=== PATIENT | female | born 1970 | race Caucasian/White ===

== ENCOUNTER 2022-02-07 08:13 | Outpatient (CLI) | payer OTHER, SELFPAY ==
--- NOTE | 2022-02-07 08:00 | CRLHL7_ITS ---
For Patients: As a result of the Century Cures Act, medical imaging exams and procedure reports are released immediately into your electronic medical record. You may view this report before your referring provider. If you have questions, please contact your health care provider. Indication: F/U RECTAL CANCER Technique: Postcontrast CT chest, abdomen and pelvis. 147 cc Isovue 370 intravenous contrast. Please note that all CT scans at this facility use dose modulation, iterative reconstruction, and/or weight-based dosing when appropriate to reduce radiation dose to as low as reasonably achievable. Comparison: 08/16/2021 Findings: In the chest, bilateral thyroid nodules/cysts are again noted and unchanged. No pulmonary embolism or aortic dissection. No mediastinal, hilar or axillary adenopathy. No pleural or pericardial effusion. 3.0 cm hiatal hernia. 4-5 millimeter nodule in the right middle lobe is unchanged, 43. Mild mosaic attenuation of the pulmonary parenchyma representing mild small airway disease. No pulmonary edema or pneumothorax. No acute infiltrate. Stable benign sclerotic focus within right 4th rib. In the abdomen, there is no suspicious intrahepatic mass. The gallbladder is normal. Normal spleen. Pancreas is unremarkable. Normal adrenal glands. No hydronephrosis or solid renal mass. The ureters are normal. Vascular calcifications. No aneurysm. No retroperitoneal or mesenteric adenopathy. Interval take down of the previously noted left upper quadrant diverting ostomy. Abdominal wall hernia containing fat is unchanged measuring 3.9 cm. In the pelvis, the bladder is normal. Postop changes of distal colectomy. The uterus is normal. No bowel obstruction or free air. No free fluid or abscess. Normal appendix. No fracture. Impression: Stable 4-5 millimeter right middle lobe pulmonary nodule. Interval takedown of the previously noted diverting ostomy. No inflammatory changes or bowel obstruction. Stable postop changes of distal colonic resection. No suspicious adenopathy or hepatic lesion. Please note that all CT scans at this facility use dose modulation, iterative reconstruction, and/or weight-based dosing when appropriate to reduce radiation dose to as low as reasonably achievable. Dictated by Del Ortiz MD @ 02/07/2022 12:27:54 PM (Electronically Signed)
== END 2022-02-07 08:14 | disposition home or self-care (01) ==
LOC: CT 08:13
PROVIDERS: PCP Physician Assistant Medical; Visit Provider Internal Medicine Medical Oncology
DX: C20 Malignant neoplasm of rectum (principal); R91.8 Other nonspecific abnormal finding of lung field
CPT/HCPCS: 71260; 74177; Q9967

== ENCOUNTER 2022-05-01 09:45 | Outpatient (RCR) | payer OTHER, SELFPAY | END 2022-07-04 13:47 | disposition home or self-care (01) | PROVIDERS: PCP Physician Assistant Medical; Visit Provider Physician Assistant Medical | DX: R15.9 Full incontinence of feces (principal); Z51.89 Encounter for other specified aftercare | CPT/HCPCS: 97140; 97535 ==

== ENCOUNTER 2022-05-03 14:46 | Outpatient (CLI) | payer OTHER, SELFPAY ==
[2022-05-03 21:38] LABS: Albumin* 4.1 g/dL (3.3-5.0); Chloride* 107 mmol/L (96-114); Sodium* 140 mmol/L (135-149)
[2022-05-03 21:39] LABS: Potassium* 4.1 mmol/L (3.6-5.1)
[2022-05-03 21:41] LABS: Alkaline Phosphatase* 88 U/L (40-150); Aspartate Amino Transferase* 20 U/L (12-35); Bilirubin Total* 0.7 mg/dL (0.1-1.5); Blood Urea Nitrogen* 9 mg/dL (7-30); Carbon Dioxide* 27 mmol/L (20-32); Creatinine* 0.9 mg/dL (0.5-1.5); Estimated Glomerular Filt Rate 76 ml/min; Lipase* 28 U/L (23-300); Total Protein* 7.1 g/dL (6.0-8.3)
[2022-05-03 21:42] LABS: Alanine Aminotransferase* 15 U/L (4-35); Glucose* 164 mg/dL (60-115)
[2022-05-03 21:44] LABS: C Reactive Protein* 0.8 mg/dL (0.5-1.0)
== END 2022-05-03 14:47 | disposition home or self-care (01) ==
PROVIDERS: PCP Physician Assistant Medical; Visit Provider Physician Assistant Medical
DX: R15.9 Full incontinence of feces (principal)
CPT/HCPCS: 80053; 83516; 83690; 86140

== ENCOUNTER 2022-07-11 09:02 | Outpatient (CLI) | payer OTHER, SELFPAY ==
--- NOTE | 2022-07-11 | CRLHL7_ITS ---
For Patients: As a result of the Century Cures Act, medical imaging exams and procedure reports are released immediately into your electronic medical record. You may view this report before your referring provider. If you have questions, please contact your health care provider. Indication: MALIGNANT NEOPLASM OF RECTUM Technique: Postcontrast CT chest, abdomen and pelvis. 149 cc Isovue 370 intravenous contrast. Please note that all CT scans at this facility use dose modulation, iterative reconstruction, and/or weight-based dosing when appropriate to reduce radiation dose to as low as reasonably achievable. Comparison: 02/07/2022 Findings: In the chest, stable 4.5 millimeter nodule within the right middle lobe, 3/49. No additional pulmonary nodule. No infiltrate or edema. No effusion or pneumothorax. Stable appearance of the visualized thyroid with small hypodense nodules. No enlarged mediastinal, hilar or axillary lymph nodes. No fracture is present. Atherosclerotic changes are present in the aorta. There is no fracture. In the abdomen, no intrahepatic lesion is present. No stigmata of cirrhosis. Fatty liver noted. Gallbladder unremarkable. No biliary obstruction or calcified stones. The pancreas is normal. Normal spleen. Normal adrenal glands and kidneys. No aortic aneurysm. Subcentimeter retroperitoneal lymph nodes are similar. Anterior abdominal wall hernia containing fat is unchanged. Postoperative changes to the left side of the abdomen. Small hiatal hernia. Normal duodenum and jejunum. In the pelvis, no postop fluid collection or abscess. No free air or free fluid. Normal ovaries and uterus. Bladder appears similar with developing diverticula. Postop changes of low anterior distal colonic resection with intact anastomosis. No bowel obstruction. The appendix is normal. No suspicious osseous lesion. Impression: Postoperative changes of distal colonic resection and take down of left lower quadrant ostomy. No bowel obstruction or inflammatory change. No postop fluid collection. Stable incidental anterior abdominal wall hernia containing fat. Bold stable 4.5 millimeter nodule within the right middle lobe. Stable subcentimeter retroperitoneal lymph nodes. Please note that all CT scans at this facility use dose modulation, iterative reconstruction, and/or weight-based dosing when appropriate to reduce radiation dose to as low as reasonably achievable. Dictated by Del Ortiz MD @ 07/11/2022 12:36:56 PM (Electronically Signed)
== END 2022-07-11 09:03 | disposition home or self-care (01) ==
LOC: CT 09:02
PROVIDERS: PCP Physician Assistant Medical; Visit Provider Clinical Nurse Specialist
DX: C20 Malignant neoplasm of rectum (principal); C77.9 Secondary and unspecified malignant neoplasm of lymph node, unspecified; R59.0 Localized enlarged lymph nodes; R91.1 Solitary pulmonary nodule
CPT/HCPCS: 71260; 74177; Q9967

== ENCOUNTER 2022-07-31 08:30 | Outpatient (RCR) | payer OTHER, SELFPAY ==
--- NOTE | 2022-07-04 12:03 | ONC.NURNOTE ---
02/09/22 provider visit faxed to [facility]. next providers visit 07/31/22. They are aware.
[2022-07-11 09:53] LABS: Basophils Absolute Auto 0.03 K/uL (0.00-0.30); Basophils Percent Auto 0.5 % (0.0-3.0); Eosinophils Absolute Auto 0.14 K/uL (0.00-0.50); Eosinophils Percent Auto 2.5 % (0.0-7.0); Hematocrit 40.6 % (33.0-51.0); Hemoglobin* 13.3 gm/dL (12.0-16.0); Immature Granulocytes Abs Auto 0.02 K/uL (0.00-0.30); Immature Granulocytes Pct Auto 0.4 %; Lymphocytes Percent Auto 17.8 % (20-44); Mean Corpuscular HGB Conc 33 gm/dL (32-36); Mean Corpuscular Hemoglobin 30 pg (26-34); Mean Corpuscular Volume 93 fL (80-100); Monocytes Percent Auto 6.7 % (0.0-11.0); Neutrophils Percent Auto 72.1 % (42.0-72.0); Platelet Count* 149 K/uL (140-440); RDW Coefficient of Variation % 13.6 % (11.5-15.5); Red Blood Count 4.39 m/uL (4.00-5.20); White Blood Count* 5.51 K/uL (4.50-11.00)
[2022-07-11 09:56] LABS: Slide Review Reflex No
[2022-07-11 10:06] LABS: Chloride* 109 mmol/L (96-114); Potassium* 4.2 mmol/L (3.6-5.1); Sodium* 140 mmol/L (135-149)
[2022-07-11 10:09] LABS: Alanine Aminotransferase* 16 U/L (4-35); Alkaline Phosphatase* 78 U/L (40-150); Aspartate Amino Transferase* 21 U/L (12-35); Bilirubin Total* 0.6 mg/dL (0.1-1.5); Blood Urea Nitrogen* 12 mg/dL (7-30); Carbon Dioxide* 25 mmol/L (20-32); Creatinine* 0.8 mg/dL (0.5-1.5); Estimated Glomerular Filt Rate 88 ml/min; Glucose* 106 mg/dL (60-115); Total Protein* 7.2 g/dL (6.0-8.3)
[2022-07-11 10:10] LABS: Calcium* 8.6 mg/dL (8.4-10.6)
== END 2022-08-08 23:59 | disposition home or self-care (01) ==
LOC: CCIC 08:30
PROVIDERS: Nurse Practitioner Family; PCP Physician Assistant Medical; Referring Provider Physician Assistant Medical; Visit Provider Physician Assistant
DX: C20 Malignant neoplasm of rectum (principal); R15.9 Full incontinence of feces
CPT/HCPCS: 36415; 36592; 80053; 82378; 84443; 85025; 99212; 99214; 99215

== ENCOUNTER 2022-08-09 16:21 | Outpatient (CLI) | payer OTHER, SELFPAY | END 2022-08-09 16:22 | disposition home or self-care (01) | LOC: NFLDREF 08-11 14:31 | PROVIDERS: PCP Physician Assistant Medical; Referring Provider Physician Assistant Medical; Visit Provider Physician Assistant Medical | DX: C20 Malignant neoplasm of rectum (principal); C77.9 Secondary and unspecified malignant neoplasm of lymph node, unspecified | CPT/HCPCS: 80053; 82378 ==

== ENCOUNTER 2022-08-21 12:11 | Outpatient (CLI) | payer OTHER, SELFPAY ==
--- NOTE | 2022-08-21 12:40 | W.ANESCHARGE ---
Anesthesia Charges Start Date/Time Anesthesia Start Date: 08/21/22 Anesthesia Start Time: 12:53 Stop Date/Time Anesthesia Stop Date: 08/21/22 Anesthesia Stop Time: 13:56
--- NOTE | 2022-08-21 14:01 | W.ANESCHARGE ---
Anesthesia Charges Start Date/Time Anesthesia Start Date: 08/21/22 Anesthesia Start Time: 12:53 Stop Date/Time Anesthesia Stop Date: 08/21/22 Anesthesia Stop Time: 13:56
== END 2022-08-21 12:12 | disposition home or self-care (01) ==
LOC: OP CLINIC 12:12
PROVIDERS: PCP Physician Assistant Medical; Visit Provider Surgery
DX: Z12.11 Encounter for screening for malignant neoplasm of colon (principal); K63.5 Polyp of colon; K62.89 Other specified diseases of anus and rectum; Z85.048 Personal history of other malignant neoplasm of rectum, rectosigmoid junction, and anus; Z98.0 Intestinal bypass and anastomosis status; Z13.810 Encounter for screening for upper gastrointestinal disorder
CPT/HCPCS: 43235; 45381; 45385; 813; 88305; J2704

== ENCOUNTER 2022-08-22 06:11 | Day surgery (SDC) | payer OTHER, SELFPAY ==
[2022-08-22] VITALS (20 sets, daily range): BP systolic 90–177; BP diastolic 41–91; PULSE 59–94; RESP 16–20; TEMP 35.6–37.2; O2SAT 86–96; BMI 54.5
[2022-08-22] MEDS: LACTATED RINGERS 1000 ML 1,000 ML 100 ML IV ×5 (06:25→18:51)
[2022-08-22] MEDS: SODIUM CHLORIDE 0.9 % (FLUSH) 10 ML SYRINGE IVF (07:18)
--- NOTE | 2022-08-22 07:19 | W.ANESCHARGE ---
Anesthesia Charges Start Date/Time Anesthesia Start Date: 08/22/22 Anesthesia Start Time: 07:32 Stop Date/Time Anesthesia Stop Date: 08/22/22 Anesthesia Stop Time: 11:30
[2022-08-22] MEDS: ERTAPENEM 1 GM inj IVPB (07:40)
--- NOTE | 2022-08-22 08:07 | W.PM.NB ---
Nerve Block Nerve Block Time Seen by Provider: 07:40 Date Seen: 08/22/22 Type of block requested by surgeon for post-operative analgesia: TAP Side: bilateral Time out performed: Yes Verification of patient name: Yes Verification of date of : Yes Site marking: site marked Name of person performing procedure: Babak Continuous monitoring Was continuous monitoring of O2 sat, B/P, quality assurance monitor, recorded every 15 minutes?: Yes Procedure Checklist: sterile prep, needles and gloves Ultrasound guided. Images saved: Yes Medications given in 5ml increments after negative aspiration: Marcaine %: 0.25 mL: 30 Needle gauge: 20 and Exparel mL: 10 Patient tolerated procedure well: Yes Additional comments: Needle noted adjacent to nerve Block Charges Block Charge (with Pro Fee): TAP Bilateral Use of Ultrasound Machine for Block: Yes- US Guidance/pain block
[2022-08-22] MEDS: BUPIVACAINE 0.25% 30 ML INJECTION (11:22)
--- NOTE | 2022-08-22 11:28 | PM.GSPRC ---
Operative Note Date of procedure: 08/22/22 Pre-op diagnosis: 1. History of rectal cancer s/p neoadjuvant chemotherapy and radiation and LAR. 2. Stool incontinence. 3. Severe obesity with BMI of 54. Post-op diagnosis: same Type of Procedure: 1. Laparoscopic creation of transverse colostomy and mucous fistula. Indications: This patient was seen in clinic by Dr. Padron. Please see her note for more details. Procedure Description: After discussing the risks and benefits of the procedure, the patient signed informed consent.? The operative site was marked and the patient was brought to the operating room and placed on the operating table in supine position.? Care was taken to pad the patient's pressure points.?? The patient was then intubated by anesthesia.? Gr[place]on catheter was placed under sterile conditions. The operative site was then prepped and draped in the usual sterile fashion.? A time-out was then performed. Dr. Padron entered the abdomen with Visiport in the left upper quadrant. We then placed additional 3 5 mm ports in the lower abdomen below the umbilicus. Omental adhesions were noted at the umbilicus and those were taken down with Harmonic scalpel. Omental adhesions were also noted in the left upper quadrant just inferior to the left upper quadrant port. Those were taken down with the Harmonic scalpel. During this part of the surgery I assisted Dr. Padron with visualization. The mid transverse colon was then identified and gastrocolic ligament was incised with Harmonic scalpel. This dissection was carried towards the splenic flexure and toward the hepatic flexure minimal dissection was done posterior to the stomach where the colonic mesentery was adherent to the stomach wall. This was done with Harmonic scalpel as well. The omentum was mobilized off the of transverse colon in the mid transverse colon with Harmonic scalpel. During this dissection I assisted Dr. Padron with retraction and visualization. The dissected segment of transverse colon was then retracted towards the abdominal wall and a small window was made in the colonic mesentery near the colonic wall. A Agus drain was placed into the abdomen and threaded through this window. The [place] drain was then grasped with a grasper. We then proceeded with creating a colostomy incision. Previously taking down omental adhesions were near the old colostomy site. We elected to create our colostomy opening through the same incision in the left upper quadrant. An elliptical skin incision was made in the left upper quadrant with cautery. The skin and subcutaneous fat were dissected in a cylinder like fashion down to the anterior fascia. Scar was noted overlying the anterior fascia. The fascia was then incised and abdomen was entered with cautery. The fascial opening was large enough to fit 2 fingers freely. The [place] drain positioned around the transverse colon was then pulled up and exteriorized. The distal and proximal colon was pulled up through the incision. Given the thickness of the abdominal wall, it was difficult to exteriorize the colon. During this part of the surgery I assisted Dr. Padron with visualization and retraction. The Agus drain was then removed because it was slightly more distal than our proposed colostomy incision. The colon serosa was anchored to the anterior fascia with Vicryl sutures. The colon lumen was then divided with cautery. The mucous fistula was laterally and the proximal end of the colon was medially. The mucous fistula opening was then closed with interrupted nylon sutures. The lateral wall of the Mucous fistula (distal end of the colon) was then sutured to the lateral skin edge of the colostomy incision. The proximal end of the colon had more redundancy medially. This medial edge was then brooked and sutured to the skin dermis. The lateral edge of the colostomy and the medial edge of the mucous fistula were sutured together with Vicryl sutures. Both openings were intubated with a finger and the fascial opening was not tight. The mucosal edges of the mucous fistula and colostomy were then additionally sutured to the skin dermis. During this part of creating a mucous fistula and colostomy I assisted with visualization and retraction. At this time all previously placed towels were removed and surgical gloves were changed to new gloves. The abdomen was insufflated with carbon dioxide again. The camera was advanced into the abdomen and newly created colostomy was visualized. The colonic segment was positioned appropriately without twisting of the mesentery. No bleeding was identified. All laparoscopic ports were then removed and abdomen was deflated. The skin incisions were closed with Monocryl stitch. ? Sterile dressings were then applied. ? The patient was then woken and transported to the recovery area in stable condition. ? The patient tolerated the procedure well. Anesthesia: GETA Surgeon: Melania Padron MD Co-Surgeon: Kaylene Oliva MD Estimated blood loss (mL): 20 Condition: stable Disposition: PACU
--- NOTE | 2022-08-22 11:39 | W.ANESCHARGE ---
Anesthesia Charges Start Date/Time Anesthesia Start Date: 08/22/22 Anesthesia Start Time: 07:32 Stop Date/Time Anesthesia Stop Date: 08/22/22 Anesthesia Stop Time: 11:30
--- NOTE | 2022-08-22 11:43 | PM.GSPRC ---
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 She has been followed in clinic by myself and colorectal surgery for rectal incontinence. Despite conservative measures, she has had no improvement in control of her fecal incontinence. Different treatment options were reviewed with the patient, including doing nothing versus surgical intervention. After a thorough discussion the patient has decided to proceed with a permanent ostomy. Risks and benefits of operative intervention were discussed at length with the patient. Risks included but was not limited to: Bleeding, infection, risk of damage to surrounding structures, possible need for additional procedures, possible need to convert to an open operation and postoperative complications such as pneumonia, pulmonary emboli or RI. All questions and concerns were addressed with the patient agreeing to proceed. Procedure Description: After discussing the risks and benefits of the procedure, the patient signed informed consent.? The operative site was marked and the patient was brought to the operating room and placed on the operating table in supine position.? Care was taken to pad the patient's pressure points.?? The patient was then intubated by anesthesia.?? A Grullon was placed in the operating room under sterile conditions. The operative site was then prepped and draped in the usual sterile fashion.? A time-out was then performed. A 5 mm Visiport was placed in left upper quadrant. The abdomen was entered under direct visualization and insufflated. After insufflation the abdomen was briefly surveyed, with no evidence of underlying injury. There were some adhesions present in the left upper quadrant. Three additional 5 mm ports were placed under direct visualization inferior to the umbilicus and within the right lower quadrant. An umbilical hernia was visualized with incarcerated omentum. This was partially reduced and ligated with the Harmonic. The adhesions in the left upper quadrant were taken down with the Harmonic device as well. During this portion of the procedure Dr. Oliva assisted with visualization and retraction. The underlying transverse colon was visualized. There was a significant amount of redundancy in colon at the hepatic flexure. The mesentery and overlying omentum was very fatty, making dissection during this portion of the exam difficult. Dr. Oliva assisted with retraction while I utilized the Harmonic device to transect the gastrocolic ligament and enter into the lesser sac. Dissection was carried towards the hepatic flexure and then the splenic flexure, to adequately mobilize the transverse colon. The overlying omentum was retracted back and transected off. Once the transverse colon was fully mobilized a window was made on the mesenteric border. A [place] drain was placed into the abdomen an looped through the mesenteric defect. The [place] drain was then grasped with a locking grasper and we removed all laparoscopic equipment to go to the ostomy creation portion of the procedure. There was a left upper quadrant incision on the anterior abdominal wall, where her previous ostomy had been. This location was directly under the mobilized transverse colon and the decision made to recreate the ostomy at this site. 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 Circumferentially the skin was cauterized and dissection carried down through the subcutaneous space. The overlying skin and subcutaneous fat was removed, and sent for disposal. The fascia was further cleared off. There was evidence of previous scar tissue where her ostomy had gone through previously. This was opened with cautery and the anterior fascia transected. The abdomen was entered and desufflated. The Agus drain with the locking grasper was seen, the grasper was removed and utilizing a [place] drain the transverse colon was slowly brought in to the operative field. There was no tension on the colon, however this portion of the procedure was difficult secondary to the heavy mesentery, surrounding fat of the colon and thick abdominal wall. The agus drain was then removed. Babcocks were used to pull up as much as we could of the transverse vcolon to pull up on our ostomy. Care was taken not to twist the mesentery or alter the orientation of the bowel. The bowel was then attached to the anterior fascia at 3 points on the proximal and distal limb. A point of transection was identified and the bowel was completely transected. The mucous fistula was oriented laterally. There was more redundancy on the medial, proximal limb which we used to create the end ostomy. The distal limb of the bowel was then partially closed with 3-0 silk pop-off sutures. The opening was then secured flush to the skin with interrupted 3 0 Vicryl stitches. The medial wall the mucous fistula was secured to the proximal limb of the bowel. The proximal limb was then brooked in place, to allow for eversion, at 3 points. The stoma was then secured to the dermal edge with interrupted 3 0 Vicryl stitches. After this stoma was created all dirty equipment was off of the operative field. The laparoscopic equipment was brought back into the operative field and the abdomen insufflated under reduced pressure of 10 mmHg. The transverse colon was visualized going up to the stoma. There was no twisting of the bowel or mesentery identified. Hemostasis was excellent at the end of the procedure. All ports were then removed under direct visualization. The port sites were closed with 4-0 Monocryl and Dermabond. A stoma appliance was applied to the ostomy in the left upper quadrant. ? The patient was then woken and transported to the recovery area in stable condition. ? The patient tolerated the procedure well. Findings: Normal transverse colon, mobilization with creation of end colostomy a mucous fistula Anesthesia: GETA Surgeon: Melania Padron MD Co-Surgeon: Jena Oliva MD Estimated blood loss (mL): 20 Condition: stable Disposition: floor
[2022-08-22] MEDS: NICOTINE 21 MG PATCH 1 PATCH TRANSDERMA (16:12)
--- NOTE | 2022-08-22 16:31 | PC.NURSE ---
PATIENT USING CPAP WHEN SLEEPING WITH 3L O2 BLED IN WHICH PATIENT REPORTS IS WHAT SHE USES AT HOME. PATIENT USING INCENTIVE SPIROMETER TO 1250. LAP SITES x4 GLUED AND ROSENDO. COLOSTOMY TO LEFT UPPER ABDOMEN INTACT AND DRAINING CLEAR BLOODY FLUID INTO POUCH. LS CLEAR. UP WITH SBA TO BATHROOM AND TOLERATING ACTIVITY WELL. NICOTINE PATCH ORDER OBTAINED.
[2022-08-22] MEDS: ACETAMINOPHEN 325 MG TABLET 650 MG PO (16:35)
--- NOTE | 2022-08-22 23:33 | PC.NURSE ---
Nursing Care Hours: [id number] Pt this shift calm and cooperative with cares. Independent in room. IV running, asymptomatic. Advanced diet to regular food, tolerating well. Passing gas. Ostomy output bright red, emptied x1. CPAP use at rest, 2-3L leaking in. Pain reported 4/10, treated per eMAR. Decreased to 2/10. Walked the ferrara x2.
[2022-08-23 03:00] VITALS: BP 128/46; PULSE 79; RESP 18; TEMP 36.1; O2SAT 93
[2022-08-23] MEDS: LACTATED RINGERS 1000 ML 1,000 ML 100 ML IV (04:48)
--- NOTE | 2022-08-23 07:29 | PC.NURSE ---
END OF SHIFT NOTE: PT PLEASANT AND COOPERATIVE. PT DENIES CP, SOB, N/V. AMBULATES INDEPENDENTLY WITHIN ROOM. VSS ON RA; AFEBRILE. PT WEARS CPAP DURING HS WITH 3L BLED INTO CPAP. PT STATES THIS IS WHAT SHE USES AT HOME WELL. PT SPO2 92-93%. 4 LAP SITES PRESENT AND CDI. OSTOMY WITH SEROSANGUINEOUS OUTPUT. LR RUNNING AT 100ML/HR TO PT RIGHT HAND. CALL LIGHT WITHIN PT?S REACH.?
[2022-08-23 08:00] VITALS: BP 160/78; PULSE 68; RESP 18; TEMP 36.4; O2SAT 96
[2022-08-23] MEDS: ACETAMINOPHEN 325 MG TABLET 650 MG PO (08:43)
--- NOTE | 2022-08-23 11:48 | NUTR.NU ---
RDN attempted to visit with patient regarding diet for new colostomy, however patient was not available on all 3 attempts. Patient to discharge today.
[2022-08-23 11:52] VITALS: BP 160/78; PULSE 68; RESP 18; TEMP 36.4
--- NOTE | 2022-08-23 12:02 | PC.NURSE ---
D/C: IND in room. Rated pain 3/10. PRN Tylenol was given with relief. Dr. Padron in for stoma assessment, care, and colostomy dressing change. This is the pt's second colostomy and feeling comfortable with it. Nicotine patch was removed by patient. IV removed with tip intact. D/c instructions were given verbally and on paper to patient and . All questions answered. Discharged home with at 1118. Follow-up apts are in wound healing center.
--- NOTE | 2022-08-23 12:35 | PM.DS1 ---
DS: Providers Provider Date Seen: 08/23/22 Primary care physician: Trudi Jimenez PA-C Attending Physician on discharge: Melania Padron MD DS: Summary Hospital Course Hospital Course: Patient was admitted to the hospital for observation after undergoing a laparoscopic end colostomy and mucous fistula creation. She did well overnight. Pain was controlled with no need for narcotic pain medicine. She tolerated food without difficulty. She has started to pass some gas through her ostomy. She brought with her supplies that she had at home and she is very comfortable with her ostomy cares. At the time of discharge patient was ambulating without difficulty and independently, voiding, passing gas her ostomy site, pain was well controlled and she was tolerating a regular diet. She is scheduled to follow-up at the ostomy clinic on Sunday08/25/2022. I will also see the patient in clinic next week Sunday. Time Spent with Patient Time attestation: Total time spent providing and/or coordinating discharge services: Exam Narrative: Exam Narrative: General: Alert and oriented, no acute distress Respiratory: Equal breath rise bilaterally, maintained on room air CV: Regular rhythm rate, well perfused Abdomen: Obese abdomen, laparoscopic incisions with Dermabond clean/dry/intact. Left upper quadrant stoma, edematous mucosa, which appears viable. The mucosa is very friable with a moderate amount of bleeding. Bleeding was controlled with pressure and Ryan. Both stoma and mucous fistula were patent and able to easily pass a finger. Const: Vital Signs, click to edit/add: Vital Signs - 24 hr 08/22/22 13:15 08/22/22 13:45 08/22/22 12:45 Temperature 97 F L 97 F L Pulse Rate Pulse Rate [Pulse Oximeter] 73 83 59 L Respiratory Rate 20 20 20 Blood Pressure Blood Pressure [Le ft Arm] 169/76 H 163/78 H 166/73 H Pulse Oximetry 95 93 94 Oxygen Delivery Me thod CPAP Nasal Cannula CPAP Oxygen Flow Rate 3 2 3 08/22/22 13:00 08/22/22 14:00 08/22/22 15:00 Temperature Pulse Rate Pulse Rate [Pulse Oximeter] 65 91 87 Respiratory Rate 20 20 20 Blood Pressure Blood Pressure [Le ft Arm] 172/79 H 160/80 H 167/79 H Pulse Oximetry 94 95 94 Oxygen Delivery Me thod CPAP Nasal Cannula Nasal Cannula Oxygen Flow Rate 3 2 2 08/22/22 15:00 08/22/22 16:00 08/22/22 19:00 Temperature Pulse Rate Pulse Rate [Pulse Oximeter] 85 63 94 Respiratory Rate 18 18 20 Blood Pressure Blood Pressure [Le ft Arm] 170/78 H 177/91 H Pulse Oximetry 94 94 Oxygen Delivery Me thod Nasal Cannula Room Air Oxygen Flow Rate 2 08/22/22 23:00 08/22/22 23:00 08/23/22 03:00 Temperature 97.2 F L 97.0 F L Pulse Rate Pulse Rate [Pulse Oximeter] 76 92 79 Respiratory Rate 20 20 18 Blood Pressure Blood Pressure [Le ft Arm] 140/65 H 128/46 L Pulse Oximetry 92 93 Oxygen Delivery Me thod Room Air CPAP Room Air CPAP Oxygen Flow Rate 2 2 08/23/22 08:00 08/23/22 11:52 Temperature 97.6 F 97.6 F Pulse Rate 68 Pulse Rate [Pulse Oximeter] 68 Respiratory Rate 18 18 Blood Pressure 160/78 H Blood Pressure [Le ft Arm] 160/78 H Pulse Oximetry 96 Oxygen Delivery Me thod Room Air Oxygen Flow Rate Discharge Plan Discharge Disposition: Home, Self-Care Discharging Surgeon: Melania Padron Follow-Up Appointment: Please schedule a follow up at [facility] on 08/30/22 Prescriptions: New senna 8.6 mg capsule 8.6 mg PO DAILY PRN (Reason: constipation) Qty: 90 0RF Continued ibuprofen 200 mg capsule 600 mg PO .Q6h Prn PRN albuterol sulfate 90 mcg/actuation aerosol powdr breath activated 2 inh inhalation Q6H PRN mupirocin 2 % ointment 1 applic topical TID Ibuprofen/Tylenol PO PRN olmesartan 20 mg tablet 20 mg PO QDAY Qty: 90 0RF Rx Instructions: once daily for blood pressure Discontinued loperamide 2 mg capsule 2 mg PO Q6H PRN diphenoxylate-atropine [Lomotil] 2.5-0.025 mg tablet 1 tab PO QID PRN (Reason: diarrhea) Qty: 90 3RF No Action (DME) [place] [employer] Comf Protect XL Misc See Rx Instructions .Route Qty: 10 12RF Rx Instructions: As directed Activity Level: Activity as Tolerated and No strenuous activity Activity Detail: No strenuous activity or heavy lifting for 4 weeks following surgery. Discharge Diet: Regular Diet Detail: Please take stool softeners after your hospital stay. Constipation is common following surgery and the use of pain medications. Stop if having >2 stools or loose stools. Patient Instructions: Senna (By mouth), Colostomy Care (DC), Surgical Site Infections (DC) Forms: Work/School Release Follow-up: Melania Padron MD [Staff Physician] - 08/30/22 2:45 pm ([facility]) Trudi Jimenez PA-C [Primary Care Provider] - Pao Jacobson CNP [Nurse Practitioner] - 08/25/22 1:45 pm (Appointment is at the [facility] ) Discharge Orders: Discharge Order (Routine); Ordered 08/23/22 Ordered By: Melania Padron
== END 2022-08-23 11:18 | disposition home or self-care (01) ==
LOC: SS 12:57 → MEDSURG 12:59
PROVIDERS: PCP Physician Assistant Medical; Visit Provider Surgery
PROC: 0DTE0ZZ Resection of Large Intestine, Open Approach (ICD-10-PCS; CPT 44188; principal; 2022-08-22 07:30)
DX: R15.9 Full incontinence of feces (principal); Z85.048 Personal history of other malignant neoplasm of rectum, rectosigmoid junction, and anus; E66.01 Morbid (severe) obesity due to excess calories; Z68.43 Body mass index [BMI] 50.0-59.9, adult
CPT/HCPCS: 44188; 00840; 76942; 94664; A9270; C9290; J1100; J1170; J1335; J2250; J2370; J2405; J2704; J2710; J3010; J3490; J7120; S4990

== ENCOUNTER 2022-08-25 14:07 | Outpatient (CLI) | payer OTHER, SELFPAY | END 2022-08-25 14:08 | disposition home or self-care (01) | LOC: WOUND 14:07 | PROVIDERS: PCP Physician Assistant Medical; Visit Provider Nurse Practitioner Family | DX: Z43.3 Encounter for attention to colostomy (principal); R73.03 Prediabetes; E66.01 Morbid (severe) obesity due to excess calories; Z68.43 Body mass index [BMI] 50.0-59.9, adult | CPT/HCPCS: 99213 ==

== ENCOUNTER 2022-08-31 11:37 | Outpatient (CLI) | payer OTHER, SELFPAY | END 2022-08-31 11:38 | disposition home or self-care (01) | LOC: WOUND 11:37 | PROVIDERS: PCP Physician Assistant Medical; Visit Provider Nurse Practitioner Family | DX: Z43.3 Encounter for attention to colostomy (principal); R73.03 Prediabetes | CPT/HCPCS: 99213 ==

== ENCOUNTER 2022-09-08 13:34 | Outpatient (CLI) | payer OTHER, SELFPAY | END 2022-09-08 13:35 | disposition home or self-care (01) | LOC: WOUND 13:34 | PROVIDERS: PCP Physician Assistant Medical; Visit Provider Nurse Practitioner Family | DX: Z43.3 Encounter for attention to colostomy (principal); R73.03 Prediabetes; E66.01 Morbid (severe) obesity due to excess calories; Z68.43 Body mass index [BMI] 50.0-59.9, adult | CPT/HCPCS: 99213 ==

== ENCOUNTER 2022-09-15 12:30 | Outpatient (CLI) | payer OTHER, SELFPAY | END 2022-09-15 12:31 | disposition home or self-care (01) | LOC: WOUND 12:30 | PROVIDERS: PCP Physician Assistant Medical; Visit Provider Nurse Practitioner Family | DX: Z43.3 Encounter for attention to colostomy (principal); R73.03 Prediabetes; E66.01 Morbid (severe) obesity due to excess calories; Z68.43 Body mass index [BMI] 50.0-59.9, adult | CPT/HCPCS: 99213 ==

== ENCOUNTER 2022-10-02 09:10 | Outpatient (CLI) | payer OTHER, SELFPAY | END 2022-10-02 09:11 | disposition home or self-care (01) | PROVIDERS: PCP Physician Assistant Medical; Visit Provider Nurse Practitioner Family | DX: Z43.3 Encounter for attention to colostomy (principal); R73.03 Prediabetes; E66.01 Morbid (severe) obesity due to excess calories; Z68.43 Body mass index [BMI] 50.0-59.9, adult | CPT/HCPCS: 99213 ==

== ENCOUNTER 2022-11-10 13:45 | Outpatient (CLI) | payer OTHER, SELFPAY | END 2022-11-10 13:46 | disposition home or self-care (01) | LOC: WOUND 13:45 | PROVIDERS: PCP Physician Assistant Medical; Visit Provider Nurse Practitioner Family | DX: Z43.3 Encounter for attention to colostomy (principal); R73.03 Prediabetes | CPT/HCPCS: 99213 ==

== ENCOUNTER 2022-12-01 12:58 | Outpatient (CLI) | payer OTHER, SELFPAY | END 2022-12-01 12:59 | disposition home or self-care (01) | LOC: WOUND 12:58 | PROVIDERS: PCP Physician Assistant Medical; Visit Provider Nurse Practitioner Family | DX: Z43.3 Encounter for attention to colostomy (principal); R73.03 Prediabetes | CPT/HCPCS: 99212; 99214 ==

== ENCOUNTER 2022-12-11 09:32 | Outpatient (CLI) | payer OTHER, SELFPAY ==
--- NOTE | 2022-12-11 10:00 | CRLHL7_ITS ---
For Patients: As a result of the Century Cures Act, medical imaging exams and procedure reports are released immediately into your electronic medical record. You may view this report before your referring provider. If you have questions, please contact your health care provider. INDICATION: Malignant neoplasm of rectum, follow-up. COMPARISON: 07/11/2022. TECHNIQUE: CT of the chest, abdomen, and pelvis with intravenous contrast. 150 cc of Isovue-370 administered intravenously. FINDINGS: Multiple thyroid nodules unchanged. Mild mosaic attenuation is seen diffusely, unchanged. A pulmonary nodule in the right middle lobe measures 5 mm on image 48 series 2, previously measured 4 mm. Potentially slightly larger, although this could also be due to differences in slice selection. No definite new pulmonary nodules. No central pulmonary artery embolism. No thoracic aortic aneurysm. Mild coronary artery calcifications. Diffuse hepatic steatosis. Small hiatal hernia. Portal and hepatic veins are patent. No abdominal aortic aneurysm. Parastomal hernia seen associated with a diverting colostomy. A fat containing right lower quadrant hernia is also seen. A large rim enhancing fatty structure in the omentum likely an omental infarct measures 6.4 x 3.1 cm, similar to previous. Post-resection changes seen within the rectum. Urinary bladder appears unremarkable. No obvious abnormality in the uterus or bilateral adnexa. The bones are stable. IMPRESSION: 1. A new large bowel diverting stoma is seen in the left upper quadrant with a diverting loop of colon. 2. Small fat herniation associated with this. 3. Fat containing right lower quadrant hernia is unchanged. 4. New rim enhancing fatty change in the anterior lower mid abdomen, likely an omental infarct. 5. No suspicious lymphadenopathy in the abdomen or pelvis. The resection from previous rectal surgery appears unchanged. 6. A right middle lobe pulmonary nodule measures 5 mm, compared to 4 mm. This potentially could be due to slice selection. Attention on follow-up imaging and correlate with CEA levels. 7. Multiple thyroid nodules are unchanged. 8. No suspicious adenopathy in the mediastinum, hilar regions, or axillary regions. Please note that all CT scans at this facility use dose modulation, iterative reconstruction, and/or weight-based dosing when appropriate to reduce radiation dose to as low as reasonably achievable. Dictated by Armando Malhotra MD @ 12/12/2022 8:57:18 PM (Electronically Signed)
== END 2022-12-11 09:33 | disposition home or self-care (01) ==
LOC: CT 09:32
PROVIDERS: PCP Physician Assistant Medical; Visit Provider Physician Assistant
DX: C20 Malignant neoplasm of rectum (principal); K46.9 Unspecified abdominal hernia without obstruction or gangrene; R91.1 Solitary pulmonary nodule; E04.1 Nontoxic single thyroid nodule
CPT/HCPCS: 71260; 74177; Q9967

== ENCOUNTER 2022-12-25 15:38 | Emergency (ER) | payer OTHER, SELFPAY ==
[2022-12-25 15:43] VITALS: BP 116/66; PULSE 72; RESP 18; TEMP 36.2; O2SAT 98; BMI 54.2
--- NOTE | 2022-12-25 15:44 | ED.GENADULT ---
HPI - General Adult General Time Seen by Provider: 15:44 Date Seen: 12/25/22 Chief complaint: Urogenital Problems, Female Stated complaint: Blood in urine, suspected kidney stone Time Seen by Provider: 12/25/22 15:42 Source: patient Mode of arrival: ambulatory Limitations: no limitations History of Present Illness HPI narrative: Page is a 52-year-old female past medical history includes rectal adenocarcinoma with initiation of ANDRES in October 2020 and had LAR completed 05/2021, status post radiation, s/p his ostomy, hypertension, obstructive sleep apnea obesity presents emergency department via private car with hematuria. Patient states she had an episode of blood in her urine yesterday with increased urinary frequency and ice area when she finishes urinating. Patient denies any back, flank or abdominal pain, she denies any nausea vomiting, fevers or chills. Patient used to have urinary tract infection when she was young, she never had any after her chemo or radiation. No history of any kidney stones. She had that 1 episode, today things are back to normal. No other concerns at this time. Related Data Home Medications Medication Instructions Recorded Confirmed ibuprofen 200 mg capsule 600 mg PO .Q6h Prn PRN 02/09/22 12/15/22 Ibuprofen/Tylenol PO PRN 05/03/22 12/15/22 mupirocin 2 % topical ointment 1 applic topical TID 05/03/22 12/15/22 Previous Rx's Medication Instructions Recorded diaper,brief,adult,disposable #10 ea 12/14/21 ([place] Choice Comfort Protect Adult Diaper X-Large) sennosides 8.6 mg capsule (senna) 8.6 mg PO DAILY PRN constipation 08/23/22 #90 caps olmesartan 20 1 tab PO QDAY #90 tabs 10/11/22 mg-hydrochlorothiazide 12.5 mg tablet metformin 500 mg tablet 500 mg PO BIDWMEAL #180 tabs 10/16/22 albuterol sulfate 90 mcg/actuation 2 puff inhalation Q4-6H PRN 12/21/22 aerosol inhaler shortness of breath or wheezing #8.5 grams cefdinir 300 mg capsule 300 mg PO BID 7 days #14 caps 12/25/22 phenazopyridine 100 mg tablet 100 mg PO TID #6 tabs 12/25/22 (Pyridium) Allergies Allergy/AdvReac Type Severity Reaction Status Date / Time amoxicillin Allergy Intermediate Abdominal Verified 12/25/22 15:47 pains sever and diarrhea azithromycin Allergy Mild Nausea Verified 12/25/22 15:47 Review of Systems Status of ROS: Reports: 10 or more systems reviewed and unremarkable except as noted in History and below [facility] Medical History Rectal sphincter incontinence ?R15.9 - Full incontinence of feces (ICD-10) Family history of celiac disease ?Z83.79 - Family history of other diseases of the digestive system (ICD-10) Obstructive sleep apnea on CPAP ?G47.33 - Obstructive sleep apnea (adult) (pediatric) (ICD-10) ?Z99.89 - Dependence on other enabling machines and devices (ICD-10) Pulmonary nodule ?R91.1 - Solitary pulmonary nodule (ICD-10) Premature of twins Prediabetes ?R73.03 - Prediabetes (ICD-10) Obstructive sleep apnea syndrome ?G47.33 - Obstructive sleep apnea (adult) (pediatric) (ICD-10) Hypertension ?I10 - Essential (primary) hypertension (ICD-10) Asthma ?J45.909 - Unspecified asthma, uncomplicated (ICD-10) Surgical History History of partial surgical removal of colon ?Z90.49 - Acquired absence of other specified parts of digestive tract (ICD-10) Status post colostomy ?Z93.3 - Colostomy status (ICD-10) History of section ?Z98.891 - History of uterine scar from previous surgery (ICD-10) Family History Mother Dementia Thyroid disease Maternal Grandmother Dementia Maternal Grandfather Heart disease Son Pituitary disease Father Stroke Social History Narrative: 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 Smoker- 1 pack a day Smoking Status: Current every day smoker How often do you have a drink containing alcohol: never AUDIT-C Alcohol total score: 0 Non-prescribed substance use: denies use Caffeine: Yes Exam Narrative: Exam Narrative: General: No obvious distress sitting comfortably, she is nontoxic in appearance HEENT: Pupils equal round reactive to light, extraocular muscles intact Oropharynx clear and moist Neck: Supple Lungs: Clear to auscultation bilaterally Heart: Normal sinus rhythm Abdomen: Obese, ostomy in place Nontender to palpation, soft, bowel sounds present Muscle skeletal: +5 strength upper lower extremity Neuro: Alert awake and oriented x3 Const: Vital Signs, click to edit/add: Vital Signs - 24 hr 12/25/22 15:43 12/25/22 17:32 Temperature 97.2 F L 97.2 F L Pulse Rate [Pulse Oximeter] 72 72 Respiratory Rate 18 18 Blood Pressure [Ri ght Upper Arm] 116/66 116/66 Pulse Oximetry 98 Oxygen Delivery Me thod Room Air Course Course Hospital Course: 3:45 PM: AIDET performed, workup will include urinalysis and urine culture, CBC, CMP, less likely urolithiasis based on physical exam and history, plan to rule UTI and treat if positive. Patient has no pain at this time. Differential diagnosis include but not limited to, bladder mass, urinary tract infection, pyelonephritis, urolithiasis, renal colic, as well as other etiologies. Reevaluation(s) Time of Reevaluation #1: 18:02 Reevaluation #1: CBC showed no leukocytosis, metabolic panel within normal limits, urinalysis was positive, 3+ blood, 1+ leukocyte esterase , 25-50 white blood cells, moderate bacteria, discuss treating at this time, will hold on further imaging, patient was in agreement she is doing so well, will treat with Omnicef 300 mg b.i.d. over the next 7 days, peridium 100 mg t.i.d. over the next 2 days for her symptomatic relief, urine culture was sent, will call with any changes will be needed for her antibiotics, she should follow up with primary care provider over the next 7-10 days. Return precautions given. Vital Signs Vital signs: Initial Vital Signs Temperature 97.2 F L 12/25/22 15:43 Temperature Source Temporal Artery Scan 12/25/22 15:43 Pulse Rate 72 12/25/22 15:43 Pulse Rhythm Regular 12/25/22 15:43 Respiratory Rate 18 12/25/22 15:43 Blood Pressure 116/66 12/25/22 15:43 Blood Pressure Mean 82 12/25/22 15:43 Blood Pressure Position Sitting 12/25/22 15:43 Pulse Oximetry 98 12/25/22 15:43 Oxygen Delivery Method Room Air 12/25/22 15:43 Vital Signs Temperature 97.2 F L 12/25/22 15:43 Pulse Rate 72 12/25/22 15:43 Respiratory Rate 18 12/25/22 15:43 Blood Pressure 116/66 12/25/22 15:43 Pulse Oximetry 98 12/25/22 15:43 Oxygen Delivery Method Room Air 12/25/22 15:43 Temperature 97.2 F L 12/25/22 17:32 Pulse Rate 72 12/25/22 17:32 Respiratory Rate 18 12/25/22 17:32 Blood Pressure 116/66 12/25/22 17:32 Pulse Oximetry 98 12/25/22 15:43 Oxygen Delivery Method Room Air 12/25/22 15:43 Medical Decision Making Lab Data Labs: Lab Results 12/25/22 12/25/22 Range/Units 15:55 16:06 WBC 5.58 (4.50-11.00) K/uL RBC 4.26 (4.00-5.20) m/uL Hgb 12.8 (12.0-16.0) gm/dL Hct 39.9 (33.0-51.0) % MCV 94 (80-100) fL MCH 30 (26-34) pg MCHC 32 (32-36) gm/dL RDW Coeff of Arjun 13.9 (11.5-15.5) % Plt Count 163 (140-440) K/uL Neut % (Auto) 73.4 H (42.0-72.0) % Lymph % (Auto) 16.5 L (20-44) % Hubbard % (Auto) 6.5 (0.0-11.0) % Eos % (Auto) 2.9 (0.0-7.0) % Baso % (Auto) 0.5 (0.0-3.0) % Neut # (Auto) 4.10 (1.7-7.0) K/uL Lymph # (Auto) 0.90 (0.90-2.90) K/uL Hubbard # (Auto) 0.40 (0.00-0.90) K/UL Eos # (Auto) 0.16 (0.00-0.50) K/uL Baso # (Auto) 0.03 (0.00-0.30) K/uL Abs Immat Gran (auto) 0.01 (0.00-0.30) K/uL Imm/Tot Granulo (auto) 0.2 % Sodium 138 (135-149) mmol/L Potassium 3.8 (3.6-5.1) mmol/L Chloride 101 (96-114) mmol/L Carbon Dioxide 29 (20-32) mmol/L BUN 17 (7-30) mg/dL Creatinine 1.0 (0.5-1.5) mg/dL Estimated Creat Clear 55.54 Estimated GFR 67 ml/min Glucose 112 (60-115) mg/dL Calcium 8.9 (8.4-10.6) mg/dL Total Bilirubin 0.6 (0.1-1.5) mg/dL AST 23 (12-35) U/L ALT 17 (4-35) U/L Alkaline Phosphatase 77 (40-150) U/L Total Protein 7.8 (6.0-8.3) g/dL Albumin 4.2 (3.3-5.0) g/dL Urine Color Yellow (Yellow) Urine Appearance Cloudy A (Clear) Urine pH 6.0 (5.0-8.5) Ur Specific [place] 1.025 (1.000-1.030) Urine Protein 2+ A (Negative) Urine Glucose (UA) Negative (Negative) Urine Ketones Negative (Negative) Urine Blood 3+ A (Negative) Urine Nitrite Negative (Negative) Urine Bilirubin Negative (Negative) Urine Urobilinogen 0.2 (0.2-1.0) Ur Leukocyte Esterase 1+ A (Negative) Urine RBC 50-100 A (0-2) Urine WBC 25-50 A (0-5) Ur Squamous Epith Cells Moderate A (None-Few) Urine Bacteria Moderate A (None) Discharge Plan Discharge Clinical Impression: Urinary tract infection, Hematuria Patient Disposition: Home, Self-Care Condition: Improved Instructions: Urinary Tract Infection in Women (ED), Hematuria (ED) Prescriptions: New cefdinir 300 mg capsule 300 mg PO BID 7 Days Qty: 14 0RF phenazopyridine [Pyridium] 100 mg tablet 100 mg PO TID Qty: 6 0RF No Action ibuprofen 200 mg capsule 600 mg PO .Q6h Prn PRN olmesartan-hydrochlorothiazide 20-12.5 mg tablet 1 tab PO QDAY Qty: 90 0RF Rx Instructions: New med once daily for blood pressure (DME) [place] Choice Comf Protect XL Misc See Rx Instructions .Route Qty: 10 12RF Rx Instructions: As directed mupirocin 2 % ointment 1 applic topical TID Ibuprofen/Tylenol PO PRN senna 8.6 mg capsule 8.6 mg PO DAILY PRN (Reason: constipation) Qty: 90 0RF metformin 500 mg tablet 500 mg PO BIDWMEAL Qty: 180 0RF Rx Instructions: Twice daily with meals for weight management and pre diabetes albuterol sulfate 90 mcg/actuation HFA aerosol inhaler 2 puff inhalation Q4-6H PRN (Reason: shortness of breath or wheezing) Qty: 8.5 3RF Follow Up/Referrals: Trudi Jimenez PA-C [Primary Care Provider] - Stand Alone Forms: [facility] Info Instructions
[2022-12-25 16:10] LABS: Appearance Urine Cloudy (Clear); Bilirubin Urine Negative (Negative); Blood Urine 3+ (Negative); Color Urine Yellow (Yellow); Glucose Urine Negative (Negative); Ketones Urine Negative (Negative); Leukocyte Esterase Urine 1+ (Negative); Nitrite Urine Negative (Negative); Protein Urine 2+ (Negative); Specific Gravity Urine 1.025 (1.000-1.030); Urobilinogen Urine 0.2 (0.2-1.0)
[2022-12-25 16:13] LABS: Basophils Absolute Auto 0.03 K/uL (0.00-0.30); Basophils Percent Auto 0.5 % (0.0-3.0); Eosinophils Absolute Auto 0.16 K/uL (0.00-0.50); Eosinophils Percent Auto 2.9 % (0.0-7.0); Hematocrit 39.9 % (33.0-51.0); Hemoglobin* 12.8 gm/dL (12.0-16.0); Immature Granulocytes Abs Auto 0.01 K/uL (0.00-0.30); Immature Granulocytes Pct Auto 0.2 %; Lymphocytes Percent Auto 16.5 % (20-44); Mean Corpuscular HGB Conc 32 gm/dL (32-36); Mean Corpuscular Hemoglobin 30 pg (26-34); Mean Corpuscular Volume 94 fL (80-100); Monocytes Percent Auto 6.5 % (0.0-11.0); Neutrophils Percent Auto 73.4 % (42.0-72.0); Platelet Count* 163 K/uL (140-440); RDW Coefficient of Variation % 13.9 % (11.5-15.5); Red Blood Count 4.26 m/uL (4.00-5.20); White Blood Count* 5.58 K/uL (4.50-11.00)
[2022-12-25 16:20] LABS: Slide Review Reflex No
[2022-12-25 16:31] LABS: Bacteria Urine Moderate; RBC Urine 50-100 (0-2); Squamous Epithelial Cell Urine Moderate (None-Few); WBC Urine 25-50 (0-5)
[2022-12-25 16:37] LABS: Albumin* 4.2 g/dL (3.3-5.0); Chloride* 101 mmol/L (96-114); Potassium* 3.8 mmol/L (3.6-5.1); Sodium* 138 mmol/L (135-149)
[2022-12-25 16:39] LABS: Bilirubin Total* 0.6 mg/dL (0.1-1.5); Est. Creatinine Clearance* 55.54; Estimated Glomerular Filt Rate 67 ml/min
[2022-12-25 16:40] LABS: Alanine Aminotransferase* 17 U/L (4-35); Alkaline Phosphatase* 77 U/L (40-150); Aspartate Amino Transferase* 23 U/L (12-35); Blood Urea Nitrogen* 17 mg/dL (7-30); Calcium* 8.9 mg/dL (8.4-10.6); Carbon Dioxide* 29 mmol/L (20-32); Glucose* 112 mg/dL (60-115); Total Protein* 7.8 g/dL (6.0-8.3)
[2022-12-25 17:32] VITALS: BP 116/66; PULSE 72; RESP 18; TEMP 36.2
== END 2022-12-25 17:33 | disposition home or self-care (01) ==
PROVIDERS: Emergency Provider Student in an Organized Health Care Education/Training Program; PCP Physician Assistant Medical
DX: N39.0 Urinary tract infection, site not specified (principal); R31.9 Hematuria, unspecified
CPT/HCPCS: 36415; 80053; 81003; 81015; 85025; 87086; 87186; 99283; 99284

== ENCOUNTER 2023-01-11 13:03 | Outpatient (CLI) | payer OTHER, SELFPAY | END 2023-01-11 13:04 | disposition home or self-care (01) | LOC: NFLDREF 01-12 08:12 | PROVIDERS: PCP Physician Assistant Medical; Referring Provider Physician Assistant Medical; Visit Provider Physician Assistant Medical | DX: R31.9 Hematuria, unspecified (principal); R73.03 Prediabetes; R53.83 Other fatigue | CPT/HCPCS: 80053; 82306; 87086; 87186 ==

== ENCOUNTER 2023-03-21 14:53 | Outpatient (CLI) | payer OTHER, SELFPAY ==
--- NOTE | 2023-03-21 15:00 | CRLHL7_ITS ---
For Patients: As a result of the Cures Act, medical imaging exams and procedure reports are released immediately into your electronic medical record. You may view this report before your referring provider. If you have questions, please contact your health care provider. BILATERAL SCREENING MAMMOGRAM WITH COMPUTER-AIDED DETECTION AND TOMOSYNTHESIS TECHNIQUE: CC and MLO views were obtained. These mammographic images have been obtained using full-field digital technique. These mammographic images were interpreted with the benefit of computer-aided detection. Breast tomosynthesis was used in this interpretation. COMPARISON FILM: None available; re-establish baseline. FINDINGS: The breasts are almost entirely fatty. IMPRESSION: There is no radiographic evidence for malignancy. ASSESSMENT: BI-RADS Category 1: Negative RECOMMENDATION: Routine screening mammogram in 1 year. A lay language report of this examination will be provided to the patient. JAY HORNE M.D. Diagnostic/Nuclear Medicine Radiologist [email or web address] Transcribed: 2:[address]/Dictated by: Jay Horne MD @ 03/23/2023 10:51:00 AM (Electronically Signed)
== END 2023-03-21 14:54 | disposition home or self-care (01) ==
LOC: MAMMO 14:55
PROVIDERS: PCP Physician Assistant Medical; Visit Provider Physician Assistant Medical
DX: Z12.31 Encounter for screening mammogram for malignant neoplasm of breast (principal)
CPT/HCPCS: 77063; 77067

== ENCOUNTER 2023-04-11 09:36 | Outpatient (CLI) | payer OTHER, SELFPAY ==
--- NOTE | 2023-04-11 10:00 | CRLHL7_ITS ---
For Patients: As a result of the Century Cures Act, medical imaging exams and procedure reports are released immediately into your electronic medical record. You may view this report before your referring provider. If you have questions, please contact your health care provider. INDICATION: Malignant neoplasm of rectum, follow-up evaluation. TECHNIQUE: Multiplanar CT images of the chest, abdomen and pelvis were acquired after the administration of 100 mL of Omnipaque 350 intravenous contrast. COMPARISON: CT chest abdomen pelvis 12/11/2022. FINDINGS: CHEST: Lower neck: Unchanged multinodular thyroid. Vascular: Thoracic aorta and main pulmonary artery are normal in caliber. No large central pulmonary embolus. Heart: Heart size is normal. Mediastinum: No mass or adenopathy. Lungs: 7 mm pulmonary nodule in the right middle lobe, previously 5 mm (2:47). New pulmonary nodule in the lateral right middle lobe measuring 4 mm (4:36). Mild mosaic attenuation pattern of opacification, nonspecific but can be seen with atypical infection, edema and/or air trapping. No focal consolidation. Linear bandlike opacifications of the lung bases likely due to subsegmental atelectasis and/or scarring. Pleura: No pleural effusions or pneumothorax. Chest wall and axilla: No mass or adenopathy. Bones: Thoracic degenerative changes. No acute osseous abnormalities. Mild osteopenia, limiting evaluation of fine nondisplaced fractures or lytic lesions. However, no definite suspicious lytic or blastic lesions.. ABDOMEN AND PELVIS: Liver: Diffuse hepatic steatosis. Gallbladder: Cholecystectomy. Biliary: No biliary ductal dilitation. Pancreas: Unremarkable. Spleen: Unremarkable. Adrenal glands: Unremarkable. Kidneys: Unremarkable. Ureters: Unremarkable. Bladder: Unremarkable. GI tract: Postsurgical changes from prior surgical resection of the rectum, the resection site appears grossly unchanged when compared to the prior. Redemonstrated parastomal hernia seen associated with a diverting colostomy. No bowel obstruction. Normal appendix. Vascular structures: Moderate atherosclerotic calcifications without focal aneurysm. Lymph nodes: No pathologic lymphadenopathy by size criteria. Prominent portacaval lymph nodes have decreased in conspicuity, measuring 9 mm on today`s examination (2:55), previously 12 mm. Peritoneum: There is increasing well-circumscribed centrally fatty density in the omentum measuring 6.8 by 2.5 cm (2:217), compatible with omental infarct. No free air or significant free fluid. Pelvic Organs: Unremarkable. Bones: Diffuse osteopenia limits evaluation. Degenerative changes of the lumbar spine. No acute osseous abnormalities. No suspicious lytic or blastic lesions identified.. Abdominal wall/soft tissues: Redemonstrated right lower quadrant fat containing hernia. Small fat containing hernia associated with the parastomal colostomy site. IMPRESSION: 1. Increased size of a right middle lobe nodule, now measuring 7 mm, previously 5 mm. Additionally, there is a new 4 mm right middle lobe. These findings raise concern for pulmonary metastatic disease. No intrathoracic lymphadenopathy. Attention on follow-up examination. PET-CT may be considered for further evaluation. 2. Postsurgical changes from a prior surgical resection of the rectum, grossly unchanged. No pathologic lymphadenopathy by size criteria in the abdomen or pelvis. 3. Otherwise, no acute intrathoracic or abdominopelvic pathology. Please note that all CT scans at this facility use dose modulation, iterative reconstruction, and/or weight-based dosing when appropriate to reduce radiation dose to as low as reasonably achievable. Dictated by Sudhir Sanchez MD @ 04/13/2023 12:20:46 PM (Electronically Signed)
== END 2023-04-11 09:37 | disposition home or self-care (01) ==
LOC: CT 09:37
PROVIDERS: PCP Physician Assistant Medical; Visit Provider Internal Medicine Hematology & Oncology
DX: C20 Malignant neoplasm of rectum (principal); R91.8 Other nonspecific abnormal finding of lung field
CPT/HCPCS: 71260; 74177; Q9967

== ENCOUNTER 2023-04-17 13:07 | Outpatient (RCR) | payer OTHER, SELFPAY ==
[2022-12-11 10:07] LABS: Basophils Percent Auto 0.2 % (0.0-3.0); Eosinophils Percent Auto 3.2 % (0.0-7.0); Hematocrit 38.1 % (33.0-51.0); Hemoglobin* 12.4 gm/dL (12.0-16.0); Immature Granulocytes Pct Auto 0.2 %; Lymphocytes Percent Auto 18.8 % (20-44); Mean Corpuscular HGB Conc 33 gm/dL (32-36); Mean Corpuscular Hemoglobin 30 pg (26-34); Mean Corpuscular Volume 93 fL (80-100); Monocytes Percent Auto 7.3 % (0.0-11.0); Neutrophils Percent Auto 70.3 % (42.0-72.0); Platelet Count* 158 K/uL (140-440); RDW Coefficient of Variation % 13.6 % (11.5-15.5); White Blood Count* 4.41 K/uL (4.50-11.00)
[2022-12-11 10:30] LABS: Chloride* 102 mmol/L (96-114)
[2022-12-11 10:31] LABS: Potassium* 3.9 mmol/L (3.6-5.1); Sodium* 136 mmol/L (135-149)
[2022-12-11 10:33] LABS: Alkaline Phosphatase* 71 U/L (40-150); Aspartate Amino Transferase* 22 U/L (12-35); Bilirubin Total* 0.8 mg/dL (0.1-1.5); Blood Urea Nitrogen* 19 mg/dL (7-30); Carbon Dioxide* 24 mmol/L (20-32); Estimated Glomerular Filt Rate 67 ml/min; Glucose* 106 mg/dL (60-115); Total Protein* 7.4 g/dL (6.0-8.3)
[2022-12-11 10:34] LABS: Alanine Aminotransferase* 18 U/L (4-35); Calcium* 9.1 mg/dL (8.4-10.6)
[2022-12-11 10:47] LABS: Slide Review Reflex No
[2022-12-16 01:05] LABS: Carcinoembryonic Antigen 6.9 ng/mL (<=3.8)
[2023-04-11 10:02] LABS: Basophils Absolute Auto 0.03 K/uL (0.00-0.30); Basophils Percent Auto 0.6 % (0.0-3.0); Eosinophils Absolute Auto 0.22 K/uL (0.00-0.50); Eosinophils Percent Auto 4.6 % (0.0-7.0); Hematocrit 37.1 % (33.0-51.0); Hemoglobin* 12.2 gm/dL (12.0-16.0); Immature Granulocytes Abs Auto 0.02 K/uL (0.00-0.30); Immature Granulocytes Pct Auto 0.4 %; Lymphocytes Percent Auto 19.3 % (20-44); Mean Corpuscular HGB Conc 33 gm/dL (32-36); Mean Corpuscular Hemoglobin 32 pg (26-34); Mean Corpuscular Volume 97 fL (80-100); Monocytes Percent Auto 6.2 % (0.0-11.0); Neutrophils Absolute Auto 3.32 K/uL (1.7-7.0); Neutrophils Percent Auto 68.9 % (42.0-72.0); Platelet Count* 164 K/uL (140-440); RDW Coefficient of Variation % 13.9 % (11.5-15.5); Red Blood Count 3.84 m/uL (4.00-5.20); White Blood Count* 4.82 K/uL (4.50-11.00)
[2023-04-11 10:12] LABS: Slide Review Reflex No
[2023-04-11 10:14] LABS: Chloride* 108 mmol/L (96-114)
[2023-04-11 10:15] LABS: Albumin* 4.1 g/dL (3.3-5.0); Potassium* 3.7 mmol/L (3.6-5.1); Sodium* 138 mmol/L (135-149)
[2023-04-11 10:17] LABS: Bilirubin Total* 0.4 mg/dL (0.1-1.5); Creatinine* 1.1 mg/dL (0.5-1.5); Estimated Glomerular Filt Rate 60 ml/min
[2023-04-11 10:18] LABS: Alanine Aminotransferase* 19 U/L (4-35); Alkaline Phosphatase* 62 U/L (40-150); Anion Gap 5 mEq/L (7-15); Aspartate Amino Transferase* 24 U/L (12-35); Blood Urea Nitrogen* 19 mg/dL (7-30); Carbon Dioxide* 25 mmol/L (20-32); Glucose* 139 mg/dL (60-115); Total Protein* 7.3 g/dL (6.0-8.3)
[2023-04-11 10:19] LABS: Calcium* 9.1 mg/dL (8.4-10.6)
[2023-04-13 03:35] LABS: Carcinoembryonic Antigen 6.6 ng/mL (<=3.8)
== END 2023-06-09 23:59 | disposition home or self-care (01) ==
LOC: CCIC 13:07
PROVIDERS: Physician Assistant; PCP Physician Assistant Medical; Referring Provider Physician Assistant Medical; Visit Provider Internal Medicine Hematology & Oncology
DX: C20 Malignant neoplasm of rectum (principal); R91.1 Solitary pulmonary nodule; Z72.0 Tobacco use; Z93.3 Colostomy status
CPT/HCPCS: 36415; 36592; 80053; 82378; 85025; 86301; 99212; 99213; 99214

== ENCOUNTER 2023-04-25 09:55 | Outpatient (CLI) | payer OTHER, SELFPAY | END 2023-04-25 09:56 | disposition home or self-care (01) | PROVIDERS: PCP Physician Assistant Medical; Visit Provider Physician Assistant Medical | DX: Z00.00 Encounter for general adult medical examination without abnormal findings (principal); R53.83 Other fatigue; R41.89 Other symptoms and signs involving cognitive functions and awareness; R73.03 Prediabetes; M79.604 Pain in right leg; M79.605 Pain in left leg; L84 Corns and callosities | CPT/HCPCS: 80061; 82306; 82607; 82746; 84425; 84443 ==

== ENCOUNTER 2023-06-18 13:27 | Outpatient (CLI) | payer OTHER, SELFPAY ==
--- OUTSIDE RECORDS SUMMARY | 2023-06-18 13:30 | XMS_ITS | Clinical Summary ---
Author Name Unknown Organization [email or web address] Address [place], [place] [address] Care Team Providers Care Assurance Services Manager Health Care Name Role Phone Lyndsay Huitron MD Primary Care Provider [phone] Medications Medication Sig Dispensed Refills Start Date End Date Status (u) ALBUTEROL AERS 90 MCG/ACT 1-2 puffs po q 4-6 hours prn 1 0 06/28/1999 Active (u) ALBUTEROL NEB SOLN 2.5MG PREMIXED USE Q4-6 HOURS PRN 1BOX 1 04/19/2000 Active Active Problems Problem Noted Date Diagnosed Date ASTHMA 04/19/2000 Family History Medical History Relation Name Comments Cancer-breast No Family History Social History Tobacco Use Types Packs/Day Years Used Date Smoking Tobacco: Never Assessed Cigarettes Sex and Gender Information Value Date Recorded Sex Assigned at Not on file Gender Identity Not on file Sexual Orientation Not on file Obstetrics History Last Filed Vital Signs Vital Sign Reading Time Taken Comments Blood Pressure 110/70 04/19/2000 12:00 AM PULLER MACHINE Pulse 118 04/19/2000 12:00 AM PULLER MACHINE Temperature 37.5 ??C (99.5 ??F) 04/19/2000 12:[address] Respiratory Rate 16 06/28/1999 12:00 AM PULLER MACHINE Oxygen Saturation - - Inhaled Oxygen Concentration - - Weight 129.7 kg (286 lb) 04/17/2000 12:00 AM PULLER MACHINE Height - - Body Mass Index - - Plan of Treatment Upcoming Encounters Date Type Department Care Team (Late st Contact Info) Description 06/18/2023 2:00 PM PULLER MACHINE Ancillary Procedure [facility] [address] [place] [address] Health Maintenance Due Date Last Done Comments COVID-19 vaccine series (#1) 01/07/1969 Tdap 1979 Depression screening for age 12+ 1980 HIV for age 15-65 1983 BMI (ht and wt on same day) for age 18+ 1986 Hepatitis C screening for ag e 18-79 1986 Tetanus booster 1988 Pap test for age 21-65 1989 Colonoscopy through age 75 2013 Lipids for age 45-75 2013 Mammogram for age 45-75 2013 05/16/2011 Zoster (shingles) series for age 50+ (1 of 2) 2018 Influenza for age 50-64 02/02/2023 Pneumococcal series for age 6-64 Aged Out No longer eligible based on patient's age to complete this topic Care Teams Assurance Services Manager Health Care Relationship Specialty Start [place] [id number] [place] [address] PCP - General Family Practice 05/09/11
== END 2023-06-18 13:28 | disposition home or self-care (01) ==
LOC: US 13:29
PROVIDERS: PCP Physician Assistant Medical; Visit Provider Physician Assistant Medical
DX: R20.0 Anesthesia of skin (principal); I77.1 Stricture of artery
CPT/HCPCS: 93922

== ENCOUNTER 2023-06-19 14:03 | Outpatient (CLI) | payer OTHER, SELFPAY | END 2023-06-19 14:04 | disposition home or self-care (01) | PROVIDERS: PCP Physician Assistant Medical; Visit Provider Nurse Practitioner Family | DX: G60.3 Idiopathic progressive neuropathy (principal); L97.422 Non-pressure chronic ulcer of left heel and midfoot with fat layer exposed | CPT/HCPCS: 11042; 73650; G0463 ==

== ENCOUNTER 2023-06-20 14:14 | Outpatient (CLI) | payer OTHER, SELFPAY ==
--- OUTSIDE RECORDS SUMMARY | 2023-06-20 14:18 | XMS_ITS | Clinical Summary ---
Author Name Unknown Organization [facility] Address [place], [place] [address] Care Team Providers Care Production Helper Name Role Phone Lyndsay Huitron MD Primary Care Provider [phone] Medications Medication Sig Dispensed Refills Start Date End Date Status (u) ALBUTEROL AERS 90 MCG/ACT 1-2 puffs po q 4-6 hours prn 1 0 06/28/1999 Active (u) ALBUTEROL NEB SOLN 2.5MG PREMIXED USE Q4-6 HOURS PRN 1BOX 1 04/19/2000 Active Active Problems Problem Noted Date Diagnosed Date ASTHMA 04/19/2000 Encounters Date Type Department Care Team Description 06/18/2023 2:00 PM CERTIFIED LEGAL INVESTIGATOR Ancillary Procedure [facility] [place] [facility] [address] [place] [address] Arrived 06/18/2023 Travel from Last 3 Months Family History Medical History Relation Name Comments [...] Comments Blood Pressure 110/70 04/19/2000 12:00 AM CERTIFIED LEGAL INVESTIGATOR Pulse 118 04/19/2000 12:00 AM CERTIFIED LEGAL INVESTIGATOR Temperature 37.5 ??C (99.5 ??F) 04/19/2000 12:[address] Respiratory Rate 16 06/28/1999 12:00 AM CERTIFIED LEGAL INVESTIGATOR Oxygen Saturation - - Inhaled Oxygen Concentration - - Weight 129.7 kg (286 lb) 04/17/2000 12:00 AM CERTIFIED LEGAL INVESTIGATOR Height - - Body Mass Index - - Plan of Treatment Health Maintenance Due Date Last Done Comments [...] on patient's age to complete this topic Procedures Procedure Name Priority Date/Time Associated Diagnosis Comments US ANKLE BRACHIAL INDEX BILATERAL Routine 06/18/2023 3:18 PM CERTIFIED LEGAL INVESTIGATOR Leg pain from Last 3 Months Results * US ANKLE BRACHIAL INDEX BILATERAL (06/18/2023 3:18 PM CERTIFIED LEGAL INVESTIGATOR) Anatomical Region Laterality Modality ANKLES, ANKLE L, ANKLE R Ultraso und 06/18/2023 1:42 PM CERTIFIED LEGAL INVESTIGATOR Narrative 06/18/2023 4:20 PM CERTIFIED LEGAL INVESTIGATOR VASCULAR ULTRASOUND REPORT PAGE FISHER Accession#: ?? [id number] : ?1970 ?? Study Date: ?? 06/18/2023 1:42:54 PM Age: ?52 years ?? Tech: ? BSG Gender: F ?Referring MD: TRUDI RICH Site: [facility] Study performed: ?Lower extremity resting BEATA, (bilateral). Indication for study: Decreased LE pulses, LE pain/numbness Study Quality: ?Good TECHNIQUE: Lower/upper extremity arteries were examined per exam protocol by duplex ultrasound, color-flow and spectral Doppler. Peak systolic velocities (PSV), Doppler waveform quality, velocity ratios and vessel size in cm, were documented at protocol specific sites. Physiologic data including segmental pressures, ankle/brachial index (BEATA), digit PPG recordings, laser Doppler flowmetry, transcutaneous oximetry, and digit temperatures were documented at sites per exam protocol and test requirements. IMPRESSION: 1. Resting ankle-brachial index is moderately reduced on the right at 0.63 and is moderately reduced on the left at 0.59. 2. In the right lower extremity there are monophasic waveforms at the posterior tibial and dorsalis pedis arteries. 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 3. In the left lower extremity there are monophasic waveforms at the posterior tibial and dorsalis pedis arteries. 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 COMPARISON: No prior study available for comparison. FINDINGS: +--------+ + + RIGHT ?? Velocity cm/s Phasicity +--------+ + + POLE INCISOR OPERATOR DST ? 36 ? monophasic +--------+ + + CASSI DST ?0 ? occluded ?? +--------+ + + DPA ? 68 ? monophasic +--------+ + + +--------+ + + LEFT ? Velocity cm/s Phasicity +--------+ + + POLE INCISOR OPERATOR DST ? 46 ? monophasic +--------+ + + CASSI DST ?0 ? occluded ?? +--------+ + + DPA ? 44 ? monophasic +--------+ + + Criteria: Stenosis ?V. Ratio Mild ?<50% ?<2.0 Moderate ?? 50-74% ?> or = 2.0 Severe ? 75-99% ?> or = 4.0 Occluded ?100% ?? no detectable flow Pressures +-----+ +--------+ +-----+ ? RIGHT (mmHg) ? LEFT (mmHg) ? +-----+ +--------+ +-----+ Index ? 92 ? Brachial ?90 ? Index +-----+ +--------+ +-----+ 0.54 ? 50 ?POLE INCISOR OPERATOR ?50 ? 0.54 +-----+ +--------+ +-----+ 0.63 ? 58 ?DPA ?54 ? 0.59 +-----+ +--------+ +-----+ Morgan Andrade MD. Electronically signed on 06/18/2023 4:20:21 PM This study was performed and interpreted by a service accredited by the Intersocietal Accreditation Commission (IAC/Vascular), [email or web address]/vascular Report generated by [employer]. ??Final ?? Procedure Note Morgan Andrade MD - 06/18/2023 VASCULAR ULTRASOUND REPORT PAGE FISHER : 1970 Study Date: 06/18/2023 1:42:54 PM Age: 52 years Tech: BSG Gender: F Referring MD: TRUDI RICH Site: [facility] Study performed: Lower extremity resting BEATA, (bilateral). Indication for study: Decreased LE pulses, LE pain/numbness Study Quality: Good TECHNIQUE: Lower/upper extremity arteries were examined per exam protocol by duplexultrasound, color-flow and spectral Doppler. Peak systolic velocities(PSV), Doppler waveform quality, velocity ratios and vessel size in cm,were documented at protocol specific sites. Physiologic data includingsegmental pressures, ankle/brachial index (BEATA), digit PPG recordings,laser Doppler flowmetry, transcutaneous oximetry, and digit temperatureswere documented at sites per exam protocol and test requirements. IMPRESSION: 1. Resting ankle-brachial index is moderately reduced on the right at0.63 and is moderately reduced on the left at 0.59. 2. In the right lower extremity there are monophasic waveforms at theposterior tibial and dorsalis pedis arteries. The peroneal artery isoccluded. 3. In the left lower extremity there are monophasic waveforms at theposterior tibial and dorsalis pedis arteries. The peroneal artery isoccluded. COMPARISON: No prior study available for comparison. FINDINGS: +--------+ + + RIGHT Velocity cm/s Phasicity +--------+ + + POLE INCISOR OPERATOR DST 36 monophasic +--------+ + + CASSI DST 0 occluded +--------+ + + DPA 68 monophasic +--------+ + + +--------+ + + LEFT Velocity cm/s Phasicity +--------+ + + POLE INCISOR OPERATOR DST 46 monophasic +--------+ + + CASSI DST 0 occluded +--------+ + + DPA 44 monophasic +--------+ + + Criteria: Stenosis V. Ratio Mild <50% <2.0 Moderate 50-74% > or = 2.0 Severe 75-99% > or = 4.0 Occluded 100% no detectable flow Pressures +-----+ +--------+ +-----+ RIGHT (mmHg) LEFT (mmHg) +-----+ +--------+ +-----+ Index 92 Brachial 90 Index +-----+ +--------+ +-----+ 0.54 50 POLE INCISOR OPERATOR 50 0.54 +-----+ +--------+ +-----+ 0.63 58 DPA 54 0.59 +-----+ +--------+ +-----+ Morgan Andrade MD. Electronically signed on 06/18/2023 4:20:21 PM This study was performed and interpreted by a service accredited by theIntersocietal Accreditation Commission (IAC/Vascular),[email or web address] Report generated by [employer]. Final Trudi MORGAN from Last 3 Months Care Teams Production Helper Relationship Specialty Start [place] [id number] [place], [place] [id number] PCP - General Family Practice 05/09/11
== END 2023-06-20 14:15 | disposition home or self-care (01) ==
PROVIDERS: PCP Physician Assistant Medical; Visit Provider Physician Assistant Medical
DX: E53.8 Deficiency of other specified B group vitamins (principal); E55.9 Vitamin D deficiency, unspecified
CPT/HCPCS: 82306; 82607

== ENCOUNTER 2023-06-26 14:32 | Outpatient (CLI) | payer OTHER, SELFPAY ==
--- OUTSIDE RECORDS SUMMARY | 2023-06-26 14:37 | XMS_ITS | Clinical Summary ---
Author Name Unknown Organization [facility] [facility] Address [place], [place] [address] Care Team Providers Care Lining Caser Name Role Phone Lyndsay Huitron MD Primary Care Provider [phone] Medications Medication Sig Dispensed Refills Start Date End Date Status (u) ALBUTEROL AERS 90 MCG/ACT 1-2 puffs po q 4-6 hours prn 1 0 06/28/1999 Active (u) ALBUTEROL NEB SOLN 2.5MG PREMIXED USE Q4-6 HOURS PRN 1BOX 1 04/19/2000 Active Active Problems Problem Noted Date Diagnosed Date ASTHMA 04/19/2000 Encounters Date Type Department Care Team Description 06/18/2023 2:00 PM RECLAMATION ENGINEER Ancillary Procedure [facility] [place] [facility] [address] [place] [address] 06/18/2023 Travel from Last 3 Months Family [...] Comments Blood Pressure 110/70 04/19/2000 12:00 AM RECLAMATION ENGINEER Pulse 118 04/19/2000 12:00 AM RECLAMATION ENGINEER Temperature 37.5 ??C (99.5 ??F) 04/19/2000 12:[address] Respiratory Rate 16 06/28/1999 12:00 AM RECLAMATION ENGINEER Oxygen Saturation - - Inhaled Oxygen Concentration - - Weight 129.7 kg (286 lb) 04/17/2000 12:00 AM RECLAMATION ENGINEER Height - - Body Mass Index - [...] BRACHIAL INDEX BILATERAL Routine 06/18/2023 3:18 PM RECLAMATION ENGINEER Leg pain from Last 3 Months Results * US ANKLE BRACHIAL INDEX BILATERAL (06/18/2023 3:18 PM RECLAMATION ENGINEER) Anatomical Region Laterality Modality ANKLES, ANKLE L, ANKLE R Ultraso und 06/18/2023 1:42 PM RECLAMATION ENGINEER Narrative 06/18/2023 4:20 PM RECLAMATION ENGINEER VASCULAR ULTRASOUND REPORT PAGE FISHER Accession#: ?? [id number] : ?1970 ?? Study Date: ?? 06/18/2023 1:42:54 PM Age: ?52 years ?? Tech: ? BSG Gender: F ?Referring MD: TRUDI RICH Site: [facility] Study performed: ?Lower extremity [...] ?? Velocity cm/s Phasicity +--------+ + + SOLID TIRE FINISHER DST ? 36 ? monophasic +--------+ + + CASSI DST ?0 ? occluded ?? +--------+ + + DPA ? 68 ? monophasic +--------+ + + +--------+ + + LEFT ? Velocity cm/s Phasicity +--------+ + + SOLID TIRE FINISHER DST ? 46 ? monophasic +--------+ + [...] Index +-----+ +--------+ +-----+ 0.54 ? 50 ?SOLID TIRE FINISHER ?50 ? 0.54 +-----+ +--------+ +-----+ 0.63 ? 58 ?DPA ?54 ? 0.59 +-----+ +--------+ +-----+ Morgan Andrade MD. Electronically signed on 06/18/2023 4:20:21 PM This study was performed and interpreted by a service accredited by the Intersocietal Accreditation Commission (IAC/Vascular), www.[email or web address]/vascular Report generated by [employer]. ??Final ?? Procedure Note Morgan Andrade MD - 06/18/2023 VASCULAR ULTRASOUND REPORT PAGE FISHER : 1970 Study Date: 06/18/2023 1:42:54 PM Age: 52 years Tech: BSG Gender: F Referring MD: TRUDI RICH Site: [facility] Study performed: Lower extremity resting BEATA, (bilateral). [...] RIGHT Velocity cm/s Phasicity +--------+ + + SOLID TIRE FINISHER DST 36 monophasic +--------+ + + CASSI DST 0 occluded +--------+ + + DPA 68 monophasic +--------+ + + +--------+ + + LEFT Velocity cm/s Phasicity +--------+ + + SOLID TIRE FINISHER DST 46 monophasic +--------+ + + CASSI [...] 90 Index +-----+ +--------+ +-----+ 0.54 50 SOLID TIRE FINISHER 50 0.54 +-----+ +--------+ +-----+ 0.63 58 DPA 54 0.59 +-----+ +--------+ +-----+ Morgan Andrade MD. Electronically signed on 06/18/2023 4:20:21 PM This study was performed and interpreted by a service accredited by theIntersocietal Accreditation Commission (IAC/Vascular),[email or web address]/vascular Report generated by [employer]. Final Trudi MORGAN from Last 3 Months Care Teams Lining Caser Relationship Specialty Start [place] [id number] [place] [address] PCP - General Family Practice 05/09/11
== END 2023-06-26 14:33 | disposition home or self-care (01) ==
LOC: WOUND 14:32
PROVIDERS: PCP Physician Assistant Medical; Visit Provider Nurse Practitioner Family
DX: G60.3 Idiopathic progressive neuropathy (principal); L97.422 Non-pressure chronic ulcer of left heel and midfoot with fat layer exposed
CPT/HCPCS: 11042

== ENCOUNTER 2023-07-03 14:26 | Outpatient (CLI) | payer OTHER, SELFPAY ==
--- OUTSIDE RECORDS SUMMARY | 2023-07-03 14:28 | XMS_ITS | Clinical Summary ---
Author Name Unknown Organization [facility] Address [address] [place] [address]. [place] [address] Care Team Providers Care Cutting Room Supervisor Name Role Phone No Ref-Primary, Physician Primary Care Provider Encounters Date Type Department Care Team Description 06/21/2023 Transcribe Orders GENERIC EXTERNAL DATA DEPARTMENT Provider, Generic External Data Peripheral vascular disease, unspecified (H24) (Primary Dx); Other general symptoms and signs 06/20/2023 Medical Correspondence [facility] [address] [place] [id number] Scan, Non-Provider from Last 3 Months Social History Tobacco Use Types Packs/Day Years Used Date Smoking Tobacco: Never Assessed Adolescent Education Answer Date Record ed Getting School Help Needed Not on file 03/02 Sex and Gender Information Value Date Recorded Sex Assigned at Not on file Gender Identity Not on file Sexual Orientation Not on file Plan of Treatment Health Maintenance Due Date Last Done Comments ADVANCE CARE PLANNING 1970 ANNUAL REVIEW OF HM ORDERS 1968 CT COLONOGRAPHY 1968 FIT 1968 FLEX SIG 1970 HEPATITIS B IMMUNIZATION (1 of 3 - 3-dose series) 1968 MAMMO SCREENING 1968 YEARLY PREVENTIVE VISIT 1968 sDNA (Cologuard) 1968 COVID-19 Vaccine (#1) 01/07/1969 COLONOSCOPY 1978 COLORECTAL CANCER SCREENING 1978 HIV SCREENING 1983 HEPATITIS C SCREENING 1986 PAP 1989 DTAP/TDAP/TD IMMUNIZATION (1 - Tdap) 1993 LIPID 2013 ZOSTER IMMUNIZATION (1 of 2) 2018 INFLUENZA VACCINE (#1) 2023 05/09/2011 PHQ-2 (once per calendar year) 2023 Pneumococcal Vaccine: Pediat rics (0 to 5 Years) and At-Risk Patients (6 to 64 Years) Aged Out 05/09/2011 No longer eligi ble based on patient's age to complete this topic HPV IMMUNIZATION Aged Out No longer e ligible based on patient's age to complete this topic IPV IMMUNIZATION Aged Out No longer e ligible based on patient's age to complete this topic MENINGITIS IMMUNIZATION Aged Out No l onger eligible based on patient's age to complete this topic RSV MONOCLONAL ANTIBODY Aged Out No l onger eligible based on patient's age to complete this topic Procedures Procedure Name Priority Date/Time Associated Diagnosis Comments XRAY IMAGING - HIM SCAN 06/19/2023 12:00 AM OIL PROCESS STILLMAN CT IMAGING - HIM SCAN 04/11/2023 12:00 AM OIL PROCESS STILLMAN from Last 3 Months Results * XRAY IMAGING - HIM SCAN (06/19/2023 12:00 AM OIL PROCESS STILLMAN) Anatomical Region Laterality Modality Other 06/19/2023 Provider Outside IM DIAGNOSTIC IMAGI NG ORDERABLES * CT IMAGING - HIM SCAN (04/11/2023 12:00 AM OIL PROCESS STILLMAN) Anatomical Region Laterality Modality Computed Tomogra phy 04/11/[address] ORDERABLES from Last 3 Months Care Teams Cutting Room Supervisor Relationship Specialty Start Date End Date No Ref-Primary, Physician PCP - General 01/07/21
--- OUTSIDE RECORDS SUMMARY | 2023-07-03 14:28 | XMS_ITS | Clinical Summary ---
Author Name Unknown Organization [email or web address] Address [place], [place] [address] Care Team Providers Care Apple Checker Name Role Phone Lyndsay Huitron MD Primary Care Provider Medications Medication Sig Dispensed Refills Start Date End Date Status (u) ALBUTEROL AERS 90 MCG/ACT 1-2 puffs po q 4-6 hours prn 1 0 06/28/1999 Active (u) ALBUTEROL NEB SOLN 2.5MG PREMIXED USE Q4-6 HOURS PRN 1BOX 1 04/19/2000 Active Active Problems Problem Noted Date Diagnosed Date ASTHMA 04/19/2000 Encounters Date Type Department Care Team Description 06/18/2023 2:00 PM WORKERS' COMPENSATION COMMISSIONER Ancillary Procedure [place] [facility] [place] [facility] [address] [place] [address] 06/18/2023 Travel from Last 3 Months Family [...] Comments Blood Pressure 110/70 04/19/2000 12:00 AM WORKERS' COMPENSATION COMMISSIONER Pulse 118 04/19/2000 12:00 AM WORKERS' COMPENSATION COMMISSIONER Temperature 37.5 ??C (99.5 ??F) 04/19/2000 12:[address] Respiratory Rate 16 06/28/1999 12:00 AM WORKERS' COMPENSATION COMMISSIONER Oxygen Saturation - - Inhaled Oxygen Concentration - - Weight 129.7 kg (286 lb) 04/17/2000 12:00 AM WORKERS' COMPENSATION COMMISSIONER Height - - Body Mass Index - [...] BRACHIAL INDEX BILATERAL Routine 06/18/2023 3:18 PM WORKERS' COMPENSATION COMMISSIONER Leg pain from Last 3 Months Results * US ANKLE BRACHIAL INDEX BILATERAL (06/18/2023 3:18 PM WORKERS' COMPENSATION COMMISSIONER) Anatomical Region Laterality Modality ANKLES, ANKLE L, ANKLE R Ultraso und 06/18/2023 1:42 PM WORKERS' COMPENSATION COMMISSIONER Narrative 06/18/2023 4:20 PM WORKERS' COMPENSATION COMMISSIONER VASCULAR ULTRASOUND REPORT PAGE FISHER Accession#: ?? [id number] : ?1970 ?? Study Date: ?? 06/18/2023 1:42:54 PM Age: ?52 years ?? Tech: ? BSG Gender: F ?Referring MD: TRUDI RICH Site: [facility] Study performed: ?Lower extremity resting [...] ?? Velocity cm/s Phasicity +--------+ + + RETAIL SALES ASSOCIATE SEASONAL DST ? 36 ? monophasic +--------+ + + CASSI DST ?0 ? occluded ?? +--------+ + + DPA ? 68 ? monophasic +--------+ + + +--------+ + + LEFT ? Velocity cm/s Phasicity +--------+ + + RETAIL SALES ASSOCIATE SEASONAL DST ? 46 ? monophasic +--------+ + [...] Index +-----+ +--------+ +-----+ 0.54 ? 50 ?RETAIL SALES ASSOCIATE SEASONAL ?50 ? 0.54 +-----+ +--------+ +-----+ 0.63 ? 58 ?DPA ?54 ? 0.59 +-----+ +--------+ +-----+ Morgan Andrade MD. Electronically signed on 06/18/2023 4:20:21 PM This study was performed and interpreted by a service accredited by the Intersocietal Accreditation Commission (IAC/Vascular), [email or web address]/vascular Report generated by [employer]. ??Final ?? Procedure Note Morgan Andrade MD - 06/18/2023 VASCULAR ULTRASOUND REPORT PAGE FISHER : 1970 Study Date: 06/18/2023 1:42:54 PM Age: 52 years Tech: BSG Gender: F Referring MD: TRUDI RICH Site: [facility] Study performed: Lower extremity resting [...] RIGHT Velocity cm/s Phasicity +--------+ + + RETAIL SALES ASSOCIATE SEASONAL DST 36 monophasic +--------+ + + CASSI DST 0 occluded +--------+ + + DPA 68 monophasic +--------+ + + +--------+ + + LEFT Velocity cm/s Phasicity +--------+ + + RETAIL SALES ASSOCIATE SEASONAL DST 46 monophasic +--------+ + + CASSI [...] 90 Index +-----+ +--------+ +-----+ 0.54 50 RETAIL SALES ASSOCIATE SEASONAL 50 0.54 +-----+ +--------+ +-----+ 0.63 58 DPA 54 0.59 +-----+ +--------+ +-----+ Morgan Andrade MD. Electronically signed on 06/18/2023 4:20:21 PM This study was performed and interpreted by a service accredited by theIntersocietal Accreditation Commission (IAC/Vascular),[email or web address] Report generated by [employer]. Final Trudi MORGAN from Last 3 Months Care Teams Apple Checker Relationship Specialty Start [place] [id number] [place] [address] PCP - General Family Practice 05/09/11
--- OUTSIDE RECORDS SUMMARY | 2023-07-03 14:29 | XMS_ITS | Encounter Summary ---
Author Name Unknown Organization [facility] Address [address] [place] [address]. [place] [address] Care Team Providers Care Cripple Cutter Name Role Phone No Ref-Primary, Physician Primary Care Provider Encounter Details Date Type Department Care Team (Late st Contact Info) Description 06/20/2023 Medical Correspondence [facility] [address] [place], [place] [address] [phone] Scan, Non-Provider Social History Tobacco Use Types Packs/Day Years Used Date Smoking Tobacco: Never Assessed Adolescent Education Answer Date Record ed Getting School Help Needed Not on file 03/02 Sex and Gender Information Value Date Recorded Sex Assigned at Not on file Gender Identity Not on file Sexual Orientation Not on file documented as of this encounter Plan of Treatment Not on file documented as of this encounter Visit Diagnoses Not on filedocumented in this encounter Care Teams Cripple Cutter Relationship Specialty Start Date End Date No Ref-Primary, Physician PCP - General 01/07/21 documented as of this encounter
--- OUTSIDE RECORDS SUMMARY | 2023-07-03 14:29 | XMS_ITS | Referral Summary ---
Author Name Unknown Organization [facility] Address [address] [place] [address]. [place] [address] Care Team Providers Care Stock Shipper Name Role Phone No Ref-Primary, Physician Primary Care Provider Encounters Date Type Department Care Team Description 06/21/2023 Transcribe Orders GENERIC EXTERNAL DATA DEPARTMENT Provider, Generic External Data Peripheral vascular disease, unspecified (H24) (Primary Dx); Other general symptoms and signs 06/20/2023 Medical Correspondence [facility] [address] [place] [phone] Scan, Non-Provider from Last 3 Months Social History Tobacco Use Types Packs/Day Years Used Date Smoking Tobacco: Never Assessed Adolescent Education Answer Date Record ed Getting School Help Needed Not on file 03/02 Sex and Gender Information Value Date Recorded Sex Assigned at Not on file Gender Identity Not on file Sexual Orientation Not on file Plan of Treatment Not on file Procedures Procedure Name Priority Date/Time Associated Diagnosis Comments XRAY IMAGING - HIM SCAN 06/19/2023 12:[address] IMAGING - HIM SCAN 04/11/2023 12:00 AM SPEED OPERATOR from Last 3 Months Results * XRAY IMAGING - HIM SCAN (06/19/2023 12:00 AM SPEED OPERATOR) Anatomical Region Laterality Modality Other 06/19/2023 Provider Outside G DIAGNOSTIC IMAGI NG ORDERABLES * CT IMAGING - HIM SCAN (04/11/2023 12:00 AM SPEED OPERATOR) Anatomical Region Laterality Modality Computed Tomogra phy 04/11/[address] ORDERABLES from Last 3 Months Care Teams Stock Shipper Relationship Specialty Start Date End Date No Ref-Primary, Physician PCP - General 01/07/21
--- OUTSIDE RECORDS SUMMARY | 2023-07-03 14:29 | XMS_ITS | Encounter Summary ---
Author Name Unknown Organization [place] Address [address] [place] [address] Care Team Providers Care Burr Grinder Name Role Phone No Ref-Primary, Physician Primary Care Provider Reason for Referral * Consultation (Routine) - Pending Review Specialty Diagnoses / Procedures Referred By Contac t Referred To Contact Cardiovascular Disease Diagnoses Peripheral vascular disease, unspecified (H24) Other general symptoms and signs Lisa Rich PA-C [facility] [address] [place] [address] [facility] [address] [place] [address] Referral ID Status Reason Start Date Expiration Date V isits Requested Visits Authorized [id number] Pending Review 06/21/2023 06/20/2024 1 1 Question Answer Preferred Location: [facility] [place] Scheduling Instructions: Please call to schedule your appointment Comments Referral Transcribed by external fax Provider: LISA RICH affiliated with [facility]. VA: No If yes was is the VA Authorization Number: Phone number: [phone] Please call to schedule your appointment KER Encounter Details Date Type Department Care Team (Late st Contact Info) Description 06/21/2023 Transcribe Orders GENERIC EXTERNAL DATA DEPARTMENT Provider, Generic External Data Peripheral vascular disease, unspecified (H24) (Primary Dx); Other general symptoms and signs Social History Tobacco Use Types Packs/Day Years Used Date Smoking Tobacco: Never Assessed Adolescent Education Answer Date Record ed Getting School Help Needed Not on file 03/02 Sex and Gender Information Value Date Recorded Sex Assigned at Not on file Gender Identity Not on file Sexual Orientation Not on file documented as of this encounter Plan of Treatment Scheduled Referrals Name Type Priority Associated Diagnoses Orde r Schedule Vascular Medicine Referral Referral Routine Peripheral vascular disease, unspecified (H24) Other general symptoms and signs Expected: 06/21/2023 (Approximate), Expires: 06/21/2024 documented as of this encounter Visit Diagnoses Diagnosis Peripheral vascular disease, unspecified (H24)- Primary Peripheral vascular disease, unspecified Other general symptoms and signs documented in this encounter Care Teams Burr Grinder Relationship Specialty Start Date End Date No Ref-Primary, Physician PCP - General 01/07/21 documented as of this encounter
== END 2023-07-03 14:27 | disposition home or self-care (01) ==
LOC: WOUND 14:26
PROVIDERS: PCP Physician Assistant Medical; Visit Provider Physician Assistant
DX: G60.3 Idiopathic progressive neuropathy (principal); L97.422 Non-pressure chronic ulcer of left heel and midfoot with fat layer exposed
CPT/HCPCS: 97597

== ENCOUNTER 2023-07-09 09:39 | Outpatient (CLI) | payer OTHER, SELFPAY ==
--- OUTSIDE RECORDS SUMMARY | 2023-07-09 09:44 | XMS_ITS | Clinical Summary ---
Author Name Unknown Organization [facility] Address [place], [place] [address] Care Team Providers Care Automatic Clipper And Stripper Name Role Phone Lyndsay Huitron MD Primary Care Provider [phone] Medications Medication Sig Dispensed Refills Start Date End Date Status (u) ALBUTEROL AERS 90 MCG/ACT 1-2 puffs po q 4-6 hours prn 1 0 06/28/1999 Active (u) ALBUTEROL NEB SOLN 2.5MG PREMIXED USE Q4-6 HOURS PRN 1BOX 1 04/19/2000 Active Active Problems Problem Noted Date Diagnosed Date ASTHMA 04/19/2000 Encounters Date Type Department Care Team Description 06/18/2023 2:00 PM STRAW HAT WASHER OPERATOR Ancillary Procedure [place] [facility] [place] [facility] [address] [place] [address] 06/18/2023 Travel from Last 3 Months Family [...] Comments Blood Pressure 110/70 04/19/2000 12:00 AM STRAW HAT WASHER OPERATOR Pulse 118 04/19/2000 12:00 AM STRAW HAT WASHER OPERATOR Temperature 37.5 ??C (99.5 ??F) 04/19/2000 12:[address] Respiratory Rate 16 06/28/1999 12:00 AM STRAW HAT WASHER OPERATOR Oxygen Saturation - - Inhaled Oxygen Concentration - - Weight 129.7 kg (286 lb) 04/17/2000 12:00 AM STRAW HAT WASHER OPERATOR Height - - Body Mass Index - [...] BRACHIAL INDEX BILATERAL Routine 06/18/2023 3:18 PM STRAW HAT WASHER OPERATOR Leg pain from Last 3 Months Results * US ANKLE BRACHIAL INDEX BILATERAL (06/18/2023 3:18 PM STRAW HAT WASHER OPERATOR) Anatomical Region Laterality Modality ANKLES, ANKLE L, ANKLE R Ultraso und 06/18/2023 1:42 PM STRAW HAT WASHER OPERATOR Narrative 06/18/2023 4:20 PM STRAW HAT WASHER OPERATOR VASCULAR ULTRASOUND REPORT PAGE FISHER Accession#: ?? [id number] : ?1970 ?? Study Date: ?? 06/18/2023 1:42:54 PM Age: ?52 years ?? Tech: ? BSG Gender: F ?Referring MD: TRUDI RICH Site: [facility] Study performed: ?Lower [...] ?? Velocity cm/s Phasicity +--------+ + + LEARNING CENTER COORDINATOR DST ? 36 ? monophasic +--------+ + + CASSI DST ?0 ? occluded ?? +--------+ + + DPA ? 68 ? monophasic +--------+ + + +--------+ + + LEFT ? Velocity cm/s Phasicity +--------+ + + LEARNING CENTER COORDINATOR DST ? 46 ? monophasic +--------+ + [...] Index +-----+ +--------+ +-----+ 0.54 ? 50 ?LEARNING CENTER COORDINATOR ?50 ? 0.54 +-----+ +--------+ +-----+ 0.63 ? 58 ?DPA ?54 ? 0.59 +-----+ +--------+ +-----+ Morgan Andrade MD. Electronically signed on 06/18/2023 4:20:21 PM This study was performed and interpreted by a service accredited by the Intersocietal Accreditation Commission (IAC/Vascular), www.[email or web address]/vascular Report generated by [employer]. ??Final ?? Procedure Note Morgan Andrade MD - 06/18/2023 VASCULAR ULTRASOUND REPORT PAGE FISHER : 1970 Study Date: 06/18/2023 1:42:54 PM Age: 52 years Tech: BSG Gender: F Referring MD: TRUDI RICH Site: [facility] Study performed: Lower extremity resting BEATA, [...] RIGHT Velocity cm/s Phasicity +--------+ + + LEARNING CENTER COORDINATOR DST 36 monophasic +--------+ + + CASSI DST 0 occluded +--------+ + + DPA 68 monophasic +--------+ + + +--------+ + + LEFT Velocity cm/s Phasicity +--------+ + + LEARNING CENTER COORDINATOR DST 46 monophasic +--------+ + + CASSI [...] 90 Index +-----+ +--------+ +-----+ 0.54 50 LEARNING CENTER COORDINATOR 50 0.54 +-----+ +--------+ +-----+ 0.63 58 DPA 54 0.59 +-----+ +--------+ +-----+ Morgan Andrade MD. Electronically signed on 06/18/2023 4:20:21 PM This study was performed and interpreted by a service accredited by theIntersocietal Accreditation Commission (IAC/Vascular),[email or web address]/vascular Report generated by [employer]. Final Trudi MORGAN from Last 3 Months Care Teams Automatic Clipper And Stripper Relationship Specialty Start [place] [address] [place] [address] PCP - General Family Practice 05/09/11
--- OUTSIDE RECORDS SUMMARY | 2023-07-09 09:44 | XMS_ITS | Clinical Summary ---
Author Name Unknown Organization [place] Address [address] [place] [address]. [place] [address] Care Team Providers Care Mental Health Unit Lead Psychologist Name Role Phone No Ref-Primary, Physician Primary Care Provider Encounters Date Type Department Care Team Description 06/21/2023 Transcribe Orders GENERIC EXTERNAL DATA DEPARTMENT Provider, Generic External Data Peripheral vascular disease, unspecified (H24) (Primary Dx); Other general symptoms and signs 06/20/2023 Medical Correspondence [facility] [address] [place] [phone] Scan, Non-Provider from Last 3 Months [...] COLONOGRAPHY 1968 FIT 1968 FLEX SIG 1968 GLUCOSE 1968 HEPATITIS B IMMUNIZATION (1 of 3 - 3-dose series) 1968 MAMMO SCREENING 1968 YEARLY PREVENTIVE VISIT 1968 sDNA (Cologuard) 1968 COVID-19 Vaccine (#1) 01/07/1969 COLONOSCOPY 1978 COLORECTAL CANCER SCREENING 1978 HIV SCREENING 1983 HEPATITIS C SCREENING 1986 PAP 1989 DTAP/TDAP/TD IMMUNIZATION (1 - Tdap) 1993 LIPID 2008 ZOSTER IMMUNIZATION (1 of 2) 2018 INFLUENZA [...] IMAGING - HIM SCAN 06/19/2023 12:00 AM SUPERVISOR CHASSIS ASSEMBLY CT IMAGING - HIM SCAN 04/11/2023 12:00 AM SUPERVISOR CHASSIS ASSEMBLY from Last 3 Months Results * XRAY IMAGING - HIM SCAN (06/19/2023 12:00 AM SUPERVISOR CHASSIS ASSEMBLY) Anatomical Region Laterality Modality Other 06/19/2023 Provider Outside IMG DIAGNOSTIC IMAGI NG ORDERABLES * CT IMAGING - HIM SCAN (04/11/2023 12:00 AM SUPERVISOR CHASSIS ASSEMBLY) Anatomical Region Laterality Modality Computed Tomogra phy 04/11/[address] ORDERABLES from Last 3 Months Care Teams Mental Health Unit Lead Psychologist Relationship Specialty Start Date End Date No Ref-Primary, Physician PCP - General 01/07/21
--- OUTSIDE RECORDS SUMMARY | 2023-07-09 09:44 | XMS_ITS | Encounter Summary ---
Author Name Unknown Organization [place] Address [address] [place] [address]. [place] [address] Care Team Providers Care Router Operator Radial Name Role Phone No Ref-Primary, Physician Primary Care Provider Encounter Details Date Type Department Care Team (Late st Contact Info) Description 06/20/[address] [facility] [address] [place], [place] [address] [phone] Scan, Non-Provider Social History Tobacco Use [...] on filedocumented in this encounter Care Teams Router Operator Radial Relationship Specialty Start Date End Date No Ref-Primary, Physician PCP - General 01/07/21 documented as of this encounter
--- OUTSIDE RECORDS SUMMARY | 2023-07-09 09:44 | XMS_ITS | Referral Summary ---
Author Name Unknown Organization [place] Address [address] [place] [address]. [place] [address] Care Team Providers Care Comb Tender Name Role Phone No Ref-Primary, Physician Primary Care Provider Encounters Date Type Department Care Team Description 06/21/2023 Transcribe Orders GENERIC EXTERNAL DATA DEPARTMENT Provider, Generic External Data Peripheral vascular disease, unspecified (H24) (Primary Dx); Other general symptoms and signs 06/20/2023 Medical Correspondence [facility] [address] [place] [phone] Scan, Non-Provider from Last 3 Months [...] IMAGING - HIM SCAN 06/19/2023 12:[address] IMAGING - HIM SCAN 04/11/2023 12:00 AM BOTTLE WASHER from Last 3 Months Results * XRAY IMAGING - HIM SCAN (06/19/2023 12:00 AM BOTTLE WASHER) Anatomical Region Laterality Modality Other 06/19/2023 Provider Outside G DIAGNOSTIC IMAGI NG ORDERABLES * CT IMAGING - HIM SCAN (04/11/2023 12:00 AM BOTTLE WASHER) Anatomical Region Laterality Modality Computed Tomogra phy 04/11/[address] ORDERABLES from Last 3 Months Care Teams Comb Tender Relationship Specialty Start Date End Date No Ref-Primary, Physician PCP - General 01/07/21
--- OUTSIDE RECORDS SUMMARY | 2023-07-09 09:44 | XMS_ITS | Encounter Summary ---
Author Name Unknown Organization [place] Address [address] [place] [address] Care Team Providers Care Actimize Architect Name Role Phone No Ref-Primary, Physician Primary Care Provider Reason for Referral * Consultation (Routine) - Pending Review Specialty Diagnoses / Procedures Referred By Contac t Referred To Contact Cardiovascular Disease Diagnoses Peripheral vascular disease, unspecified (H24) Other general symptoms and signs Lisa Rich PA-C [facility] [address] [place] [address] [facility] [address] [place] [address] Referral ID Status Reason Start Date Expiration Date V isits Requested Visits Authorized [id number] Pending Review 06/21/2023 06/20/2024 1 1 Question Answer Preferred Location: [facility] [place] Scheduling Instructions: Please call to schedule your appointment Comments Referral Transcribed by external fax Provider: LISA RICH affiliated with [facility]. VA: No If yes was is the VA Authorization Number: Phone number: [phone] Please call to schedule your appointment WORKER GENERAL Encounter Details Date Type Department Care Team [...] signs documented in this encounter Care Teams Actimize Architect Relationship Specialty Start Date End Date No Ref-Primary, Physician PCP - General 01/07/21 documented as of this encounter
--- NOTE | 2023-07-09 10:00 | CRLHL7_ITS ---
For Patients: As a result of the Century Cures Act, medical imaging exams and procedure reports are released immediately into your electronic medical record. You may view this report before your referring provider. If you have questions, please contact your health care provider. INDICATION: Solitary pulmonary nodule. History of colon resection and colostomy. TECHNIQUE: CT chest, abdomen and pelvis acquired with 150 mL Isovue 370 IV contrast. COMPARISON: 04/11/2023, 12/11/2022, 07/11/2022, 02/07/2022 CTs FINDINGS: CHEST: Cardiovascular structures: Heart size is normal. Thoracic aorta and main pulmonary artery are normal in caliber. Mediastinum and viry: No mass or adenopathy. Lungs and pleura: 7.5 mm spiculated nodule in the anterior right lung image 43 series 3 stable from the most recent prior exam but larger from 2021 were measured 4 mm. Stable 4 mm nodule lateral right lung image 33. No new nodules. Mosaic attenuation. Chest wall and axilla: No mass or adenopathy. Bones: No suspicious bone lesions. Unremarkable for age. ABDOMEN AND PELVIS: Liver: Unremarkable. Gallbladder and bile ducts: Unremarkable. Pancreas: Unremarkable. Spleen: Unremarkable. Adrenal glands: Unremarkable. Kidneys: Unremarkable. Excreted contrast in a couple of caliceal tips in the left kidney. No stones GI tract: Left lower quadrant diverting colostomy. Vascular structures: Unremarkable. Lymph nodes: Unremarkable. Miscellaneous: Small fat containing umbilical hernia. No free air or significant free fluid. Pelvic Organs: Unremarkable. Bones: No suspicious bone lesions. Unremarkable for age. IMPRESSION: 1. 7.5 mm spiculated right lung nodule stable from most recent exam but has demonstrated interval growth since 2021. 2. Stable 4 mm right lung nodule. 3. Left lower quadrant diverting colostomy. Please note that all CT scans at this facility use dose modulation, iterative reconstruction, and/or weight-based dosing when appropriate to reduce radiation dose to as low as reasonably achievable. Dictated by Gino Faria MD @ 07/10/2023 8:41:51 AM (Electronically Signed)
== END 2023-07-09 09:40 | disposition home or self-care (01) ==
LOC: CT 09:40
PROVIDERS: PCP Physician Assistant Medical; Visit Provider Internal Medicine Hematology & Oncology
DX: R91.1 Solitary pulmonary nodule (principal); C20 Malignant neoplasm of rectum
CPT/HCPCS: 71260; 74177; 80053; 85025; Q9967

== ENCOUNTER 2023-07-10 14:06 | Outpatient (CLI) | payer OTHER, SELFPAY ==
--- OUTSIDE RECORDS SUMMARY | 2023-07-10 14:11 | XMS_ITS | Clinical Summary ---
Author Name Unknown Organization [place] Address [address] [place] [address]. [place] [address] Care Team Providers Care Warehouse Logistics Manager Name Role Phone No Ref-Primary, Physician Primary Care Provider Encounters Date Type Department Care Team Description 06/21/2023 Transcribe Orders GENERIC EXTERNAL DATA DEPARTMENT Provider, Generic External Data Peripheral vascular disease, unspecified (H24) (Primary Dx); Other general symptoms and signs 06/20/[address] [facility] [address] [place] [phone] Scan, Non-Provider from Last 3 Months [...] IMAGING - HIM SCAN 06/19/2023 12:[address] IMAGING - HIM SCAN 04/11/2023 12:00 AM TIN ASSORTER from Last 3 Months Results * XRAY IMAGING - HIM SCAN (06/19/2023 12:00 AM TIN ASSORTER) Anatomical Region Laterality Modality Other 06/19/2023 Provider Outside IMG DIAGNOSTIC IMAGI NG ORDERABLES * CT IMAGING - HIM SCAN (04/11/2023 12:00 AM TIN ASSORTER) Anatomical Region Laterality Modality Computed Tomogra phy 04/11/[address] ORDERABLES from Last 3 Months Care Teams Warehouse Logistics Manager Relationship Specialty Start Date End Date No Ref-Primary, Physician PCP - General 01/07/21
--- OUTSIDE RECORDS SUMMARY | 2023-07-10 14:11 | XMS_ITS | Referral Summary ---
Author Name Unknown Organization [place] Address [address] [place] [address]. [place] [address] Care Team Providers Care Dairy Farm Supervisor Name Role Phone No Ref-Primary, Physician Primary Care Provider Encounters Date Type Department Care Team Description 06/21/2023 Transcribe Orders GENERIC EXTERNAL DATA DEPARTMENT Provider, Generic External Data Peripheral vascular disease, unspecified (H24) (Primary Dx); Other general symptoms and signs 06/20/2023 Medical Correspondence [facility] [address] [place] [phone] Scan, Non-Provider from Last 3 Months [...] IMAGING - HIM SCAN 06/19/2023 12:[address] IMAGING - HIM SCAN 04/11/2023 12:00 AM ADVERTISER from Last 3 Months Results * XRAY IMAGING - HIM SCAN (06/19/2023 12:00 AM ADVERTISER) Anatomical Region Laterality Modality Other 06/19/2023 Provider Outside G DIAGNOSTIC IMAGI NG ORDERABLES * CT IMAGING - HIM SCAN (04/11/2023 12:00 AM ADVERTISER) Anatomical Region Laterality Modality Computed Tomogra phy 04/11/[address] ORDERABLES from Last 3 Months Care Teams Dairy Farm Supervisor Relationship Specialty Start Date End Date No Ref-Primary, Physician PCP - General 01/07/21
--- OUTSIDE RECORDS SUMMARY | 2023-07-10 14:11 | XMS_ITS | Encounter Summary ---
Author Name Unknown Organization [facility] Address [address] [place] [address] Care Team Providers Care Tunnel Man Name Role Phone No Ref-Primary, Physician Primary Care Provider Reason for Referral * Consultation (Routine) - Pending Review Specialty Diagnoses / Procedures Referred By Contac t Referred To Contact Cardiovascular Disease Diagnoses Peripheral vascular disease, unspecified (H24) Other general symptoms and signs Lisa Rich PA-C [facility] [address] [place] [address] [facility] [address] [place] [address] Referral ID Status Reason Start Date Expiration Date V isits Requested Visits Authorized [id number] Pending Review 06/21/2023 06/20/2024 1 1 Question Answer Preferred Location: [facility] [place] Scheduling Instructions: Please call to schedule your appointment Comments Referral Transcribed by external fax Provider: LISA RICH affiliated with [facility]. VA: No If yes was is the VA Authorization Number: Phone number: [phone] Please call to schedule your appointment TY CHIEF EXECUTIVE Encounter Details Date Type Department Care Team [...] signs documented in this encounter Care Teams Tunnel Man Relationship Specialty Start Date End Date No Ref-Primary, Physician PCP - General 01/07/21 documented as of this encounter
--- OUTSIDE RECORDS SUMMARY | 2023-07-10 14:11 | XMS_ITS | Encounter Summary ---
Author Name Unknown Organization [place] Address [address] [place] [address]. [place] [address] Care Team Providers Care Quill Layer Name Role Phone No Ref-Primary, Physician Primary Care Provider Encounter Details Date Type Department Care Team (Late st Contact Info) Description 06/20/[address] [facility] [address] [place], [place] [address] [phone] Scan, Non-Provider Social History Tobacco Use [...] on filedocumented in this encounter Care Teams Quill Layer Relationship Specialty Start Date End Date No Ref-Primary, Physician PCP - General 01/07/21 documented as of this encounter
--- OUTSIDE RECORDS SUMMARY | 2023-07-10 14:11 | XMS_ITS | Clinical Summary ---
Author Name Unknown Organization [facility] Address [place], [place] [address] Care Team Providers Care Field Superintendent Name Role Phone Lyndsay Huitron MD Primary Care Provider [phone] Medications Medication Sig Dispensed Refills Start Date End Date Status (u) ALBUTEROL AERS 90 MCG/ACT 1-2 puffs po q 4-6 hours prn 1 0 06/28/1999 Active (u) ALBUTEROL NEB SOLN 2.5MG PREMIXED USE Q4-6 HOURS PRN 1BOX 1 04/19/2000 Active Active Problems Problem Noted Date Diagnosed Date ASTHMA 04/19/2000 Encounters Date Type Department Care Team Description 06/18/2023 2:00 PM ORTHOPEDIC PHYSICAL THERAPIST Ancillary Procedure [place] [facility] [place] [facility] [address] [place] [address] 06/18/2023 Travel from Last 3 Months Family [...] Comments Blood Pressure 110/70 04/19/2000 12:00 AM ORTHOPEDIC PHYSICAL THERAPIST Pulse 118 04/19/2000 12:00 AM ORTHOPEDIC PHYSICAL THERAPIST Temperature 37.5 ??C (99.5 ??F) 04/19/2000 12:[address] Respiratory Rate 16 06/28/1999 12:00 AM ORTHOPEDIC PHYSICAL THERAPIST Oxygen Saturation - - Inhaled Oxygen Concentration - - Weight 129.7 kg (286 lb) 04/17/2000 12:00 AM ORTHOPEDIC PHYSICAL THERAPIST Height - - Body Mass Index - [...] BRACHIAL INDEX BILATERAL Routine 06/18/2023 3:18 PM ORTHOPEDIC PHYSICAL THERAPIST Leg pain from Last 3 Months Results * US ANKLE BRACHIAL INDEX BILATERAL (06/18/2023 3:18 PM ORTHOPEDIC PHYSICAL THERAPIST) Anatomical Region Laterality Modality ANKLES, ANKLE L, ANKLE R Ultraso und 06/18/2023 1:42 PM ORTHOPEDIC PHYSICAL THERAPIST Narrative 06/18/2023 4:20 PM ORTHOPEDIC PHYSICAL THERAPIST VASCULAR ULTRASOUND REPORT PAGE FISHER Accession#: ?? [id number] : ?1970 ?? Study Date: ?? 06/18/2023 1:42:54 PM Age: ?52 years ?? Tech: ? BSG Gender: F ?Referring MD: TRUDI RICH Site: [facility] Study performed: ?Lower [...] ?? Velocity cm/s Phasicity +--------+ + + SENIOR ARCHITECT DST ? 36 ? monophasic +--------+ + + CASSI DST ?0 ? occluded ?? +--------+ + + DPA ? 68 ? monophasic +--------+ + + +--------+ + + LEFT ? Velocity cm/s Phasicity +--------+ + + SENIOR ARCHITECT DST ? 46 ? monophasic +--------+ + [...] Index +-----+ +--------+ +-----+ 0.54 ? 50 ?SENIOR ARCHITECT ?50 ? 0.54 +-----+ +--------+ +-----+ 0.63 ? 58 ?DPA ?54 ? 0.59 +-----+ +--------+ +-----+ Morgan Andrade MD. Electronically signed on 06/18/2023 4:20:21 PM This study was performed and interpreted by a service accredited by the Intersocietal Accreditation Commission (IAC/Vascular), [email or web address]/vascular Report generated by [employer]. ??Final ?? Procedure Note Morgan Andrade MD - 06/18/2023 VASCULAR ULTRASOUND REPORT PAGE FISHER : 1970 Study Date: 06/18/2023 1:42:54 PM Age: 52 years Tech: BSG Gender: F Referring MD: TRUDI RICH Site: [facility] Study performed: Lower extremity resting BEATA, [...] RIGHT Velocity cm/s Phasicity +--------+ + + SENIOR ARCHITECT DST 36 monophasic +--------+ + + CASSI DST 0 occluded +--------+ + + DPA 68 monophasic +--------+ + + +--------+ + + LEFT Velocity cm/s Phasicity +--------+ + + SENIOR ARCHITECT DST 46 monophasic +--------+ + + CASSI [...] 90 Index +-----+ +--------+ +-----+ 0.54 50 SENIOR ARCHITECT 50 0.54 +-----+ +--------+ +-----+ 0.63 58 DPA 54 0.59 +-----+ +--------+ +-----+ Morgan Andrade MD. Electronically signed on 06/18/2023 4:20:21 PM This study was performed and interpreted by a service accredited by theIntersocietal Accreditation Commission (IAC/Vascular),[email or web address]/vascular Report generated by [employer]. Final Trudi MORGAN from Last 3 Months Care Teams Field Superintendent Relationship Specialty Start [place] [address] [place] [address] PCP - General Family Practice 05/09/11
== END 2023-07-10 14:07 | disposition home or self-care (01) ==
LOC: WOUND 14:06
PROVIDERS: PCP Physician Assistant Medical; Visit Provider Family Medicine
DX: G60.3 Idiopathic progressive neuropathy (principal); L97.422 Non-pressure chronic ulcer of left heel and midfoot with fat layer exposed; R73.03 Prediabetes
CPT/HCPCS: G0463

== ENCOUNTER 2023-07-16 11:10 | Outpatient (RCR) | payer OTHER, SELFPAY ==
[2023-07-09 10:13] LABS: Basophils Absolute Auto 0.02 K/uL (0.00-0.30); Basophils Percent Auto 0.4 % (0.0-3.0); Eosinophils Absolute Auto 0.16 K/uL (0.00-0.50); Eosinophils Percent Auto 3.3 % (0.0-7.0); Hematocrit 35.5 % (33.0-51.0); Hemoglobin* 11.5 gm/dL (12.0-16.0); Immature Granulocytes Abs Auto 0.01 K/uL (0.00-0.30); Immature Granulocytes Pct Auto 0.2 %; Lymphocytes Percent Auto 17.8 % (20-44); Mean Corpuscular HGB Conc 32 gm/dL (32-36); Mean Corpuscular Hemoglobin 32 pg (26-34); Mean Corpuscular Volume 97 fL (80-100); Monocytes Percent Auto 6.3 % (0.0-11.0); Neutrophils Absolute Auto 3.53 K/uL (1.7-7.0); Platelet Count* 144 K/uL (140-440); RDW Coefficient of Variation % 13.2 % (11.5-15.5); Red Blood Count 3.65 m/uL (4.00-5.20)
[2023-07-09 10:16] LABS: Slide Review Reflex No
[2023-07-09 10:26] LABS: Albumin* 4.1 g/dL (3.3-5.0); Chloride* 106 mmol/L (96-114)
[2023-07-09 10:27] LABS: Sodium* 141 mmol/L (135-149)
[2023-07-09 10:29] LABS: Alkaline Phosphatase* 62 U/L (40-150); Anion Gap 11 mEq/L (7-15); Aspartate Amino Transferase* 20 U/L (12-35); Blood Urea Nitrogen* 10 mg/dL (7-30); Carbon Dioxide* 24 mmol/L (20-32); Creatinine* 1.1 mg/dL (0.5-1.5); Estimated Glomerular Filt Rate 60 ml/min; Total Protein* 7.3 g/dL (6.0-8.3)
[2023-07-09 10:30] LABS: Alanine Aminotransferase* 14 U/L (4-35); Calcium* 8.9 mg/dL (8.4-10.6); Glucose* 106 mg/dL (60-115)
[2023-07-10 16:40] LABS: Carcinoembryonic Antigen 6.2 ng/mL (<=3.8)
== END 2024-01-05 23:59 | disposition home or self-care (01) ==
LOC: CCIC 11:10
PROVIDERS: Internal Medicine Hematology & Oncology; PCP Physician Assistant Medical; Referring Provider Physician Assistant Medical; Visit Provider Physician Assistant
DX: C20 Malignant neoplasm of rectum (principal); Z72.0 Tobacco use; R91.1 Solitary pulmonary nodule; R15.9 Full incontinence of feces; Z90.49 Acquired absence of other specified parts of digestive tract
CPT/HCPCS: 36415; 80053; 82378; 85025; 99215; G0463

== ENCOUNTER 2023-07-24 14:32 | Outpatient (CLI) | payer OTHER, SELFPAY ==
--- OUTSIDE RECORDS SUMMARY | 2023-07-24 14:48 | XMS_ITS | Clinical Summary ---
Author Name Unknown Organization [facility] Address [place], [place] [address] Care Team Providers Care Interior Design Assistant Name Role Phone Lyndsay Huitron MD Primary Care Provider [phone] Medications Medication Sig Dispensed Refills Start Date End Date Status (u) ALBUTEROL AERS 90 MCG/ACT 1-2 puffs po q 4-6 hours prn 1 0 06/28/1999 Active (u) ALBUTEROL NEB SOLN 2.5MG PREMIXED USE Q4-6 HOURS PRN 1BOX 1 04/19/2000 Active Active Problems Problem Noted Date Diagnosed Date ASTHMA 04/19/2000 Encounters Date Type Department Care Team Description 06/18/2023 2:00 PM NEEDLE MAKER Ancillary Procedure [facility] [address] [place] [address] 06/18/2023 Travel from Last 3 Months Family [...] Comments Blood Pressure 110/70 04/19/2000 12:00 AM NEEDLE MAKER Pulse 118 04/19/2000 12:00 AM NEEDLE MAKER Temperature 37.5 ??C (99.5 ??F) 04/19/2000 12:[address] Respiratory Rate 16 06/28/1999 12:00 AM NEEDLE MAKER Oxygen Saturation - - Inhaled Oxygen Concentration - - Weight 129.7 kg (286 lb) 04/17/2000 12:00 AM NEEDLE MAKER Height - - Body Mass Index - [...] BRACHIAL INDEX BILATERAL Routine 06/18/2023 3:18 PM NEEDLE MAKER Leg pain from Last 3 Months Results * US ANKLE BRACHIAL INDEX BILATERAL (06/18/2023 3:18 PM NEEDLE MAKER) Anatomical Region Laterality Modality ANKLES, ANKLE L, ANKLE R Ultraso und 06/18/2023 1:42 PM NEEDLE MAKER Narrative 06/18/2023 4:20 PM NEEDLE MAKER VASCULAR ULTRASOUND REPORT PAGE FISHER Accession#: ?? [id number] : ?1970 ?? Study Date: ?? 06/18/2023 1:42:54 PM Age: ?52 years ?? Tech: ? BSG Gender: F ?Referring MD: TRUDI RICH Site: [facility] Study performed: ?Lower extremity resting [...] ?? Velocity cm/s Phasicity +--------+ + + AIR PURIFIER SERVICER DST ? 36 ? monophasic +--------+ + + CASSI DST ?0 ? occluded ?? +--------+ + + DPA ? 68 ? monophasic +--------+ + + +--------+ + + LEFT ? Velocity cm/s Phasicity +--------+ + + AIR PURIFIER SERVICER DST ? 46 ? monophasic +--------+ + [...] Index +-----+ +--------+ +-----+ 0.54 ? 50 ?AIR PURIFIER SERVICER ?50 ? 0.54 +-----+ +--------+ +-----+ 0.63 ? 58 ?DPA ?54 ? 0.59 +-----+ +--------+ +-----+ Morgan Andrade MD. Electronically signed on 06/18/2023 4:20:21 PM This study was performed and interpreted by a service accredited by the Intersocietal Accreditation Commission (IAC/Vascular), [email or web address] Report generated by Compute. ??Final ?? Procedure Note Morgan Andrade MD - 06/18/2023 VASCULAR ULTRASOUND REPORT PAGE FISHER : 1970 Study Date: 06/18/2023 1:42:54 PM Age: 52 years Tech: BSG Gender: F Referring MD: TRUDI RICH Site: [facility] Study performed: Lower extremity resting [...] RIGHT Velocity cm/s Phasicity +--------+ + + AIR PURIFIER SERVICER DST 36 monophasic +--------+ + + CASSI DST 0 occluded +--------+ + + DPA 68 monophasic +--------+ + + +--------+ + + LEFT Velocity cm/s Phasicity +--------+ + + AIR PURIFIER SERVICER DST 46 monophasic +--------+ + + CASSI [...] 90 Index +-----+ +--------+ +-----+ 0.54 50 AIR PURIFIER SERVICER 50 0.54 +-----+ +--------+ +-----+ 0.63 58 DPA 54 0.59 +-----+ +--------+ +-----+ Morgan Andrade MD. Electronically signed on 06/18/2023 4:20:21 PM This study was performed and interpreted by a service accredited by theIntersocietal Accreditation Commission (IAC/Vascular),[email or web address] Report generated by Compute. Final Trudi MORGAN from Last 3 Months Care Teams Interior Design Assistant Relationship Specialty Start [place] [id number] [place] [address] PCP - General Family Practice 05/09/11
--- OUTSIDE RECORDS SUMMARY | 2023-07-24 14:48 | XMS_ITS | Clinical Summary ---
Author Name Unknown Organization [facility] Address [address] [place] [address] Care Team Providers Care Shoe Cutter Name Role Phone No Ref-Primary, Physician Primary Care Provider Encounters Date Type Department Care Team Description 06/21/2023 Transcribe Orders GENERIC EXTERNAL DATA DEPARTMENT Provider, Generic External Data Peripheral vascular disease, unspecified (H24) (Primary Dx); Other general symptoms and signs 06/20/[address] [facility] [address] [place] [phone] Scan, Non-Provider from Last 3 Months Social History Tobacco Use Types Packs/Day Years Used Date Smoking Tobacco: Never Assessed Adolescent Education Answer Date Record ed Getting School Help Needed Not on file 03/02 Sex and Gender Information Value Date Recorded Sex Assigned at Not on file Gender Identity Not on file Sexual Orientation Not on file Plan of Treatment Upcoming Encounters Date Type Department Care Team (Late st Contact Info) Description 07/31/2023 11:20 AM CLINICAL PHARMACIST Office Visit [facility] [address] [place] [address] Trudi Jimenez PA-C [facility] [address] [place] [address] Son Huang MD [facility] [address] [place] [address] Health Maintenance Due Date Last Done Comments ADVANCE CARE PLANNING 1970 ANNUAL REVIEW OF HM ORDERS 1968 CT COLONOGRAPHY 1968 FIT 1968 FLEX SIG 1968 GLUCOSE 1968 HEPATITIS B IMMUNIZATION (1 of 3 - 3-dose series) 1968 MAMMO SCREENING 1968 YEARLY PREVENTIVE VISIT 1968 sDNA (Cologuard) 1968 COLONOSCOPY 1978 COLORECTAL CANCER SCREENING 1978 HIV SCREENING 1983 HEPATITIS C SCREENING 1986 PAP 1989 LIPID 2008 ZOSTER IMMUNIZATION (1 of 2) 2018 DTAP/TDAP/TD IMMUNIZATION (2 - Td or Tdap) 05/09/2021 05/09/2011 COVID-19 Vaccine (2 - 2022-2 4 season) 2023 06/13/2021 INFLUENZA VACCINE (#1) 2023 05/09/2011 PHQ-2 (once [...] IMAGING - HIM SCAN 06/19/2023 12:00 AM CLINICAL PHARMACIST from Last 3 Months Results * XRAY IMAGING - HIM SCAN (06/19/2023 12:00 AM CLINICAL PHARMACIST) Anatomical Region Laterality Modality Other 06/19/2023 Provider Outside IMG DIAGNOSTIC IMAGI NG ORDERABLES from Last 3 Months Care Teams Shoe Cutter Relationship Specialty Start Date End Date No Ref-Primary, Physician PCP - General 01/07/21
--- OUTSIDE RECORDS SUMMARY | 2023-07-24 14:48 | XMS_ITS | Referral Summary ---
Author Name Unknown Organization [facility] Address [address] [place] [address] Care Team Providers Care Licensed Psychologist Name Role Phone No Ref-Primary, Physician Primary Care Provider Encounters Date Type Department Care Team Description 06/21/2023 Transcribe Orders GENERIC EXTERNAL DATA DEPARTMENT Provider, Generic External Data Peripheral vascular disease, unspecified (H24) (Primary Dx); Other general symptoms and signs 06/20/2023 Medical Correspondence [facility] [address] [place] [phone] Scan, Non-Provider from Last 3 Months [...] st Contact Info) Description 07/31/2023 11:20 AM CNC SERVICE TECHNICIAN Office Visit [facility] [address] [place] [address] Trudi Jimenez PA-C [facility] [address] [place] [address] Son Huang MD [facility] [address] [place] [address] Procedures Procedure Name Priority Date/Time Associated Diagnosis Comments XRAY IMAGING - HIM SCAN 06/19/2023 12:00 AM CNC SERVICE TECHNICIAN from Last 3 Months Results * XRAY IMAGING - HIM SCAN (06/19/2023 12:00 AM CNC SERVICE TECHNICIAN) Anatomical Region Laterality Modality Other 06/19/2023 Provider Outside IM DIAGNOSTIC IMAGI NG ORDERABLES from Last 3 Months Care Teams Licensed Psychologist Relationship Specialty Start Date End Date No Ref-Primary, Physician PCP - General 01/07/21
--- OUTSIDE RECORDS SUMMARY | 2023-07-24 14:48 | XMS_ITS | Encounter Summary ---
Author Name Unknown Organization [facility] Address [address] [place] [address]. [place] [address] Care Team Providers Care Fountain Pen Turner Name Role Phone No Ref-Primary, Physician Primary Care Provider Encounter Details Date Type Department Care Team (Late st Contact Info) Description 06/20/2023 Medical Correspondence [facility] [address] [place] [phone] Scan, Non-Provider Social History Tobacco Use Types Packs/Day Years Used Date Smoking Tobacco: Never Assessed Adolescent Education Answer Date Record ed Getting School Help Needed Not on file 03/02 Sex and Gender Information Value Date Recorded Sex Assigned at Not on file Gender Identity Not on file Sexual Orientation Not on file documented as of this encounter Plan of Treatment Upcoming Encounters Date Type Department Care Team (Late st Contact Info) Description 07/31/2023 11:20 AM SECURITY SERVICES SPECIALIST Office Visit [facility] [place] [id number] [facility] [address] [place] [phone] Trudi Jimenez PA-C [facility] [address] [place] [address] Son Huang MD [facility] [address] [place] [address] documented as of this encounter Visit Diagnoses Not on filedocumented in this encounter Care Teams Fountain Pen Turner Relationship Specialty Start Date End Date No Ref-Primary, Physician PCP - General 01/07/21 documented as of this encounter
--- OUTSIDE RECORDS SUMMARY | 2023-07-24 14:48 | XMS_ITS | Encounter Summary ---
Author Name Unknown Organization [facility] Address [address] [place] [address] Care Team Providers Care Geomagnetist Name Role Phone No Ref-Primary, Physician Primary Care Provider Reason for Referral * Consultation (Routine) - Pending Review Specialty Diagnoses / Procedures Referred By Contmagalis t Referred To Contact Cardiovascular Disease Diagnoses Peripheral vascular disease, unspecified (H24) Other general symptoms and signs Trudi Jimenez PA-C [facility] [address] [place] [address] [facility] [address] [place] [address] Referral ID Status Reason Start Date Expiration Date V isits Requested Visits Authorized [id number] Pending Review 06/21/2023 06/20/2024 1 1 Question Answer Preferred Location: [facility] [place] Scheduling Instructions: Please call to schedule your appointment Comments Referral Transcribed by external fax Provider: TRUDI JIMENEZ affiliated with [facility]. VA: No If yes was is the [facility] Authorization Number: Phone number: [phone] Please call to schedule your appointment ILE MILL OPERATOR TAPE CONTROL Encounter Details Date Type Department Care Team [...] st Contact Info) Description 07/31/2023 11:20 AM PROFILE MILL OPERATOR TAPE CONTROL Office Visit [facility] [place] [address] [facility] [address] [place] [phone] Trudi Jimenez PA-C [facility] [address] [place] [address] Son Huang MD [facility] [address] [place] [address] Scheduled Referrals Name Type Priority Associated Diagnoses Orde r Schedule Vascular Medicine Referral Referral Routine Peripheral vascular disease, unspecified (H24) Other general symptoms and signs Expected: 06/21/2023 (Approximate), Expires: 06/21/2024 documented as of this encounter Visit Diagnoses Diagnosis Peripheral vascular disease, unspecified (H24)- Primary Peripheral vascular disease, unspecified Other general symptoms and signs documented in this encounter Care Teams Geomagnetist Relationship Specialty Start Date End Date No Ref-Primary, Physician PCP - General 01/07/21 documented as of this encounter
== END 2023-07-24 14:33 | disposition home or self-care (01) ==
LOC: WOUND 14:32
PROVIDERS: PCP Physician Assistant Medical; Visit Provider Nurse Practitioner Family
DX: G60.3 Idiopathic progressive neuropathy (principal); L97.428 Non-pressure chronic ulcer of left heel and midfoot with other specified severity; R73.03 Prediabetes
CPT/HCPCS: G0463

== ENCOUNTER 2023-08-13 10:06 | Outpatient (CLI) | payer OTHER, SELFPAY ==
--- NOTE | 2023-08-13 11:06 | W.ANESCHARGE ---
Anesthesia Charges Start Date/Time Anesthesia Start Date: 08/13/23 Anesthesia Start Time: 10:45 Stop Date/Time Anesthesia Stop Date: 08/13/23 Anesthesia Stop Time: 11:42
--- NOTE | 2023-08-13 11:44 | W.ANESCHARGE ---
Anesthesia Charges Start Date/Time Anesthesia Start Date: 08/13/23 Anesthesia Start Time: 10:45 Stop Date/Time Anesthesia Stop Date: 08/13/23 Anesthesia Stop Time: 11:42
== END 2023-08-13 10:07 | disposition home or self-care (01) ==
LOC: OP CLINIC 10:07
PROVIDERS: PCP Physician Assistant Medical; Visit Provider Surgery
DX: K63.5 Polyp of colon (principal); Z85.038 Personal history of other malignant neoplasm of large intestine; Z93.3 Colostomy status; Z98.0 Intestinal bypass and anastomosis status
CPT/HCPCS: 00811; 45380; 45385; 88305; J2704

== ENCOUNTER 2023-12-31 14:44 | Outpatient (CLI) | payer OTHER, SELFPAY ==
--- OUTSIDE RECORDS SUMMARY | 2023-12-31 14:50 | XMS_ITS | Clinical Summary ---
Author Organization [employer] Address [place], [place] [address] Care Team Providers Care Customer Consultant Name Role Phone Lyndsay Huitron MD Primary Care Provider [phone] Medications Medication Sig Dispensed Refills Start Date End Date Status (u) ALBUTEROL AERS 90 MCG/ACT 1-2 puffs po q 4-6 hours prn 1 x2 06/28/1999 Active (u) ALBUTEROL NEB SOLN 2.5MG [...] Comments Blood Pressure 110/70 04/19/2000 12:00 AM LINUX SYSTEMS ENGINEER Pulse 118 04/19/2000 12:00 AM LINUX SYSTEMS ENGINEER Temperature 37.5 ??C (99.5 ??F) 04/19/2000 12:[address] Respiratory Rate 16 06/28/1999 12:00 AM LINUX SYSTEMS ENGINEER Oxygen Saturation - - Inhaled Oxygen Concentration - - Weight 129.7 kg (286 lb) 04/17/2000 12:00 AM LINUX SYSTEMS ENGINEER Height - - Body Mass Index - - Plan of Treatment Health Maintenance Due Date Last Done Comments Tdap 1979 Depression screening for age 12+ [...] for age 50+ (1 of 2) 2018 COVID-19 vaccine series ( - 2022-24 season) 2023 Influenza for age 50-64 02/03/2024 Pneumococcal series for age 6-64 Aged Out No longer eligible based on patient's age to complete this topic Procedures Procedure Name Priority Date/Time Associated Diagnosis Comments XR MAMMO BILAT SCREEN FFDM (IA) Routine 05/16/2011 6:28 PM LINUX SYSTEMS ENGINEER Other screening mammogram from Last 3 Months or Most Recently Relevant to Health Maintenance Results * XR MAMMO BILAT SCREEN FFDM (05/16/2011 6:28 PM LINUX SYSTEMS ENGINEER) Anatomical Region Laterality Modality BREASTS, Breast Left, Breast Right Bilateral Mammography Impressions 05/17/2011 8:01 AM LINUX SYSTEMS ENGINEER ??There is no radiographic evidence for malignancy. ??Recommend annual mammograms. A lay language report of this examination will be provided to the patient. MAMMOGRAM ASSESSMENT: ??ACR 1 Negative Narrative 05/17/2011 8:01 AM LINUX SYSTEMS ENGINEER XR MAMMO BILAT SCREEN FFDM [G0202.0] CLINICAL HISTORY: ??This is an asymptomatic 40 y.o. patient. INDICATION FOR EXAM: Mammogram Screening. TECHNIQUE: CC & MLO views were obtained. ??This digital study was evaluated with the assistance of Computer-Aided Detection. ?? COMPARISON FILM: This is a baseline study. FINDINGS: ??Mammographically, the breast tissue is almost entirely fat (<25% glandular). ??There are no dominant masses, suspicious micro calcifications or areas of architectural distortion. Procedure Note Russ Jaramillo MD - 05/17/2011 XR MAMMO BILAT SCREEN FFDM [G0202.0] CLINICAL HISTORY: This is an asymptomatic 40 y.o. patient. INDICATION FOR EXAM: Mammogram Screening. TECHNIQUE: CC & MLO views were obtained. This digital study was evaluatedwith the assistance of Computer-Aided Detection. COMPARISON FILM: This is a baseline study. FINDINGS: Mammographically, the breast tissue is almost entirely fat(<25% glandular). There are no dominant masses, suspicious microcalcifications or areas of architectural distortion. IMPRESSION: There is no radiographic evidence for malignancy. Recommendannual mammograms. A lay language report of this examination will be provided to the patient. MAMMOGRAM ASSESSMENT: ACR 1 Negative Lyndsay Huitron MD MAMMO from Last 3 Months or Most Recently Relevant to Health Maintenance Care Teams Customer Consultant Relationship Specialty Start [place] [address] [place] [address] PCP - General Family Practice 05/09/11
--- OUTSIDE RECORDS SUMMARY | 2023-12-31 14:50 | XMS_ITS | Clinical Summary ---
Author Organization [facility] Address [address] [place] [id number] Care Team Providers Care Access Liaison Name Role Phone No Ref-Primary, Physician Primary Care Provider Allergies Active Allergy Reactions Criticality Noted Date Comments Amoxicillin 07/31/2023 Azithromycin 07/31/2023 Medications Medication Sig Dispensed Refills Start Date End Date Status metFORMIN (GLUCOPHAGE) 500 MG tablet Take 1,000 mg by mouth 2 times daily (with meals) 06/20/2023 Active naltrexone (DEPADE/REVIA) 50 MG tablet TAKE 1 TABLET BY MOUTH DAILY FOR WEIGHT MANAGEMENT 06/20/2023 Active olmesartan-hydroch lorothiazide (BENICAR HCT) 20-12.5 MG tablet Take 1 tablet by mouth daily for blood pressure 05/08/2023 Active phenazopyridine (PYRIDIUM) 100 MG tablet Take 1 tablet by mouth 3 times daily 12/25/2022 Active rosuvastatin (CRESTOR) 20 MG tablet Take 20 mg by mouth daily 06/20/2023 Active sennosides (SENOKOT) 8.6 MG tablet Take 1 tablet by mouth daily as needed for constipation 12/28/2022 Active albuterol (PROAIR HFA/PROVENTIL HFA/VENTOLIN HFA) 108 (90 Base) MCG/ACT inhaler INHALE 2 PUFFS BY MOUTH EVERY 4 TO 6 HOURS NEEDED FOR SHORTNESS OF BREATH OR WHEEZING 12/21/2022 Active aspirin (ASA) 81 MG chewable tablet Take 81 mg by mouth daily Active cilostazol (PLETAL) 50 MG tabletIndications: Peripheral vascular disease, unspecified (H24),Other general symptoms and signs Take 1 tablet (50 mg) by mouth daily for 14 days, THEN 1 tablet (50 mg) 2 times daily for 14 days. 42 tablet 07/31/2023 Active cilostazol (PLETAL) 100 MG tabletIndications: Peripheral vascular disease, unspecified (H24),Other general symptoms and signs Take 1 tablet (100 mg) by mouth 2 times daily 60 tablet 07/31/2023 Active varenicline (CHANTIX SADE) 0.5 MG X 11 & 1 MG X 42 tabletIndications: Peripheral vascular disease, unspecified (H24),Other general symptoms and signs,Encounter for smoking cessation counseling Take 0.5 mg tab daily for 3 days, THEN 0.5 mg tab twice daily for 4 days, THEN 1 mg twice daily. 53 tablet 07/31/2023 Active Additional Information Patient not taking.Reported on 11/13/2023 varenicline (CHANTIX SADE) 0.5 MG X 11 & 1 MG X 42 tabletIndications: Encounter for smoking cessation counseling Take 0.5 mg tab daily for 3 days, THEN 0.5 mg tab twice daily for 4 days, THEN 1 mg twice daily. 53 tablet 11/13/2023 Active cilostazol (PLETAL) 100 MG tabletIndications: Peripheral vascular disease, unspecified (H24) Take 1 tablet (100 mg) by mouth 2 times daily 180 tablet 3 11/13/2023 Active buPROPion (WELLBUTRIN SR) 150 MG 12 hr tabletIndications: Encounter for smoking cessation counseling Take 1 tablet (150 mg) by mouth 2 times daily 90 tablet 11/29/2023 Active Active Problems Problem Noted Date Diagnosed Date Asthma 04/19/2000 Encounters Date Type Department Care Team Description 11/20/[address] [place] [phone] Son Huang MD Prior Auth - Medication (varenicline (CHANTIX SADE) 0.5 MG X 11 & 1 MG X 42 tablet - DENIED) 11/13/2023 11:40 AM CDT Office Visit [address] [place] [phone] Son Huang MD Encounter for smoking cessation counseling (Primary Dx); Peripheral vascular disease, unspecified (H24) 11/13/2023 10:30 AM CDT Ancillary Procedure [facility] [place] [address] [facility] [address] [place] [phone] Son Huang MD Peripheral vascular disease, unspecified (H24) 11/13/2023 Travel 11/07/2023 1:42 PM CDT - 11/07/2023 11:59 PM CDT Hospital Encounter [facility] [address] [place] [phone] Son Huang MD Peripheral vascular disease, unspecified (H24); Other general symptoms and signs Discharge Disposition: Home or Self Care 11/07/2023 Travel from Last 3 Months Social History Tobacco Use Types Packs/Day Years Used Date Smoking Tobacco: Every Day Cigarettes Smokeless Tobacco: Never Alcohol Use Standard Drinks/Week Comments Not Currently 0 (1 standard drink = 0.6 oz pur e alcohol) Adolescent Education Answer Date Record ed Getting School Help Needed Not on file 03/02 Sex and Gender Information Value Date Recorded Sex Assigned at Not on file Gender Identity Not on file Sexual Orientation Not on file Last Filed Vital Signs Vital Sign Reading Time Taken Comments Blood Pressure 108/73 11/13/2023 11:44 AM CDT Pulse 71 11/13/2023 11:44 AM CDT Temperature - - Respiratory Rate 16 07/31/2023 11:49 AM VOCAL PERFORMER Oxygen Saturation 97% 11/13/2023 11:44 AM CDT Inhaled Oxygen Concentration - - Weight - - Height - - Body Mass Index - - Plan of Treatment Upcoming Encounters Date Type Department Care Team (Late st Contact Info) Description 05/13/2024 10:20 AM VOCAL PERFORMER Virtual Visit [facility] [place] [address] [facility] [address] [place] [phone] Son Huang MD [facility] [address] [place] [address] Health Maintenance Due Date Last Done Comments ADVANCE CARE PLANNING 1968 ANNUAL REVIEW OF HM ORDERS 1968 ASTHMA ACTION PLAN 1968 ASTHMA CONTROL TEST 1968 CT COLONOGRAPHY 1968 FIT 1968 FLEX SIG 1968 GLUCOSE 1968 LIPID 1968 MAMMO SCREENING 1968 NICOTINE/TOBACCO CESSATION COUNSELING Q 1 YR 1968 YEARLY PREVENTIVE VISIT 1968 sDNA (Cologuard) 1968 COLONOSCOPY 1978 COLORECTAL CANCER SCREENING 1978 HIV SCREENING 1983 HEPATITIS C SCREENING 1986 HEPATITIS B IMMUNIZATION (1 of 3 - 19+ 3-dose series) 1987 PAP 1989 Pneumococcal Vaccine: Pediat rics (0 to 5 Years) and At-Risk Patients (6 to 64 Years) (2 of 2 - PCV) 05/09/2012 05/09/2011 LUNG CANCER SCREENING 2018 ZOSTER IMMUNIZATION (1 of 2) 2018 DTAP/TDAP/TD IMMUNIZATION (2 - Td or Tdap) 05/09/2021 05/09/2011 COVID-19 Vaccine (2 - 2022-2 4 season) 2023 06/13/2021 PHQ-2 (once per calendar year) 2023 INFLUENZA VACCINE (#1) 2024 05/09/2011 HPV IMMUNIZATION Aged Out No longer e [...] Name Priority Date/Time Associated Diagnosis Comments US LOW EXT ARTERIAL DOP SEG PRES W/O EXERCISE Routine 11/13/2023 12:21 PM CDT Peripheral vascular disease, unspecified (H24) CTA ABDOMEN PELVIS RUNOFF W CONTRAST Routine 11/07/2023 2:24 PM CDT Peripheral vascular disease, unspecified (H24) Other general symptoms and signs from Last 3 Months Results * US Low Ext Arterial Dop Seg Pres w/o Exercise (11/13/2023 12:21 PM CDT) Anatomical Region Laterality Modality Lower Extremity Ultrasound Narrative 11/13/2023 4:51 PM CDT Table formatting from the original result was not included. BILATERAL RESTING ANKLE-BRACHIAL INDICES (BEATA'S) (Date: 11/13/23) Indication: Surveillance of bilateral PAD. Bilateral leg heaviness. Decreased pedal pulses/lower extremity pain Previous: 06/18/2023 History: Current Smoker, Hypertension, Diabetic, Hyperlipidemia, and PAD Resting BEATA's ? Right: mmHg Index ?Brachial: 110 ?? Ankle-(PT): 79 0.66 Ankle-(DP): 72 0.60 ? Digit: 70 0.58 ? Left: mmHg Index ?Brachial: 120 ?? Ankle-(PT): 67 0.56 Ankle-(DP): 64 0.53 ? Digit: 59 0.49 Resting ankle-brachial index of 0.66 on the right. Toe Pressures of 70 mmHg and TBI of 0.58 Resting ankle-brachial index of 0.56 on the left. Toe Pressures of 59 mmHg and TBI of 0.49 VPR WAVEFORMS: The right volume plethysmography waveforms are mildly abnormal at the lower thigh level, mildly abnormal at the upper calf level and mildly abnormal at the ankle. The left volume plethysmography waveforms are mildly abnormal at the lower thigh level, mildly abnormal at the upper calf level and mildly abnormal at the ankle. Impression: ?? 1. RIGHT LOWER EXTREMITY: BEATA is Abnormal with an BEATA of 0.66 indicating single level disease. Toe Pressures are Mildly abnormal but adequate for wound healing with toe pressures of 70 mmHg. 2. LEFT LOWER EXTREMITY: BEATA is Abnormal with an BEATA of 0.56 indicating single level disease. Toe Pressures are Mildly abnormal but adequate for wound healing with toe pressures of 59 mmHg. Reference: Wound classification Grade BEATA Ankle Systolic Pressure Toe Pressures 0 > 0.80 > 100 mmHg > 60 mmHg 1 0.6 - 0.79 70 - 100 mmHg 40 - 59 mmHg 2 0.4 - 0.59 50-70 mmHg 30 - 39 mmHg 3 < 0.39 < 50 mmHg < 30 mmHg Digit Pressures DBI Disease Category > 0.70 Normal < 0.70 Abnormal > 30 mmHg Potential wound healing < 30 mmHg Impaired wound healing Ankle Brachial Pressures BEATA Disease Category > 1.3 ??Likely vessel calcification with monophasic waveforms, non-diagnostic 0.95-1.30 Normal with multiphasic waveforms 0.50-0.95 Single level disease 0.30-0.50 Multilevel disease < 0.30 Critical limb ischema Volume Plethysmography Recording (VPR) at all levels Normal Sharp systolic peak, fast upstroke, prominent dicrotic notch in wave Mild Sharp systolic peak, fast upstroke, absent dicrotic notch in wave Moderate Flattened systolic peak, slowed upstroke, absent dicrotic notch inwave Severe amplitude wave with = upslope and down slope Occluded Flat Line Son Huang MD IMG US ORDERABLES * CTA Abdomen Pelvis Runoff w Contrast (11/07/2023 2:24 PM CDT) Anatomical Region Laterality Modality Lower Extremity, SUBRAD IR P ROCEDURE, UMP CT CTA, RAD CT Computed Tomography Impressions 11/07/2023 3:00 PM CDT IMPRESSION: Small caliber distal abdominal aorta. Soft plaque in the distal abdominal aorta with associated moderate stenosis. Mild to moderate stenosis in the mid left superficial femoral artery. MOODY MORALES MD Narrative 11/07/2023 3:00 PM CDT CTA ABDOMEN/PELVIS RUNOFF WITH CONTRAST November 07, 2023 2:24 PM HISTORY: Peripheral arterial disease. COMPARISON: None. TECHNIQUE: CT angiogram of the abdomen/pelvis with bilateral lower extremity runoff was performed following the administration of 90 cc intravenous contrast. Images are viewed in multiple planes and 3-D reconstructions were also performed. Radiation dose for this scan was reduced using automated exposure control, adjustment of the mA and/or kV according to patient size, or iterative reconstruction technique. FINDINGS: Vascular exam: Abdominal aorta: There is no evidence for an abdominal aortic aneurysm. There is mild scattered calcified plaque in the abdominal aorta. The distal abdominal aorta is of small caliber. There is irregular soft plaque in the distal abdominal aorta. This contributes to a moderate stenosis where the luminal diameter measures approximately 8-10 mm. The celiac trunk, superior mesenteric artery, and renal arteries are patent without significant stenoses. The proximal inferior mesenteric artery is occluded. Iliac arteries: The iliac arteries are patent without significant stenoses. Right lower extremity angiogram: Common femoral artery: No significant stenosis. Profunda femoris artery: No significant stenosis. Superficial femoral artery: No significant stenosis. Popliteal artery: No significant stenosis. Tibial arteries: Three-vessel runoff. Left lower extremity angiogram: Common femoral artery: No significant stenosis. Profunda femoris artery: No significant stenosis. Superficial femoral artery: Mild to moderate stenosis mid thigh. Popliteal artery: No significant stenosis. Tibial arteries: Three-vessel runoff. Soft tissue exam: The lung bases are clear. The solid organs in the abdomen are unremarkable. There is a surgical anastomosis in the rectum. There is a left abdominal colostomy. The bowel otherwise appears grossly unremarkable. There is a small right anterior abdominal wall hernia containing mesenteric fat. Procedure Note Moody Morales MD - 11/07/2023 CTA ABDOMEN/PELVIS RUNOFF WITH CONTRAST November 07, 2023 2:24 PM HISTORY: Peripheral arterial disease. COMPARISON: None. TECHNIQUE: CT angiogram of the abdomen/pelvis with bilateral lower extremity runoff was performed following the administration of 90 cc intravenous contrast. Images are viewed in multiple planes and 3-D reconstructions were also performed. Radiation dose for this scan was reduced using automated exposure control, adjustment of the mA and/or kV according to patient size, or iterative reconstruction technique. FINDINGS: Vascular exam: Abdominal aorta: There is no evidence for an abdominal aortic aneurysm. There is mild scattered calcified plaque in the abdominal aorta. The distal abdominal aorta is of small caliber. There is irregular soft plaque in the distal abdominal aorta. This contributes to a moderate stenosis where the luminal diameter measures approximately 8-10 mm. The celiac trunk, superior mesenteric artery, and renal arteries are patent without significant stenoses. The proximal inferior mesenteric artery is occluded. Iliac arteries: The iliac arteries are patent without significant stenoses. Right lower extremity angiogram: Common femoral artery: No significant stenosis. Profunda femoris artery: No significant stenosis. Superficial femoral artery: No significant stenosis. Popliteal artery: No significant stenosis. Tibial arteries: Three-vessel runoff. Left lower extremity angiogram: Common femoral artery: No significant stenosis. Profunda femoris artery: No significant stenosis. Superficial femoral artery: Mild to moderate stenosis mid thigh. Popliteal artery: No significant stenosis. Tibial arteries: Three-vessel runoff. Soft tissue exam: The lung bases are clear. The solid organs in the abdomen are unremarkable. There is a surgical anastomosis in the rectum. There is a left abdominal colostomy. The bowel otherwise appears grossly unremarkable. There is a small right anterior abdominal wall hernia containing mesenteric fat. IMPRESSION: Small caliber distal abdominal aorta. Soft plaque in the distal abdominal aorta with associated moderate stenosis. Mild to moderate stenosis in the mid left superficial femoral artery. MOODY MORALES MD Son Huang MD IMG CT ORDERABLES from Last 3 Months Care Teams Access Liaison Relationship Specialty Start Date End Date No Ref-Primary, Physician PCP - General 01/07/21
--- OUTSIDE RECORDS SUMMARY | 2023-12-31 14:51 | XMS_ITS | Encounter Summary ---
Author Organization [facility] Address [address] [place] [address] Care Team Providers Care Rehabilitation Therapy Aide Name Role Phone No Ref-Primary, Physician Primary Care Provider Reason for Visit * Diagnostic Imaging Ultrasound (Routine) - Pending Review Specialty Diagnoses / Procedures Referred By Contac t Referred To Contact Radiology. Diagnoses Peripheral vascular disease, unspecified (H24) Procedures US Low Ext Arterial Dop Seg Pres w/o Exercise Son Huang MD [facility] [address] [place] [address] Referral ID Status Reason Start Date Expiration Date V isits Requested Visits Authorized [id number] Pending Review 07/31/2023 07/30/2024 1 1 Encounter Details Date Type Department Care Team (Latest Contact Info) Description 11/13/2023 10:30 AM CDT Ancillary Procedure [facility] [address] [place] [phone] Son Huang MD [facility] [address] [place] [address] Peripheral vascular disease, unspecified (H24) Social History Tobacco Use Types Packs/Day Years [...] st Contact Info) Description 05/13/2024 10:20 AM DIVING SUPERVISOR Virtual Visit [facility] [address] [facility] [address] [place] [phone] Son Huang MD [facility] [address] [place] [address] documented as of this encounter Procedures Procedure Name Priority Date/Time Associated Diagnosis Comments US LOW EXT ARTERIAL DOP SEG PRES W/O EXERCISE Routine 11/13/2023 12:21 PM CDT Peripheral vascular disease, unspecified (H24) documented in this encounter Results * US Low Ext Arterial Dop [...] slope Occluded Flat Line Son Huang MD [facility] ORDERABLES documented in this encounter Visit Diagnoses Diagnosis Peripheral vascular disease, unspecified (H24) Peripheral vascular disease, unspecified documented in this encounter Care Teams Rehabilitation Therapy Aide Relationship Specialty Start Date End Date No Ref-Primary, Physician PCP - General 01/07/21 documented as of this encounter
--- OUTSIDE RECORDS SUMMARY | 2023-12-31 14:51 | XMS_ITS | Encounter Summary ---
Author Organization [facility] Address [address] [place] [address] Care Team Providers Care Accounting Teacher Name Role Phone No Ref-Primary, Physician Primary Care Provider Reason for Visit * Reason Onset Date Comments Prior Auth - Medication 11/13/2023 varenicl ine (CHANTIX SADE) 0.5 MG X 11 & 1 MG X 42 tablet - DENIED Encounter Details Date Type Department Care Team (Late st Contact Info) Description 11/20/2023 Telephone [facility] [address] [place] [phone] Son Huang MD [facility] [address] [place] [address] Prior Auth - Medication (varenicline (CHANTIX SADE) 0.5 MG X 11 & 1 MG X 42 tablet - DENIED) Social History Tobacco Use Types Packs/Day Years [...] on file documented as of this encounter Miscellaneous Notes * Telephone Encounter - Renata Walton RN - 11/29/2023 2:38 PM CDT Left message for patient to call back. Order for Wellbutrin sent to help with smoking cessation since Chantix was denied. Wellbutrin- 150 mg orally once a day for 3 days, increased to 150 mg orally twice a day * Telephone Encounter - Gema Pradhan - 11/29/2023 12:16 PM CDT Images from the original note were not included. PRIOR AUTHORIZATION DENIED Medication: VARENICLINE TARTRATE (STARTER) 0.5 MG X 11 & 1 MG X 42 PO TBPK [facility] - Denial Date: 11/27/2023 Denial Reason(s): PATIENT HAS TO TRY/FAIL ALTERNATIVES FIRST. SEE DENIAL LETTER BELOW Appeal Information: Patient Notified: NO * Telephone Encounter - Gema Pradhan - 11/26/2023 5:12 PM CDT Images from the original note were not included. PA Initiation Medication: VARENICLINE TARTRATE (STARTER) 0.5 MG X 11 & 1 MG X 42 PO TBPK Insurance Company: [facility] [place] - Pharmacy Filling the Rx: [id number] - [place], [place] - [address] [place] [address] AT [facility] [address] Filling Pharmacy Filling Pharmacy Fax: Start Date: 11/26/2023 * Telephone Encounter - Sha Soni - 11/20/2023 11:44 AM CDT Images from the original note were not included. Note: Due to record-high volumes, our turn-around time is taking longer than usual . We are currently 8 days behind in the pools. We are working diligently to submit all requests in a timely manner and in the order they are received. Please only flag TRUE URGENT requests as high priority to the pool at this time. If you have questions on status of PA's, please send a note/message in the active PA encounter and send back to the [facility] PA pool [[id number]]. If you have questions about the turn-around time or about our process, please reach out to our supervisor pipeline Nat Jules. Thank you! RPPA (Retail Pharmacy Prior Authorization) team When sending URGENT requests, make sure they qualify for urgent status Urgent requests would be defined as one or more of the following situations: - The patient is at risk for severe side effects if they do not get the medication YAMILE - The patient is at risk for admission to the hospital if they do not get the medication YAMILE - The patient poses a danger to himself/herself without this medication * Addendum Note - Renata Walton RN - 11/20/2023 11:44 AM CDTAddended by: COSMO WALTON on: 11/29/2023 02:38 PM Modules accepted: Orders documented in this encounter Plan of Treatment Upcoming Encounters Date Type Department Care Team (Late st Contact Info) Description 05/13/2024 10:20 AM NATURAL HISTORY COLLECTIONS CURATOR Virtual Visit [address] [place] [phone] Son Huang MD [facility] [address] [place] [address] documented as of this encounter Visit Diagnoses Diagnosis Encounter for smoking cessation counseling- Primary Counseling on substance use and abuse documented in this encounter Care Teams Accounting Teacher Relationship Specialty Start Date End Date No Ref-Primary, Physician PCP - General 01/07/21 documented as of this encounter
--- OUTSIDE RECORDS SUMMARY | 2023-12-31 14:51 | XMS_ITS | Referral Summary ---
Author Organization [facility] Address [address] [place] [address] Care Team Providers Care Freelance Graphic Designer Name Role Phone No Ref-Primary, Physician Primary Care Provider Encounters Date Type Department Care Team Description 11/20/[address] [phone] Son Huang MD Prior Auth - Medication (varenicline (CHANTIX SADE) 0.5 MG X 11 & 1 MG X 42 tablet - DENIED) 11/13/2023 Travel 11/13/2023 11:40 AM CDT Office Visit [address] [phone] Son Huang MD Encounter for smoking cessation counseling (Primary Dx); Peripheral vascular disease, unspecified (H24) 11/13/2023 10:30 AM CDT Ancillary Procedure [facility] Imaging [address] [place] [phone] Son Huang MD Peripheral vascular disease, unspecified (H24) 11/07/2023 Travel 11/07/2023 1:42 PM CDT - 11/07/2023 11:59 PM CDT Hospital Encounter [facility] [address] [place] [phone] Son Huang MD Peripheral vascular disease, unspecified (H24); Other general symptoms and signs Discharge Disposition: Home or Self Care from Last 3 Months Allergies Active Allergy Reactions Criticality Noted Date [...] Problem Noted Date Diagnosed Date Asthma 04/19/2000 Social History Tobacco Use Types Packs/Day Years [...] - Respiratory Rate 16 07/31/2023 11:49 AM TAXICAB COORDINATOR Oxygen Saturation 97% 11/13/2023 11:44 AM CDT Inhaled Oxygen Concentration - - Weight - - Height - - Body Mass Index - - Plan of Treatment Upcoming Encounters Date Type Department Care Team (Late st Contact Info) Description 05/13/2024 10:20 AM TAXICAB COORDINATOR Virtual Visit [facility] [place] [address] [facility] [address] [place] [phone] Son Huang MD [facility] [address] [place] [address] Procedures Procedure Name Priority Date/Time Associated Diagnosis [...] ORDERABLES from Last 3 Months Care Teams Freelance Graphic Designer Relationship Specialty Start Date End Date No Ref-Primary, Physician PCP - General 01/07/21
--- OUTSIDE RECORDS SUMMARY | 2023-12-31 14:51 | XMS_ITS | Encounter Summary ---
Author Organization [place] Address [address] [place] [address] Care Team Providers Care Rating Examiner Name Role Phone No Ref-Primary, Physician Primary Care Provider Reason for Visit * Reason Onset Date Comments Orders 09/13/2023 Encounter Details Date Type Department Care Team (Late st Contact Info) Description 09/13/[address] [place] [address] Son Huang MD [facility] [address] [place] [address] Orders (/) Social History Tobacco Use Types Packs/Day Years [...] encounter Miscellaneous Notes * Telephone Encounter - Kendy Kumar - 11/08/2023 10:39 AM CDT [facility] has reached out to patient several times to schedule CTA and patient has not responded to schedule. After further review, it looks like patient did complete CTA yesterday at [facility]. * Telephone Encounter - Kendy Kumar - 09/13/2023 10:52 AM CDT Faxed orders for CTA abd/pelvis w runoff and US carotid to [facility] per pt request ([phone]). Aircraft Instrument Tester recieved a call from [facility] today who states they are unable to perform CTA w runoff. LM with patient to schedule at [facility]/other location. Radiology: [phone] Vascular if questions: [phone] documented in this encounter Plan of Treatment Upcoming Encounters Date Type Department Care Team (Late st Contact Info) Description 05/13/2024 10:20 AM MINIATURE SET BUILDER Virtual Visit [facility] [place] [id number] [facility] [address] [place] [phone] Son Huang MD [facility] [address] [place] [address] documented as of this encounter Visit Diagnoses Not on filedocumented in this encounter Care Teams Rating Examiner Relationship Specialty Start Date End Date No Ref-Primary, Physician PCP - General 01/07/21 documented as of this encounter
--- OUTSIDE RECORDS SUMMARY | 2023-12-31 14:51 | XMS_ITS | Encounter Summary ---
Author Organization [place] Address [address] [place] [address] Care Team Providers Care Environmental Health And Safety Leader Name Role Phone No Ref-Primary, Physician Primary Care Provider Reason for Referral * Diagnostic Imaging CT Scan (Routine) - Closed Specialty Diagnoses / Procedures Referred By Contac t Referred To Contact Radiology. Diagnoses Peripheral vascular disease, unspecified (H24) Other general symptoms and signs Procedures CTA Abdomen Pelvis Runoff w Contrast Son Huang MD [facility] [address] [place], [place] [id number] [address] Scan [address] [place] [address] Referral ID Status Reason Start Date Expiration Date Visits Re quested Visits Authorized [id number] Closed 07/31/2023 07/30/2024 1 1 Reason for Visit * Diagnostic Imaging CT Scan (Routine) - Closed Specialty Diagnoses / Procedures Referred By Contac t Referred To Contact Radiology. Diagnoses Peripheral vascular disease, unspecified (H24) Other general symptoms and signs Procedures CTA Abdomen Pelvis Runoff w Contrast Son Huang MD [facility] [address] [place] [address] Scan [address] [place] [address] Referral ID Status Reason Start Date Expiration Date Visits Re quested Visits Authorized [id number] Closed 07/31/2023 07/30/2024 1 1 Encounter Details Date Type Department Care Team (Latest Contact Info) Description 11/07/2023 1:42 PM CDT - 11/07/2023 11:59 PM CDT Hospital Encounter [facility] [address] [place] [address] Son Huang MD [facility] [address] [place] [address] Peripheral vascular disease, unspecified (H24); Other general symptoms and signs Discharge Disposition: Home or Self Care Social History Tobacco Use Types Packs/Day Years [...] on file documented as of this encounter Medications at Time of Discharge Medication Sig Dispensed Refills Start Date End Date albuterol (PROAIR HFA/PROVENTIL HFA/VENTOLIN HFA) 108 (90 Base) MCG/ACT inhaler INHALE 2 PUFFS BY MOUTH EVERY 4 TO 6 HOURS NEEDED FOR SHORTNESS OF BREATH OR WHEEZING 12/21/2022 aspirin (ASA) 81 MG chewable tablet Take 81 mg by mouth daily cilostazol (PLETAL) 100 MG tabletIndications:Gracie pheral vascular disease, unspecified (H24),Other general symptoms and signs Take 1 tablet (100 mg) by mouth 2 times daily 60 tablet 07/31/2023 metFORMIN (GLUCOPHAGE) 500 MG tablet Take 1,000 mg by mouth 2 times daily (with meals) 06/20/2023 naltrexone (DEPADE/REVIA) 50 MG tablet TAKE 1 TABLET BY MOUTH DAILY FOR WEIGHT MANAGEMENT 06/20/2023 olmesartan-hydrochloro thiazide (BENICAR HCT) 20-12.5 MG tablet Take 1 tablet by mouth daily for blood pressure 05/08/2023 phenazopyridine (PYRIDIUM) 100 MG tablet Take 1 tablet by mouth 3 times daily 12/25/2022 rosuvastatin (CRESTOR) 20 MG tablet Take 20 mg by mouth daily 06/20/2023 sennosides (SENOKOT) 8.6 MG tablet Take 1 tablet by mouth daily as needed for constipation 12/28/2022 varenicline (CHANTIX SADE) 0.5 MG X 11 & 1 MG X 42 tabletIndications:Gracie pheral vascular disease, unspecified (H24),Other general symptoms and signs,Encounter for smoking cessation counseling Take 0.5 mg tab daily for 3 days, THEN 0.5 mg tab twice daily for 4 days, THEN 1 mg twice daily. 53 tablet 07/31/2023 documented as of this encounter Plan of Treatment Upcoming Encounters Date Type Department Care Team (Late st Contact Info) Description 05/13/2024 10:20 AM FLANGER Virtual Visit [place] [id number] [facility] [address] [place] [phone] Son Huang MD [facility] [address] [place] [address] documented as of this encounter Procedures Procedure Name Priority Date/Time Associated Diagnosis Comments CTA ABDOMEN PELVIS RUNOFF W CONTRAST Routine 11/07/2023 2:24 PM CDT Peripheral vascular disease, unspecified (H24) Other general symptoms and signs documented in this encounter Results * CTA Abdomen Pelvis Runoff w Contrast [...] MD Son Huang MD IMG CT ORDERABLES documented in this encounter Visit Diagnoses Diagnosis Peripheral vascular disease, unspecified (H24) Peripheral vascular disease, unspecified Other general symptoms and signs documented in this encounter Administered Medications Inactive Administered Medications - up to 3 most recent administrations Medication Order MAR Action Action Date Dose Rate Site iopamidol (ISOVUE-370) solution 500 mL 500 mL, Intravenous, ONCE, On Sun11/07/23 at 1430, For 1 dose $Given 11/07/2023 2:02 PM CDT 90 mLs sodium chloride 0.9 % bag [address] scan flush use As instructed, 100 mL, EVERY 1 HOUR PRN, line flush, Starting on Sun11/07/23 at 1402, For 12 hours, This entry is for use by Radiology to intermittently used as a flush in patients receiving a CT scan. $Given 11/07/2023 2:03 PM CDT 100 mLs documented in this encounter Care Teams Environmental Health And Safety Leader Relationship Specialty Start Date End Date No Ref-Primary, Physician PCP - General 01/07/21 documented as of this encounter
--- OUTSIDE RECORDS SUMMARY | 2023-12-31 14:51 | XMS_ITS | Encounter Summary ---
Author Organization [place] Address [address] [place] [address] Care Team Providers Care Human Resources Benefits Assistant Name Role Phone No Ref-Primary, Physician Primary Care Provider Encounter Details Date Type Department Care Team (Latest Contact Info) Description 11/07/2023 Travel Social History Tobacco Use Types Packs/Day Years [...] st Contact Info) Description 05/13/2024 10:20 AM MANAGEMENT TRAINEE MARKETING Virtual Visit [address] [place] [phone] Son Huang MD [facility] [address] [place] [address] documented as of this encounter Visit Diagnoses Not on filedocumented in this encounter Care Teams Human Resources Benefits Assistant Relationship Specialty Start Date End Date No Ref-Primary, Physician PCP - General 01/07/21 documented as of this encounter
--- OUTSIDE RECORDS SUMMARY | 2023-12-31 14:51 | XMS_ITS | Encounter Summary ---
Author Organization [place] Address [address] [place] [address] Care Team Providers Care Access Control Officer Name Role Phone No Ref-Primary, Physician Primary Care Provider Reason for Visit * Reason Comments PERIPHERAL ARTERIAL DISEASE Encounter Details Date Type Department Care Team (Late st Contact Info) Description 11/13/2023 11:40 AM CDT Office Visit [address] [place] [address] Son Huang MD [facility] [address] [place] [address] Encounter for smoking cessation counseling (Primary Dx); Peripheral vascular disease, unspecified (H24) Social History [...] on file documented as of this encounter Last Filed Vital Signs Vital Sign Reading Time Taken Comments Blood Pressure 108/73 11/13/2023 11:44 AM CDT Pulse 71 11/13/2023 11:44 AM CDT Temperature - - Respiratory Rate - - Oxygen Saturation 97% 11/13/2023 11:44 AM CDT Inhaled Oxygen Concentration - - Weight - - Height - - Body Mass Index - - documented in this encounter Patient Instructions * Patient Instructions* Renata Cotto RN - 11/13/2023 11:40 AM CDT Naila Abel, Thank you for entrusting your care with us today. After your visit today with MD Son Huang thisis the plan that was discussed at your appointment. Begin taking Chantix Continue taking Pletal I am including additional information on these things and our contact information if you have any questions or concerns. Please do not hesitate to reach out to us if you felt we did not answer your questions or you are unsure of the treatment plan after your visit today. Our number is [phone].Thank you for trusting us with your care. Again thank you for your time. documented in this encounter Progress Notes * Renata Cotto RN - 11/13/2023 11:[address] [facility] Patient is here for a 3 month follow up to discuss Peripheral artery disease (PAD). Symptoms include claudicaton: right buttocks, left buttocks, right thigh, left thigh, right calf, and left calf at distance of 1000 feet in both lower extremities. She states that he is trying to be more active. Sheis down to half pack a day, she states that [facility] didn't have Chantix. She would be open to trying Wellbutrin. Pt is currently taking Aspirin and Statin. Pletal The provider has been notified that the patient has no concerns. Questions patient would like addressed today are: N/A. Refills are needed: No Has homecare services and agency name: No * Son Huang MD - 11/13/2023 11:40 AM CDT VASCULAR AND INTERVENTIONAL OUTPATIENT CONSULT OR VISIT PHYSICIAN: Son Huang MD ESTABLISHED PATIENT LOCATION: [facility] Page Fisher Date of : 1970 Age: [age] year old Date of Service: 11/13/2023 PRIMARY CARE PROVIDER: No Ref-Primary, Physician Reason for visit: Peripheral vascular disease/lower extremity pain and claudication IMPRESSION: 53-year-old female with history of bilateral lower extremity pain/claudication x 1 year. Noninvasive imaging demonstrates a resting ankle- brachial index of 0.66 on the right and 0.56 on the left reflecting moderate peripheral arterial disease bilaterally. RECOMMENDATION: Guideline recommended medical therapy for peripheral disease -Continue aspirin 81 mg once daily -Continue high intensity statin therapy with rosuvastatin 20 mg once daily -Encourage smoking cessation. The durability of any surgical or endovascular intervention is severely limited with continued smoking. The patient did not fill her prescription after the prior visit. This was discussed in great detail with the patient. She was given a prescription of Chantix to aid in smoking cessation. -PAD rehab. This was reviewed with the patient, for, there is no PAD rehabilitation program near the patient's residence. Home exercise therapy was encouraged with sessions lasting 30 to 60 minutes daily at least 3 times a week. -Start cilostazol with dose escalation. The patient denies a history of heart failure. -Obtain screening carotid ultrasound, this was previously ordered, however, the patient did not schedule an exam -CT angiogram with lower extremity runoff demonstrates moderate stenosis in the abdominal aorta as well as the mid left superficial femoral artery. Plan for trial of conservative therapy for claudication as highlighted above. Will plan for a 6-month clinic follow-up to evaluate response. HPI: Page Fisher is a 53 year old female who was evaluated today for lower extremity claudicationx 1 year. Patient reports a history of bilateral buttock as well as lower leg claudication after walking distances greater than 500 feet. She is a current and longtime smoker. She denies any rest pain or history of extremity wounds/ulcerations. Her past medical history significant for history of colorectal cancer requiring surgery/radiation. The patient was started on conservative medical management during her prior visit, however, she was unable to obtain her Chantix prescription from her pharmacy. PHH: Past Medical History: Diagnosis Date Rectal cancer (H) No past surgical history on file. ALLERGIES: Amoxicillin and Azithromycin MEDS: Current Outpatient Medications: albuterol (PROAIR HFA/PROVENTIL HFA/VENTOLIN HFA) 108 (90 Base) MCG/ACT inhaler, INHALE 2 PUFFS BY MOUTH EVERY 4 TO 6 HOURS NEEDED FOR SHORTNESS OF BREATH OR WHEEZING, Disp: , Rfl: aspirin (ASA) 81 MG chewable tablet, Take 81 mg by mouth daily, Disp: , Rfl: cilostazol (PLETAL) 100 MG tablet, Take 1 tablet (100 mg) by mouth 2 times daily, Disp: 180 tablet,Rfl: 3 cilostazol (PLETAL) 100 MG tablet, Take 1 tablet (100 mg) by mouth 2 times daily, Disp: 60 tablet, Rfl: 0 metFORMIN (GLUCOPHAGE) 500 MG tablet, Take 1,000 mg by mouth 2 times daily (with meals), Disp: , Rfl: naltrexone (DEPADE/REVIA) 50 MG tablet, TAKE 1 TABLET BY MOUTH DAILY FOR WEIGHT MANAGEMENT, Disp: ,Rfl: olmesartan-hydrochlorothiazide (BENICAR HCT) 20-12.5 MG tablet, Take 1 tablet by mouth daily for blood pressure, Disp: , Rfl: phenazopyridine (PYRIDIUM) 100 MG tablet, Take 1 tablet by mouth 3 times daily, Disp: , Rfl: rosuvastatin (CRESTOR) 20 MG tablet, Take 20 mg by mouth daily, Disp: , Rfl: sennosides (SENOKOT) 8.6 MG tablet, Take 1 tablet by mouth daily as needed for constipation, Disp: , Rfl: varenicline (CHANTIX SADE) 0.5 MG X 11 & 1 MG X 42 tablet, Take 0.5 mg tab daily for 3 days, THEN 0.5 mg tab twice daily for 4 days, THEN 1 mg twice daily., Disp: 53 tablet, Rfl: 0 cilostazol (PLETAL) 50 MG tablet, Take 1 tablet (50 mg) by mouth daily for 14 days, THEN 1 tablet (50 mg) 2 times daily for 14 days., Disp: 42 tablet, Rfl: 0 varenicline (CHANTIX SADE) 0.5 MG X 11 & 1 MG X 42 tablet, Take 0.5 mg tab daily for 3 days, THEN 0.5 mg tab twice daily for 4 days, THEN 1 mg twice daily. (Patient not taking: Reported on 11/13/2023), Disp: 53 tablet, Rfl: 0 SOCIAL HABITS: History Smoking Status Every Day Types: Cigarettes Smokeless Tobacco Never Social History Substance and Sexual Activity Alcohol use: Not Currently History Drug Use Unknown FAMILY HISTORY: No family history on file. ADVANCE CARE DIRECTIVES: Advance care directives reviewed in the chart and no changes made. PE: BP 108/73 Pulse 71 SpO2 97% Wt Readings from Last 1 Encounters: No data found for Wt There is no height or weight on file to calculate BMI. EXAM: GENERAL: This is a well-developed 53 year old female who appears her stated age EYES: Grossly normal. MOUTH: Buccal mucosa normal MUSCULOSKELETAL: Grossly normal and both lower extremities are intact. HEME/LYMPH: No lymphedema NEUROLOGIC: Focally intact, Alert and oriented x 3. PSYCH: appropriate affect INTEGUMENT: No open lesions or ulcers DIAGNOSTIC STUDIES: Images: US Low Ext Arterial Dop Seg Pres w/o Exercise Result Date: 11/13/2023 Table formatting from the original result was not included. BILATERAL RESTING ANKLE-BRACHIAL INDICES (BEATA'S) (Date: 11/13/23) Indication: Surveillance of bilateral PAD. Bilateral leg heaviness. Decreased pedal pulses/lower extremity pain Previous: 06/18/2023 History: Current Smoker, Hypertension, Diabetic, Hyperlipidemia, and PAD Resting BEATA's Right: mmHg Index Brachial: 110 Ankle- (PT): 79 0.66 Ankle-(DP): 72 0.60 Digit: 70 0.58 Left: mmHg Index Brachial: 120 Ankle-(PT): 67 0.56 Ankle-(DP): 64 0.53 Digit: 59 0.49 Resting ankle-brachial index of [...] and mildly abnormal at the ankle. Impression: 1. RIGHT LOWER EXTREMITY: BEATA is Abnormal with an BEATA of 0.66 indicating single level disease. Toe Pressures are Mildly abnormal but adequate forwound healing with toe pressures of 70 mmHg. [...] 100 mmHg 40 - 59 mmHg 2 0.4- 0.59 50-70 mmHg 30 - 39 mmHg 3 < 0.39 < 50 mmHg < 30 mmHg Digit Pressures DBI Disease Category > 0.70 Normal < 0.70 Abnormal > 30 mmHg Potential wound healing < 30 mmHg Impaired wound healing Ankle Brachial Pressures BEATA Disease Category > 1.3 Likely vessel calcification with monophasic waveforms, non-diagnostic 0.95-1.30 Normal with multiphasic waveforms 0.50-0.95 Single level disease 0.30-0.50 Multilevel disease < 0.30 Critical limb ischema Volume Plethysmography Recording (VPR) at all levels Normal Sharp systolic peak, fast upstroke, prominent dicrotic notch inwave Mild Sharp systolic peak, fast upstroke, absent dicrotic notch in wave Moderate Flattened systolic peak, slowed upstroke, absent dicrotic notch inwave Severe amplitude wave with = upslope and down slope Occluded Flat Line CTA Abdomen Pelvis Runoff w Contrast Result Date: 11/07/2023 CTA ABDOMEN/PELVIS RUNOFF WITH CONTRAST November [...] where the luminal diameter measures approximately 8-10 mm.The celiac trunk, superior mesenteric artery, and renal arteries are patent without significant stenoses. The proximal inferior mesenteric artery is occluded. Iliac arteries: The iliac arteries are patent without significant stenoses. Right lower extremity angiogram: Common femoral artery: No significant stenosis. Profunda femoris artery: No significant stenosis. Superficial femoral artery: No significant stenosis. Popliteal artery: No significant stenosis. Tibial arteries: Three- vessel runoff.Left lower extremity angiogram: Common femoral artery: No [...] in the mid left superficial femoral artery. LORA MAE MD LABS: This was a in person visit in which 30 minutes of total time was spent (either in hsqy-ec-aehi or ylu-ebds-vp-face time). A total of 5 minutes of smoking cessation counseling was provided to the patient including pharmacological therapy. Son Huang MD, [facility] VASCULAR AND INTERVENTIONAL PHYSICIAN VASCULAR MEDICINE INTERNAL MEDICINE PAGER: [phone] CALL SERVICE: [phone] documented in this encounter Plan of Treatment Upcoming Encounters Date Type Department Care Team (Late st Contact Info) Description 05/13/2024 10:20 AM PRINCIPAL JAVA SOFTWARE ENGINEER Virtual Visit [address] [place] [address] Son Huang MD [facility] [address] [place] [address] documented as of this encounter Visit Diagnoses Diagnosis Encounter for smoking cessation counseling- Primary Counseling on substance use and abuse Peripheral vascular disease, unspecified (H24) Peripheral vascular disease, unspecified documented in this encounter Care Teams Access Control Officer Relationship Specialty Start Date End Date No Ref-Primary, Physician PCP - General 01/07/21 documented as of this encounter
--- OUTSIDE RECORDS SUMMARY | 2023-12-31 14:51 | XMS_ITS | Encounter Summary ---
Author Organization [place] Address [address] [place] [address] Care Team Providers Care Manager Harbor Name Role Phone No Ref-Primary, Physician Primary Care Provider Encounter Details Date Type Department Care Team (Latest Contact Info) Description 11/13/2023 Travel Social History Tobacco Use Types Packs/Day [...] st Contact Info) Description 05/13/2024 10:20 AM THERAPIST PHYSICAL Virtual Visit [address] [place] [phone] Son Huang MD [facility] [address] [place] [address] documented as of this encounter Visit Diagnoses Not on filedocumented in this encounter Care Teams Manager Harbor Relationship Specialty Start Date End Date No Ref-Primary, Physician PCP - General 01/07/21 documented as of this encounter
== END 2023-12-31 14:45 | disposition home or self-care (01) ==
PROVIDERS: PCP Physician Assistant Medical; Visit Provider Physician Assistant Medical
DX: E78.5 Hyperlipidemia, unspecified (principal); E55.9 Vitamin D deficiency, unspecified; E53.8 Deficiency of other specified B group vitamins; I10 Essential (primary) hypertension; E66.01 Morbid (severe) obesity due to excess calories; R06.00 Dyspnea, unspecified
CPT/HCPCS: 82550; 83880; 84443

== ENCOUNTER 2024-01-17 21:59 | Emergency (ER) | payer OTHER, SELFPAY ==
[2024-01-17 22:44] VITALS: BP 161/88; PULSE 84; RESP 18; TEMP 36.7; O2SAT 97; BMI 55.8
--- NOTE | 2024-01-17 23:08 | ED.FEMALEGU ---
HPI - Female Genitourinary General Chief complaint: Urogenital Problems, Female Stated complaint: Bladder infection Time Seen by Provider: 01/17/24 22:09 Source: patient Mode of arrival: ambulatory Limitations: no limitations History of Present Illness HPI Narrative: Patient is a 53-year-old female presenting to the emergency department for concerns of a UTI. She states she has had quite a few UTIs in the past few years since her rectal cancer surgery. She states when they did the surgery there move part of her colon and nauseous a colostomy. This had to be done because he was having lots of issues with incontinence both fecal and urinary. She states that urinary continence has improved but today she noticed some dysuria. She states this feels just like her previous UTIs. She did notice some blood in the urine was unsure if it was coming from her urine or if there was blood from her perineal region at as she has minimal sensation here and does not notice if it develops issues. Denies fevers, chills, chest pain, shortness of breath, abdominal pain, diarrhea, constipation, weakness, numbness. No other concerns noted at this time Related Data Home Medications ?Medication ?Instructions ?Recorded ?Confirmed ibuprofen 200 mg capsule 600 mg PO .Q6h Prn PRN 02/09/22 01/10/24 Ibuprofen/Tylenol PO PRN 05/03/22 01/10/24 mupirocin 2 % topical ointment 1 applic topical TID 05/03/22 01/10/24 cilostazol 100 mg tablet 100 mg PO QDAY 01/10/24 01/10/24 Previous Rx's ?Medication ?Instructions ?Recorded albuterol sulfate 90 mcg/actuation 2 puff inhalation Q4-6H PRN 12/21/22 aerosol inhaler shortness of breath or wheezing #8.5 grams sennosides 8.6 mg capsule (senna) 8.6 mg PO DAILY PRN constipation 12/28/22 #90 caps cholecalciferol (vitamin D3) 250 250 mcg PO QDAY #90 caps 04/25/23 mcg (10,000 unit) capsule amlodipine 5 mg tablet 5 mg PO QDAY #90 tabs 12/31/23 bupropion HCl 150 mg 24 hr tablet, 150 mg PO QAM #90 tabs 12/31/23 extended release hydrochlorothiazide 12.5 mg tablet 12.5 mg PO QAM #90 tabs 12/31/23 mecobalamin (vitamin B12) 2,500 2,500 mcg PO DAILY #90 tabs 12/31/23 mcg chewable tablet metformin 500 mg tablet 1,000 mg (2 x 500 mg) PO BIDWMEAL 12/31/23 #360 tabs naltrexone 50 mg tablet 50 mg PO QDAY #90 tabs 12/31/23 rosuvastatin 20 mg tablet 20 mg PO QDAY #90 tabs 12/31/23 terbinafine HCl 250 mg tablet 250 mg PO QDAY #90 tabs 12/31/23 aspirin 81 mg chewable tablet 81 mg PO QDAY #90 tabs 01/09/24 (Aspirin Childrens) potassium chloride 20 mEq 20 meq PO QDAY #7 tabs 01/10/24 tablet,extended release Allergies Allergy/AdvReac Type Severity Reaction Status Date / Time amoxicillin Allergy Intermediate Abdominal Verified 01/10/24 11:09 pains sever and diarrhea azithromycin Allergy Mild Nausea Verified 01/10/24 11:09 Review of Systems Status of ROS: Reports: 10 or more systems reviewed and unremarkable except as noted in History and below [facility] Medical History Abnormal ankle brachial index (BEATA) ?R68.89 - Other general symptoms and signs (ICD-10) Bursitis ?M71.9 - Bursopathy, unspecified (ICD-10) Family hx of colorectal cancer (~2020) ?Z80.0 - Family history of malignant neoplasm of digestive organs (ICD-10) Rectal sphincter incontinence ?R15.9 - Full incontinence of feces (ICD-10) Family history of celiac disease ?Z83.79 - Family history of other diseases of the digestive system (ICD-10) Obstructive sleep apnea on CPAP ?G47.33 - Obstructive sleep apnea (adult) (pediatric) (ICD-10) ?Z99.89 - Dependence on other enabling machines and devices (ICD-10) Pulmonary nodule ?R91.1 - Solitary pulmonary nodule (ICD-10) Premature of twins Prediabetes ?R73.03 - Prediabetes (ICD-10) Obstructive sleep apnea syndrome ?G47.33 - Obstructive sleep apnea (adult) (pediatric) (ICD-10) Hypertension ?I10 - Essential (primary) hypertension (ICD-10) Asthma ?J45.909 - Unspecified asthma, uncomplicated (ICD-10) Surgical History History of partial surgical removal of colon ?Z90.49 - Acquired absence of other specified parts of digestive tract (ICD-10) History of section ?Z98.891 - History of uterine scar from previous surgery (ICD-10) Family History Mother Dementia Thyroid disease Maternal Grandmother Dementia Maternal Grandfather Heart disease Son Pituitary disease Father Stroke Social History Narrative: 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 Moist mucous membranes. Remove GI: Nontender/Nondistended, No rebound or guarding. : External genitalia exam shows no signs of bleeding MSK:Extremities w/o deformity, Normal Active ROM Skin: Warm, Dry. No rashes or lesions. Neuro: Normal Muscle tone, No focal neurological deficits. Psych: Awake, Alert, & Oriented x3. Appropriate mood and affect. Const: Vital Signs, click to edit/add: Vital Signs - 24 hr 01/17/24 22:44 Temperature 98.1 F Pulse Rate [Pulse Oximeter] 84 Respiratory Rate 18 Blood Pressure [Le ft Upper Arm] 161/88 H Pulse Oximetry 97 Oxygen Delivery Me thod Room Air Course Vital Signs Vital signs: Initial Vital Signs Temperature 98.1 F 01/17/24 22:44 Temperature Source Temporal Artery Scan 01/17/24 22:44 Pulse Rate 84 01/17/24 22:44 Respiratory Rate 18 01/17/24 22:44 Blood Pressure 161/88 H 01/17/24 22:44 Blood Pressure Mean 112 H 01/17/24 22:44 Blood Pressure Position Sitting 01/17/24 22:44 Pulse Oximetry 97 01/17/24 22:44 Oxygen Delivery Method Room Air 01/17/24 22:44 Vital Signs Temperature 98.1 F 01/17/24 22:44 Pulse Rate 84 01/17/24 22:44 Respiratory Rate 18 01/17/24 22:44 Blood Pressure 161/88 H 01/17/24 22:44 Pulse Oximetry 97 01/17/24 22:44 Oxygen Delivery Method Room Air 01/17/24 22:44 Temperature 98.1 F 01/17/24 22:44 Pulse Rate 84 01/17/24 22:44 Respiratory Rate 18 01/17/24 22:44 Blood Pressure 161/88 H 01/17/24 22:44 Pulse Oximetry 97 01/17/24 22:44 Oxygen Delivery Method Room Air 01/17/24 22:44 MDM - Female Genitourinary MDM Narrative Medical decision making narrative: Patient is a 53-year-old female presenting to the emergency department for concerns of a UTI. Urinalysis was ordered. She is otherwise doing well I do not believe further lab workup is necessary. Physical exam shows no concerning abnormalities. Urinalysis is does show signs of UTI. Based on her previous urinalyses Keflex should 4. Keflex will be sent via [facility]. She does have allergy to amoxicillin but she says just makes her stomach a little bit upset. I do not believe this would be an issue with Keflex. The blood in the urine is most likely from the urinary tract infection. Do not believe imaging is necessary. She is agreeable to this plan. Lab Data Labs: Lab Results 01/17/24 Range/Units 22:09 Urine Color Elda A (Yellow) Urine Appearance Cloudy A (Clear) Urine pH 5.5 (5.0-8.5) Ur Specific Sacul >= 1.030 (1.000-1.030) Urine Protein 2+ A (Negative) Urine Glucose (UA) Negative (Negative) Urine Ketones Negative (Negative) Urine Blood 3+ A (Negative) Urine Nitrite Negative (Negative) Urine Bilirubin Negative (Negative) Urine Urobilinogen 0.2 (0.2-1.0) Ur Leukocyte Esterase 2+ A (Negative) Urine RBC 50-100 A (0-2) Urine WBC 50-100 A (0-5) Ur Squamous Epith Cells Moderate A (None-Few) Urine Bacteria Many A (None) Discharge Plan Discharge Clinical Impression: Urinary tract infection Qualifiers: Urinary tract infection type: site unspecified Hematuria presence: with hematuria Qualified Code(s): N39.0 - Urinary tract infection, site not specified Patient Disposition: Home, Self-Care Condition: Stable Instructions: Urinary Tract Infection in Women (DC) Additional Instructions: Keflex was sent to [facility]. Take as prescribed. Return to emergency department for new or worsening symptoms. Prescriptions: No Action ibuprofen 200 mg capsule 600 mg PO .Q6h Prn PRN amlodipine 5 mg tablet 5 mg PO QDAY Qty: 90 0RF Rx Instructions: once daily for blood pressure and blood flow ( Hold olmesartan) hydrochlorothiazide 12.5 mg tablet 12.5 mg PO QAM Qty: 90 0RF Rx Instructions: once daily for blood pressure and leg swelling mecobalamin (vitamin B12) 2,500 mcg tablet,chewable 2,500 mcg PO DAILY Qty: 90 3RF Rx Instructions: once daily for B12 deficiency metformin 500 mg tablet 1,000 mg PO BIDWMEAL Qty: 360 0RF Rx Instructions: two tablets Twice daily with meals for weight management and pre diabetes naltrexone 50 mg tablet 50 mg PO QDAY Qty: 90 3RF Rx Instructions: 1 tablet daily for weight management rosuvastatin 20 mg tablet 20 mg PO QDAY Qty: 90 3RF Rx Instructions: once daily for cholesterol bupropion HCl 150 mg tablet extended release 24 hr 150 mg PO QAM Qty: 90 0RF Rx Instructions: once daily with naltrexone terbinafine HCl 250 mg tablet 250 mg PO QDAY Qty: 90 0RF Rx Instructions: once daily for toenail fungus mupirocin 2 % ointment 1 applic topical TID Ibuprofen/Tylenol PO PRN senna 8.6 mg capsule 8.6 mg PO DAILY PRN (Reason: constipation) Qty: 90 3RF cilostazol 100 mg tablet 100 mg PO QDAY potassium chloride 20 mEq tablet extended release 20 meq PO QDAY Qty: 7 0RF Rx Instructions: Take once daily with whole glass of water. albuterol sulfate 90 mcg/actuation HFA aerosol inhaler 2 puff inhalation Q4-6H PRN (Reason: shortness of breath or wheezing) Qty: 8.5 3RF cholecalciferol (vitamin D3) 250 mcg (10,000 unit) capsule 250 mcg PO QDAY Qty: 90 0RF Rx Instructions: 1 capsule daily for Vit D deficiency aspirin [Aspirin Childrens] 81 mg tablet,chewable 81 mg PO QDAY Qty: 90 3RF Rx Instructions: once daily Follow Up/Referrals: Trudi Jimenez PA-C [Primary Care Provider] - Stand Alone Forms: [employer] Info Instructions
--- OUTSIDE RECORDS SUMMARY | 2024-01-17 23:11 | XMS_ITS | Encounter Summary ---
Author Organization [facility] Address [address] [place] [address] Care Team Providers Care Arc Air Operator Name Role Phone No Ref-Primary, Physician Primary Care Provider Reason for Visit * Diagnostic Imaging Ultrasound (Routine) - Pending Review Specialty Diagnoses / Procedures Referred By Contac t Referred To Contact Radiology. Diagnoses Peripheral vascular disease, unspecified (H24) Procedures US Low Ext Arterial Dop Seg Pres w/o Exercise Son Huang MD [facility] [address] [place] [address] Referral ID Status Reason Start Date Expiration Date V isits Requested Visits Authorized [id number] Pending Review 07/31/2023 07/30/2024 1 1 Encounter Details Date Type Department Care Team (Latest Contact Info) Description 11/13/2023 10:30 AM CDT Ancillary Procedure [facility] Imaging [address] [place] [phone] Son Huang MD [facility] [address] [place] [address] Peripheral vascular disease, unspecified (H24) Social History [...] st Contact Info) Description 05/13/2024 10:20 AM SUPERVISOR SIGN SHOP Virtual Visit [facility] [address] [facility] [address] [place] [phone] Son Huang MD [facility] [address] [place] [address] documented as of this encounter Procedures Procedure [...] slope Occluded Flat Line Son Huang MD [facility] ORDERABLES documented in this encounter Visit Diagnoses Diagnosis Peripheral vascular disease, unspecified (H24) Peripheral vascular disease, unspecified documented in this encounter Care Teams Arc Air Operator Relationship Specialty Start Date End Date No Ref-Primary, Physician PCP - General 01/07/21 documented as of this encounter
--- OUTSIDE RECORDS SUMMARY | 2024-01-17 23:11 | XMS_ITS | Referral Summary ---
Author Organization [facility] Address [address] [place] [address] Care Team Providers Care Medical Case Manager Name Role Phone No Ref-Primary, Physician Primary Care Provider Encounters Date Type Department Care Team Description 11/20/[address] [phone] Son Huang MD Prior Auth - Medication (varenicline (CHANTIX SADE) 0.5 MG X 11 & 1 MG X 42 tablet - DENIED) 11/13/2023 Travel 11/13/2023 11:40 AM CDT Office Visit [address] [phone] Son Huang MD Encounter for smoking cessation counseling (Primary Dx); Peripheral vascular disease, unspecified (H24) 11/13/2023 10:30 AM CDT Ancillary Procedure [facility] Imaging [address] [place] [phone] oSn Huang MD Peripheral vascular disease, unspecified (H24) 11/07/2023 Travel 11/07/2023 1:42 PM CDT - 11/07/2023 11:59 PM CDT Hospital Encounter [facility] [address] [place] [phone] Son Huang MD Peripheral vascular disease, unspecified [...] - Respiratory Rate 16 07/31/2023 11:49 AM AUTOMOBILE SPRING REPAIRER Oxygen Saturation 97% 11/13/2023 11:44 AM CDT Inhaled Oxygen Concentration - - Weight - - Height - - Body Mass Index - - Plan of Treatment Upcoming Encounters Date Type Department Care Team (Late st Contact Info) Description 05/13/2024 10:20 AM AUTOMOBILE SPRING REPAIRER Virtual Visit [facility] V[facility] [place] [address] [facility] [address] [place] [address] Son Huang MD [facility] [address] [place] [address] Procedures Procedure Name Priority Date/Time Associated Diagnosis [...] ORDERABLES from Last 3 Months Care Teams Medical Case Manager Relationship Specialty Start Date End Date No Ref-Primary, Physician PCP - General 01/07/21
--- OUTSIDE RECORDS SUMMARY | 2024-01-17 23:11 | XMS_ITS | Encounter Summary ---
Author Organization [place] Address [address] [place] [address] Care Team Providers Care Lead Sales Consultant Name Role Phone No Ref-Primary, Physician Primary Care Provider Reason for Visit * Reason Onset Date Comments Orders 09/13/2023 Encounter Details Date Type Department Care Team (Late st Contact Info) Description 09/13/[address] [place] [phone] Son Huang MD [facility] [address] [place] [address] Orders (/) Social History Tobacco Use Types [...] Kendy Kumar - 11/08/2023 10:39 AM CDT [facility] has reached out to patient several times to schedule CTA and patient has not responded to schedule. After further review, it looks like patient did complete CTA yesterday at [facility]. * Telephone Encounter - Kendy Kumar - 09/13/2023 10:52 AM CDT Faxed orders for CTA abd/pelvis w runoff and US carotid to [facility] per pt request ([phone]). Superintendent Pressure recieved a call from [facility] today who states they are unable to perform CTA w runoff. LM with patient to schedule at [facility]/other location. Radiology: [phone] Vascular if questions: [phone] documented in this encounter Plan of Treatment Upcoming Encounters Date Type Department Care Team (Late st Contact Info) Description 05/13/2024 10:20 AM CORPORATE LEGAL ASSISTANT Virtual Visit [facility] Vascular [place] [id number] [facility] [address] [place] [phone] Son Huang MD [facility] [address] [place] [address] documented as of this encounter Visit Diagnoses Not on filedocumented in this encounter Care Teams Lead Sales Consultant Relationship Specialty Start Date End Date No Ref-Primary, Physician PCP - General 01/07/21 documented as of this encounter
--- OUTSIDE RECORDS SUMMARY | 2024-01-17 23:11 | XMS_ITS | Encounter Summary ---
Author Organization [facility] Address [address] [place] [address] Care Team Providers Care Spring Coiling Machine Setter Name Role Phone No Ref-Primary, Physician Primary Care Provider Reason for Visit * Reason Comments PERIPHERAL ARTERIAL DISEASE Encounter Details Date Type Department Care Team (Late st Contact Info) Description 11/13/2023 11:40 AM CDT Office Visit [address] [place] [phone] Son Huang MD [facility] [address] [place] [address] Encounter for smoking cessation counseling (Primary Dx); [...] after your visit today. Our number is [phone].Thank you for trusting us with your care. Again thank you for your time. documented in this encounter Progress Notes * Renata Cotto RN - 11/13/2023 11:40 AM CDT [facility] Patient is here for [...] PHYSICIAN: Son Huang MD ESTABLISHED PATIENT LOCATION: [facility] Date of : 1970 Age: [...] of total time was spent (either in miee-sd-zyoz or ihz-ugbp-vh-face time). A total of 5 minutes of smoking cessation counseling was provided to the patient including pharmacological therapy. Son Huang MD, [facility] VASCULAR AND INTERVENTIONAL PHYSICIAN VASCULAR MEDICINE INTERNAL MEDICINE PAGER: [phone] CALL SERVICE: [phone] documented in this encounter Plan of Treatment Upcoming Encounters Date Type Department Care Team (Late st Contact Info) Description 05/13/2024 10:20 AM CUPOLA MECHANIC Virtual Visit [address] [place] [phone] Son Huang MD [facility] [address] [place] [address] documented as of this encounter Visit Diagnoses Diagnosis Encounter for smoking cessation counseling- Primary Counseling on substance use and abuse Peripheral vascular disease, unspecified (H24) Peripheral vascular disease, unspecified documented in this encounter Care Teams Spring Coiling Machine Setter Relationship Specialty Start Date End Date No Ref-Primary, Physician PCP - General 01/07/21 documented as of this encounter
--- OUTSIDE RECORDS SUMMARY | 2024-01-17 23:11 | XMS_ITS | Clinical Summary ---
Author Organization [facility] Address [place], [place] [address] Care Team Providers Care Inspector Optical Instrument Name Role Phone Lyndsay Huitron MD Primary Care Provider [phone] Medications Medication Sig Dispensed Refills Start Date [...] Comments Blood Pressure 110/70 04/19/2000 12:00 AM ITEM PROCESSOR Pulse 118 04/19/2000 12:00 AM ITEM PROCESSOR Temperature 37.5 ??C (99.5 ??F) 04/19/2000 12:[address] Respiratory Rate 16 06/28/1999 12:00 AM ITEM PROCESSOR Oxygen Saturation - - Inhaled Oxygen Concentration - - Weight 129.7 kg (286 lb) 04/17/2000 12:00 AM ITEM PROCESSOR Height - - Body Mass Index - [...] SCREEN FFDM (IA) Routine 05/16/2011 6:28 PM ITEM PROCESSOR Other screening mammogram from Last 3 Months or Most Recently Relevant to Health Maintenance Results * XR MAMMO BILAT SCREEN FFDM (05/16/2011 6:28 PM ITEM PROCESSOR) Anatomical Region Laterality Modality BREASTS, Breast Left, Breast Right Bilateral Mammography Impressions 05/17/2011 8:01 AM ITEM PROCESSOR ??There is no radiographic evidence for malignancy. ??Recommend annual mammograms. A lay language report of this examination will be provided to the patient. MAMMOGRAM ASSESSMENT: ??ACR 1 Negative Narrative 05/17/2011 8:01 AM ITEM PROCESSOR XR MAMMO BILAT SCREEN FFDM [G0202.0] CLINICAL [...] Recently Relevant to Health Maintenance Care Teams Inspector Optical Instrument Relationship Specialty Start [place] [address] [place] [address] PCP - General Family Practice 05/09/11
--- OUTSIDE RECORDS SUMMARY | 2024-01-17 23:11 | XMS_ITS | Clinical Summary ---
Author Organization [facility] Address [address] [place] [address] Care Team Providers Care Freight Coordinator Name Role Phone No Ref-Primary, Physician Primary [...] Type Department Care Team Description 11/20/[address] [place] [phone] Son Huang MD Prior Auth - Medication (varenicline (CHANTIX SADE) 0.5 MG X 11 & 1 MG X 42 tablet - DENIED) 11/13/2023 11:40 AM CDT Office Visit [address] [place] [phone] Son Huang MD Encounter for smoking cessation counseling (Primary Dx); Peripheral vascular disease, unspecified (H24) 11/13/2023 10:30 AM CDT Ancillary Procedure [facility] Imaging [place] [address] [facility] [address] [place] [address] Son Huang MD Peripheral vascular disease, unspecified (H24) 11/13/2023 Travel 11/07/2023 1:42 PM CDT - 11/07/2023 11:59 PM CDT Hospital Encounter [facility] [address] [place] [address] Son Huang MD Peripheral vascular disease, unspecified [...] - Respiratory Rate 16 07/31/2023 11:49 AM SUPERVISOR CEREAL Oxygen Saturation 97% 11/13/2023 11:44 AM CDT Inhaled Oxygen Concentration - - Weight - - Height - - Body Mass Index - - Plan of Treatment Upcoming Encounters Date Type Department Care Team (Late st Contact Info) Description 05/13/2024 10:20 AM SUPERVISOR CEREAL Virtual Visit [facility] Vascular Center [place] [id number] [facility] [address] [place] [address] Son Huang MD [facility] [address] [place] [address] Health Maintenance Due Date Last Done Comments [...] ORDERABLES from Last 3 Months Care Teams Freight Coordinator Relationship Specialty Start Date End Date No Ref-Primary, Physician PCP - General 01/07/21
--- OUTSIDE RECORDS SUMMARY | 2024-01-17 23:11 | XMS_ITS | Encounter Summary ---
Author Organization [facility] Address [address] [place] [address] Care Team Providers Care Transistor Tester Name Role Phone No Ref-Primary, Physician Primary [...] st Contact Info) Description 05/13/2024 10:20 AM CASH REGISTER BALANCER Virtual Visit [address] [place] [phone] Son Huang MD [facility] [address] [place] [address] documented as of this encounter Visit Diagnoses Not on filedocumented in this encounter Care Teams Transistor Tester Relationship Specialty Start Date End Date No Ref-Primary, Physician PCP - General 01/07/21 documented as of this encounter
--- OUTSIDE RECORDS SUMMARY | 2024-01-17 23:11 | XMS_ITS | Encounter Summary ---
Author Organization [facility] Address [address] [place] [address] Care Team Providers Care Internal Investigator Name Role Phone No Ref-Primary, Physician Primary [...] st Contact Info) Description 05/13/2024 10:20 AM BASEBALL PITCHER Virtual Visit [address] [place] [phone] Son Huang MD [facility] [address] [place] [address] documented as of this encounter Visit Diagnoses Not on filedocumented in this encounter Care Teams Internal Investigator Relationship Specialty Start Date End Date No Ref-Primary, Physician PCP - General 01/07/21 documented as of this encounter
--- OUTSIDE RECORDS SUMMARY | 2024-01-17 23:11 | XMS_ITS | Encounter Summary ---
Author Organization [facility] Address [address] [place] [address] Care Team Providers Care [employer] Scout Name Role Phone No Ref-Primary, Physician Primary Care Provider Reason for Referral * Diagnostic Imaging CT Scan (Routine) - Closed Specialty Diagnoses / Procedures Referred By Contac t Referred To Contact Radiology. Diagnoses Peripheral vascular disease, unspecified (H24) Other general symptoms and signs Procedures CTA Abdomen Pelvis Runoff w Contrast Son Huang MD [facility] [address] [place], [place] [id number] [address] Scan [address] [place] [address] Referral ID Status Reason Start Date Expiration Date Visits Re quested Visits Authorized [id number] Closed 07/31/2023 07/30/2024 1 1 Reason for Visit * Diagnostic Imaging CT Scan (Routine) - Closed Specialty Diagnoses / Procedures Referred By Contac t Referred To Contact Radiology. Diagnoses Peripheral vascular disease, unspecified (H24) Other general symptoms and signs Procedures CTA Abdomen Pelvis Runoff w Contrast Son Huang MD [facility] [address] [place] [address] [place] [address] Referral ID Status Reason Start Date Expiration Date Visits Re quested Visits Authorized [id number] Closed 07/31/2023 07/30/2024 1 1 Encounter Details Date Type Department Care Team (Latest Contact Info) Description 11/07/2023 1:42 PM CDT - 11/07/2023 11:59 PM CDT Hospital Encounter [facility] [address] [place] [address] Son Huang MD [facility] [address] [place] [address] Peripheral vascular disease, unspecified (H24); Other general [...] st Contact Info) Description 05/13/2024 10:20 AM AV SPECIALIST Virtual Visit [place] [id number] [facility] [address] [place] [phone] Son Huang MD [facility] [address] [place] [phone] documented as of this encounter Procedures Procedure [...] mLs documented in this encounter Care Teams [employer] Scout Relationship Specialty Start Date End Date No Ref-Primary, Physician PCP - General 01/07/21 documented as of this encounter
--- OUTSIDE RECORDS SUMMARY | 2024-01-17 23:11 | XMS_ITS | Encounter Summary ---
Author Organization [facility] Address [address] [place] [address] Care Team Providers Care Home Care Coordinator Name Role Phone No Ref-Primary, Physician Primary Care Provider Reason for Visit * Reason Onset Date Comments Prior Auth - Medication 11/13/2023 varenicl ine (CHANTIX SADE) 0.5 MG X 11 & 1 MG X 42 tablet - DENIED Encounter Details Date Type Department Care Team (Late st Contact Info) Description 11/20/[address] [facility] [address] [place] [phone] Son Huang MD [facility] [address] [place] [id number] Prior Auth - Medication (varenicline (CHANTIX SADE) [...] MG X 42 PO TBPK [facility] - Denial Date: 11/27/2023 Denial Reason(s): PATIENT HAS TO TRY/FAIL ALTERNATIVES FIRST. SEE DENIAL LETTER BELOW Appeal Information: Patient Notified: NO * Telephone Encounter - Gema Pradhan - 11/26/2023 5:12 PM CDT Images from the original note were not included. PA Initiation Medication: VARENICLINE TARTRATE (STARTER) 0.5 MG X 11 & 1 MG X 42 PO TBPK Insurance Company: [employer] [facility] - Pharmacy Filling the Rx: [id number] - [place], [place] - [address] [place] [address] AT [facility] [address] [address] Filling [address]acy [...] PA encounter and send back to the [facility] PA pool [[id number]]. If you have questions about the turn-around time or about our process, please reach out to our belt and link shop supervisor Nat Jules. Thank you! [facility]PP[facility] (Retail Pharmacy [...] st Contact Info) Description 05/13/2024 10:20 AM INSTRUMENT SHOP SUPERVISOR Virtual Visit [address] [place] [phone] Son Huang MD [facility] [address] [place] [address] documented as of this encounter Visit Diagnoses Diagnosis Encounter for smoking cessation counseling- Primary Counseling on substance use and abuse documented in this encounter Care Teams Home Care Coordinator Relationship Specialty Start Date End Date No Ref-Primary, Physician PCP - General 01/07/21 documented as of this encounter
[2024-01-17 23:15] LABS: Appearance Urine Cloudy (Clear); Bilirubin Urine Negative (Negative); Blood Urine 3+ (Negative); Color Urine Amber (Yellow); Glucose Urine Negative (Negative); Ketones Urine Negative (Negative); Leukocyte Esterase Urine 2+ (Negative); Nitrite Urine Negative (Negative); Protein Urine 2+ (Negative); Specific Gravity Urine >= 1.030 (1.000-1.030); Urobilinogen Urine 0.2 (0.2-1.0); pH Urine 5.5 (5.0-8.5)
[2024-01-17 23:42] LABS: Bacteria Urine Many; RBC Urine 50-100 (0-2); Squamous Epithelial Cell Urine Moderate (None-Few); WBC Urine 50-100 (0-5)
[2024-01-18 00:02] VITALS: BP 155/74; PULSE 89; RESP 18; TEMP 36.7; O2SAT 97
== END 2024-01-18 00:04 | disposition home or self-care (01) ==
PROVIDERS: Emergency Provider Student in an Organized Health Care Education/Training Program; PCP Physician Assistant Medical
DX: N39.0 Urinary tract infection, site not specified (principal)
CPT/HCPCS: 78815; 81001; 87086; 99282; 99283; A9552

== ENCOUNTER 2024-02-13 12:58 | Outpatient (CLI) | payer OTHER, SELFPAY ==
--- OUTSIDE RECORDS SUMMARY | 2024-02-18 07:06 | XMS_ITS ---
Author Organization [facility] Address [address] [place] [address] Care Team Providers Care Facialist Name Role Phone Elsewhere, Pcp Primary Care Provider Unavailabl e Active Problems Problem Noted Date Diagnosed Date Takedown Colostomy Closure Status Post (Reversal ) 08/26/2021 Chronic Respiratory Failure With Hypoxia 021 Morbid Obesity Body Mass Index 45.0-49.9 Adult 1 07/26/2020 Abuse Tobacco Smoking 05/25/2021 Colostomy Status 05/25/2021 Malignant Neoplasm Of Rectum 05/24/2021 Sleep Apnea 05/24/2021 Chronic Obstructive Pulmonary Disease Without Ex acerbation 05/24/2021 Education Need Ostomy 05/23/2021 Malignant Neoplasm Of Rectum Adenocarcinoma 09/02 Cancer Staging:Clinical stage from 10/11/2020:Stage IIIB(cT3, cN2a, cM0) - Unsigned Current Oncology Plans No current plan information found. Past Plans Flushes/Hydration Plan Name Start Date Discontinue Date Treatment Medications Discontinue Reason Plan Provider VASCULAR ACCESS PATENCY - IMPLANTED VASCULAR ACCESS DEVICE (IVAD) VENOUS NON-VALVED 04/15/2021 04/12/2022 No medications scheduled. Therapy Complete - Radiation Treatments * Plan Last Treated On Elapsed Days Fractions Treated Prescribed Fraction Dose Prescribed Total Dose F1 rectum 04/01/2021 32 25 of 25 200 cGy 5,000 cGy Reference Point Last Treated On Elapsed Days Session Dose Total Dose [id number] 04/01/2021 32 200 cGy 5,000 cGy Lifetime Dose Tracking * Chemical Lifetime Dose Automatic Entry Manual Entr y Radiation 304.2 mGy 304.2 mGy 0 mGy Fluoro Time 2.45 minutes 2.45 minutes 0 minutes
--- OUTSIDE RECORDS SUMMARY | 2024-02-18 07:06 | XMS_ITS | Encounter Summary ---
Author Organization [facility] Address [address] [place] [address] Care Team Providers Care Opal Polisher Name Role Phone Elsewhere, Pcp Primary Care Provider Unavailabl e Reason for Referral * Outpatient (Routine) - Authorized Specialty Diagnoses / Procedures Referred By Contac t Referred To Contact Diagnoses Atherosclerosis Of [place] Arteries Of Extremities With Intermittent Claudication Bilateral Legs (HCC) Procedures ECG 12 Lead Tomas Barragan M.D. [address] [place] [phone] [facility] Referral ID Status Reason Start Date Expiration Date V isits Requested Visits Authorized [id number] Authorized 01/17/2024 01/16/2025 1 1 * Outpatient (Routine) - Authorized Specialty Diagnoses / Procedures Referred By Peyton lockhart Referred To Contact Diagnoses Atherosclerosis Of [place] Arteries Of Extremities With Intermittent Claudication Bilateral Legs (HCC) Procedures Lower Extremity Arterial (BEATA) - Exercise (Claudication) Tomsa Barragan M.D. [address] [place] [address] [facility] Referral ID Status Reason Start Date Expiration Date V isits Requested Visits Authorized [id number] Authorized 01/17/2024 01/16/2025 1 1 Encounter Details Date Type Department Care Team (Late st Contact Info) Description 01/17/2024 Orders Only Department of Vascular Medicine in [place], [place] [address] [place] [address] Tomas Barragan M.D. [address] [place] [address] Abuse Tobacco Smoking (Primary Dx); Atherosclerosis Of [place] Arteries Of Extremities With Intermittent Claudication Bilateral Legs (HCC) Social History Tobacco Use Types Packs/Day Years Used Date Smoking Tobacco: Every Day Cigarettes 1 48.7 Started: 1977 Smokeless Tobacco: Never Alcohol Use Standard Drinks/Week Comments Not Currently 0 (1 standard drink = 0.6 oz pur e alcohol) Humiliation, Afraid, Rape, and Kick questionnair e Answer Date Recorded Within the last year, have y ou been afraid of your partner or ex-partner? No 08/21/2021 Within the last year, have y ou been humiliated or emotionally abused in other ways by your partner or ex-partner? No Within the last year, have y ou been kicked, hit, slapped, or otherwise physically hurt by your partner or ex-partner? No 08/21/2021 Within the last year, have y ou been raped or forced to have any kind of sexual activity by your partner or ex-partner? No 08/21/2021 Social Connection and Isolat ion Panel [NHANES] Answer Date Recorded In a typical week, how many times do you talk on the phone with family, friends, or neighbors? More than three times a week 08/21/2021 How often do you get togethe r with friends or relatives? Once a week 08/21/2021 How often do you attend chur ch or quaker services? Never 08/21/2021 Do you belong to any clubs o r organizations such as nondenominational groups, unions, fraternal or athletic groups, or school groups? Yes 08/21/2021 How often do you attend meet ings of the clubs or organizations you belong to? More than 4 times per year 08/21/2021 Are you , , di vorced, , never , or living with a partner? 08/21/2021 AUDIT-C Answer Date Recorded Q1: How often do you have a drink containing alc ohol? Never 08/21/2021 Average Number of Drinks Not on file 022 Frequency of Binge Drinking Not on file 08/03 Overall Financial Resource Strain (CARDIA) Answe r Date Recorded How hard is it for you to pa y for the very basics like food, housing, medical care, and heating? Somewhat hard 08/21/2021 [facility] - Occupational Stress Questionnaire Answer Date Recorded Do you feel stress - tense, restless, nervous, or anxious, or unable to sleep at night because your mind is troubled all the time - these days? Only a little 08/21/2021 Exercise Vital Sign Answer Date Recorde d On average, how many days pe r week do you engage in moderate to strenuous exercise (like a brisk walk)? 2 days 08/21/2021 On average, how many minutes do you engage in exercise at this level? 30 min 08/21/2021 Hunger Vital Sign Answer Date Recorded Within the past 12 months, y ou worried that your food would run out before you got the money to buy more. Never true 08/22/19 22 Within the past 12 months, t he food you bought just didn't last and you didn't have money to get more. Never true 08/21/2021 PRAPARE - Transportation Answer Date Re corded In the past 12 months, has l ack of transportation kept you from medical appointments or from getting medications? No 08/03 In the past 12 months, has l ack of transportation kept you from meetings, work, or from getting things needed for daily living? No 08/21/2021 Housing Stability Vital Sign Answer Jimmy e Recorded In the last 12 months, was t here a time when you were not able to pay the mortgage or rent on time? No 08/21/2021 In the last 12 months, how many places have you lived? 1 08/21/2021 In the last 12 months, was t here a time when you did not have a steady place to sleep or slept in a custodial (including now)? No 08/21/2021 Nutrition Answer Date Recorded Nutrition: EVOO Fat Source No 08/21 On average, how many serving s of fruits and vegetables do you eat per day (serving size is equal to 1 cup or approximately the size of a tennis ball)? 0-1 08/21/2021 Dental Answer Date Recorded Dental: Regular Dentist No 03/13/20 Employment Answer Date Recorded Employment status Employed and actively working without restrictions 08/21/2021 Education Answer Date Recorded What is the highest level of school you have completed or the highest degree you have received? Some college, no degree 03/13/2021 Sex and Gender Information Value Date Recorded Sex Assigned at Female 03/04/2021 2:29 PM CDT Gender Identity Not on file Sexual Orientation Not on file documented as of this encounter Plan of Treatment Upcoming Encounters Date Type Department Care Team (Latest Contact Info) Description 02/25/2024 10:50 AM CDT Appointment Department of Laboratory Medicine and Pathology, [facility], in [place], [place] [address] [place] [phone] Tomas Barragan M.D. [address] [place] [phone] 02/25/2024 1:00 PM CDT Comprehensive Visit Department of Vascular Medicine in [place], [place] [address] [place] [phone] Renu Dixon M.D., M.S. [address] [place] [phone] 04/16/2024 8:30 AM SHORT PIECE HANDLER Clinical Communication Virtual Review in [place], [place] [address] [place] [address] 04/16/2024 3:10 PM SHORT PIECE HANDLER Comprehensive Visit Division of Gastroenterology in [place], [place] [address] [place] [phone] Melania Padron M.D. [address] [place] [phone] Scheduled Orders Name Type Priority Associated Diagnoses Orde r Schedule Lower Extremity Arterial (BEATA) - Exercise (Claudication) Vascular Ultrasound Routine Atherosclerosis Of [place] Arteries Of Extremities With Intermittent Claudication Bilateral Legs (HCC) Expected: 01/17/2024, Expires: 04/18/2025 ECG 12 Lead ECG Routine Atherosclerosis Of [place] Arteries Of Extremities With Intermittent Claudication Bilateral Legs (HCC) Expected: 01/17/2024, Expires: 04/18/2025 CBC with Differential, Blood Lab Routine Atherosclerosis Of [place] Arteries Of Extremities With Intermittent Claudication Bilateral Legs (HCC) Expected: 01/17/2024, Expires: 04/18/2025 Comprehensive Metabolic Panel Lab Routine Atherosclerosis Of [place] Arteries Of Extremities With Intermittent Claudication Bilateral Legs (HCC) Expected: 01/17/2024, Expires: 04/18/2025 Lipid Panel Lab Routine Atherosclerosis Of [place] Arteries Of Extremities With Intermittent Claudication Bilateral Legs (HCC) Expected: 01/17/2024, Expires: 04/18/2025 Lipoprotein (a) Lab Routine Atherosclerosis Of [place] Arteries Of Extremities With Intermittent Claudication Bilateral Legs (HCC) Expected: 01/17/2024, Expires: 04/18/2025 documented as of this encounter Visit Diagnoses Diagnosis Abuse Tobacco Smoking- Primary Atherosclerosis Of [place] Arteries Of Extremities With Intermittent Claudication Bilateral Legs (HCC) documented in this encounter Care Teams Opal Polisher Relationship Specialty Start Date End Date Elsewhere, Pcp PCP - General Internal Medicine 05/24/21 documented as of this encounter
--- OUTSIDE RECORDS SUMMARY | 2024-02-18 07:06 | XMS_ITS | Encounter Summary ---
Author Organization [facility] Address [address] [place] [address] Care Team Providers Care Mule Driver Name Role Phone Elsewhere, Pcp Primary Care Provider Unavailabl e Reason for Referral * MRI/CAT/PET Scan (Routine) - Closed Specialty Diagnoses / Procedures Referred By Peyton t Referred To Contact Radiology Diagnoses Pulmonary Nodule Computed Tomography Indeterminate Malignant Neoplasm Of Rectum (HCC) Abuse Tobacco Smoking Procedures CT Lung Biopsy Sona Cedillo MPAS, P.A.-C., P.A. [address] [place] [phone] [facility] Referral ID Status Reason Start Date Expiration Date Visits Re quested Visits Authorized [id number] Closed 01/11/2024 01/10/2025 1 1 Reason for Visit * MRI/CAT/PET Scan (Routine) - Closed Specialty Diagnoses / Procedures Referred By Contac t Referred To Contact Radiology Diagnoses Pulmonary Nodule Computed Tomography Indeterminate Malignant Neoplasm Of Rectum (HCC) Abuse Tobacco Smoking Procedures CT Lung Biopsy Sona Cedillo MPAS, P.A.-C., P.A. [address] [place] [address] [facility] Referral ID Status Reason Start Date Expiration Date Visits Re quested Visits Authorized [id number] Closed 01/11/2024 01/10/2025 1 1 Encounter Details Date Type Department Care Team (Latest Contact Info) Description 01/29/2024 8:58 AM CDT - 01/29/2024 1:47 PM CDT Hospital Encounter Department of Radiology, [facility], in [place], [place] [address] [place] [address] Sona Cedillo, ANITHA PSean., P.A. [address] [place] [phone] Postprocedural Pneumothorax (Primary Dx); Pulmonary Nodule Computed Tomography Indeterminate; Malignant Neoplasm Of Rectum (HCC); Abuse Tobacco Smoking Discharge Disposition: Home or Self Care Social [...] often do you attend chur ch or hindu services? Never 08/21/2021 Do you belong to any clubs o r organizations such as restorationism groups, unions, fraternal or athletic groups, or [...] medical care, and heating? Somewhat hard 08/21/2021 [facility] - Occupational Stress Questionnaire Answer Date Recorded [...] place to sleep or slept in a halfway (including now)? No 08/21/2021 Nutrition Answer Date [...] Sign Reading Time Taken Comments Blood Pressure 144/66 01/29/2024 11:57 AM CDT Pulse 79 01/29/2024 1:27 PM CDT Temperature - - Respiratory Rate 18 01/29/2024 11:42 AM CDT Oxygen Saturation 91% 01/29/2024 1:27 PM CDT Inhaled Oxygen Concentration - - Weight - - Height - - Body Mass Index - - documented in this encounter Discharge Instructions * Attachments The following attachments cannot be sent through Care Everywhere. * Your Lung or Chest Wall Biopsy (Iranian) documented in this encounter Medications at Time of Discharge Medication Sig Dispensed Refills Start Date End Date acetaminophen (TYLENOL) 500 mg tablet Take 2 tablets (1,000 mg total) by mouth every 6 (six) hours as needed for pain. 08/28/2021 albuterol 90 mcg/actuation inhaler Inhale every 6 (six) hours as needed for wheezing. aspirin (Aspirin Childrens) 81 mg chewable tablet Chew 81 mg. 01/09/2024 ibuprofen (ADVIL,MOTRIN) 200 mg tablet Take 4 tablets (800 mg total) by mouth every 6 (six) hours as needed for pain. 08/28/2021 documented as of this encounter Plan of Treatment Upcoming Encounters Date Type Department Care Team (Latest Contact Info) Description 02/25/2024 10:50 AM CDT Appointment Department of Laboratory Medicine and Pathology, [facility] in [place], [place] [address] [place] [address] Tomas Barragan M.D. [address] [place] [phone] 02/25/2024 1:00 PM CDT Comprehensive Visit Department of Vascular Medicine in [place], [place] [address] [place] [phone] Renu Dixon M.D., M.S. [address] [place] [phone] 04/16/2024 8:30 AM CEMENT DESPATCH OPERATOR Clinical Communication Virtual Review in [place], [place] [address] [place] [phone] 04/16/2024 3:10 PM CEMENT DESPATCH OPERATOR Comprehensive Visit Division of Gastroenterology in [place], [place] [address] [place] [phone] Melania Padron M.D. [address] [place] [phone] documented as of this encounter Procedures Procedure Name Priority Date/Time Associated Diagnosis Comments DX CHEST 1 VIEW RAD - Semiurgent (Fast; most ED patients; some inpatients) 01/29/2024 12:24 PM CDT Postprocedural Pneumothorax CT LUNG BIOPSY RAD - Routine (most inpatients and all outpatients) 01/29/2024 11:29 AM CDT Pulmonary Nodule Computed Tomography Indeterminate Malignant Neoplasm Of Rectum (HCC) Abuse Tobacco Smoking CYTOLOGY FINE NEEDLE ASPIRATION (INCLUDES CORE BIOPSIES Routine 01/29/2024 10:31 AM CDT Pulmonary Nodule Computed Tomography Indeterminate Malignant Neoplasm Of Rectum (HCC) Abuse Tobacco Smoking documented in this encounter Results * DX Chest 1 View (01/29/2024 12:24 PM CDT) Anatomical Region Laterality Modality Chest, Thoracic RST LOS, Tho racic ARZ LOS, Thoracic FLA LOS N/A Digital Radiography Impressions 01/29/2024 12:31 PM CDT Correlation was made with limited chest included in the 01/29/[address] No new postprocedural pneumothorax. Probably minimal hemorrhage adjacent to the right middle lobe nodule. Borderline enlarged cardiac silhouette. The chest is otherwise unremarkable. Narrative 01/29/2024 12:31 PM CDT EXAM: ??DX CHEST 1 VIEW Procedure Note Vince Fragoso M.D. - 01/29/2024 EXAM: DX CHEST 1 VIEW IMPRESSION: Correlation was made with limited chest included in the 01/29/2024 biopsyCT. No new postprocedural pneumothorax. Probably minimal hemorrhageadjacent to the right middle lobe nodule. Borderline enlarged cardiacsilhouette. The chest is otherwise unremarkable. Sanjeev MAGALLANES DIAGNOSTIC IMAGING PROCEDURES * CT Lung Biopsy (01/29/2024 11:29 AM CDT) Anatomical Region Laterality Modality Chest, Abdominal RST LOS, Va scular Interventional ARZ LOS, Procedure FLA LOS, Abdominal FLA LOS, Procedural, Procedural NWWI LOS Computed Tomography, Compute d Tomography Impressions 01/29/2024 12:[address]-guided right middle lobe pulmonary nodule biopsy. EP Narrative 01/29/2024 12:18 PM CDT EXAM: ??CT LUNG BIOPSY PRE-PROCEDURE: ??Patient seen, evaluated, history reviewed, and approved for sedation. Airway, heart, and lung exam satisfactory for sedation. Discussed risks, benefits, alternatives for procedure, and/or sedation. The roles and responsibilities of care team members, residents, and fellows were discussed. Patient understands information and questions answered. Informed consent obtained from the patient. Immediately prior to starting the procedure, in the presence of the assisting personnel, a procedural pause was conducted to verify correct patient identity and verification of procedure to be performed, and as applicable, correct side and site, correct patient position, availability of implants, special equipment, or special requirements, and all image and specimen identification data. INTRAPROCEDURE: Moderate sedation was administered by sedation nurse under my supervision. The patient was continuously monitored with real time oxygen saturation, heart rate, ECG rhythm strip and blood pressure throughout administration of the sedation and performance of the procedure. The total intra-procedural sedation time was: 13 minutes. TECHNIQUE: ??Sterile;1% lidocaine for local anesthesia and CT Guidance. The patient was positioned supine on the fluoroscopy table. The right anterior chest was prepped and draped sterilely. 1% lidocaine was administered as local anesthetic. Under CT guidance, a 19-gauge introducer needle was advanced to the right middle lobe pulmonary nodule as seen on outside CT of the chest from 01/08/2024 (series 3, image 45). Three 20-gauge core needle biopsies were then obtained. All devices were removed. Immediate postprocedural CT fluoroscopic image demonstrated expected perilesional hemorrhage. No pneumothorax. Sterile dressing applied. No immediate complication. AUTOLOGOUS BLOOD PATCH ADMINISTERED: ??No ?? TARGET LOCATION: ??Right middle lobe. TARGET LESION SIZE: 8 mm BIOPSY INSTRUMENT: ??19/20 gauge CorVocet introducer/biopsy device. NUMBER OF SAMPLES OBTAINED: ??3 COMPLICATION: ??None. ? BLOOD LOSS: ??1 to 75 mL. PATIENT INSTRUCTIONS: ??Patient may be dismissed from the radiology department when dismissal criteria met. POST-PROCEDURE DIAGNOSIS: ??Indeterminate right middle lobe pulmonary nodule. Procedure Note Sanjeev Cruz M.D. - 01/29/2024 EXAM: CT LUNG BIOPSY PRE-PROCEDURE: Patient seen, evaluated, history reviewed, and approvedfor sedation. Airway, heart, and lung exam satisfactory for sedation.Discussed risks, benefits, alternatives for procedure, and/or sedation.The roles and responsibilities of care team members, residents, and fellows were discussed. Patient understandsinformation and questions answered. Informed consent obtained from thepatient. Immediately prior to starting the procedure, in the presence ofthe assisting personnel, a procedural pause was conducted to verify correct patient identity and verificationof procedure to be performed, and as applicable, correct side and site,correct patient position, availability of implants, special equipment, orspecial requirements, and all image and specimen identification data. INTRAPROCEDURE: Moderate sedation was administered by sedation nurse undermy supervision. The patient was continuously monitored with real timeoxygen saturation, heart rate, ECG rhythm strip and blood pressurethroughout administration of the sedation and performance of the procedure. The total intra-procedural sedation timewas: 13 minutes. TECHNIQUE: Sterile;1% lidocaine for local anesthesia and CT Guidance. Thepatient was positioned supine on the fluoroscopy table. The right anteriorchest was prepped and draped sterilely. 1% lidocaine was administered aslocal anesthetic. Under CT guidance, a 19-gauge introducer needle was advanced to the right middlelobe pulmonary nodule as seen on outside CT of the chest from 01/08/2024(series 3, image 45). Three 20-gauge core needle biopsies were thenobtained. All devices were removed. Immediate postprocedural CT fluoroscopic image demonstrated expectedperilesional hemorrhage. No pneumothorax. Sterile dressing applied. Noimmediate complication. AUTOLOGOUS BLOOD PATCH ADMINISTERED: No TARGET LOCATION: Right middle lobe. TARGET LESION SIZE: 8 mm BIOPSY INSTRUMENT: 19/20 gauge CorVocet introducer/biopsy device. NUMBER OF SAMPLES OBTAINED: 3 COMPLICATION: None. BLOOD LOSS: 1 to 75 mL. PATIENT INSTRUCTIONS: Patient may be dismissed from the radiologydepartment when dismissal criteria met. POST-PROCEDURE DIAGNOSIS: Indeterminate right middle lobe pulmonarynodule. IMPRESSION: CT-guided right middle lobe pulmonary nodule biopsy. EP Sona WELSH PUmaA.Isidro., P.A. IMG CT PROCEDURES * (ABNORMAL) Cytology Fine Needle Aspiration (including core biopsies) (01/29/2024 10:31 AM CDT) (A) 12:38 PM CDT DTL Report electronically signed by Katherine San M.D. I verify that I have examined all relevant slides/materials for the specimen(s) and rendered or confirmed the diagnosis. (A) 01/30/2024 12:38 PM CDT DTL Gross Description Received 3 alcohol-fixed smears and tissue. Additionally, received in formalin labeled with the patient's name, medical record number and lung, right middle lobe nodule are four paletan-pink soft tissue cores and fragments, measuring 0.1 cm in average diameter and ranging from 0.2-0.7 cm in length. Specimens aresubmitted en toto in cassette A1. ??Grossed by NKK (A) 01/30/2024 12:38 PM CDT DTL Source A. Lung, Right middle lobe nodule, fine needle aspiration(A) 01/30/2024 12:38 PM CDT DTL Addendum Aura Tempus xT, Solid Tumor has been requested by Dr. Sona Cedillo and will be performed on block A1 at [facility], [place], [place]. Signed by Areli Sandra M.D., Ph.D. 02/07/2024 5:20 PM MMR Protein, IHC Only, Tumor (IHC) ??will be performed and resulted in the patient's medical record. Signed by Erich Kincaid M.D., Ph.D. 02/07/2024 9:06 AM Immunohistochemica l stain HER2-DfDx was performed at [facility] (block A1): Negative (Score 0) Digital imaging was used in the diagnostic assessment of this case. Signed by Chelsy Flood M.D., Ph.D. 02/01/2024 2:48 PM This test has been modified from the architectural job captain's instructions. Its performance characteristics were determined by [facility] in a manner consistent with CLIA requirements. This test has not been cleared or approved by the U.S. Food and Drug Administration. (A) 02/07/2024 5:20 PM CDT DTL Comment:REVISED RESULTS Interpretation A. Lung, Right middle lobe nodule, fine needle aspiration (smears/core biopsy): Positive for malignancy. 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 Immunostains performed on block A1 show the neoplastic cells are positive for KRT20 and CDX2, while negative for KT7 and TTF1. Digital imaging was used in the diagnostic assessment of this case. (A) 02/07/2024 5:20 PM CDT DTL Tissue (Lung) 01/29/2024 10: 31 AM CDT Sona WELSH, P.A.NhungC., P.A. LAB SURG PATH ORDERABLES [facility] [place], [facility] [address] [place] [address], [facility] DTL [address] [place] [address] documented in this encounter Visit Diagnoses Diagnosis Postprocedural Pneumothorax- Primary Pulmonary Nodule Computed Tomography Indeterminate Malignant Neoplasm Of Rectum (HCC) Abuse Tobacco Smoking documented in this encounter Administered Medications Inactive Administered Medications - up to 3 most recent administrations Medication Order MAR Action Action Date Dose Rate Site fentaNYL injection 25 mcg (Sublimaze) 25 mcg, intravenous, Every 2 min PRN, sedation, Administer over 1 minute immediately prior to the procedure. May repeat every 2 minutes to a maximum of 200 mcg, until pain score of 3 or less, or until the patient meets the pain comfort goal, or RASS 0 to -2. Do not give if respiratory rate is less than 8 breaths/minute., Starting on Sun01/29/24 at 1059, For 3 hours, Intraprocedure (RAD), Subsequent doses Given 01/29/2024 11:11 AM CDT 25 mcg Given 01/29/2024 11:08 AM CDT 25 mcg fentaNYL injection 25 mcg (Sublimaze) 25 mcg, intravenous, Once as needed, sedation, Starting on Sun01/29/24 at 1059, For 1 dose, Intraprocedure (RAD), IV Push, Initial dose flumazeniL injection 0.2 mg (Romazicon) 0.2 mg, intravenous, Once as needed, reversal, Starting on Sun01/29/24 at 1059, For 1 dose, Intraprocedure (RAD), Administer once if patient has a RASS score of -4, -5 and has a respiratory rate less than 8 breaths/minute. Lactated Ringer's 20 mL/hr, intravenous, Once as needed, to keep vein open, Starting on Sun01/29/24 at 1059, For 1 dose, Intraprocedure (RAD) New Bag 01/29/2024 11:07 AM CDT 20 mL/hr 20 mL/hr lidocaine 10 mg/mL (1 %) injection (Xylocaine) As needed, Starting on Sun01/29/24 at 1112, Intra-Op Given 01/29/2024 11:12 AM CDT 5 mL Chest midazolam (PF) injection 0.25 mg (Versed) 0.25 mg, intravenous, Every 2 min PRN, sedation, RASS -2, Starting on Sun01/29/24 at 1059, For 3 hours, Intraprocedure (RAD), May repeat every 2 minutes to a maximum of 5 mg. Do not give if respiratory rate is less than 8 breaths/minute. midazolam (PF) injection 0.5 mg (Versed) 0.5 mg, intravenous, Once as needed, sedation, Starting on Sun01/29/24 at 1059, For 1 dose, Intraprocedure (RAD) midazolam (PF) injection 0.5 mg (Versed) 0.5 mg, intravenous, Every 2 min PRN, sedation, RASS -1, Starting on Sun01/29/24 at 1059, For 3 hours, Intraprocedure (RAD), May repeat every 2 minutes for a maximum of 5 mg. Do not give if respiratory rate is less than 8 breaths/minute. Given 01/29/2024 11:18 AM CDT 0.5 mg midazolam (PF) injection 1 mg (Versed) 1 mg, intravenous, Every 2 min PRN, sedation, RASS 0, Starting on Sun01/29/24 at 1059, For 3 hours, Intraprocedure (RAD), May repeat every 2 minutes for a maximum of 5 mg. Do not give if respiratory rate is less than 8 breaths/minute. Given 01/29/2024 11:08 AM CDT 1 mg naloxone injection 0.2 mg (Narcan) 0.2 mg, intravenous, Once as needed, respiratory depression, Starting on Sun01/29/24 at 1059, For 1 dose, Intraprocedure (RAD), Administer once if patient has a RASS score of -4, -5 and has a respiratory rate less than 8 breaths/minute. ondansetron (PF) injection 4 mg (Zofran) 4 mg, intravenous, Once as needed, nausea, vomiting, Starting on Sun01/29/24 at 1059, For 1 dose, Intraprocedure (RAD) sodium chloride 0.9 % injection 10 mL 10 mL, intravenous, As needed, line care, Starting on Sun01/29/24 at 1059, Intraprocedure (RAD), Peripheral Intravenous Catheter and Rapid Infusion Catheter, prior to blood sampling, post blood transfusion or post blood sampling sodium chloride 0.9 % injection 3 mL 3 mL, intravenous, As needed, line care, Starting on Sun01/29/24 at 1059, Intraprocedure (RAD), Prior to and following infusion and between multiple consecutive infusions: sodium chloride 0.9 % injection sodium chloride 0.9 % injection 3 mL 3 mL, intravenous, Every 12 hours scheduled, First dose on Sun01/29/24 at 2100, Intraprocedure (RAD), Peripheral Intravenous Catheter and Rapid Infusion Catheter, when no infusion to maintain patency documented in this encounter Active and Recently Administered Medications Times are shown in CDT. Scheduled Medication Order 01/27/2024 01/28/2024 01/29/2024 sodium chloride 0.9 % injection 3 mL 3 mL, intravenous, Every 12 hours scheduled, First dose on Sun01/29/24 at 2100, Intraprocedure (RAD), Peripheral Intravenous Catheter and Rapid Infusion Catheter, when no infusion to maintain patency PRN Medication Order 01/27/2024 01/28/2024 01/29/2024 fentaNYL injection 25 mcg (Sublimaze) 25 mcg, intravenous, Every 2 min PRN, sedation, Administer over 1 minute immediately prior to the procedure. May repeat every 2 minutes to a maximum of 200 mcg, until pain score of 3 or less, or until the patient meets the pain comfort goal, or RASS 0 to -2. Do not give if respiratory rate is less than 8 breaths/minute., Starting on Sun01/29/24 at 1059, For 3 hours, Intraprocedure (RAD), Subsequent doses 1108 (Given - Provid er: Yue Conklin R.N.)1111 (Given - Provider: Yue Conklin R.N.) fentaNYL injection 25 mcg (Sublimaze) 25 mcg, intravenous, Once as needed, sedation, Starting on Sun01/29/24 at 1059, For 1 dose, Intraprocedure (RAD), IV Push, Initial dose flumazeniL injection 0.2 mg (Romazicon) 0.2 mg, intravenous, Once as needed, reversal, Starting on Sun01/29/24 at 1059, For 1 dose, Intraprocedure (RAD), Administer once if patient has a RASS score of -4, -5 and has a respiratory rate less than 8 breaths/minute. Lactated Ringer's (COMPLETED) 20 mL/hr, intravenous, Once as needed, to keep vein open, Starting on Sun01/29/24 at 1059, For 1 dose, Intraprocedure (RAD) 1107 (New Bag - Prov ider: Hernando JacobNUma)1124 (Stopped - Provider: Yue Conklin R.N.) lidocaine 10 mg/mL (1 %) injection (Xylocaine) (COMPLETED) As needed, Starting on Sun01/29/24 at 1112, Intra-Op 1112 (Given - Provid er: Sanjeev Cruz M.D.) midazolam (PF) injection 0.25 mg (Versed) 0.25 mg, intravenous, Every 2 min PRN, sedation, RASS -2, Starting on Sun01/29/24 at 1059, For 3 hours, Intraprocedure (RAD), May repeat every 2 minutes to a maximum of 5 mg. Do not give if respiratory rate is less than 8 breaths/minute. midazolam (PF) injection 0.5 mg (Versed) 0.5 mg, intravenous, Once as needed, sedation, Starting on Sun01/29/24 at 1059, For 1 dose, Intraprocedure (RAD) midazolam (PF) injection 0.5 mg (Versed) 0.5 mg, intravenous, Every 2 min PRN, sedation, RASS -1, Starting on Sun01/29/24 at 1059, For 3 hours, Intraprocedure (RAD), May repeat every 2 minutes for a maximum of 5 mg. Do not give if respiratory rate is less than 8 breaths/minute. 1118 (Given - Provid er: Yue Conklin R.N.) midazolam (PF) injection 1 mg (Versed) 1 mg, intravenous, Every 2 min PRN, sedation, RASS 0, Starting on Sun01/29/24 at 1059, For 3 hours, Intraprocedure (RAD), May repeat every 2 minutes for a maximum of 5 mg. Do not give if respiratory rate is less than 8 breaths/minute. 1108 (Given - Provid er: Yue Conklin R.N.) naloxone injection 0.2 mg (Narcan) 0.2 mg, intravenous, Once as needed, respiratory depression, Starting on Sun01/29/24 at 1059, For 1 dose, Intraprocedure (RAD), Administer once if patient has a RASS score of -4, -5 and has a respiratory rate less than 8 breaths/minute. ondansetron (PF) injection 4 mg (Zofran) 4 mg, intravenous, Once as needed, nausea, vomiting, Starting on Sun01/29/24 at 1059, For 1 dose, Intraprocedure (RAD) sodium chloride 0.9 % injection 10 mL 10 mL, intravenous, As needed, line care, Starting on Sun01/29/24 at 1059, Intraprocedure (RAD), Peripheral Intravenous Catheter and Rapid Infusion Catheter, prior to blood sampling, post blood transfusion or post blood sampling sodium chloride 0.9 % injection 3 mL 3 mL, intravenous, As needed, line care, Starting on Sun01/29/24 at 1059, Intraprocedure (RAD), Prior to and following infusion and between multiple consecutive infusions: sodium chloride 0.9 % injection documented in this encounter Care Teams Mule Driver Relationship Specialty Start Date End Date Elsewhere, Pcp PCP - General Internal Medicine 05/24/21 documented as of this encounter
--- OUTSIDE RECORDS SUMMARY | 2024-02-18 07:06 | XMS_ITS | Encounter Summary ---
Author Organization [facility] Address [address] [place] [address] Care Team Providers Care Hot Mill Operator Name Role Phone Elsewhere, Pcp Primary Care Provider Unavailabl e Reason for Visit * Reason Onset Date Comments OSM - Outside Materials 01/11/2024 Encounter Details Date Type Department Care Team (Latest Contact Info) Description 01/11/2024 Clinical Communication Department of Vascular Medicine in [place], [place] [address] [place] [phone] Prescheduling, Provider OSM - Outside Materials Social History Tobacco Use Types Packs/Day Years [...] often do you attend chur ch or sabianist services? Never 08/21/2021 Do you belong to any clubs o r organizations such as orthodox groups, unions, fraternal or athletic groups, or [...] medical care, and heating? Somewhat hard 08/21/2021 [facility] - Occupational Stress [...] place to sleep or slept in a detention (including now)? No 08/21/2021 Nutrition Answer Date [...] Appointment Department of Laboratory Medicine and Pathology, [facility], in [place], [place] [address] [place] [phone] Tomas Barragan M.D. [address] [place] [phone] 02/25/2024 1:00 PM CDT Comprehensive Visit Department of Vascular Medicine in [place], [place] [address] [place] [phone] Renu Dixon M.D., M.S. [address] [place] [phone] 04/16/2024 8:30 AM [facility] Clinical Communication Virtual Review in [place], [place] [address] [place] [phone] 04/16/2024 3:10 PM RETAIL SPECIAL EVENT ASSOCIATE Comprehensive Visit Division of Gastroenterology in [place], [place] [address] [place] [phone] Melania Padron M.D. [address] [place] [phone] documented as of this encounter Visit Diagnoses Not on filedocumented in this encounter Care Teams Hot Mill Operator Relationship Specialty Start Date End Date Elsewhere, Pcp PCP - General Internal Medicine 05/24/21 documented as of this encounter
--- OUTSIDE RECORDS SUMMARY | 2024-02-18 07:06 | XMS_ITS | Encounter Summary ---
Author Organization [facility] Address [address] [place] [address] Care Team Providers Care Estimator Binding Name Role Phone Elsewhere, Pcp Primary Care Provider Unavailabl e Encounter Details Date Type Department Care Team (Late st Contact Info) Description 01/30/2024 Orders Only Department of Oncology in [place], [place] [address] [place] [address] Sona Cedillo, ANITHA, P.A.-C., P.A. [address] [place] [address] Malignant Neoplasm Of Rectum (HCC) (Primary Dx); Secondary Malignant Neoplasm Lung Left (HCC); Secondary Malignant Neoplasm Lung Right (HCC) Social History Tobacco Use Types Packs/Day [...] often do you attend chur ch or spiritism services? Never 08/21/2021 Do you belong to any clubs o r organizations such as jew groups, unions, fraternal or athletic groups, or [...] medical care, and heating? Somewhat hard 08/21/2021 [facility] of Occupat ional Health - Occupational [...] place to sleep or slept in a longterm (including now)? No 08/21/2021 Nutrition Answer Date [...] Appointment Department of Laboratory Medicine and Pathology, [facility], in [place], [place] [address] [place] [phone] Tomas Barragan M.D. [address] [place] [phone] 02/25/2024 1:00 PM CDT Comprehensive Visit Department of Vascular Medicine in [place], [place] [address] [place] [phone] Renu Dixon M.D., M.S. [address] [place] [phone] 04/16/2024 8:30 AM YOUTH PROGRAM DIRECTOR Clinical Communication Virtual Review in [place], [place] [address] [place] [address] 04/16/2024 3:10 PM YOUTH PROGRAM DIRECTOR Comprehensive Visit Division of Gastroenterology in [place], [place] [address] [place] [phone] Melania Padron M.D. [address] [place] [phone] Pending Results Name Type Priority Associated Diagnoses Date /Time EXT Tempus xT Lab Routine Malignant Neoplasm Of Rectum (HCC) Secondary Malignant Neoplasm Lung Right (HCC) 02/17/2024 1:36 PM CDT documented as of this encounter Procedures Procedure Name Priority Date/Time Associated Diagnosis Comments EXT TEMPUS XT Routine 02/17/2024 1:36 PM CDT Malignant Neoplasm Of Rectum (HCC) Secondary Malignant Neoplasm Lung Right (HCC) documented in this encounter Results * Mismatch Repair (MMR) Protein Immunohistochemistry Only, Tumor (01/29/2024 3:59 PM CDT) MLH1 IHC Performed 02/07/2024 6:09 PM CDT DTL MSH2 IHC Performed 02/07/2024 6:09 PM CDT DTL MSH6 IHC Performed 02/07/2024 6:09 PM CDT DTL PMS2 IHC Performed 02/07/2024 6:09 PM CDT DTL Result Provided diagnosis: colorectal adenocarcinoma involving lung IHC: Normal expression of MLH1, MSH2, MSH6, and PMS2 02/07/2024 6:09 PM CDT DTL Specimen Tissue, Tumor 02/07/2024 6:09 PM CDT DTL Tissue ID [id number] 02/07/2024 6:09 PM CDT DTL Released By Tamar Finney M.D. 02/07/2024 6:09 PM CDT DTL Result Summary INTACT PROTEIN EXPRESSION 02/07/2024 6:09 PM CDT DTL Interpretation The results of the IHC analysis suggest the presence of normal DNA mismatch repair function within the tumor. However, these results do not completely rule out the possibility of defective DNA mismatch repair within the tumor because approximately 5% of cases with defective mismatch repair do not show absence of protein expression by IHC (Mod Pathol. 2019;33(5):871-879 (PMID: [id number])). THERAPEUTIC IMPLICATIONS Current data suggest that in advanced stage solid tumors, targeted immunotherapies such as anti-PD-1 therapies are more likely to be effective in mismatch repair-deficient tumors than in mismatch repair-proficient tumors (Science. 2017 Dec 29;357(0347):409- 413 (PMID 42966355); J Clin Oncol. 2018 Jun 23:[id number] (PMID 25750950)). ??For interpretation of therapeutic implications of these results, MSI analysis should be considered to confirm ZUHAIR/MSI-L status in this tumor due to the possibility of discordance between IHC and MSI results. HEREDITARY IMPLICATIONS These results decrease the likelihood but do not eliminate the possibility that this individual has Lamb syndrome (LS). These results also do not exclude the possibility that this individual's tumor is due to an inherited defect in another gene not involved in DNA mismatch repair. A significant fraction of clinically defined LS cases (30% or more) do not have defective DNA mismatch repair as the underlying genetic basis of their disease. Additionally, we cannot rule out the possibility that this individual or family has LS because this tumor could represent a sporadic occurrence. If there is a strong personal or family history of LS related cancers for this individual or if this individual has multiple tumors, consider microsatellite instability (MSI) testing (MSI / Microsatellite Instability, Tumor) on this tumor or a different tumor to further evaluate the possible role of defective DNA mismatch repair for this individual or family. A genetic consultation may be of benefit. PROGNOSTIC IMPLICATIONS For interpretation of prognostic implications of these results, MSI analysis should be considered to confirm ZUHAIR/MSI-L status in this tumor due to the possibility of discordance between IHC and MSI results. The presence of intact mismatch repair (ZUHAIR/MSI-L) is considered to be an unfavorable prognostic factor for patients with colorectal cancer (J Clin Oncol. 2004Jun 23;23(3):609-18 (PMID [id number])). ADDITIONAL INFORMATION Consideration of these results, in light of other clinical information, may aid in clinical management decisions for this patient. These data should be interpreted in the context of the histopathologic findings. A surgical pathology consult may be ordered separately. 02/07/2024 6:09 PM CDT DTL Comment: ----ADDITIONAL INFORMATION---- Immunohistochemical staining (IHC) is used to determine the presence or absence of protein expression for one or more of the following: MLH1, MSH2, MSH6, and PMS2. Lymphocytes and normal epithelium exhibit strong nuclear staining to serve as positive internal controls for staining of these proteins. Test results should be interpreted in the context of clinical findings, family history, and other laboratory data. If results obtained do not match other clinical or laboratory findings, please contact the laboratory for possible interpretation. Misinterpretation of results may occur if the information provided is inaccurate or incomplete. This test was developed and its performance characteristics determined by [facility] in a manner consistent with CLIA requirements. This test has not been cleared or approved by the U.S. Food and Drug Administration. Tissue (Lung) 01/29/2024 3:5 9 PM CDT 02/07/2024 11:57 AM CDT Narrative Resulting Agency Comment [id number] Sona WELSH P.A.-C., P.A. LAB GENETIC TESTING [facility] [address] [place] [address], [facility] DT [address] [place] [address] * Aura Tempus xT, Tissue - Sent Out Lab (01/29/2024 3:24 PM CDT) Aura Tempus xT, Tis Collected, Sent to Reference Lab DEFAULT 02/08/2024 11:13 AM CDT [facility] Tissue (Other, Specify in Comments) 01/29/2024 3:24 PM CDT 02/08/2024 11:13 AM CDT Sona WELSH P.A.-C., P.A. LAB GENETIC TESTING [facility] [address] [place] [address], 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
--- OUTSIDE RECORDS SUMMARY | 2024-02-18 07:06 | XMS_ITS | Encounter Summary ---
Author Organization [facility] Address [address] [place] [address] Care Team Providers Care Organizational Development Manager Name Role Phone Elsewhere, Pcp Primary Care Provider Unavailabl e Encounter Details Date Type Department Care Team (Late st Contact Info) Description 01/11/2024 Clinical Communication Department of Oncology in [place], [place] [address] [place] [phone] Sona Cedillo, ANITHA, P.A.-C., P.A. [address] [place] [phone] Social History Tobacco Use Types Packs/Day Years [...] often do you attend chur ch or faith services? Never 08/21/2021 Do you belong to [...] medical care, and heating? Somewhat hard 08/21/2021 [facility] of Occupat ional Health - Occupational Stress [...] place to sleep or slept in a alf (including now)? No 08/21/2021 Nutrition Answer Date [...] Appointment Department of Laboratory Medicine and Pathology, [facility] in [place], [place] 200 [place] [phone] Tomas Barragan M.D. [address] [place] [phone] 02/25/2024 1:00 PM CDT Comprehensive Visit Department of Vascular Medicine in [place], [place] 200 [place] [phone] Renu Dixon M.D., M.S. 200 [place] [phone] 04/16/2024 8:30 AM BRAIDER SETTER Clinical Communication Virtual Review in [place], [place] [address] [place] [phone] 04/16/2024 3:10 PM BRAIDER SETTER Comprehensive Visit Division of Gastroenterology in [place], [place] [address] [place] [phone] Melania Padron M.D. [address] [place] [phone] documented as of this encounter Visit Diagnoses Not on filedocumented in this encounter Care Teams Organizational Development Manager Relationship Specialty Start Date End Date Elsewhere, Pcp PCP - General Internal Medicine 05/24/21 documented as of this encounter
--- OUTSIDE RECORDS SUMMARY | 2024-02-18 07:06 | XMS_ITS | Encounter Summary ---
Author Organization [facility] Address [address] [place] [address] Care Team Providers Care Fiberglass Machine Operator Name Role Phone Elsewhere, Pcp Primary Care Provider Unavailabl e Encounter Details Date Type Department Care Team (Late st Contact Info) Description 01/28/2024 Orders Only Department of Radiology, [facility], in [place], [place] [address] [place] [phone] Arlene Ji, TRACIE, C.N.P. [address] [place] [phone] Malignant Neoplasm Of Rectum (HCC) (Primary Dx) Social History Tobacco Use Types Packs/Day Years [...] often do you attend chur ch or church services? Never 08/21/2021 Do you belong to any clubs o r organizations such as sikh groups, unions, fraternal or athletic groups, or [...] medical care, and heating? Somewhat hard 08/21/2021 [facility] of Occupat ional Health - Occupational Stress [...] place to sleep or slept in a nursing home (including now)? No 08/21/2021 Nutrition Answer Date [...] Appointment Department of Laboratory Medicine and Pathology, [facility] in [place], [place] 200 [place] [phone] Tomas Barragan M.D. [address] [place] [phone] 02/25/2024 1:00 PM CDT Comprehensive Visit Department of Vascular Medicine in [place], [place] 200 [place] [phone] Renu Dixon M.D., M.S. [address] [place] [phone] 04/16/2024 8:30 AM MANAGER OPERATING Clinical Communication Virtual Review in [place], [place] 200 [place] [phone] 04/16/2024 3:10 PM MANAGER OPERATING Comprehensive Visit Division of Gastroenterology in [place], [place] [address] [place] [address] Melania Padron M.D. [address] [place] [phone] documented as of this encounter Results * Platelet Count (01/29/2024 8:54 AM CDT) Platelet Count 190 157 - 371 x10(9)/L 01/29/2024 9:56 AM CDT DTL Blood (Blood, Venous) 01/29/2024 8:54 AM CDT 01/29/2024 9:15 AM CDT Arlene Ji APRN C.N.PUma LAB BLOOD AD D-ON [facility] 200 [place] [address], [facility] 200 [place] [address] * Prothrombin Time (PT) (01/29/2024 8:53 AM CDT) Prothrombin Time, P 10.1 9.4 - 12.5 sec 01/29/2024 9:48 AM CDT DTL INR 0.9 0.9 - 1.1 01/29/2024 9:48 AM CDT DTL Comment: ----ADDITIONAL INFORMATION---- Standard intensity warfarin therapeutic range: 2.0 to 3.0 ?? High intensity warfarin therapeutic range: 2.5 to 3.5 Blood (Blood, Venous) 01/29/2024 8:53 AM CDT 01/29/2024 9:17 AM CDT Arlene Ji APRN C.N.PUma LAB BLOOD AD D-ON [facility] [address] [place] [address], [facility] [address] [place] [address] documented in this encounter Visit Diagnoses Diagnosis Malignant Neoplasm Of Rectum (HCC)- Primary documented in this encounter Care Teams Fiberglass Machine Operator Relationship Specialty Start Date End Date Elsewhere, Pcp PCP - General Internal Medicine 05/24/21 documented as of this encounter
--- OUTSIDE RECORDS SUMMARY | 2024-02-18 07:06 | XMS_ITS | Encounter Summary ---
Author Organization [facility] Address [address] [place] [address] Care Team Providers Care Volcanology Teacher Name Role Phone Elsewhere, Pcp Primary Care Provider Unavailabl e Encounter Details Date Type Department Care Team (Late st Contact Info) Description 01/29/2024 8:40 AM CDT Lab Department of Laboratory Medicine and Pathology, [facility], in [place], [place] [address] [place] [phone] Arlene Ji, TRACIE, C.N.P. [address] [place] [phone] Malignant Neoplasm Of Rectum (HCC); Secondary Malignant Neoplasm Lung Right (HCC) [...] often do you attend chur ch or hinduism services? Never 08/21/2021 Do you belong to any clubs o r organizations such as adventist groups, unions, fraternal or athletic groups, or [...] medical care, and heating? Somewhat hard 08/21/2021 [facility] of Occupat ional Health - Occupational Stress [...] place to sleep or slept in a long term (including now)? No 08/21/2021 Nutrition Answer Date [...] Appointment Department of Laboratory Medicine [facility], [facility], in [place], [place] [address] [place] [phone] Tomas Barragan M.D. [address] [place] [phone] 02/25/2024 1:00 PM CDT Comprehensive Visit Department of Vascular Medicine in [place], [place] 200 [place] [phone] Renu Dixon M.D., M.S. [address] [place] [phone] 04/16/2024 8:30 AM FINISH PRODUCTION MANAGER Clinical Communication Virtual Review in [place], [place] [address] [place] [address] 04/16/2024 3:10 PM FINISH PRODUCTION MANAGER Comprehensive Visit Division of Gastroenterology in [place], [place] [address] [place] [phone] Melania Padron M.D. [address] [place] [phone] documented as of this encounter Procedures Procedure Name Priority Date/Time Associated Diagnosis Comments MMR PROTEIN, IHC ONLY, TUMOR Routine 01/29/2024 3:59 PM CDT Malignant Neoplasm Of Rectum (HCC) Secondary Malignant Neoplasm Lung Right (HCC) [facility] TEMPUS XT, TIS Routine 01/29/2024 3 :24 PM CDT Malignant Neoplasm Of Rectum (HCC) Secondary Malignant Neoplasm Lung Right (HCC) PLATELETS, B Routine 01/29/2024 8:54 AM CDT Malignant Neoplasm Of Rectum (HCC) PROTHROMBIN TIME (PT), P Routine 01/29/2024 8:53 AM CDT Malignant Neoplasm Of Rectum (HCC) documented in this encounter Results * [...] 02/07/2024 6:09 PM CDT DTL Tissue ID [id number] 02/07/2024 6:09 PM CDT DTL Released By [...] of protein expression by IHC (Mod Pathol. 2019;335):871-879 (PMID: [id number])). THERAPEUTIC IMPLICATIONS Current data suggest that in advanced stage solid tumors, targeted immunotherapies such as anti-PD-1 therapies are more likely to be effective in mismatch repair-deficient tumors than in mismatch repair-proficient tumors (Science. 2017 Dec 29;357(1510):409- 413 (PMID [id number]); J Clin Oncol. 2018 Jun 20:[id number] (PMID [id number])). ??For interpretation of therapeutic implications of these [...] cancer (J Clin Oncol. 2004Jun 23;23(3):609-18 (PMID [id number])). ADDITIONAL INFORMATION Consideration of these results, in [...] developed and its performance characteristics determined by [facility] in a manner consistent with CLIA requirements. This test has not been cleared or approved by the U.S. Food and Drug Administration. Tissue (Lung) 01/29/2024 3:5 9 PM CDT 02/07/2024 11:57 AM CDT Narrative Resulting Agency Comment [id number] Sona WELSH PCaleb.NhungC., P.A. LAB GENETIC TESTING [facility] [address] [place] [address], [facility] DT [address] [place] [address] * Aura Tempus xT, Tissue - Sent Out Lab (01/29/2024 3:24 PM CDT) Aura Tempus xT, Tis Collected, Sent to Reference Lab DEFAULT 02/08/2024 11:13 AM CDT [facility] Tissue (Other, Specify in Comments) 01/29/2024 3:24 PM CDT 02/08/2024 11:13 AM CDT Sona WELSH P.A.-C. P.A. LAB GENETIC TESTING Performing Organization Address [facility] Co de Phone Number [facility] REFERRALS [address] [place] [address], [facility] [address] [place] [address] * Platelet Count (01/29/2024 8:54 AM CDT) Platelet Count 190 157 - 371 x10(9)/L 01/29/2024 9:56 AM CDT DTL Blood (Blood, Venous) 01/29/2024 8:54 AM CDT 01/29/2024 9:15 AM CDT Jael Unger APRN.N.P. LAB BLOOD AD D-ON Performing Organization Address [facility] de Phone Number [facility] 200 [place] [address], [facility] 200 [place] [address] * Prothrombin Time (PT) (01/29/2024 8:53 AM CDT) Prothrombin Time, P 10.1 9.4 - 12.5 sec 01/29/2024 9:48 AM CDT DTL INR 0.9 0.9 - 1.1 01/29/2024 9:48 AM CDT DTL Comment: ----ADDITIONAL INFORMATION---- Standard intensity warfarin therapeutic range: 2.0 to 3.0 ?? High intensity warfarin therapeutic range: 2.5 to 3.5 Blood (Blood, Venous) 01/29/2024 8:53 AM CDT 01/29/2024 9:17 AM CDT Jael Unger APRN.N.P. LAB BLOOD AD D-ON Performing Organization Address [facility] Co de Phone Number [facility] [address] [place] [address], [place] DTL [facility] [address] [place] [address] documented in this encounter Visit Diagnoses Diagnosis Malignant Neoplasm Of Rectum (HCC) Secondary Malignant Neoplasm Lung Right (HCC) documented in this encounter Care Teams Volcanology Teacher Relationship Specialty Start Date End Date Elsewhere, Pcp PCP - General Internal Medicine 05/24/21 documented as of this encounter
--- OUTSIDE RECORDS SUMMARY | 2024-02-18 07:06 | XMS_ITS | Encounter Summary ---
Author Organization [facility] Address [address] [place] [address] Care Team Providers Care Dynamite Shooter Name Role Phone Elsewhere, Pcp Primary Care Provider Unavailabl e Reason for Visit * Reason Onset Date Comments Triage 01/29/2024 Encounter Details Date Type Department Care Team (Late st Contact Info) Description 01/29/2024 Clinical Communication Department of Vascular Medicine in [place], [place] [address] [place] [address] Prescheduling, Provider Triage Social History Tobacco Use Types Packs/Day Years [...] often do you attend chur ch or worship services? Never 08/21/2021 Do you belong to any clubs o r organizations such as holiness groups, unions, fraternal or athletic groups, or [...] medical care, and heating? Somewhat hard 08/21/2021 [facility] of Occupat ional Health - [...] place to sleep or slept in a retirement (including now)? No 08/21/2021 Nutrition Answer Date [...] Appointment Department of Laboratory Medicine and Pathology, [facility] in [place], [place] [address] [place] [phone] Tomas Barragan M.D. [address] [place] [phone] 02/25/2024 1:00 PM CDT Comprehensive Visit Department of Vascular Medicine in [place], [place] [address] [place] [phone] Renu Dixon M.D., M.S. [address] [place] [phone] 04/16/2024 8:30 AM STRING STUDIES DIRECTOR Clinical Communication Virtual Review in [place], [place] 200 [place] [phone] 04/16/2024 3:10 PM STRING STUDIES DIRECTOR Comprehensive Visit Division of Gastroenterology in [place], [place] [address] [place] [address] Melania Padron M.D. [address] [place] [phone] documented as of this encounter Visit Diagnoses Not on filedocumented in this encounter Care Teams Dynamite Shooter Relationship Specialty Start Date End Date Elsewhere, Pcp PCP - General Internal Medicine 05/24/21 documented as of this encounter
--- OUTSIDE RECORDS SUMMARY | 2024-02-18 07:06 | XMS_ITS | Referral Summary ---
Author Organization [facility] Address [address] [place] [address] Care Team Providers Care Dovetail Machine Operator Name Role Phone Elsewhere, Pcp Primary Care Provider Unavailabl e Source Comments Patient records contain information from all sites at [facility]. For routine questions regarding patient records, call [phone] during business hours, M-F 8:00 AM - 5:00 PM Central Time. Record requests for emergency care only can be directed to [phone] at any time.[facility] Encounters Date Type Department Care Team Description 01/30/2024 Orders Only Department of Oncology in [address] [phone] Sona Cedillo, ANITHA, P.A.-C., P.A. Malignant Neoplasm Of Rectum (HCC) (Primary Dx); Secondary Malignant Neoplasm Lung Left (HCC); Secondary Malignant Neoplasm Lung Right (HCC) 01/29/2024 Clinical Communication Department of Vascular Medicine in [place], [place] [address] [place] [phone] Prescheduling, Provider Triage 01/29/2024 8:40 AM CDT Lab Department of Laboratory Medicine and Pathology, [place], [place] [address] [place] [phone] Arlene Ji, TRACIE, C.N.P. Malignant Neoplasm Of Rectum (HCC); Secondary Malignant Neoplasm Lung Right (HCC) 01/29/2024 8:58 AM CDT - 01/29/2024 1:47 PM CDT Hospital Encounter Department of Radiology, [facility], in [place], [place] [address] [place] [phone] Sona Cedillo MPAS P.A.-C., P.A. Postprocedural Pneumothorax (Primary Dx); Pulmonary Nodule Computed Tomography Indeterminate; Malignant Neoplasm Of Rectum (HCC); Abuse Tobacco Smoking Discharge Disposition: Home or Self Care 01/28/2024 Orders Only Department of Radiology, [facility], in [place], [place] [address] [place] [address] Arlene Ji APRN CUmaNUmaP. Malignant Neoplasm Of Rectum (HCC) (Primary Dx) 01/17/2024 Orders Only Department of Vascular Medicine in [place], [place] [address] [place] [address] Tomas Barragan M.D. 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 01/10/2024 [facility] [address] [place] [address] Trudi Jimenez, P.A. 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 Pulmonary Nodule Computed Tomography Indeterminate (Primary Dx); Malignant Neoplasm Of Rectum (HCC); Abuse Tobacco Smoking from Last 3 Months Allergies Active Allergy Reactions Criticality Noted Date Comments Azithromycin GI intolerance 10/11/2020 Medications Medication Sig Dispensed Refills Start Date End Date Status albuterol 90 mcg/actuation inhaler Inhale every 6 (six) hours as needed for wheezing. Active ibuprofen (ADVIL,MOTRIN) 200 mg tablet Take 4 tablets (800 mg total) by mouth every 6 (six) hours as needed for pain. 08/28/2021 Active acetaminophen (TYLENOL) 500 mg tablet Take 2 tablets (1,000 mg total) by mouth every 6 (six) hours as needed for pain. 08/28/2021 Active aspirin (Aspirin Childrens) 81 mg chewable tablet Chew 81 mg. 01/09/2024 Active Active Problems Problem Noted Date Diagnosed [...] from 10/11/2020:Stage IIIB(cT3, cN2a, cM0) - Unsigned Social History Tobacco Use Types Packs/Day Years [...] often do you attend chur ch or buddhism services? Never 08/21/2021 Do you belong to any clubs o r organizations such as yazidism groups, unions, fraternal or athletic groups, or [...] medical care, and heating? Somewhat hard 08/21/2021 [facility] - [...] place to sleep or slept in a mcc (including now)? No 08/21/2021 Nutrition Answer Date [...] Pulse 79 01/29/2024 1:27 PM CDT Temperature 36.6 ??C (97.9 ??F) 08/28/2021 11:23 AM C DT Respiratory Rate 18 01/29/2024 11:42 AM CDT Oxygen Saturation 91% 01/29/2024 1:27 PM CDT Inhaled Oxygen Concentration - - Weight 134 kg (295 lb 6.7 oz) 08/28/2021 9:52 AM CDT Height 163 cm (5' 4.17) 08/26/2021 6:17 AM CDT Body Mass Index 50.44 08/26/2021 6:17 AM CDT Plan of Treatment Upcoming Encounters Date Type Department Care Team (Latest Contact Info) Description 02/25/2024 10:50 AM CDT Appointment Department of Laboratory Medicine and Pathology, [facility], in [place], [place] [address] [place] [phone] Tomas Barragan M.D. [address] [place] [phone] 02/25/2024 1:00 PM CDT Comprehensive Visit Department of Vascular Medicine in [place], [place] [address] [place] [phone] Renu Dixon M.D., M.S. [address] [place] [phone] 04/16/2024 8:30 AM SALESFORCE ADMINISTRATOR Clinical Communication Virtual Review in [place], [place] 200 [place] [phone] 04/16/2024 3:10 PM SALESFORCE ADMINISTRATOR Comprehensive Visit Division of Gastroenterology in [address] [phone] Melania Padron M.D. [address] [place] [phone] Medical Devices Implanted Type Area Template Maker Device Identifier Shelf Expiration Date Model / Serial / Lot Clp Hmol Plmr Lg - [id number] Implanted:Qty: 1 on 05/24/2021 by Clovis Alejandro M.D., M.S. at [facility] Hardware e.g. pins/screws/ro ds [employer] [id number] 01/31/2026 [id number] / / [id number] Implantable Port Implantable Port Right: Chest Procedures Procedure Name Priority Date/Time Associated Diagnosis Comments EXT TEMPUS XT Routine 02/17/2024 1:36 PM CDT Malignant Neoplasm Of Rectum (HCC) Secondary Malignant Neoplasm Lung Right (HCC) MMR PROTEIN, IHC ONLY, TUMOR Routine 01/29/2024 3:59 PM CDT Malignant Neoplasm Of Rectum (HCC) Secondary Malignant Neoplasm Lung Right (HCC) AURA TEMPUS XT, TIS Routine 01/29/2024 3:24 PM CDT Malignant Neoplasm Of Rectum (HCC) Secondary Malignant Neoplasm Lung Right (HCC) DX CHEST 1 VIEW RAD - Semiurgent [...] Neoplasm Of Rectum (HCC) Abuse Tobacco Smoking PLATELETS, B Routine 01/29/2024 8:54 AM CDT Malignant Neoplasm Of Rectum (HCC) PROTHROMBIN TIME (PT), P Routine 01/29/2024 8:53 AM CDT Malignant Neoplasm Of Rectum (HCC) OUTSIDE NM PET Routine 01/17/2024 5:[address] BODY Routine 01/08/2024 11:15 AM CDT BASIC METABOLIC PANEL, S/P Routine 08/25/2021 1:20 PM CDT Malignant Neoplasm Of Rectum Adenocarcinoma (HCC) COLONOSCOPY Routine 05/23/2021 1:45 PM SALESFORCE ADMINISTRATOR Malignant Neoplasm Of Rectum Adenocarcinoma (HCC) from Last 3 Months or Most Recently Relevant to Health Maintenance Results * Mismatch Repair (MMR) Protein Immunohistochemistry [...] 02/07/2024 6:09 PM CDT DTL Tissue ID [id number] 02/07/2024 6:09 PM CDT DTL Released By [...] expression by IHC (Mod Pathol. 2019;33(5):871-879 (PMID: [id number])). THERAPEUTIC IMPLICATIONS Current data suggest that in advanced stage solid tumors, targeted immunotherapies such as anti-PD-1 therapies are more likely to be effective in mismatch repair-deficient tumors than in mismatch repair-proficient tumors (Science. 2017 Dec 29;357(3084):409- 413 (PMID 93592042); J Clin Oncol. 2018 Jun 20:[id number] (PMID 63448602)). ??For interpretation of therapeutic implications of these [...] cancer (J Clin Oncol. 2004Jun 23;23(3):609-18 (PMID [id number])). ADDITIONAL INFORMATION Consideration of these results, in [...] developed and its performance characteristics determined by [facility] in a manner consistent with CLIA requirements. This test has not been cleared or approved by the U.S. Food and Drug Administration. Tissue (Lung) 01/29/2024 3:5 9 PM CDT 02/07/2024 11:57 AM CDT Narrative Resulting Agency Comment [id number] Dale Horner.Isidro., P.A. LAB GENETIC TESTING [facility] [address] [place] [address], [facility] DTL [address] [place] [address] * Shania Lazo xT, Tissue - Sent Out Lab (01/29/2024 3:24 PM CDT) Paytona Meeraus xT, Tis Collected, Sent to Reference Lab DEFAULT 02/08/2024 11:13 AM CDT [facility] Tissue (Other, Specify in Comments) 01/29/2024 3:24 PM CDT 02/08/2024 11:13 AM CDT Sona WELSH P.A.-C., P.A. LAB GENETIC TESTING [facility] REFERRALS [address] [place] [address], [facility] [address] [place] [address] * DX Chest 1 View (01/29/2024 12:24 [...] cardiacsilhouette. The chest is otherwise unremarkable. Sanjeev Cruz M.D. IMG DIAGNOSTIC IMAGING PROCEDURES * CT Lung Biopsy [...] lobe pulmonary nodule biopsy. EP Sona WELSH P.A.-C., Alycia IMG CT PROCEDURES * (ABNORMAL) Cytology Fine [...] en toto in cassette A1. ??Grossed by NKAashish (A) 01/30/2024 12:38 PM CDT DTL Source A. Lung, Right middle lobe nodule, fine needle aspiration(A) 01/30/2024 12:38 PM CDT DTL Addendum Aura Tempus xT, Solid Tumor has been requested by Dr. Sona Cedillo and will be performed on block A1 at [facility], [place], [place]. Signed by Areli Sandra M.D., Ph.D. 02/07/2024 5:20 PM MMR Protein, IHC Only, Tumor (IHC) ??will be performed and resulted in the patient's medical record. Signed by Erich Kincaid M.D., Ph.D. 02/07/2024 9:06 AM Immunohistochemica l stain HER2-DfDx was performed at [facility] (block A1): Negative (Score 0) Digital imaging was used in the diagnostic assessment of this case. Signed by Chelsy Flood M.D., Ph.D. 02/01/2024 2:48 PM This test has been modified from the opinion polls survey worker's instructions. Its performance characteristics were determined by [facility] in a manner consistent with CLIA requirements. [...] (Lung) 01/29/2024 10: 31 AM CDT Sona WELSH P.A.-C., P.A. LAB SURG PATH ORDERABLES Performing Organization Address [facility]/ZIP Co de Phone Number [facility] [address] [place] [address] * Platelet Count (01/29/2024 8:54 AM CDT) Platelet Count 190 157 - 371 x10(9)/L 01/29/2024 9:56 AM CDT DTL Blood (Blood, Venous) 01/29/2024 8:54 AM CDT 01/29/2024 9:15 AM CDT Arlene Ji APRN, C.N.P. LAB BLOOD AD D-ON Performing Organization Address [facility]/ZIP Co de Phone Number [facility] [address] DTFormerly named [facility] [address] [place] [address] * Prothrombin Time (PT) (01/29/2024 8:53 AM [...] CDT 01/29/2024 9:17 AM CDT Arlene Ji APRN, C.N.P. LAB BLOOD AD D-ON Performing Organization Address [facility] Co de Phone Number [facility] [address] [place] [address], [facility] DTFormerly named [facility] [address] [place] [address] * PET skull to mid thigh-Outside NM Pet (01/17/2024 5:10 PM CDT) 01/17/2024 5:10 PM CDT Narrative IISD - 01/17/2024 6:46 PM CDT This order has been created and auto-finalized to support the import of outside images. If available, original interpretation can be found on the Media Tab in Chart Review, in Document Viewer, as an image in QREADS or as an Addendum. If a re-interpretation or overread is required please follow defined workflow.?? Provider Not In System IMG NM PROCEDURES Performing Organization Address [facility] Co de Phone Number IIMS NA * CT chest abdomen pelv w con-Outside CT Body (01/08/2024 11:15 AM CDT) Narrative IISD - 01/10/2024 11:17 AM CDT This order has been created and auto-finalized to support the import of outside images. If available, original interpretation can be found on the Media Tab in Chart Review, in Document Viewer, as an image in QREADS or as an Addendum. If a re-interpretation or overread is required please follow defined workflow.?? Provider Not In System IMG CT PROCEDURES [facility] NA * Basic Metabolic Panel (08/25/2021 1:20 PM CDT) Potassium, S 4.1 3.6 - 5.2 mmol/L 08/25/2021 2:13 PM CDT DTL Sodium, S 143 135 - 145 mmol/L 08/25/2021 2:13 PM CDT DTL Chloride, S 105 98 - 107 mmol/L 08/25/2021 2:13 PM CDT DTL Bicarbonate, S 27 22 - 29 mmol/L 08/25/2021 2:13 PM CDT DTL Anion Gap 11 7 - 15 08/25/2021 2:13 PM CDT DTL BUN (Blood Urea Nitrogen), S 12 6 - 21 mg/dL 08/25/2021 2:13 PM CDT DTL Creatinine 0.91 0.59 - 1.04 mg/dL 08/25/2021 2:13 PM CDT DTL eGFR-Non Black/ 72 >=60 mL/min/BSA 08/25/2021 2:13 PM CDT DTL Comment: ----ADDITIONAL INFORMATION---- Estimated GFR calculated using the 2009 CKD_EPI creatinine equation. eGFR-Black/Afric an Kenyan 83 >=60 mL/min/BSA 08/25/2021 2:13 PM CDT DTL Comment: ----ADDITIONAL INFORMATION---- Estimated GFR calculated using the 2009 CKD_EPI creatinine equation. Calcium, Total, S 8.8 8.6 - 10.0 mg/dL 08/25/2021 2:13 PM CDT DTL Glucose, S 89 70 - 140 mg/dL 08/25/2021 2:13 PM CDT DTL Blood (Blood, Venous) 08/25/2021 1:20 PM CDT 08/25/2021 1:47 PM CDT Clovis Alejandro M.D., M.S. LAB BLOO D ADD-ON [facility] [address] [place] [address], [facility] DTL [facility] [address] [place] [address] from Last 3 Months or Most Recently Relevant to Health Maintenance Advance Directives For more information, please contact: [phone] * Full Code (Latest Code Status on File) Date Activated Date Inactivated Comments 08/26/2021 12:49 PM 08/28/2021 2:18 PM Question Answer Comments Full Code: Not Discussed Due to: Not medically appropriate * Full Code Date Activated Date Inactivated Comments 08/26/2021 6:29 AM 08/26/2021 12:49 PM Question Answer Comments Full Code: Discussed * Full Code Date Activated Date Inactivated Comments 05/24/2021 6:25 AM 05/27/2021 7:22 PM Question Answer Comments Full Code: Discussed Care Teams Dovetail Machine Operator Relationship Specialty Start Date End Date Elsewhere, Pcp PCP - General Internal Medicine 05/24/21
--- OUTSIDE RECORDS SUMMARY | 2024-02-18 07:06 | XMS_ITS ---
Author Organization [facility] Address [address] [place] [address] Care Team Providers Care Smash Piecer Name Role Phone Unavailable Unavailable Unavailable Surgery Details Not on file Complications Check Surgery Details section. Procedure Estimated Blood Loss Check Surgery Details section. Procedure Findings Check Surgery Details section. Procedure Specimens Taken Check Surgery Details section.
--- OUTSIDE RECORDS SUMMARY | 2024-02-18 07:06 | XMS_ITS | Clinical Summary ---
Author Organization [facility] Address [address] [place] [address] Care Team Providers Care Umbrella Finisher Name Role Phone Elsewhere, Pcp Primary Care Provider Unavailabl e Source Comments Patient records contain information from all sites at [facility]. For routine questions regarding patient records, call [phone] during business hours, M-F 8:00 AM - 5:00 PM Central Time. Record requests for emergency care only can be directed to [phone] at any time.[facility] Allergies Active Allergy Reactions Criticality Noted Date [...] from 10/11/2020:Stage IIIB(cT3, cN2a, cM0) - Unsigned Encounters Date Type Department Care Team Description 01/30/2024 Orders Only Department of Oncology in [place], [place] [address] [place] [phone] Sona Cedillo, ANITHA, P.A.-C., P.A. Malignant Neoplasm Of Rectum (HCC) (Primary Dx); Secondary Malignant Neoplasm Lung Left (HCC); Secondary Malignant Neoplasm Lung Right (HCC) 01/29/2024 8:58 AM CDT - 01/29/2024 1:47 PM CDT Hospital Encounter Department of Radiology, [place], [place] [address] [place] [phone] Sona Cedillo MPAS, P.A.-C., P.A. Postprocedural Pneumothorax (Primary Dx); Pulmonary Nodule Computed Tomography Indeterminate; Malignant Neoplasm Of Rectum (HCC); Abuse Tobacco Smoking Discharge Disposition: Home or Self Care 01/29/2024 8:40 AM CDT Lab Department of Laboratory Medicine and Pathology, [facility] in [place], [place] [address] [place] [address] Arlene Ji APRN, C.N.P. Malignant Neoplasm Of Rectum (HCC); Secondary Malignant Neoplasm Lung Right (HCC) 01/29/2024 Clinical Communication Department of Vascular Medicine in [place], [place] [address] [place] [phone] Prescheduling, Provider Triage 01/28/2024 Orders Only Department of Radiology, [facility] in [place], [place] [address] [place] [address] Arlene Ji APRN, C.N.P. Malignant Neoplasm Of Rectum (HCC) (Primary Dx) 01/17/2024 Orders Only Department of Vascular Medicine in [place], [place] [address] [place] [address] Tomas Barragan M.D. 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 01/10/2024 [facility] AND [facility] [address] [place] [address] Trudi Jimenez PYamel Occlusion And Stenosis Right Carotid Artery (Primary Dx); Occlusion And Stenosis Bilateral Carotid Arteries; Peripheral Vascular Disease (HCC) 01/10/2024 Orders Only Department of Oncology in [place], [place] [address] [place] [phone] Sona Cedillo, ANITHA, P.A.-C., P.A. Pulmonary Nodule Computed Tomography Indeterminate (Primary Dx); Malignant Neoplasm Of Rectum (HCC); Abuse Tobacco Smoking from Last 3 Months Family History Medical History Relation Name Comments Stroke Father Trav Dementia Mother Kaia Thyroid disease Mother Kaia Skin cancer Mother's Sister Ramonita Dementia Paternal Grandmother Rebekah No Known Problems Sister Relation Name Status Comments Father Trav Mother Kaia Mother's Sister Ramonita Paternal Grandmother Rebekah Sister Alive Social History Tobacco Use Types Packs/Day Years [...] any clubs o r organizations such as jainism groups, unions, fraternal or athletic groups, or [...] medical care, and heating? Somewhat hard 08/21/2021 [facility] - Occupational Stress Questionnaire Answer Date [...] place to sleep or slept in a long-term (including now)? No 08/21/2021 Nutrition Answer Date [...] Appointment Department of Laboratory Medicine and Pathology, [facility], in [place], [place] [address] [place] [phone] Tomas Barragan M.D. [address] [place] [phone] 02/25/2024 1:00 PM CDT Comprehensive Visit Department of Vascular Medicine in [place], [place] [address] [place] [phone] Renu Dixon M.D., M.S. [address] [place] [phone] 04/16/2024 8:30 AM COMPUTER SCIENCE INSTRUCTOR Clinical Communication Virtual Review in [place], [place] 200 [place] [address] 04/16/2024 3:10 PM COMPUTER SCIENCE INSTRUCTOR Comprehensive Visit Division of Gastroenterology in [place], [place] [address] [place] [phone] Melania Padron M.D. [address] [place] [address] Health Maintenance Due Date Last Done Comments CT Colonography 1968 Cervical Cancer Screening 1970 Cologuard 1968 Hepatitis C Screening 1968 Lipid (Cholesterol) Screening 1968 Mammogram 1968 Hepatitis B Vaccines (1 of 3 - 19+ 3-dose series) 1987 Zoster Vaccines (1 of 2) 1987 Pneumococcal vaccine (0-64 years) (2 of 2 - PCV) 05/09/2012 05/09/2011 DTaP,Tdap,and Td Vaccines (2 - Td or Tdap) 05/09/2021 05/09/2011 COVID-19 Vaccine (2 - Toby risk series) 07/11/2021 06/13/2021 Creatinine Level (Kidney Function Test) 08/25/2022 08/25/2021, 05/23/2021, 04/15/2021, Additional history exists Potassium Level 08/25/2022 08/25/2021, 05/05, 04/15/2021 Sodium Level 08/25/2022 08/25/2021, 05/05, 05/23/2021, Additional history exists Depression Screening (Annual PHQ-2) 06/04/2023 Influenza Vaccine (#1) 2024 05/09/2011, 2010 Fasting Glucose for Diabetes Screening 08/25/2024 08/25/2021, 05/24/2021, 05/23/2021, Additional history exists Colonoscopy 05/23/2026 05/23/2021 Colorectal Cancer Surveillance 05/23/2026 HPV Vaccines Aged Out No longer eligi ble based on patient's age to complete this topic Medical Devices Implanted Type Area Fisheries Management Biologist Device Identifier Shelf Expiration Date Model / Serial / Lot Clp Hmol Plmr Lg - [id number] Implanted:Qty: 1 on 05/24/2021 by Clovis Alejandro M.D., M.S. at [facility] Hardware e.g. pins/screws/ro ds [employer] [id number] 01/31/2026 [id number] / / [id number] Implantable Port Implantable Port Right: Chest [...] Adenocarcinoma (HCC) COLONOSCOPY Routine 05/23/2021 1:45 PM COMPUTER SCIENCE INSTRUCTOR Malignant Neoplasm Of Rectum Adenocarcinoma (HCC) from [...] 02/07/2024 6:09 PM CDT DTL Tissue ID [id number] 02/07/2024 6:09 PM CDT DTL Released By [...] expression by IHC (Mod Pathol. 2019;33(5):871-879 (PMID: [id number])). THERAPEUTIC IMPLICATIONS Current data suggest that in advanced stage solid tumors, targeted immunotherapies such as anti-PD-1 therapies are more likely to be effective in mismatch repair-deficient tumors than in mismatch repair-proficient tumors (Science. 2017 Dec 29;357(3570):409- 413 (PMID 73874961); J Clin Oncol. 2018 Jun 20:[id number] (PMID 88688175)). ??For interpretation of therapeutic implications of these [...] patients with colorectal cancer (J Clin Oncol. 2005 Jun 23;23(3):609-18 (PMID [id number])). ADDITIONAL INFORMATION Consideration of these results, in [...] developed and its performance characteristics determined by [facility] in a manner consistent with CLIA requirements. This test has not been cleared or approved by the U.S. Food and Drug Administration. Tissue (Lung) 01/29/2024 3:5 9 PM CDT 02/07/2024 11:57 AM CDT Narrative Resulting Agency Comment [id number] Sona WELSH PCaleb.Isidro., P.A. LAB GENETIC TESTING [facility] [address] [place] [address], [facility] DT [address] [place] [address] * Aura Tempus xT, Tissue - Sent Out Lab (01/29/2024 3:24 PM CDT) Aura Tempus xT, Tis Collected, Sent to Reference Lab DEFAULT 02/08/2024 11:13 AM CDT [facility] Tissue (Other, Specify in Comments) 01/29/2024 3:24 PM CDT 02/08/2024 11:13 AM CDT Sona WELSH P.A.-C., P.A. LAB GENETIC TESTING [facility] REFERRALS [address] [place] [address], [facility] AURA [address] [place] [address] * DX Chest 1 View (01/29/2024 12:24 [...] lobe pulmonary nodule biopsy. EP Sona WELSH PUmaA.Tiffany, P.A. IMG CT PROCEDURES * (ABNORMAL) Cytology [...] en toto in cassette A1. ??Grossed by HÉCTOR (A) 01/30/2024 12:38 PM CDT DTL Source A. Lung, Right middle lobe nodule, fine needle aspiration(A) 01/30/2024 12:38 PM CDT DTL Addendum Aura Tempus xT, Solid Tumor has been requested by Dr. Sona Cedillo and will be performed on block A1 at [facility], [place], [place]. Signed by Aerli Sandra M.D., Ph.D. 02/07/2024 5:20 PM MMR Protein, IHC Only, Tumor (IHC) ??will be performed and resulted in the patient's medical record. Signed by Erich Kincaid M.D., Ph.D. 02/07/2024 9:06 AM Immunohistochemica l stain HER2-DfDx was performed at [facility] (block A1): Negative (Score 0) Digital imaging was used in the diagnostic assessment of this case. Signed by Chelsy Flood M.D., Ph.D. 02/01/2024 2:48 PM This test has been modified from the disability counselor's instructions. Its performance characteristics were determined by [facility] in a manner consistent with CLIA requirements. [...] LAB SURG PATH ORDERABLES Performing Organization Address [facility] [place] [place] [address] * Platelet Count (01/29/2024 8:54 AM CDT) Platelet Count 190 157 - 371 x10(9)/L 01/29/2024 9:56 AM CDT DTL Blood (Blood, Venous) 01/29/2024 8:54 AM CDT 01/29/2024 9:15 AM CDT Arlene Ji APRN, C.N.P. LAB BLOOD AD D-ON Performing Organization Address [facility] de Phone Number [address] [place] [address] * Prothrombin Time (PT) (01/29/2024 8:53 AM [...] LAB BLOOD AD D-ON Performing Organization Address [facility] de Phone Number [facility] [address] [place] [address], [place] DTL [facility] [address] [place] [address] * PET skull to mid thigh-Outside NM Pet (01/17/2024 5:10 PM CDT) 01/17/2024 5:10 PM CDT Narrative [facility] - 01/17/2024 6:46 PM CDT This order [...] System IMG NM PROCEDURES Performing Organization Address [facility] de Phone Number [facility] NA * CT chest abdomen pelv w con-Outside CT Body (01/08/2024 11:15 AM CDT) Narrative [facility] - 01/10/2024 11:17 AM CDT This order has been created and auto-finalized to support the import of outside images. If available, original interpretation can be found on the Media Tab in Chart Review, in Document Viewer, as an image in QREADS or as an Addendum. If a re-interpretation or overread is required please follow defined workflow.?? Provider Not In System IMG CT PROCEDURES Performing Organization Address [facility] Co de Phone Number [facility] NA * Basic Metabolic Panel (08/25/2021 [...] the 2009 CKD_EPI creatinine equation. eGFR-Black/Afric an Czech 83 >=60 mL/min/BSA 08/25/2021 2:13 PM CDT [...] Alejandro M.D., M.S. LAB BLOO D ADD-ON [facility] [address] [place] [address], [facility] [place] [address] [place] [address] from Last 3 Months or Most Recently Relevant to Health Maintenance Advance Directives For more information, please contact: [phone] * Full Code (Latest Code Status on [...] Answer Comments Full Code: Discussed Care Teams Umbrella Finisher Relationship Specialty Start Date End Date Elsewhere, Pcp PCP - General Internal Medicine 05/24/21
--- OUTSIDE RECORDS SUMMARY | 2024-02-18 07:07 | XMS_ITS | Encounter Summary ---
Author Organization [facility] Address [address] [place] [address] Care Team Providers Care Paper Making Machine Operator Name Role Phone No Ref-Primary, Physician Primary Care Provider Reason for Visit * Reason Comments PERIPHERAL ARTERIAL DISEASE Encounter Details Date Type Department Care Team (Late st Contact Info) Description 11/13/2023 11:40 AM CDT Office Visit [address] [place] [address] Son Huang MD [facility] [address] [place] [address] Encounter for smoking cessation counseling (Primary Dx); [...] after your visit today. Our number is [phone].Thank you for trusting us with your care. Again thank you for your time. documented in this encounter Progress Notes * Renata Cotto RN - 11/13/2023 11:40 AM CDT [facility] Patient is here for [...] PHYSICIAN: Son Huang MD ESTABLISHED PATIENT LOCATION: [facility] Page Fisher Date of : 1970 [...] of total time was spent (either in fmbl-wn-sxpv or fym-ovkl-ao-face time). A total of 5 minutes of smoking cessation counseling was provided to the patient including pharmacological therapy. Son Huang MD, [facility] VASCULAR AND INTERVENTIONAL PHYSICIAN VASCULAR MEDICINE INTERNAL MEDICINE PAGER: [phone] CALL SERVICE: [phone] documented in this encounter Plan of Treatment Upcoming Encounters Date Type Department Care Team (Late st Contact Info) Description 05/13/2024 10:20 AM SOIL FERTILITY EXTENSION SPECIALIST Virtual Visit [address] [place] [address] Son Huang MD [facility] [address] [place] [address] documented as of this encounter Visit Diagnoses Diagnosis Encounter for smoking cessation counseling- Primary Counseling on substance use and abuse Peripheral vascular disease, unspecified (H24) Peripheral vascular disease, unspecified documented in this encounter Care Teams Paper Making Machine Operator Relationship Specialty Start Date End Date No Ref-Primary, Physician PCP - General 01/07/21 documented as of this encounter
--- OUTSIDE RECORDS SUMMARY | 2024-02-18 07:07 | XMS_ITS | Encounter Summary ---
Author Organization [facility] Address [address] [place] [address] Care Team Providers Care Letter Sorting Machine Operator Name Role Phone No Ref-Primary, Physician Primary Care Provider Reason for Visit * Diagnostic Imaging Ultrasound (Routine) - Pending Review Specialty Diagnoses / Procedures Referred By Contac t Referred To Contact Radiology. Diagnoses Peripheral vascular disease, unspecified (H24) Procedures US Low Ext Arterial Dop Seg Pres w/o Exercise Son Huang MD [facility] [address] [place] [address] Referral ID Status Reason Start Date Expiration Date V isits Requested Visits Authorized [id number] Pending Review 07/31/2023 07/30/2024 1 1 Encounter Details Date Type Department Care Team (Latest Contact Info) Description 11/13/2023 10:30 AM CDT Ancillary Procedure [facility] [place] [facility] [address] [place] [phone] Son Huang MD [facility] [address] [place] [address] Peripheral vascular disease, unspecified (H24) Social History [...] st Contact Info) Description 05/13/2024 10:20 AM KEYPUNCH OPERATOR Virtual Visit [facility] [address] [facility] [address] [place] [phone] Son Huang MD [facility] [address] [place] [address] documented as of this encounter Procedures Procedure [...] unspecified documented in this encounter Care Teams Letter Sorting Machine Operator Relationship Specialty Start Date End Date No Ref-Primary, Physician PCP - General 01/07/21 documented as of this encounter
--- OUTSIDE RECORDS SUMMARY | 2024-02-18 07:07 | XMS_ITS | Referral Summary ---
Author Organization [facility] Address [address] [place] [address] Care Team Providers Care Command Center Officer Name Role Phone No Ref-Primary, Physician Primary Care Provider Encounters Date Type Department Care Team Description 11/20/2023 Telephone [facility] [address] [place] [address] Son Huang MD Prior Auth - Medication (varenicline (CHANTIX SADE) 0.5 MG X 11 & 1 MG X 42 tablet - DENIED) from Last 3 Months Allergies Active Allergy [...] - Respiratory Rate 16 07/31/2023 11:49 AM CRUSHER SETTER Oxygen Saturation 97% 11/13/2023 11:44 AM CDT Inhaled Oxygen Concentration - - Weight - - Height - - Body Mass Index - - Plan of Treatment Upcoming Encounters Date Type Department Care Team (Late st Contact Info) Description 05/13/2024 10:20 AM CRUSHER SETTER Virtual Visit [facility] [place] [address] [facility] [address] [place] [phone] Son Huang MD [facility] [address] [place] [address] Care Teams Command Center Officer Relationship Specialty Start Date End Date No Ref-Primary, Physician PCP - General 01/07/21
--- OUTSIDE RECORDS SUMMARY | 2024-02-18 07:07 | XMS_ITS | Clinical Summary ---
Author Organization [facility] Address [address] [place] [address] Care Team Providers Care Upholstered Goods Crafter Name Role Phone No Ref-Primary, Physician Primary [...] Type Department Care Team Description 11/20/[address] [place] [address] Son Huang MD Prior Auth - Medication (varenicline (CHANTIX SADE) 0.5 MG X 11 & 1 MG X 42 tablet - DENIED) from Last 3 Months Social History Tobacco [...] - Respiratory Rate 16 07/31/2023 11:49 AM PURCHASER AUTOMOTIVE PARTS Oxygen Saturation 97% 11/13/2023 11:44 AM CDT Inhaled Oxygen Concentration - - Weight - - Height - - Body Mass Index - - Plan of Treatment Upcoming Encounters Date Type Department Care Team (Late st Contact Info) Description 05/13/2024 10:20 AM PURCHASER AUTOMOTIVE PARTS Virtual Visit [place] [address] [facility] [address] [place] [address] Son Huang MD [facility] [address] [place] [address] Health Maintenance Due Date Last Done Comments [...] (2 - Td or Tdap) 05/09/2021 05/09/2011 PHQ-2 (once per calendar year) 2023 COVID-19 Vaccine (2 - 2022-2 4 season) 2024 06/13/2021 INFLUENZA VACCINE (#1) 2024 05/09/2011 HPV IMMUNIZATION Aged Out No longer e ligible based on patient's age to complete this topic MENINGITIS IMMUNIZATION Aged Out No l onger eligible based on patient's age to complete this topic RSV MONOCLONAL ANTIBODY Aged Out No l onger eligible based on patient's age to complete this topic Care Teams Upholstered Goods Crafter Relationship Specialty Start Date End Date No Ref-Primary, Physician PCP - General 01/07/21
--- OUTSIDE RECORDS SUMMARY | 2024-02-18 07:07 | XMS_ITS | Encounter Summary ---
Author Organization [facility] Address [address] [place] [address] Care Team Providers Care Transmission Maintenance Supervisor Name Role Phone No Ref-Primary, Physician [...] st Contact Info) Description 05/13/2024 10:20 AM LIABILITY CLAIMS EXAMINER Virtual Visit [address] [place] [phone] Son Huang MD [facility] [address] [place] [address] documented as of this encounter Visit Diagnoses Not on filedocumented in this encounter Care Teams Transmission Maintenance Supervisor Relationship Specialty Start Date End Date No Ref-Primary, Physician PCP - General 01/07/21 documented as of this encounter
--- OUTSIDE RECORDS SUMMARY | 2024-02-18 07:07 | XMS_ITS | Encounter Summary ---
Author Organization [facility] Address [address] [place] [address] Care Team Providers Care Direct Care Provider Name Role Phone Elsewhere, Pcp Primary Care Provider Unavailabl e Reason for Referral * Outpatient (Routine) - Authorized Specialty Diagnoses / Procedures Referred By Peyton lockhart Referred To Contact Vascular Medicine Diagnoses Occlusion And Stenosis Bilateral Carotid Arteries Peripheral Vascular Disease (HCC) Trudi Jimenez P.A. [address] [place] [phone] [facility] Referral ID Status Reason Start Date Expiration Date V isits Requested Visits Authorized [id number] Authorized 01/10/2024 07/11/2025 1 1 Encounter Details Date Type Department Care Team (Late st Contact Info) Description 01/10/2024 [facility] [address] [place] [address] Trudi Jimenez P.A. [address] [place] [phone] Occlusion And Stenosis Right Carotid Artery (Primary Dx); Occlusion And Stenosis Bilateral Carotid Arteries; Peripheral Vascular Disease (HCC) Social History Tobacco Use Types Packs/Day [...] week 08/21/2021 How often do you attend [facility] or denominational services? Never 08/21/2021 Do you belong to any clubs o r organizations such as pentecostal groups, unions, fraternal or athletic groups, or [...] medical care, and heating? Somewhat hard 08/21/2021 [facility] of Occupat ional Health - Occupational Stress [...] Appointment Department of Laboratory Medicine and Pathology, [facility], in [place], [place] [address] [place] [phone] Tomas Barragan M.D. [address] [place] [phone] 02/25/2024 1:00 PM CDT Comprehensive Visit Department of Vascular Medicine in [place], [place] [address] [place] [phone] Renu Dixon M.D., M.S. [address] [place] [phone] 04/16/2024 8:30 AM RN GASTROENTEROLOGY Clinical Communication Virtual Review in [place], [place] 200 [place] [address] 04/16/2024 3:10 PM RN GASTROENTEROLOGY Comprehensive Visit Division of Gastroenterology in [address] [phone] Melania Padron M.D. [address] [place] [phone] Scheduled Referrals Name Type Priority Associated Diagnoses Orde r Schedule Vascular Center Referral Outpatient Referral Routine Occlusion And Stenosis Bilateral Carotid Arteries Peripheral Vascular Disease (HCC) Expected: 01/10/2024 (Approximate), Expires: 04/11/2025 documented as of this encounter Visit Diagnoses Diagnosis Occlusion And Stenosis Right Carotid Artery- Primary Occlusion And Stenosis Bilateral Carotid Arteries Peripheral Vascular Disease (HCC) documented in this encounter Care Teams Direct Care Provider Relationship Specialty Start Date End Date Elsewhere, Pcp PCP - General Internal Medicine 05/24/21 documented as of this encounter
--- OUTSIDE RECORDS SUMMARY | 2024-02-18 07:07 | XMS_ITS | Encounter Summary ---
Author Organization [facility] Address [address] [place] [address] Care Team Providers Care Printed Circuit Designer Name Role Phone No Ref-Primary, Physician Primary Care Provider Reason for Visit * Reason Onset Date Comments Prior Auth - Medication 11/13/2023 varenicl ine (CHANTIX SADE) 0.5 MG X 11 & 1 MG X 42 tablet - DENIED Encounter Details Date Type Department Care Team (Late st Contact Info) Description 11/20/2023 Telephone [facility] Vascular [address] [place] [phone] Son Huang MD [facility] [address] [place] [phone] Prior Auth - Medication (varenicline (CHANTIX SADE) [...] MG X 42 PO TBPK [facility] - Denial Date: 11/27/2023 Denial Reason(s): PATIENT HAS TO TRY/FAIL ALTERNATIVES FIRST. SEE DENIAL LETTER BELOW Appeal Information: Patient Notified: NO * Telephone Encounter - Gema Pradhan - 11/26/2023 5:12 PM CDT Images from the original note were not included. PA Initiation Medication: VARENICLINE TARTRATE (STARTER) 0.5 MG X 11 & 1 MG X 42 PO TBPK [facility] - Pharmacy Filling the Rx: [id number] - [place], [place] - [address] [place] [address] AT [facility] [address] Filling Pharmacy [...] PA encounter and send back to the [facility] PA pool [[id number]]. If you have questions about the turn-around time or about our process, please reach out to our research animal facility supervisor Nat Jules. Thank you! RPPA (Retail [...] st Contact Info) Description 05/13/2024 10:20 AM WORKCELL OPERATOR Virtual Visit [address] [place] [phone] Son Huang MD [facility] [address] [place] [address] documented as of this encounter Visit Diagnoses Diagnosis Encounter for smoking cessation counseling- Primary Counseling on substance use and abuse documented in this encounter Care Teams Printed Circuit Designer Relationship Specialty Start Date End Date No Ref-Primary, Physician PCP - General 01/07/21 documented as of this encounter
--- OUTSIDE RECORDS SUMMARY | 2024-02-18 07:07 | XMS_ITS | Encounter Summary ---
Author Organization [facility] Address [address] [place] [address] Care Team Providers Care Internet Marketing Strategist Name Role Phone Elsewhere, Pcp Primary Care Provider Unavailabl e Reason for Referral * MRI/CAT/PET Scan (Routine) - Closed Specialty Diagnoses / Procedures Referred By Contac t Referred To Contact Radiology Diagnoses Pulmonary Nodule Computed Tomography Indeterminate Malignant Neoplasm Of Rectum (HCC) Abuse Tobacco Smoking Procedures CT Lung Biopsy Sona Cedillo MPAS, P.A.-C., P.A. [address] [place] [phone] [facility] Referral ID Status Reason Start Date Expiration Date Visits Re quested Visits Authorized [id number] Closed 01/11/2024 01/10/2025 1 1 Encounter Details Date Type Department Care Team (Late st Contact Info) Description 01/10/2024 Orders Only Department of Oncology in [place], [place] [address] [place] [phone] Sona Cedillo MPAS, P.A.-C., P.A. [address] [place] [address] Pulmonary Nodule Computed Tomography Indeterminate (Primary Dx); Malignant Neoplasm Of Rectum (HCC); Abuse Tobacco Smoking Social History Tobacco Use Types Packs/Day Years [...] often do you attend chur ch or yarsani services? Never 08/21/2021 Do you belong to [...] medical care, and heating? Somewhat hard 08/21/2021 [facility] - Occupational Stress [...] money to buy more. Never true 08/22/19 Within the past 12 months, t he [...] as of this encounter Miscellaneous Notes * Addendum Note - Leidy Blue RSugar. - 01/10/2024 11:56 AM CDTAddended by: LEIDY BLUE on: 01/11/2024 10:17 AM Modules accepted: Orders documented in this encounter Plan of Treatment Upcoming Encounters Date Type Department Care Team (Latest Contact Info) Description 02/25/2024 10:50 AM CDT Appointment Department of Laboratory Medicine and Pathology, [facility], in [place], [place] [address] [place] [phone] Tomas Barragan M.D. [address] [place] [phone] 02/25/2024 1:00 PM CDT Comprehensive Visit Department of Vascular Medicine in [place], [place] [address] [place] [phone] Renu Dixon M.D., M.S. [address] [place] [phone] 04/16/2024 8:30 AM HAND CUTTER APPRENTICE Clinical Communication Virtual Review in [place], [place] [address] [place] [phone] 04/16/2024 3:10 PM HAND CUTTER APPRENTICE Comprehensive Visit Division of Gastroenterology in [place], [place] [address] [place] [phone] Melania Padron M.D. [address] [place] [phone] documented as of this encounter Results * CT Lung Biopsy (01/29/2024 11:29 AM [...] pulmonary nodule biopsy. EP Sona WELSH P.A.-C., P.A. IMG CT PROCEDURES documented in this encounter Visit Diagnoses Diagnosis Pulmonary Nodule Computed Tomography Indeterminate- Primary Malignant Neoplasm Of Rectum (HCC) Abuse Tobacco Smoking Postprocedural Pneumothorax- Primary Pulmonary Nodule Computed Tomography Indeterminate Malignant Neoplasm Of Rectum (HCC) Abuse Tobacco Smoking documented in this encounter Care Teams Internet Marketing Strategist Relationship Specialty Start Date End Date Elsewhere, Pcp PCP - General Internal Medicine 05/24/21 documented as of this encounter
--- OUTSIDE RECORDS SUMMARY | 2024-02-18 07:07 | XMS_ITS | Clinical Summary ---
Author Organization [facility] Address [place], [place] [address] Care Team Providers Care System Planning Engineer Name Role Phone Lyndsay Huitron MD Primary Care Provider [phone] Medications Medication Sig Dispensed Refills Start Date End Date Status (u) ALBUTEROL AERS 90 MCG/ACT 1-2 puffs po q 4-6 hours prn 1 x2 06/28/1999 Active (u) ALBUTEROL NEB SOLN 2.5MG PREMIXED USE Q4-6 HOURS PRN 1BOX 1 04/19/2000 Active Active Problems Problem Noted Date Diagnosed Date ASTHMA 04/19/2000 Encounters Date Type Department Care Team Description 02/13/2024 Transcribe Orders [facility] [address] [place] [address] Zhane Cervantes MD 01/22/2024 Telephone [facility] [address] [place] [address] Olimpia Red PA Abstract (leaving message) from Last 3 Months Family History Medical [...] Comments Blood Pressure 110/70 04/19/2000 12:00 AM INDUSTRIAL ENGINEERING TECHNICIAN Pulse 118 04/19/2000 12:00 AM INDUSTRIAL ENGINEERING TECHNICIAN Temperature 37.5 ??C (99.5 ??F) 04/19/2000 12:[address] Respiratory Rate 16 06/28/1999 12:00 AM INDUSTRIAL ENGINEERING TECHNICIAN Oxygen Saturation - - Inhaled Oxygen Concentration - - Weight 129.7 kg (286 lb) 04/17/2000 12:00 AM INDUSTRIAL ENGINEERING TECHNICIAN Height - - Body Mass Index - [...] (1 of 2) 2018 COVID-19 vaccine series (2022-24 season) 2024 Influenza for age 50-64 02/03/2024 Pneumococcal series for age 6-64 Aged Out No longer eligible based on patient's age to complete this topic Procedures Procedure Name Priority Date/Time Associated Diagnosis Comments XR MAMMO BILAT SCREEN FFDM ([place]) Routine 05/16/2011 6:28 PM INDUSTRIAL ENGINEERING TECHNICIAN Other screening mammogram from Last 3 Months or Most Recently Relevant to Health Maintenance Results * XR MAMMO BILAT SCREEN FFDM (05/16/2011 6:28 PM INDUSTRIAL ENGINEERING TECHNICIAN) Anatomical Region Laterality Modality BREASTS, Breast Left, Breast Right Bilateral Mammography Impressions 05/17/2011 8:01 AM INDUSTRIAL ENGINEERING TECHNICIAN ??There is no radiographic evidence for malignancy. ??Recommend annual mammograms. A lay language report of this examination will be provided to the patient. MAMMOGRAM ASSESSMENT: ??ACR 1 Negative Narrative 05/17/2011 8:01 AM INDUSTRIAL ENGINEERING TECHNICIAN XR MAMMO BILAT SCREEN FFDM [G0202.0] CLINICAL [...] Recently Relevant to Health Maintenance Care Teams System Planning Engineer Relationship Specialty [place] [id number] [place] [address] PCP - General Family Practice 05/09/11
== END 2024-02-13 12:59 | disposition home or self-care (01) ==
LOC: NFLDREF 02-18 07:03
PROVIDERS: PCP Physician Assistant Medical; Referring Provider Physician Assistant Medical; Visit Provider Physician Assistant Medical
DX: E87.6 Hypokalemia; R82.90 Unspecified abnormal findings in urine
CPT/HCPCS: 87086

== ENCOUNTER 2024-02-21 08:14 | Outpatient (RCR) | payer OTHER, SELFPAY ==
[2024-02-21] MEDS: REGADENOSON 0.4 MG/5 ML SYRINGE IVP (08:52)
[2024-02-21] MEDS: SODIUM CHLORIDE 0.9 % (FLUSH) 10 ML SYRINGE IVF (08:52)
[2024-02-21 09:16] VITALS: BP 156/94; PULSE 89
--- NOTE | 2024-02-21 11:39 | W.PM.STED ---
Stress Test Note Date Date Seen: 02/21/24 Date of test: 02/21/24 Providers Primary care provider: Trudi Jimenez Stress test physician: Ibeth Perales Stress Test Note Stress test ordered: Lexiscan Indication for test: Dyspnea Stress test medicine: Lexiscan Results discussion: Resting EKG: Sinus rhythm, 84 beats per minute. Poor R-wave progression anterior precordial leads flipped T-waves V1 through V3 without ST segment change. Resting blood pressure: 149/81 Stress test: Patient followed a nonwalking Lexiscan protocol. With the injection of the regadenoson, patient experienced dyspnea and lightheadedness but no chest pain. There was no arrhythmia noted, few PVCs were seen, no ischemic change noted on the EKG. Patient's symptoms were completely recovered by the end of the stress test. No concerning blood pressure changes. Await nuclear medicine images to couple this for a full formal diagnostic. Impression: Subjectively negative, objectively negative EKG portion of this Lexiscan. Follow up suggested: Patient understands that the nuclear images need to be obtained to couple this for a full formal diagnostic. She will be discharged after the post stress images are obtained and await report from her primary provider.
== END 2024-03-04 23:59 | disposition home or self-care (01) ==
LOC: STRESS 08:14
PROVIDERS: PCP Physician Assistant Medical; Visit Provider Family Medicine
DX: R06.00 Dyspnea, unspecified (principal)
CPT/HCPCS: 78452; 93016; 93017; A9500; J2785

== ENCOUNTER 2024-04-01 10:30 | Outpatient (RCR) | payer OTHER, SELFPAY ==
--- NOTE | 2024-02-12 16:36 | PT.OPEX ---
PT [place] Outpatient Eval PT [facility] Outpatient Eval Start: 02/12/24 10:28 Freq: Status: Active Protocol: Document 02/12/24 10:28 [facility] (Rec: 02/12/24 13:02 [facility] [id number]) E-signed By Kedar Delgado, PT Physical Therapy Outpatient Evaluation Insurance Information Insurance Name [facility] Medical Diagnosis Pain in right leg M79.604 Pain in left leg M79.605 Treating Diagnosis Pain in both hips: M25.551/552 muscle weakness M62.81 Difficulty walking R26.2 Unsteadiness on feet R26.81 Referring MD Trudi Jimenez PA-C Subjective Preferred Name Page Macias Pt presents today with bilateral LE weakness and outer hip pain x 1 year that is related h/o rectal adenocarcinoma. She had multiple surgeries and now has a colostomy. The less she moves the less the bag leaks. She also was diagnosed two weeks ago with adenocarcinoma of the lungs two weeks ago. The treatment for that is up in the air. Since the start of the medicine amlodipine, her leg pain has decreased. Bilateral posterolateral hip pain remains. Aggravating: bending forward ( working in [place]), walking on uneven ground, prolonged walking/standing PMH: COPD, smoker, rectal carcinoma, PAD, obese Pain Comments outer hip pain: 11/11 Date of Last Physician Visit 12/31/23 Current Work Status [employer] Occupation employer - [employer] Precautions Treatment Precautions/Contraindications The more she bends forward, the increased chance colostomy bag will leak Therapy Limitations/Systems Review Other Medical Problem Objective Other/Pertinent Objective LE: ROM grossly WNL. hip flexion ltd by soft tissue approximation LE: strength: hip flexion: 4/5 vu hip ER: 4/5 hip IR: 4/5 hip extension: 4-/5 vu hip abduction: 4-/5 (+ discomfort) knee extension: 4-/5 vu knee flexion: 4+/5 vu Special tests: Hip quadrant: - bilaterally SLR: - for neural tension vu Functional Test Performed & Score SLS: R: 1 sec max L: <1 sec Tandem stance: R foot in back: 5 sec max L foot in back: 7 sec max Ambulates w/o AD, wide EGORGINA, increased truncal movement in frontal plane Transfers: sit to supine: I supine to sit: needed UE assist/CGA sit to stand: I w/ UE assist Assessment Assessment/Impression 53 year old female presents with bilateral LE generalized weakness, lateral hip pain that also appears to be due to glute weakness and deconditioning. She is dealing with other significant medical conditions that contribute to her weakness/ deconditioning, including colostomy s/p treatment of rectal adenocarcinoma and, now , a new diagnosis of lung adenocarcinoma for which she is awaiting to learn the treatment plan. Pt's primary goal is to increase LE strength and improve activity level. I recommend skilled PT to safely progress in a HEP to facilitate LE strength, motor function and balance. Primary Functional Limitations prolonged ambulation/standing, stairs, uneven surface amb, gardening/bending over transitional movements Plan of Care Rehabilitation Potential Fair Rehabilitation Potential Comments new dx of lung cancer, unclear treatment plan at this time Physical Therapy Goals In 4-8 weeks, patient will: 1) Ambulate at least 3,000 steps/day for improved health and well being 2) Perform all transfers I, w/ use of UEs as needed 3) Be able to bend over for gardening using good body mechanics, hip pain max 2/10 4) Be I with HEP to optimize motor function and for self- management of residual symptoms. Coordination/Communication With Referral Source Treatment Plan/Direct Interventions Gait Training,Neuromuscular Re -ed,Self-Care/Home Management, Therapeutic Activities, Therapeutic Exercises Direct Interventions Clarification LE strength, balance, cardio Comments Frequency/Duration 1x/week for 4-8 weeks Patient Will Be Discharged From Therapy Independent w/HEP, Independently Progressing Evaluation Billing Untimed Code Treatment Minutes 25 Complexity Low Certification Information Provider Signature Required Communication Only-No Signature Required
== END 2024-07-30 23:59 | disposition home or self-care (01) ==
PROVIDERS: PCP Physician Assistant Medical; Visit Provider Physician Assistant Medical
DX: M79.604 Pain in right leg (principal); M79.605 Pain in left leg; M25.551 Pain in right hip; M25.552 Pain in left hip; M62.81 Muscle weakness (generalized); R26.81 Unsteadiness on feet; Z51.89 Encounter for other specified aftercare
CPT/HCPCS: 97110; 97112; 97161

== ENCOUNTER 2024-06-12 10:26 | Outpatient (CLI) | payer OTHER, SELFPAY ==
--- NOTE | 2024-06-12 10:45 | CRLHL7_ITS ---
For Patients: As a result of the Cures Act, medical imaging exams and procedure reports are released immediately into your electronic medical record. You may view this report before your referring provider. If you have questions, please contact your health care provider. BILATERAL DIAGNOSTIC MAMMOGRAM WITH COMPUTER-AIDED DETECTION AND TOMOSYNTHESIS LEFT BREAST ULTRASOUND CLINICAL HISTORY: LEFT breast abnormal uptake on recent PET scan. COMPARISON: CT PET 01/17/[address] PET report from 06/03/2024. Mammogram 03/21/2023. TECHNIQUE: Digital BILATERAL mammogram in four projections with computer-aided detection. Tomosynthesis was used in this interpretation. Real-time ultrasound imaging of LEFT breast with imaging documentation. BREAST COMPOSITION: There are scattered areas of fibroglandular density. FINDINGS: 3D CC/MLO BILATERAL mammogram images submitted. LEFT subareolar density is present. No architectural distortion. No suspicious calcifications. No adenopathy. Targeted LEFT breast ultrasound performed. In the retroareolar LEFT breast there is a lobular hypoechoic solid nodule measuring 1.6 x 0.9 x 1.2 cm. IMPRESSION: Indeterminate solid nodule beneath the LEFT nipple measuring 1.6 cm. RECOMMENDATIONS: Ultrasound-guided biopsy. A lay language report of this examination will be provided to the patient. BI-RADS Category 4: Suspicious Dictated by Del Ortiz MD @ 06/12/2024 12:25:25 PM /sp SP/Dictated by: Del Ortiz MD @ 06/12/2024 12:25:00 PM (Electronically Signed)
--- NOTE | 2024-06-12 11:15 | CRLHL7_ITS ---
For Patients: As a result of the Cures Act, medical imaging exams and procedure reports are released immediately into your electronic medical record. You may view this report before your referring provider. If you have questions, please contact your health care provider. SEE DIGITAL DIAGNOSTIC BILATERAL MAMMOGRAM PERFORMED SAME DAY CRL:kuldip christiansen/Dictated by: Del Ortiz MD @ 06/12/2024 12:26:00 PM (Electronically Signed)
== END 2024-06-12 10:27 | disposition home or self-care (01) ==
LOC: MAMMO 10:27
PROVIDERS: PCP Physician Assistant Medical; Visit Provider Internal Medicine Hematology & Oncology
DX: N63.20 Unspecified lump in the left breast, unspecified quadrant (principal); R93.89 Abnormal findings on diagnostic imaging of other specified body structures
CPT/HCPCS: 76642; 77066; G0279

== ENCOUNTER 2024-06-19 10:01 | Outpatient (CLI) | payer OTHER, SELFPAY ==
--- NOTE | 2024-06-19 10:15 | CRLHL7_ITS ---
For Patients: As a result of the Century Cures Act, medical imaging exams and procedure reports are released immediately into your electronic medical record. You may view this report before your referring provider. If you have questions, please contact your health care provider. ULTRASOUND-GUIDED LEFT BREAST BIOPSY AND POST-BIOPSY DIGITAL MAMMOGRAM FOR BIOPSY MARKER PLACEMENT CLINICAL HISTORY: LEFT breast mass. COMPARISON STUDIES: US and mammo 06/12/24, PET 05/2024. TECHNIQUE: Real-time ultrasound with image documentation was used for targeting the breast lesion. Core biopsy specimens were obtained using an automated gun with a 16-gauge biopsy needle. Post-biopsy CC and ML digital mammograms were obtained to document position of the biopsy marker. CONSENT and TIME OUT: The procedure, risks, and alternatives were explained to the patient and a consent was signed. [place] Protocol was followed including pre-procedure verification that relevant information/documentation was available, reviewed and properly matched to the patient; consent accurate and complete; and equipment and supplies available. Time Out was conducted just prior to starting procedure to verify the four required elements: patient identity, correct side/site marked (if applicable), procedure, relevant images/results properly labeled and displayed (if applicable). PROCEDURE: The patient was positioned supine on the ultrasound table. The breast was prepped with ChloraPrep. 8 cc 1% lidocaine used for local anesthesia. Core samples were obtained. A sterile metal biopsy clip was placed percutaneously to ilana the lesion position within the breast. The specimens were placed in 10% formalin and sent to the pathology department. Pressure was held on the biopsy site until all bleeding subsided. The skin incision was closed with Steri-Strips. An ice pack was positioned over the biopsy site. Post-biopsy instructions were reviewed with the patient, and a written copy was given to her. LATERALITY: LEFT. LESION: Lobular solid subareolar nodule measures 1.6 x 0.9 x 1.2 cm. SUSPICION FOR MALIGNANCY: High. NUMBER OF SAMPLES: 5. BIOPSY CLIP SHAPE: Oval. PROXIMITY OF CLIP TO TARGET: Within the lesion. IMPRESSION: Ultrasound-guided breast biopsy. When the pathology report is available, an addendum to this report will be made. ACR not applicable Dictated by Del Ortiz MD @ 06/19/2024 11:26:40 AM /sp SP/Dictated by: Del Ortiz MD @ 06/19/2024 11:26:00 AM (Electronically Signed)
--- NOTE | 2024-06-19 11:00 | CRLHL7_ITS ---
For Patients: As a result of the Century Cures Act, medical imaging exams and procedure reports are released immediately into your electronic medical record. You may view this report before your referring provider. If you have questions, please contact your health care provider. PLEASE SEE LEFT BREAST ULTRASOUND-GUIDED BIOPSY OF SAME DAY. CRL:sp SP/Dictated by: Del Ortiz MD @ 06/19/2024 11:26:00 AM (Electronically Signed)
== END 2024-06-19 10:02 | disposition home or self-care (01) ==
LOC: US 10:02
PROVIDERS: PCP Physician Assistant Medical; Visit Provider Internal Medicine Hematology & Oncology
DX: N63.20 Unspecified lump in the left breast, unspecified quadrant (principal); R92.8 Other abnormal and inconclusive findings on diagnostic imaging of breast
CPT/HCPCS: 19083; 77065; 88305; A4648; A4649

== ENCOUNTER 2024-06-24 10:45 | Outpatient (RCR) | payer OTHER, SELFPAY ==
[2024-01-08 10:04] LABS: Basophils Absolute Auto 0.03 K/uL (0.00-0.30); Basophils Percent Auto 0.6 % (0.0-3.0); Eosinophils Absolute Auto 0.13 K/uL (0.00-0.50); Eosinophils Percent Auto 2.4 % (0.0-7.0); Hematocrit 36.4 % (33.0-51.0); Hemoglobin* 11.8 gm/dL (12.0-16.0); Immature Granulocytes Abs Auto 0.01 K/uL (0.00-0.30); Immature Granulocytes Pct Auto 0.2 %; Lymphocytes Percent Auto 15.5 % (20-44); Mean Corpuscular HGB Conc 32 gm/dL (32-36); Mean Corpuscular Hemoglobin 30 pg (26-34); Mean Corpuscular Volume 94 fL (80-100); Monocytes Percent Auto 6.7 % (0.0-11.0); Neutrophils Percent Auto 74.6 % (42.0-72.0); Platelet Count* 150 K/uL (140-440); RDW Coefficient of Variation % 13.2 % (11.5-15.5); Red Blood Count 3.89 m/uL (4.00-5.20); White Blood Count* 5.41 K/uL (4.50-11.00)
[2024-01-08 10:22] LABS: Albumin* 4.4 g/dL (3.3-5.0); Chloride* 100 mmol/L (96-114); Potassium* 3.3 mmol/L (3.6-5.1); Sodium* 136 mmol/L (135-149)
[2024-01-08 10:25] LABS: Alanine Aminotransferase* 13 U/L (4-35); Alkaline Phosphatase* 65 U/L (40-150); Anion Gap 8 mEq/L (7-15); Aspartate Amino Transferase* 20 U/L (12-35); Bilirubin Total* 0.8 mg/dL (0.1-1.5); Blood Urea Nitrogen* 14 mg/dL (7-30); Carbon Dioxide* 28 mmol/L (20-32); Creatinine* 1.2 mg/dL (0.5-1.5); Estimated Glomerular Filt Rate 53 ml/min; Glucose* 119 mg/dL (60-115); Total Protein* 7.4 g/dL (6.0-8.3)
[2024-01-08 10:30] LABS: Slide Review Reflex No
--- NOTE | 2024-01-24 14:23 | ONC.NURNOTE ---
Cindy Cedillo PA-C requested nursing to call pt to inform her she should hold her aspirin today until 2 days after biopsy. Pt has a follow up appt the week after the biopsy (biopsy scheduled for 01/29/24 at [facility]). Pt aware and verbalized understanding of plan of care.
--- NOTE | 2024-06-06 16:00 | ONC.NURNOTE ---
Patient informed that Dr. Cervantes reviewed her PET/CT and is recommending further workup of a left breast mass. Patient informed that a diagnostic mammogram and US is recommended and if needed a biopsy will be done. Patient states she has noted a lump behind her nipple the past few weeks and reports it is draining intermittently and has gotten smaller. Denies any sign of infection. I offered to transfer patient to schedule but she requests the schedulers call her at a later time. Dr. Cervantes follow up will need to set up when all results are available.
[2024-06-24 10:54] LABS: Basophils Absolute Auto 0.02 K/uL (0.00-0.30); Basophils Percent Auto 0.4 % (0.0-3.0); Eosinophils Absolute Auto 0.15 K/uL (0.00-0.50); Eosinophils Percent Auto 2.7 % (0.0-7.0); Hematocrit 39.1 % (33.0-51.0); Hemoglobin* 12.7 gm/dL (12.0-16.0); Immature Granulocytes Abs Auto 0.01 K/uL (0.00-0.30); Immature Granulocytes Pct Auto 0.2 %; Lymphocytes Percent Auto 17.2 % (20-44); Mean Corpuscular HGB Conc 33 gm/dL (32-36); Mean Corpuscular Hemoglobin 30 pg (26-34); Mean Corpuscular Volume 93 fL (80-100); Monocytes Percent Auto 7.7 % (0.0-11.0); Neutrophils Absolute Auto 3.93 K/uL (1.7-7.0); Neutrophils Percent Auto 71.8 % (42.0-72.0); Platelet Count* 152 K/uL (140-440); RDW Coefficient of Variation % 14.5 % (11.5-15.5); Red Blood Count 4.19 m/uL (4.00-5.20); White Blood Count* 5.47 K/uL (4.50-11.00)
[2024-06-24 11:01] LABS: Slide Review Reflex No
[2024-06-24 11:17] LABS: Albumin* 4.1 g/dL (3.3-5.0); Chloride* 103 mmol/L (96-114); Potassium* 3.6 mmol/L (3.6-5.1); Sodium* 137 mmol/L (135-149)
[2024-06-24 11:19] LABS: Est. Creatinine Clearance* 54.89; Estimated Glomerular Filt Rate 67 ml/min
[2024-06-24 11:20] LABS: Alanine Aminotransferase* 15 U/L (4-35); Alkaline Phosphatase* 66 U/L (40-150); Anion Gap 9 mEq/L (7-15); Aspartate Amino Transferase* 19 U/L (12-35); Bilirubin Total* 0.7 mg/dL (0.1-1.5); Blood Urea Nitrogen* 11 mg/dL (7-30); Carbon Dioxide* 25 mmol/L (20-32); Glucose* 113 mg/dL (60-115); Total Protein* 7.1 g/dL (6.0-8.3)
[2024-06-24 11:21] LABS: Calcium* 9.2 mg/dL (8.4-10.6)
[2024-06-25 19:22] LABS: Carcinoembryonic Antigen 5.6 ng/mL (<=3.8)
== END 2024-07-06 23:59 | disposition home or self-care (01) ==
LOC: CCIC 10:45
PROVIDERS: Physician Assistant; PCP Physician Assistant Medical; Referring Provider Physician Assistant Medical; Visit Provider Internal Medicine Hematology & Oncology
DX: C20 Malignant neoplasm of rectum (principal); C77.5 Secondary and unspecified malignant neoplasm of intrapelvic lymph nodes; R91.1 Solitary pulmonary nodule; R15.9 Full incontinence of feces; Z72.0 Tobacco use; E66.01 Morbid (severe) obesity due to excess calories; Z68.43 Body mass index [BMI] 50.0-59.9, adult
CPT/HCPCS: 36415; 71260; 74177; 80053; 82378; 85025; 93880; 97110; 99215; G0463; Q9967

== ENCOUNTER 2024-08-14 13:00 | Outpatient (RCR) | payer OTHER, SELFPAY | END 2024-12-12 23:59 | disposition home or self-care (01) | PROVIDERS: PCP Physician Assistant Medical; Visit Provider Physician Assistant Medical | DX: M79.604 Pain in right leg (principal); M79.605 Pain in left leg; Z51.89 Encounter for other specified aftercare | CPT/HCPCS: 97110; 97112; 97162 ==

== ENCOUNTER 2024-10-30 21:42 | Emergency (ER) | payer OTHER, SELFPAY ==
--- OUTSIDE RECORDS SUMMARY | 2024-01-08 07:36 | XMS_ITS | Continuity of Care Document ---
Author Organization [facility] Address [address] [address] [place] [address] Phone Care Team Providers Care Doctor Of Chiropractic Name Role Phone Parminder Humphreys MD Unavailable Unavailable Advance Directives Directive Yes / No Effective Date File Name No Information Encounters Encounter Description Practice Location Reason(s) For Visit Diagnoses Date Provider Providers Copied on Encounter [facility], [address] [address], [place], [place], [id number], tel:[phone] [facility] No Information 4 Juliann Zurita. [address] [place] [address], [id number], [place]. tel:[phone] [facility], [address] [address], [place], [place], [id number], tel:[phone] [facility] Colon adenoma 4 Juliann Zurita. [address] [place] [address], [id number], [place]. tel:[phone] Family History Family Member Type Diagnosis Age At Onset No Information Payers Payer name Insurance type Covered green party ID Authoriza tion(s) No Information Social History [...]
--- OUTSIDE RECORDS SUMMARY | 2024-10-21 10:35 | XMS_ITS | Encounter Summary ---
Author Organization [facility] Address [address] [place] [address] Care Team Providers Care Intellectual Property Legal Assistant Name Role Phone Elsewhere, Pcp Primary Care Provider Unavailabl e Reason for Referral * MRI/CAT/PET Scan (Routine) - Closed Specialty Diagnoses / Procedures Referred By Peyton lockhart Referred To Contact Diagnoses Malignant Neoplasm Of Rectum Adenocarcinoma (HCC) Procedures PET CT Skull to Thigh FDG Zhane Cervantes M.D. [address] [place] [address] Phone: tel: fax: [facility] Region Referral ID Status Reason Start Date Expiration Date Visits Re quested Visits Authorized [id number] Closed 06/24/2024 09/24/2025 1 1 Reason for Visit * MRI/CAT/PET Scan (Routine) - Closed Specialty Diagnoses / Procedures Referred By Peyton lockhart Referred To Contact Diagnoses Malignant Neoplasm Of Rectum Adenocarcinoma (HCC) Procedures PET CT Skull to Thigh FDG Zhane Cervantes M.D. [address] [place] [address] Phone: tel: [facility]: [facility] Region Referral ID Status Reason Start Date Expiration Date Visits Re quested Visits Authorized [id number] Closed 06/24/2024 09/24/2025 1 1 Encounter Details Date Type Department Care Team (Latest Contact Info) Description 10/21/2024 10:35 AM CDT - 10/21/2024 11:59 PM CDT Hospital Encounter Department of Radiology in [place], [place] [address] [place] [phone] Zhane Cervantes M.D. [address] [place] [phone] Malignant Neoplasm Of Rectum Adenocarcinoma (HCC) Discharge Disposition: Home or Self Care Social History Tobacco Use Types Packs/Day Years Used Date Smoking Tobacco: Every Day Cigarettes 1 49.4 Started: 1975 Passive Smoke Exposure: Current Smokeless Tobacco: Never Alcohol Use Standard Drinks/Week Comments Not Currently 0 (1 standard drink = 0.6 oz pur e alcohol) [facility] Utilities Answer Date Recorded In the past 12 months has e [place], gas, oil, or water [employer] threatened to shut off services in your home? No 02/20/2024 Humiliation, Afraid, Rape, and Kick questionnair e [...] often do you attend chur ch or mandaeism services? Never 08/21/2021 Do you belong to any clubs o r organizations such as mandaeism groups, unions, fraternal or athletic groups, or [...] medical care, and heating? Somewhat hard 08/21/2021 [facility] [place] of Occupat ional Health - Occupational Stress [...] to strenuous exercise (like a brisk walk)? 0 days 02/20/2024 On average, how many minutes do you engage in exercise at this level? 20 min 02/20/2024 Hunger Vital Sign Answer Date Recorded Within the past 12 months, y ou worried that your food would run out before you got the money to buy more. Never true 02/20/20 24 Within the past 12 months, t he food you bought just didn't last and you didn't have money to get more. Never true 02/20/2024 PRAPARE - Transportation Answer Date Re corded In the past 12 months, has l ack of transportation kept you from medical appointments or from getting medications? No 02/02 In the past 12 months, has l ack of transportation kept you from meetings, work, or from getting things needed for daily living? No 02/20/2024 Nutrition Answer Date Recorded On average, how many serving s of fruits and vegetables do you eat per day (serving size is equal to 1 cup or approximately the size of a tennis ball)? 0-2 02/20/2024 Dental Answer Date Recorded Dental: Regular Dentist No 03/13/20 21 Employment Answer Date Recorded Employment status Temporarily disabled 09/18/202 4 Housing Stability Answer Date Recorded What is your living situation today? I have a [facility] [place] place to live 02/20/2024 Education Answer Date Recorded What is the highest level of school you have completed or the highest degree you have received? Some college, no degree 03/13/2021 Comments No Sex and Gender Information Value Date Recorded Sex Assigned at Female 03/04/2021 2:29 PM CDT Legal Sex Female 9:29 AM CDT Gender Identity Not on file Sexual Orientation Not on file documented as of this encounter Medications at Time of Discharge acetaminophen (TYLENOL) 500 mg tablet Take 2 tablets (1,000 mg total) by mouth every 6 (six) hours as needed for pain. 08/28/2021 albuterol 90 mcg/actuation inhaler Inhale 1-2 puffs every 6 (six) hours as needed for wheezing. amLODIPine (Norvasc) 5 mg tablet Take 5 mg by mouth daily. 03/08/2024 aspirin (Aspirin Childrens) 81 mg chewable tablet Chew 81 mg daily. 01/09/2024 buPROPion XL (Wellbutrin XL) 150 mg 24 hr tablet Take 150 mg by mouth daily. 12/31/2023 cholecalciferol, vitamin D3, 250 mcg (10,000 unit) tablet Take 1 tablet by mouth daily. ezetimibe (Zetia) 10 mg tablet Take 1 tablet (10 mg total) by mouth daily. 30 tablet 11 02/25/2024 hydroCHLOROthiaz rosie 12.5 mg tablet Take 12.5 mg by mouth daily. 12/31/2023 ibuprofen (ADVIL,MOTRIN) 200 mg tablet Take 4 tablets (800 mg total) by mouth every 6 (six) hours as needed for pain. 08/28/2021 metFORMIN (Glucophage) 500 mg tablet Take 1,000 mg by mouth 2 (two) times a day with meals. mupirocin (Bactroban) 2 % cream Apply 1 Application topically as needed. Apply to belly button. naltrexone (Depade) 50 mg tablet Take 50 mg by mouth daily. 12/31/2023 polyethylene glycol-electroly aundrea (Golytely) 236-22.74-6.74 -5.86 gram solution Drink 1st portion of prep at 6 PM the evening before. 2nd portion must be started 3 hours before and finished 2 hours prior to report time 4000 mL 04/03/2024 rivaroxaban (Xarelto) 2.5 mg tablet Take 1 tablet (2.5 mg total) by mouth 2 (two) times a day. 180 tablet 3 02/25/2024 rosuvastatin (Crestor) 20 mg tablet Take 20 mg by mouth daily. for cholesterol sennosides 8.6 mg capsule Take 8.6 mg by mouth as needed. 12/28/2022 Vitamin B-12 2,500 mcg tablet, sublingual Take 2,500 mcg by mouth daily. 12/31/2023 documented as of this encounter Plan of Treatment Upcoming Encounters Date Type Department Care Team (Late st Contact Info) Description 01/08/2025 9:00 AM CDT Appointment Department of Radiation Oncology in [place], [place] [address] [place] [address] Cinthia Meneses M.D. [address] [place] [address] documented as of this encounter Procedures Procedure Name Priority Date/Time Associated Diagnosis Comments PET CT SKULL TO THIGH RAD - Routine (most inpatients and all outpatients) 10/21/2024 12:50 PM CDT Malignant Neoplasm Of Rectum Adenocarcinoma (HCC) documented in this encounter Results * PET CT Skull to Thigh FDG (10/21/2024 12:50 PM CDT) Anatomical Region Laterality Modality Body, Nuclear Medicine PET R ST LOS, PET ARZ LOS, Nuclear Medicine PET FLA LOS, Nuclear Medicine N/A Positron Emission Tomography (PET) Impressions 10/22/2024 9:24 AM CDT 1. New mildly glucose avid patchy opacity in the right lung is likely radiation pneumonitis, follow-up to benign stability or resolution recommended. 2. Stable hypermetabolic left breast retroareolar mass. 3. Stable hypermetabolic focus within the anal sphincter. Narrative 10/22/2024 9:24 AM CDT EXAM: PET CT SKULL TO THIGH FDG COMPARISON: May 2024 INDICATION: Malignant neoplasm of the rectum, adenocarcinoma. Follow up. F-[address] scan was performed from the mid calvarium through the upper thighs with CT fusion imaging for attenuation correction, anatomic coregistration, and respiratory gating only. Serum glucose at time of F-18 FDG injection: 125 mg/dL. Uptake time: 60 minutes following injection. The patient reports no recent vaccinations. FINDINGS: Head/Neck: No suspicious hypermetabolic foci. Chest: Increased patchy opacity in the right middle lobe with some hypermetabolic activity (SUV max 3.2; series 3/4 image 109) which is slightly above background, likely radiation pneumonitis although continued follow-up to confirm benign stability or resolution is recommended. Stable size of the 1.7 cm retroareolar left breast mass, SUV max 8.1 (series 3/4 image 99). Abdomen/Pelvis: Stable indeterminate hypermetabolic focus with mediastinal sphincter SUV max 8.6 (previously reported as 10.6 in May 2024 and 15.9 in October 2020). Skeleton: No suspicious hypermetabolic foci. Other Findings: Prominent physiologic muscular FDG uptake. Benign fat-containing umbilical hernia. 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 RADIOPHARMACEUTICAL/MEDS: Route: intravenous fludeoxyglucose F 18 injection LONGTERM (F-18 FDG),14.8 millicurie Procedure Note Danilo Hinojosa M.D. - 10/22/2024 EXAM: PET CT SKULL TO THIGH FDG COMPARISON: May 2024 INDICATION: Malignant neoplasm of the rectum, adenocarcinoma. Follow up. F-[address] scan was performed from the mid calvarium through theupper thighs with CT fusion imaging for attenuation correction, anatomiccoregistration, and respiratory gating only. Serum glucose at time of F-18 FDG injection: 125 mg/dL. Uptake time: 60 minutes following injection. The patient reports no recent vaccinations. FINDINGS: Head/Neck: No suspicious hypermetabolic foci. Chest: Increased patchy opacity in the right middle lobe with somehypermetabolic activity (SUV max 3.2; series 3/4 image 109) which isslightly above background, likely radiation pneumonitis although continuedfollow-up to confirm benign stability or resolution is recommended. Stable size of the 1.7 cm retroareolar leftbreast mass, SUV max 8.1 (series 3/4 image 99). Abdomen/Pelvis: Stable indeterminate hypermetabolic focus with mediastinalsphincter SUV max 8.6 (previously reported as 10.6 in May 2024 and15.9 in October 2020). Skeleton: No suspicious hypermetabolic foci. Other Findings: Prominent physiologic muscular FDG uptake. Benignfat-containing umbilical hernia. Sequelae of prior left lower omentalinfarct, unchanged. RADIOPHARMACEUTICAL/MEDS: Route: intravenous fludeoxyglucose F 18 injection LONGTERM (F-18 FDG),14.8 millicurie IMPRESSION: 1. New mildly glucose avid patchy opacity in the right lung is likelyradiation pneumonitis, follow-up to benign stability or resolutionrecommended. 2. Stable hypermetabolic left breast retroareolar mass. 3. Stable hypermetabolic focus within the anal sphincter. [facility] PROCEDURES Final Resu lt documented in this encounter Visit Diagnoses Diagnosis Malignant Neoplasm Of Rectum Adenocarcinoma (HCC) documented in this encounter Administered Medications Inactive Administered Medications - up to 3 most recent administrations Medication Order MAR Action Action Date Dose Rate Site fludeoxyglucose F 18 injection LONGTERM (F-18 FDG) 14.8 millicurie, intravenous, Once, On Tu10/21/24 at 1130, For 1 dose, Imaging Protocol Orders Given 10/21/2024 10:55 AM CDT 14.8 millicuries Right Antecubital documented in this encounter Care Teams Intellectual Property Legal Assistant Relationship Specialty Start Date End Date Elsewhere, Pcp PCP - General Internal Medicine 05/24/21 documented as of this encounter
--- OUTSIDE RECORDS SUMMARY | 2024-10-30 21:45 | XMS_ITS | Clinical Summary ---
Author Organization [facility] Address [address] [place] [id number] Care Team Providers Care Criminal Justice Social Worker Name Role Phone Lyndsay Huitron MD Primary Care Provider [phone] Medications (u) ALBUTEROL AERS 90 MCG/ACT 1-2 puffs [...] Used Date Smoking Tobacco: Never Assessed Cigarettes Comments Unknown Sex and Gender Information Value Date Recorded Sex Assigned at Not on file Legal Sex Female 6:46 AM BACKROOM ASSOCIATE Gender Identity Not on file Sexual Orientation Not on file Obstetrics History Last Filed Vital Signs Vital Sign Reading Time Taken Comments Blood Pressure 110/70 04/19/2000 12:00 AM BACKROOM ASSOCIATE Pulse 118 04/19/2000 12:00 AM BACKROOM ASSOCIATE Temperature 37.5 C (99.5 F) 04/19/2000 12:00 AM BACKROOM ASSOCIATE Respiratory Rate 16 06/28/1999 12:00 AM BACKROOM ASSOCIATE Oxygen Saturation - - Inhaled Oxygen Concentration - - Weight 129.7 kg (286 lb) 04/17/2000 12:00 AM BACKROOM ASSOCIATE Height - - Body Mass Index - - Plan of Treatment Health Maintenance Due Date Last Done Comments Tdap 1979 Depression screening for age 12+ 1980 HIV for age 15-65 1983 BMI (ht and wt on same day) for age 18+ 1986 Hepatitis C screening for age 18-79 1986 Hepatitis B series for 19+ ( 1 of 3 - 19+ 3-dose series) 1987 Tetanus booster 1988 Pap test for age 21-65 1989 Colonoscopy through age 75 2013 Lipids for age 45-75 2013 Mammogram for age 45-75 2013 05/16/2011 Pneumococcal series for age 50+ (1 of 1 - PCV) 019 Zoster (shingles) series for age 50+ (1 of 2) 07/10/19 19 COVID-19 vaccine series ( - season) Influenza Vaccine (Season Ended) 2025 Procedures Procedure Name Priority Date/Time Associated Diagnosis Comments XR MAMMO BILAT SCREEN FFDM (IA) Routine 05/16/2011 6:28 PM BACKROOM ASSOCIATE Other screening mammogram from Last 3 Months or Most Recently Relevant to Health Maintenance Results * XR MAMMO BILAT SCREEN FFDM (05/16/2011 6:28 PM BACKROOM ASSOCIATE) Anatomical Region Laterality Modality BREASTS, Breast Left, Breast Right Bilateral Mammography Impressions 05/17/2011 8:01 AM BACKROOM ASSOCIATE There is no radiographic evidence for malignancy. Recommend annual mammograms. A lay language report of this examination will be provided to the patient. MAMMOGRAM ASSESSMENT: ACR 1 Negative Narrative 05/17/2011 8:01 AM BACKROOM ASSOCIATE XR MAMMO BILAT SCREEN FFDM [G0202.0] CLINICAL HISTORY: This is an asymptomatic 40 y.o. patient. INDICATION FOR EXAM: Mammogram Screening. TECHNIQUE: CC & MLO views were obtained. This digital study was evaluated with the assistance of Computer-Aided Detection. COMPARISON FILM: This is a baseline study. FINDINGS: Mammographically, the breast tissue is almost entirely fat (<25% glandular). There are no dominant masses, suspicious micro calcifications [...] ACR 1 Negative Lyndsay Huitron MD MAMMO Final Result from Last 3 Months or Most Recently Relevant to Health Maintenance Insurance [facility] Care Teams Criminal Justice Social Worker Relationship Specialty Start [place] [id number] [place] [address] PCP - General Family Practice 05/09/11
--- OUTSIDE RECORDS SUMMARY | 2024-10-30 21:45 | XMS_ITS ---
Author Organization [facility] Address [address] [place] [address] Care Team Providers Care Skin Pass Operator Name Role Phone Elsewhere, Pcp Primary Care Provider Unavailabl e Active Problems * This document contains information received from the source organization and may not represent a complete record from that organization. Problem Noted Date Diagnosed Date Secondary Malignant Neoplasm Lung Right 02/20/20 24 Takedown Colostomy Closure Status Post (Reversal ) 08/26/2021 Chronic Respiratory Failure With Hypoxia 021 Morbid Obesity Body Mass Index 45.0-49.9 Adult 1 07/26/2020 Abuse Tobacco Smoking 05/25/2021 Colostomy Status 05/25/2021 Malignant Neoplasm Of Rectum 05/24/2021 Sleep Apnea Unspecified 05/24/2021 Chronic Obstructive Pulmonary Disease Without Ex acerbation 05/24/2021 Education Need Ostomy 05/23/2021 Malignant Neoplasm Of Rectum Adenocarcinoma 09/02 Cancer Staging:Clinical stage from 10/11/2020:Stage IIIB(cT3, cN2a, cM0) - Unsigned Pathologic stage from 05/24/2021:Stage IIA(ypT3, pN0, cM0) - Unsigned Current Treatment and Therapy Plans No current plan information found. Past Treatment and Therapy Plans Flushes/Hydration Plan Name Start Date Discontinue Date Treatment Medications Discontinue Reason Plan Provider VASCULAR ACCESS PATENCY - IMPLANTED VASCULAR ACCESS DEVICE (IVAD) VENOUS NON-VALVED 04/15/2021 04/12/2022 No medications scheduled. Therapy Complete - Past Radiation Episodes * SBRT: Right LungOverview* First Treatment Date Last Treatment Date Treatment Site Technique Goal Episode Provider 02/27/2024 03/03/2024 Right Lung SBRT Curative * Linked Problems Malignant Neoplasm Of Rectum AdenocarcinomaSecondary Malignant Neoplasm Lung Right Treatment Courses* Course [id number] 02/27/2024 - 03/03/2024 Treatment Period Fraction Dose Fractions Total Dose Plans Planned [id number] 02/27/2024 - 03/03/2024 1,800 cGy 5 ,400 cGy Reference Points Delivered [id number] 02/27/2024 - 03/03/2024 5,400 cGy * IMRT: RectumOverview* First Treatment Date Last Treatment Date Treatment Site Technique Goal Episode Provider 02/28/2021 04/01/2021 Rectum IMRT Curative * Linked Problems Malignant Neoplasm Of Rectum Adenocarcinoma Treatment Courses* Course 1x Rectum 02/28/2021 - 04/01/2021 Treatment Period Fraction Dose Fractions Total Dose Plans Planned F1 rectum 02/28/2021 - 04/01/2021 200 cGy 5 ,000 cGy Reference Points Delivered [id number] 02/28/2021 - 04/01/2021 5,000 cGy Lifetime Dose Tracking * Chemical Lifetime Dose Automatic Entry Manual Entr y Radiation 304.2 mGy 304.2 mGy 0 mGy Fluoro Time 2.45 minutes 2.45 minutes 0 minutes
--- OUTSIDE RECORDS SUMMARY | 2024-10-30 21:45 | XMS_ITS | Clinical Summary ---
Author Organization [facility] Address [address] [place] [address] Care Team Providers Care Launch Steward Name Role Phone Elsewhere, Pcp Primary Care Provider Unavailabl e Source Comments Patient records contain information from all sites at [facility]. For routine questions regarding patient records, call [phone] during business hours, M-F 8:00 AM - 5:00 PM Central Time. Record requests for emergency care only can be directed to [phone] at any time.[facility] Allergies Active Allergy Reactions Criticality Noted Date Comments Amoxicillin Other (see comments) High 07/31/2023 Azithromycin GI intolerance 10/11/2020 Medications * This document contains information received from the source organization and may not represent a complete record from that organization. albuterol 90 mcg/actuation inhaler Inhale 1-2 puffs every 6 (six) hours as needed for wheezing. Active ibuprofen (ADVIL,MOTRIN) 200 mg tablet Take 4 tablets (800 mg total) by mouth every 6 (six) hours as needed for pain. 2 Active acetaminophen (TYLENOL) 500 mg tablet Take 2 tablets (1,000 mg total) by mouth every 6 (six) hours as needed for pain. 2 Active aspirin (Aspirin Childrens) 81 mg chewable tablet Chew 81 mg daily. 4 Active buPROPion XL (Wellbutrin XL) 150 mg 24 hr tablet Take 150 mg by mouth daily. 4 Active Vitamin B-12 2,500 mcg tablet, sublingual Take 2,500 mcg by mouth daily. 4 Active hydroCHLOROthia zide 12.5 mg tablet Take 12.5 mg by mouth daily. 4 Active metFORMIN (Glucophage) 500 mg tablet Take 1,000 mg by mouth 2 (two) times a day with meals. Active naltrexone (Depade) 50 mg tablet Take 50 mg by mouth daily. 4 Active sennosides 8.6 mg capsule Take 8.6 mg by mouth as needed. 3 Active rosuvastatin (Crestor) 20 mg tablet Take 20 mg by mouth daily. for cholesterol Active rivaroxaban (Xarelto) 2.5 mg tablet Take 1 tablet (2.5 mg total) by mouth 2 (two) times a day. 180 tablet 3 4 Active ezetimibe (Zetia) 10 mg tablet Take 1 tablet (10 mg total) by mouth daily. 30 tablet 11 4 Active amLODIPine (Norvasc) 5 mg tablet Take 5 mg by mouth daily. 4 Active cholecalciferol , vitamin D3, 250 mcg (10,000 unit) tablet Take 1 tablet by mouth daily. Active mupirocin (Bactroban) 2 % cream Apply 1 Application topically as needed. Apply to belly button. Active polyethylene glycol-electrol ytes (Golytely) 236-22.74-6.74 -5.86 gram solution Drink 1st portion of prep at 6 PM the evening before. 2nd portion must be started 3 hours before and finished 2 hours prior to report time 4000 mL 4 Active Additional Information Patient not taking.Reported on 06/25/2024 Active Problems Problem Noted Date Diagnosed Date Secondary Malignant [...] from 05/24/2021:Stage IIA(ypT3, pN0, cM0) - Unsigned Encounters Date Type Department Care Team Description 10/21/2024 10:35 AM CDT - 10/21/2024 11:59 PM CDT Hospital Encounter Department of Radiology in [place], [place] [address] [place] [address] Zhane Cervantes M.D. Malignant Neoplasm Of Rectum Adenocarcinoma (HCC) Discharge Disposition: Home or Self Care 08/18/2024 [facility] [address] [place] [address] Trudi Jimenez P.A. Abnormal Result Of Other Cardiovascular Function Study (Primary Dx) 08/04/2024 9:20 AM [facility] Telemedicine Division of Gastroenterology in [place], [place] [address] [place] [address] Liang Yun M.D. Polyp Colon Adenomatous (Primary Dx) from Last 3 Months Family History Medical History Relation Name Comments Stroke Father Trav Dementia Mother Kaia Thyroid disease Mother Kaia Skin cancer Mother's Sister 1 Ramonita Skin cancer Mother's Sister 2 Ramonita Dementia Paternal Grandmother Rebekah No Known Problems Sister Relation Name Status Comments Father Trav Alive Mother Kaia Alive Mother's Sister 1 Ramonita Mother's Sister 2 Ramonita Alive Paternal Grandmother Rebekah Alive Sister Alive Social History Tobacco Use Types Packs/Day Years Used Date Smoking Tobacco: Every Day Cigarettes 1 49.4 Started: 1975 Passive Smoke Exposure: Current Smokeless Tobacco: Never Alcohol Use Standard Drinks/Week Comments Not Currently 0 (1 standard drink = 0.6 oz pur e alcohol) [facility] Utilities Answer Date Recorded In the past 12 months has e [facility], gas, oil, or water [employer] threatened to shut off services in your [...] often do you attend chur ch or jew services? Never 08/21/2021 Do you belong to any clubs o r organizations such as christian groups, unions, fraternal or athletic groups, or [...] medical care, and heating? Somewhat hard 08/21/2021 [facility] - [...] Answer Date Recorded Employment status Temporarily disabled Housing Stability Answer Date Recorded What is your living situation today? [facility] live 02/20/2024 Education Answer Date [...] Sign Reading Time Taken Comments Blood Pressure 116/62 06/25/2024 11:00 AM GREENHOUSE INSTRUCTOR Pulse 68 06/25/2024 11:00 AM GREENHOUSE INSTRUCTOR Temperature 36.3 C (97.3 F) 06/25/2024 11:00 AM GREENHOUSE INSTRUCTOR Respiratory Rate 19 06/17/2024 11:0 2 AM GREENHOUSE INSTRUCTOR Oxygen Saturation 97% 06/17/2024 11: 16 AM GREENHOUSE INSTRUCTOR increased from 95-98% on room air after getting up to the bathroom Inhaled Oxygen Concentration - - Weight 143 kg (316 lb 5.8 oz) 06/25/2024 11:00 AM GREENHOUSE INSTRUCTOR Height 162 cm (5' 3.78) 06/17/2024 9:0 7 AM GREENHOUSE INSTRUCTOR Body Mass Index 54.68 06/17/2024 9:07 AM GREENHOUSE INSTRUCTOR Plan of Treatment Upcoming Encounters Date Type Department Care Team (Late st Contact Info) Description 01/08/2025 9:00 AM CDT Appointment Department of Radiation Oncology in [place], [place] [address] [place] [address] Cinthia Meneses M.D. [address] [place] [address] Health Maintenance Due Date Last Done Comments CT Colonography 1968 Cervical/Vaginal Cancer Screening 1968 Cologuard 1968 Hepatitis C Screening 1968 Mammogram 1968 Tobacco Cessation counseling 1968 Hepatitis B Vaccines (1 of 3 - 19+ 3-dose series) 1987 Zoster Vaccines (1 of 2) 1987 DTaP,Tdap,and Td Vaccines (2 - Td or Tdap) 05/09/2021 05/09/2011 COVID-19 Vaccine (2 - Toby risk series) 07/11/2021 06/13/2021 Influenza Vaccine (#1) 2024 05/09/2011 Depression Screening (Annual PHQ-2) 06/04/2024 Creatinine Level (Kidney Function Test) 04/10/2025 04/10/2024, 02/25/2024, 08/25/2021, Additional history exists Fasting Glucose for Diabetes Screening 04/10/2025 04/10/2024, 04/10/2024, 02/25/2024, Additional history exists Potassium Level 04/10/2025 04/10/2024, 02/03, 08/25/2021, Additional history exists Sodium Level 04/10/2025 04/10/2024, 02/03, 08/25/2021, Additional history exists Lipid (Cholesterol) Screening 04/10/2029 04/10/2024, 02/25/2024 Colonoscopy 06/17/2029 06/17/2024, 05/23/2021 Colorectal Cancer Surveillance 06/17/2029 Pneumococcal vaccine (50+ years) Completed 07/14/2024, 05/09/2011 HPV Vaccines Aged Out No longer eligi ble based on patient's age to complete this topic IPV Vaccines Aged Out No longer eligi ble based on patient's age to complete this topic Medical Devices Implanted Type Area Almond Huller Device Identifier Shelf Expiration Date Model / Serial / Lot Clp Hmol Pl Lg - [id number] Implanted:Qty : 1 on 05/24/2021 by Clovis Alejandro M.D., M.S. at [facility] Hardware e.g. pins/screws/ rods [employer] [id number] 01/31/2026 [id number] / / [id number] Explanted Type Area Almond Huller Device Identifier Shelf Expiration Date Model / Serial / Lot Implantable Port Implantable Port Right: Chest Procedures Procedure Name Priority Date/Time Associated Diagnosis Comments PET CT SKULL TO THIGH RAD - Routine (most inpatients and all outpatients) 10/21/2024 12:50 PM CDT Malignant Neoplasm Of Rectum Adenocarcinoma (HCC) COLONOSCOPY Routine 06/17/2024 10:37 AM GREENHOUSE INSTRUCTOR Polyp Colon Adenomatous GLUCOSE, FASTING, S/P Routine 04/10/2024 10:13 AM GREENHOUSE INSTRUCTOR Coronary Artery Disease Without Angina Pectoris Impaired Fasting Glucose LIPID PANEL, S Routine 04/10/2024 10:12 AM GREENHOUSE INSTRUCTOR Coronary Artery Disease Without Angina Pectoris Impaired Fasting Glucose SODIUM, S/P Routine 04/10/2024 10:12 AM GREENHOUSE INSTRUCTOR Coronary Artery Disease Without Angina Pectoris Impaired Fasting Glucose POTASSIUM, S/P Routine 04/10/2024 10:12 AM GREENHOUSE INSTRUCTOR Coronary Artery Disease Without Angina Pectoris Impaired Fasting Glucose CREATININE WITH EGFR, S/P Routine 04/10/2024 10:12 AM GREENHOUSE INSTRUCTOR Coronary Artery Disease Without Angina Pectoris Impaired Fasting Glucose from Last 3 Months or Most Recently Relevant to Health Maintenance Results * PET CT Skull to Thigh [...] RADIOPHARMACEUTICAL/MEDS: Route: intravenous fludeoxyglucose F 18 injection FDC (F-18 FDG),14.8 millicurie Procedure Note Danilo Hinojosa [...] RADIOPHARMACEUTICAL/MEDS: Route: intravenous fludeoxyglucose F 18 injection FDC (F-18 FDG),14.8 millicurie IMPRESSION: 1. New mildly glucose avid patchy opacity in the right lung is likelyradiation pneumonitis, follow-up to benign stability or resolutionrecommended. 2. Stable hypermetabolic left breast retroareolar mass. 3. Stable hypermetabolic focus within the anal sphincter. Zhane Cervantes M.D. [facility] PROCEDURES Final Resu lt * Colonoscopy (06/17/2024 10:37 AM GREENHOUSE INSTRUCTOR) 06/17/2024 10:3 7 AM GREENHOUSE INSTRUCTOR Impressions [facility] - 06/17/2024 10:41 AM GREENHOUSE INSTRUCTOR Post-op Diagnoses: - A tattoo was seen in the proximal transverse colon. A scar was found at the tattoo site. Biopsied. - One 4 mm polyp in the distal transverse colon, removed with a cold snare. Resected and retrieved. Narrative [facility] 06[facility]17[facility] 10:41 AM GREENHOUSE INSTRUCTOR Thomas 6 GI GI Patient Name: Page Fisher Date of : 1970 Age: 53 Procedure Date: 06/17/2024 Procedure: Colonoscopy Providers: Lino Laguerre MD Referring Provider: Liang Yun MD Pre-op Diagnoses: Follow-up for history of adenomatous polyps in the colon Recommendation: - Await pathology results. Findings: A tattoo was seen in the proximal transverse colon. A scar was found at the tattoo site. Biopsies were taken with a cold forceps for histology. A 4 mm polyp was found in the distal transverse colon. The polyp was sessile. The polyp was removed with a cold snare. Resection and retrieval were complete. Procedural Details: The patient was seen, evaluated, history reviewed, airway and heart-lung exams were performed by licensed provider and were satisfactory for planned level of sedation care. The risks, benefits and alternatives for the procedure and sedation were discussed and informed consent was obtained. A procedural pause was conducted in the presence of assisting personnel to verify the correct patient identity and procedure to be performed. Throughout the procedure, the patient's blood pressure, pulse, and oxygen saturations were monitored continuously. The [id number]-[id number] Colonoscope was introduced under direct vision through the transverse colostomy and advanced to the cecum, identified by appendiceal orifice and ileocecal valve. The colonoscopy was performed without difficulty. The quality of the bowel preparation was evaluated using the BBPS ([place] Bowel Preparation Scale) with scores of: Right Colon = 3, Transverse Colon = 3 and Left Colon = 3 (entire mucosa seen well with no residual staining, small fragments of stool or opaque liquid). The total BBPS score equals 9. Estimated Blood Loss: Estimated blood loss was minimal. Complications: No immediate complications. Sedation: Anesthesia was administered by an anesthesia professional. The following parameters were monitored: oxygen saturation, heart rate, blood pressure, respiratory rate, EKG, adequacy of pulmonary ventilation, and response to care. Attending Participation: I personally performed the entire procedure. Lino Laguerre MD 06/17/2024 10:41:31 AM This report has been signed electronically. Number of Addenda: 0 Liang Yun M.D. GI PROCEDURE ORDERABLES Abby l Result [facility] NA * (ABNORMAL) Glucose, Fasting (04/10/2024 10:13 AM GREENHOUSE INSTRUCTOR) Glucose, P 101(H) 70 - 100 mg/dL 04/10/2024 11:14 AM GREENHOUSE INSTRUCTOR DTL Last Intake 15 hr 04/10/2024 11:01 AM GREENHOUSE INSTRUCTOR DTL Blood (Blood, Venous) 04/10/2024 10:13 AM GREENHOUSE INSTRUCTOR 04/10/2024 11:00 AM GREENHOUSE INSTRUCTOR Anna Hernandez LAB BLOOD NON ADD -ON Final Result [facility] [address] [place] [address], [facility] [address] [place] [address] * Lipid Panel (04/10/2024 10:12 AM GREENHOUSE INSTRUCTOR) Triglycerides 109 mg/dL 04/10/2024 11:16 AM GREENHOUSE INSTRUCTOR DTL Comment: ----REFERENCE VALUE---- Normal: <150 mg/dL Borderline High: 150-199 mg/dL High: 200-499 mg/dL Very High: > or =500 mg/dL Cholesterol, Total 156 mg/dL 2023 11:16 AM GREENHOUSE INSTRUCTOR DTL Comment: ----REFERENCE VALUE---- Desirable: < 200 mg/dL Borderline High: 200 - 239 mg/dL High: > or = 240 mg/dL Cholesterol, LDL, Calculated 77 mg/dL 04/10/2024 11:16 AM GREENHOUSE INSTRUCTOR DTL Comment: ----REFERENCE VALUE---- Desirable: <100 mg/dL Above Desirable: 100-129 mg/dL Borderline High: 130-159 mg/dL High: 160-189 mg/dL Very High: >=190 mg/dL ----ADDITIONAL INFORMATION---- LDL cholesterol calculated using the Mondragon/NIH equation. Cholesterol, HDL, S 59 >=50 mg/dL 04/10/2024 11:16 AM GREENHOUSE INSTRUCTOR DTL Cholesterol, Non-HDL, Calculated 97 mg/dL 04/10/2024 11:16 AM GREENHOUSE INSTRUCTOR DTL Comment: ----REFERENCE VALUE---- Desirable: <130 mg/dL Above Desirable: 130-159 mg/dL Borderline High: 160-189 mg/dL High: 190-219 mg/dL Very High: > or =220 mg/dL Fasting (8 HR or more) Unknown 04/10/2024 10:14 AM GREENHOUSE INSTRUCTOR DTL Blood (Blood, Venous) 04/10/2024 10:12 AM GREENHOUSE INSTRUCTOR 04/10/2024 10:55 AM GREENHOUSE INSTRUCTOR us Anna SimB.S. LAB BLOOD ADD-ON Final Result [facility] [address] [place] [address] * Sodium (04/10/2024 10:12 AM GREENHOUSE INSTRUCTOR) Sodium, S 141 135 - 145 mmol/L 04/10/2024 11:16 AM GREENHOUSE INSTRUCTOR DT Blood (Blood, Venous) 04/10/2024 10:12 AM GREENHOUSE INSTRUCTOR 04/10/2024 10:55 AM GREENHOUSE INSTRUCTOR us Anna SimB.S. LAB BLOOD ADD-ON Final Result [facility] [address] [place] [address], [place] [address] * Potassium (04/10/2024 10:12 AM GREENHOUSE INSTRUCTOR) Potassium, S 4.1 3.6 - 5.2 mmol/L 04/10/2024 11:16 AM GREENHOUSE INSTRUCTOR DTL Blood (Blood, Venous) 04/10/2024 10:12 AM GREENHOUSE INSTRUCTOR 04/10/2024 10:55 AM GREENHOUSE INSTRUCTOR us Anna Selvin Arcelia M.B.B.S. LAB BLOOD ADD-ON Final Result Performing Organization Address [facility] Co de Phone Number [facility] [address] [place] [address], [facility] [address] [place] [address] * Creatinine with Estimated GFR (04/10/2024 10:12 AM GREENHOUSE INSTRUCTOR) Creatinine 0.98 0.59 - 1.04 mg/dL 04/10/2024 11:16 AM GREENHOUSE INSTRUCTOR DTL Estimated GFR (eGFR) 68 >=60 mL/min/BSA 04/10/2024 11:16 AM GREENHOUSE INSTRUCTOR DTL Comment: Estimated GFR calculated using the 2020 CKD_EPI creatinine equation. Blood (Blood, Venous) 04/10/2024 10:12 AM GREENHOUSE INSTRUCTOR 04/10/2024 10:55 AM GREENHOUSE INSTRUCTOR Anna SimB.SUma LAB BLOOD ADD-ON Final Result Performing Organization Address [facility] Co de Phone Number [facility] [address] [place] [address], [facility] [address] [place] [address] from Last 3 Months or Most Recently Relevant to Health Maintenance Insurance [facility] Advance Directives For more information, please contact: [phone] * Full Code (Latest Code Status on [...] Answer Comments Full Code: Discussed Care Teams Launch Steward Relationship Specialty Start Date End Date Elsewhere, Pcp PCP - General Internal Medicine 05/24/21
--- OUTSIDE RECORDS SUMMARY | 2024-10-30 21:46 | XMS_ITS | Encounter Summary ---
Author Organization [facility] Address [address] [place] [address] Care Team Providers Care Neon Sign Erector Name Role Phone No Ref-Primary, Physician Primary Care Provider Encounter Details Date Type Department Care Team (Late st Contact Info) Description 05/13/2024 [facility] Medical Advice [facility] [place] [facility] [address] [id number] Alyssa Ferreira Social History Tobacco Use Types Packs/Day Years Used Date Smoking Tobacco: Every Day Cigarettes Smokeless Tobacco: Never Alcohol Use Standard Drinks/Week Comments Not Currently 0 (1 standard drink = 0.6 oz pur e alcohol) Adolescent Education Answer Date Record ed Getting School Help Needed Not on file 03/02 Comments Unknown Sex and Gender Information Value Date Recorded Sex Assigned at Not on file Legal Sex Female 3:28 AM HOT TAMALE MAN Gender Identity Not on file Sexual Orientation Not on file documented as of this encounter Plan of Treatment Not on file documented as of this encounter Visit Diagnoses Not on filedocumented in this encounter Care Teams Neon Sign Erector Relationship Specialty Start Date End Date No Ref-Primary, Physician PCP - General 01/07/21 documented as of this encounter
--- OUTSIDE RECORDS SUMMARY | 2024-10-30 21:46 | XMS_ITS | Clinical Summary ---
Author Organization [facility] Address [address] [place] [address] Care Team Providers Care Skelp Processor Name Role Phone No Ref-Primary, Physician Primary Care Provider Allergies Active Allergy Reactions Criticality Noted Date Comments Amoxicillin 07/31/2023 Azithromycin 07/31/2023 Medications metFORMIN (GLUCOPHAGE) 500 MG tablet Take 1,000 mg by mouth 2 times daily (with meals) 4 Active naltrexone (DEPADE/REVIA) 50 MG tablet TAKE 1 TABLET BY MOUTH DAILY FOR WEIGHT MANAGEMENT 4 Active olmesartan-hydr ochlorothiazide (BENICAR HCT) 20-12.5 MG tablet Take 1 tablet by mouth daily for blood pressure 3 Active phenazopyridine (PYRIDIUM) 100 MG tablet Take 1 tablet by mouth 3 times daily 3 Active rosuvastatin (CRESTOR) 20 MG tablet Take 20 mg by mouth daily 4 Active sennosides (SENOKOT) 8.6 MG tablet Take 1 tablet by mouth daily as needed for constipation 3 Active albuterol (PROAIR HFA/PROVENTIL HFA/VENTOLIN HFA) 108 (90 Base) MCG/ACT inhaler INHALE 2 PUFFS BY MOUTH EVERY 4 TO 6 HOURS NEEDED FOR SHORTNESS OF BREATH OR WHEEZING 3 Active aspirin (ASA) 81 MG chewable tablet Take 81 mg by mouth daily Active cilostazol (PLETAL) 50 MG tabletIndicatio ns:Peripheral vascular disease, unspecified,Oth er general symptoms and signs Take 1 tablet (50 mg) by mouth daily for 14 days, THEN 1 tablet (50 mg) 2 times daily for 14 days. 42 tablet 4 Active cilostazol (PLETAL) 100 MG tabletIndicatio ns:Peripheral vascular disease, unspecified,Oth er general symptoms and signs Take 1 tablet (100 mg) by mouth 2 times daily 60 tablet 4 Active varenicline (CHANTIX SADE) 0.5 MG X 11 & 1 MG X 42 tabletIndicatio ns:Peripheral vascular disease, unspecified,Oth er general symptoms and signs,Encounter for smoking cessation counseling Take 0.5 mg tab daily for 3 days, THEN 0.5 mg tab twice daily for 4 days, THEN 1 mg twice daily. 53 tablet 4 Active Additional Information Patient not taking.Reported on 11/13/2023 varenicline (CHANTIX SADE) 0.5 MG X 11 & 1 MG X 42 tabletIndicatio ns:Encounter for smoking cessation counseling Take 0.5 mg tab daily for 3 days, THEN 0.5 mg tab twice daily for 4 days, THEN 1 mg twice daily. 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 Gender Identity Not on file Sexual Orientation Not on file Last Filed Vital Signs Vital Sign Reading Time Taken Comments Blood Pressure 108/73 11/13/2023 11:44 AM CDT Pulse 71 11/13/2023 11:44 AM CDT Temperature - - Respiratory Rate 16 07/31/2023 11:49 AM 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 Oxygen Saturation 97% 11/13/2023 11:44 AM CDT Inhaled Oxygen Concentration - - Weight - - Height - - Body Mass Index - - Plan of Treatment Health Maintenance Due Date Last Done Comments ADVANCE CARE PLANNING 1970 ANNUAL REVIEW OF HM ORDERS 1968 ASTHMA ACTION PLAN [address] ASTHMA CONTROL TEST 1968 CT COLONOGRAPHY 1968 DIABETES SCREENING 1968 FIT 1968 FLEX SIG 1968 LIPID 1968 MAMMO SCREENING 1968 NICOTINE/TOBACCO CESSATION COUNSELING Q 1 YR 1968 sDNA (Cologuard) 1968 YEARLY PREVENTIVE VISIT 1971 COLONOSCOPY 1978 COLORECTAL CANCER SCREENING 1978 HIV SCREENING 1983 HEPATITIS C SCREENING 1986 HEPATITIS B VACCINE (1 of 3 - 19+ 3-dose series) 1987 PAP 1989 PNEUMOCOCCAL VACCINE 50+ YEA RS (2 of 2 - PCV) 05/09/2012 05/09/2011 LUNG CANCER SCREENING 2018 ZOSTER VACCINE (1 of 2) 2018 DTAP/TDAP/TD VACCINE (2 - Td or Tdap) 05/09/2021 05/09/2011 COVID-19 VACCINE (2 - 2023-2 5 season) 2024 06/13/2021 PHQ-2 (once per calendar year) 2024 INFLUENZA VACCINE (Season Ended) 2025 05/09/20 11 HPV VACCINE Aged Out No longer eligi ble based on patient's age to complete this topic MENINGITIS VACCINE Aged Out No longer eligible based on patient's age to complete this topic Insurance [place] [employer] [address] [address] COMMERCIAL Care Teams Skelp Processor Relationship Specialty Start Date End Date No Ref-Primary, Physician PCP - General 01/07/21
[2024-10-30 21:47] VITALS: BP 134/85; PULSE 79; RESP 16; TEMP 36.4; O2SAT 96; BMI 56.2
--- NOTE | 2024-10-30 22:01 | ED.EAR ---
HPI - Ear Problem General Time Seen by Provider: 22:01 Date Seen: 10/30/24 Chief complaint: Ear/Nose/Throat Problem Stated complaint: left ear pain Time Seen by Provider: 10/30/24 21:57 Source: patient and RN notes reviewed Mode of arrival: ambulatory Limitations: no limitations History of Present Illness HPI Narrative: This 54-year-old female is coming in with loss of hearing in her left ear. She has maybe had some tinnitus but thinks it is not very prevalent for her. She notes over the last couple days her hearing has been coming and going. It is only in the left ear, she has not had any fevers or chills, no cough or cold symptoms. She has been trying to remove the wax from her ear. She notices a little discomfort in the ear but feels this came on after she tried to remove some of the wax. MD Complaint: decreased hearing Related Data Home Medications ?Medication ?Instructions ?Recorded ?Confirmed ibuprofen 200 mg capsule 600 mg PO .Q6h Prn PRN 02/09/22 08/05/24 Ibuprofen/Tylenol PO PRN 05/03/22 08/05/24 ezetimibe 10 mg tablet 10 mg PO QDAY 03/11/24 08/05/24 rivaroxaban 2.5 mg tablet (Xarelto) 2.5 mg PO BID 03/11/24 08/05/24 mupirocin 2 % topical ointment 1 applic topical TID PRN 06/24/24 08/05/24 Previous Rx's ?Medication ?Instructions ?Recorded sennosides 8.6 mg capsule (senna) 8.6 mg PO DAILY PRN constipation 12/28/22 #90 caps cholecalciferol (vitamin D3) 250 250 mcg PO QDAY #90 caps 04/25/23 mcg (10,000 unit) capsule naltrexone 50 mg tablet 50 mg PO QDAY #90 tabs 12/31/23 aspirin 81 mg chewable tablet 81 mg PO QDAY #90 tabs 01/09/24 (Aspirin Childrens) albuterol sulfate 90 mcg/actuation 2 puff inhalation Q4-6H PRN 02/19/24 aerosol inhaler shortness of breath or wheezing #8.5 grams metformin 500 mg tablet 1,000 mg (2 x 500 mg) PO BIDWMEAL 03/14/24 #360 tabs cyanocobalamin (vitamin B-12) 2,500 mcg PO QDAY #90 tabs 05/08/24 2,500 mcg tablet amlodipine 5 mg tablet 5 mg PO QDAY #90 tabs 07/03/24 bupropion HCl 150 mg 24 hr tablet, 150 mg PO QAM #90 tabs 07/03/24 extended release hydrochlorothiazide 12.5 mg tablet 12.5 mg PO QAM #90 tabs 07/25/24 rosuvastatin 20 mg tablet 20 mg PO QDAY #90 tabs 09/24/24 Allergies Allergy/AdvReac Type Severity Reaction Status Date / Time amoxicillin Allergy Intermediate Abdominal Verified 10/30/24 21:55 pains sever and diarrhea azithromycin Allergy Mild Nausea Verified 10/30/24 21:55 Review of Systems Narrative: As per HPI. [facility] Medical History Hx of malignant neoplasm of lung ?Z85.118 - Personal history of other malignant neoplasm of bronchus and lung (ICD-10) Tubular adenoma of colon (~08/2023) ?D12.6 - Benign neoplasm of colon, unspecified (ICD-10) Abnormal ankle brachial index (BEATA) ?R68.89 - Other general symptoms and signs (ICD-10) Bursitis ?M71.9 - Bursopathy, unspecified (ICD-10) Family hx of colorectal cancer (~2020) ?Z80.0 - Family history of malignant neoplasm of digestive organs (ICD-10) Rectal sphincter incontinence ?R15.9 - Full incontinence of feces (ICD-10) Family history of celiac disease ?Z83.79 - Family history of other diseases of the digestive system (ICD-10) Obstructive sleep apnea on CPAP ?G47.33 - Obstructive sleep apnea (adult) (pediatric) (ICD-10) ?Z99.89 - Dependence on other enabling machines and devices (ICD-10) Pulmonary nodule ?R91.1 - Solitary pulmonary nodule (ICD-10) Premature of twins Prediabetes ?R73.03 - Prediabetes (ICD-10) Obstructive sleep apnea syndrome ?G47.33 - Obstructive sleep apnea (adult) (pediatric) (ICD-10) Hypertension ?I10 - Essential (primary) hypertension (ICD-10) Surgical History History of partial surgical removal of colon ?Z90.49 - Acquired absence of other specified parts of digestive tract (ICD-10) History of section ?Z98.891 - History of uterine scar from previous surgery (ICD-10) Family History Mother Dementia Thyroid disease Maternal Grandmother Dementia Maternal Grandfather Heart disease Son Pituitary disease Father Stroke Social History Narrative: 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 Symmetrical facial function, sclera clear, pupils equal round reactive. No pain on palpation over her TMJs, jaw opens and closes without any problem. No preauricular adenopathy, no postauricular adenopathy, no pain over the mastoids. Right TM canal are normal, normal translucency. She has frame builder appearing wax obscuring the left tympanic membrane. Unfortunately the wax is quite deep within the canal. Documenting provider has reviewed patient's vital signs: yes Course Course ED Course: Have reviewed with patient that we will have nursing staff do an ear irrigation on this left side to see if we can remove the wax. We will see how she feels and if hearing is restored once we are able to remove this wax. Reevaluation(s) Time of Reevaluation #1: 22:21 Reevaluation #1: Patient had production of a large chunk of wax after ear irrigation, she states her ear felt so much better. Her hearing had returned. Reinspection of the canal shows a little irritation along the inferior aspect of the canal. She states she has been trying to use an ear scoop. The tympanic membrane is a little dull but still has translucency, some loss of light reflex, no erythema or traumatic change. Vital Signs Vital signs: Initial Vital Signs Temperature 97.6 F 10/30/24 21:47 Temperature Source Temporal Artery Scan 10/30/24 21:47 Pulse Rate 79 10/30/24 21:47 Respiratory Rate 16 10/30/24 21:47 Blood Pressure 134/85 10/30/24 21:47 Blood Pressure Mean 101 10/30/24 21:47 Blood Pressure Position Sitting 10/30/24 21:47 Pulse Oximetry 96 10/30/24 21:47 Oxygen Delivery Method Room Air 10/30/24 21:47 Vital Signs Temperature 97.6 F 10/30/24 21:47 Pulse Rate 79 10/30/24 21:47 Respiratory Rate 16 10/30/24 21:47 Blood Pressure 134/85 10/30/24 21:47 Pulse Oximetry 96 10/30/24 21:47 Oxygen Delivery Method Room Air 10/30/24 21:47 Temperature 97.6 F 10/30/24 21:47 Pulse Rate 79 10/30/24 21:47 Respiratory Rate 16 10/30/24 21:47 Blood Pressure 134/85 10/30/24 21:47 Pulse Oximetry 96 10/30/24 21:47 Oxygen Delivery Method Room Air 10/30/24 21:47 Discharge Plan Discharge Clinical Impression: Cerumen impaction Qualifiers: Laterality: left Qualified Code(s): H61.22 - Impacted cerumen, left ear Patient Disposition: Home, Self-Care Condition: Stable Additional Instructions: Can try some Debrox drops which is [id number] to help wax buildup. If you have further concerns with your ear, please follow up in clinic with your primary provider. Prescriptions: No Action ibuprofen 200 mg capsule 600 mg PO .Q6h Prn PRN naltrexone 50 mg tablet 50 mg PO QDAY Qty: 90 3RF Rx Instructions: 1 tablet daily for weight management Ibuprofen/Tylenol PO PRN mupirocin 2 % ointment 1 applic topical TID PRN senna 8.6 mg capsule 8.6 mg PO DAILY PRN (Reason: constipation) Qty: 90 3RF albuterol sulfate 90 mcg/actuation HFA aerosol inhaler 2 puff inhalation Q4-6H PRN (Reason: shortness of breath or wheezing) Qty: 8.5 3RF ezetimibe 10 mg tablet 10 mg PO QDAY Xarelto 2.5 mg tablet 2.5 mg PO BID cholecalciferol (vitamin D3) 250 mcg (10,000 unit) capsule 250 mcg PO QDAY Qty: 90 0RF Rx Instructions: 1 capsule daily for Vit D deficiency aspirin [Aspirin Childrens] 81 mg tablet,chewable 81 mg PO QDAY Qty: 90 3RF Rx Instructions: once daily metformin 500 mg tablet 1,000 mg PO BIDWMEAL Qty: 360 0RF Rx Instructions: two tablets Twice daily with meals for weight management and pre diabetes cyanocobalamin (vitamin B-12) 2,500 mcg tablet 2,500 mcg PO QDAY Qty: 90 3RF bupropion HCl 150 mg tablet extended release 24 hr 150 mg PO QAM Qty: 90 1RF Rx Instructions: once daily with naltrexone amlodipine 5 mg tablet 5 mg PO QDAY Qty: 90 1RF Rx Instructions: once daily for blood pressure and blood flow ( Hold olmesartan) hydrochlorothiazide 12.5 mg tablet 12.5 mg PO QAM Qty: 90 2RF Rx Instructions: once daily for blood pressure and leg swelling rosuvastatin 20 mg tablet 20 mg PO QDAY Qty: 90 3RF Rx Instructions: once daily for cholesterol Follow Up/Referrals: Trudi Jimenez PA-C [Primary Care Provider, Family Practice] Stand Alone Forms: [facility] Info Instructions
== END 2024-10-30 22:34 | disposition home or self-care (01) ==
LOC: ED 22:32
PROVIDERS: Emergency Provider Family Medicine; PCP Physician Assistant Medical
DX: H61.22 Impacted cerumen, left ear (principal)
CPT/HCPCS: 69209; 99282

== ENCOUNTER 2025-02-17 13:34 | Outpatient (CLI) | payer OTHER, SELFPAY ==
--- NOTE | 2025-02-17 14:00 | CRLHL7_ITS ---
For Patients: As a result of the Century Cures Act, medical imaging exams and procedure reports are released immediately into your electronic medical record. You may view this report before your referring provider. If you have questions, please contact your health care provider. Indication: RECTAL CANCER FOLLOW UP Technique: CT Chest CAP W/150CC ISOVUE 370 intravenous contrast Please note that all CT scans at this facility use dose modulation, iterative reconstruction, and/or weight-based dosing when appropriate to reduce radiation dose to as low as reasonably achievable. Comparison: 01/08/2024 Findings: In the chest, posttreatment changes are present regarding the nodule in the right middle lobe with decreased conspicuity of the nodule and surrounding linear densities noted. Nodule in the periphery of the right lung has increased in size now measuring up to 7 millimeters, previously measuring 4 millimeters, . COPD/emphysema. Subsegmental linear scarring left lower lobe. No adenopathy. Stable thyroid with multiple low-density nodules present. No pleural or pericardial effusion. No fracture. In the abdomen, there is no intrahepatic mass. No adrenal nodule. Kidneys are normal. Normal spleen. Small hiatal hernia. Pancreas is normal. Normal gallbladder. Atherosclerotic changes. No aneurysm. Stable sub cm portacaval lymph nodes. Stable right abdominal fat filled hernia defect measuring 3.6 cm. Also stable fat density within the anterior lower abdominal omental fat measuring 5.4 cm. Postop changes to the colon/rectum with left-sided ostomy. No bowel obstruction. No free air or free fluid. In the pelvis, the uterus is normal. Incidental cyst within the left ovary. No adnexal mass. Bladder is similar with diverticula suspected. No pelvic or inguinal adenopathy. No fracture. Impression: Increased size of pulmonary nodule within the right lateral lung, now measuring 7 millimeters compared to 4 millimeters. Posttreatment changes to the previously noted nodule within the right middle lobe with decreased conspicuity of this nodule. Remainder of the examination is stable. Please note that all CT scans at this facility use dose modulation, iterative reconstruction, and/or weight-based dosing when appropriate to reduce radiation dose to as low as reasonably achievable. Dictated by Del Ortiz MD @ 02/18/2025 11:52:01 AM (Electronically Signed)
== END 2025-02-17 13:35 | disposition home or self-care (01) ==
LOC: CT 13:34
PROVIDERS: PCP Physician Assistant Medical; Visit Provider Internal Medicine Hematology & Oncology
DX: C20 Malignant neoplasm of rectum (principal); R91.8 Other nonspecific abnormal finding of lung field; Z85.118 Personal history of other malignant neoplasm of bronchus and lung
CPT/HCPCS: 71260; 74177; Q9967

== ENCOUNTER 2025-02-22 11:39 | Inpatient (IN) | payer OTHER, SELFPAY ==
--- OUTSIDE RECORDS SUMMARY | 2024-01-08 07:36 | XMS_ITS | Continuity of Care Document ---
Author Organization [facility] Address [address] [address] [place] [address] Phone Care Team Providers Care Clinical Specialist Vascular Name Role Phone Parminder Humphreys MD Unavailable Unavailable Advance Directives Directive Yes / No Effective Date File Name No Information Encounters Encounter Description Practice Location Reason(s) For Visit Diagnoses Date Provider Providers Copied on Encounter [facility], [address] [address], [place], [place], [id number], tel:[phone] [facility] No Information 4 Juliann Zurita. [address] [place] [address], [id number], [place]. tel:[phone] [facility], [address] [address], [place], [place], [id number], tel:[phone] [facility] Colon adenoma 4 Juliann Zurita. [address] [place] [address], [id number], [place]. tel:[phone] Family History Family Member Type Diagnosis Age At Onset No Information Payers Payer name Insurance type Covered republican ID Authoriza tion(s) No Information Social History Type Description Quantity Date Captured Comments Sex Female Smoking Status No Information Chief Complaint And Reason For Visit No Information Reason For Referral Reason For Referral No Information Plan Of Treatment Date Type Action Status Referral Ordered: Colonoscopy With EMR Appointment date/timeframe: 02/21/2024 ordered History Of Present Illness Encounter Date Complaint History Of Prese nt Illness No Information Functional Status Date Functional Assessmen t No Information Instructions Date Instruction Additional Infor mation No Information Assessments Type Assessment Date No Information Patient Care Teams Name Effective Dates (start - stop) Status Members No Information
--- OUTSIDE RECORDS SUMMARY | 2024-01-08 07:36 | XMS_ITS | Continuity of Care Document ---
Author Organization [facility] Address [address] [address] [place] [address] Phone Care Team Providers Care Healthcare Economics Consultant Name Role Phone Parminder Humphreys MD Unavailable Unavailable Advance Directives Directive Yes / No Effective Date File Name No Information Encounters Encounter Description Practice Location Reason(s) For Visit Diagnoses Date Provider Providers Copied on Encounter [facility], [address] [address], [place], [place], [id number], tel:[phone] [facility] No Information 4 Juliann Zurita. [address] [place] [address], [id number], [place]. tel:[phone] [facility] [place], [address] [address], [place], [place], [id number], tel:[phone] [facility] Colon adenoma 4 Juliann Zurita. [address] [place] [address], [id number], [place]. tel:[phone] Family History Family Member Type Diagnosis Age [...]
--- OUTSIDE RECORDS SUMMARY | 2025-01-08 08:46 | XMS_ITS | Encounter Summary ---
Author Organization [facility] Address [address] [place] [address] Care Team Providers Care Steam Service Inspector Name Role Phone Elsewhere, Pcp Primary Care Provider Unavailabl e Reason for Referral * Outpatient (Routine) - Closed Specialty Diagnoses / Procedures Referred By Peyton lockhart Referred To Contact Radiation Oncology Cinthia Meneses M.D. [address] [place] [address] Phone: tel: [facility] Referral ID Status Reason Start Date Expiration Date Visits Re quested Visits Authorized [id number] Closed 06/25/2024 12/25/2025 1 1 Reason for Visit * Outpatient (Routine) - Closed Specialty Diagnoses / Procedures Referred By Peyton lockhart Referred To Contact Radiation Oncology Cinthia Meneses M.D. [address] [place] [address] Phone: tel: fax: [facility] Referral ID Status Reason Start Date Expiration Date Visits Re quested Visits Authorized [id number] Closed 06/25/2024 12/25/2025 1 1 Encounter Details Date Type Department Care Team (Latest Contact Info) Description 01/08/2025 8:46 AM CDT - 01/08/2025 2:27 PM CDT Hospital Encounter Department of Radiation Oncology in [place], [place] [address] [place] [address] Cinthia Meneses M.D. [address] [place] [address] Malignant Neoplasm Of Rectum Adenocarcinoma (HCC) (Primary Dx); Secondary Malignant Neoplasm Lung Right (HCC) Social History Tobacco Use Types Packs/Day Years Used Date Smoking Tobacco: Every Day Cigarettes 1 49.7 Started: 1975 Passive Smoke Exposure: Current Smokeless Tobacco: Never Alcohol Use Standard Drinks/Week Comments Not Currently 0 (1 standard drink = 0.6 oz pur e alcohol) [facility] Utilities Answer Date Recorded In the past 12 months has e electric, gas, oil, or water company threatened to shut off services in your [...] by your partner or ex-partner? No 08/21/2021 Hunger Vital Sign Answer Date Recorded [...] things needed for daily living? No 02/20/2024 Housing Stability Answer Date Recorded What is your living situation today? I [facility] a [facility] place to live 02/20/2024 Education Answer [...] Sign Reading Time Taken Comments Blood Pressure 149/84 01/08/2025 8:56 AM CDT Pulse 73 01/08/2025 8:56 AM CDT Temperature 35.8 C (96.5 F) 01/08/2025 8:56 AM CDT Respiratory Rate - - Oxygen Saturation - - Inhaled Oxygen Concentration - - Weight 151 kg (333 lb 5.4 oz) 01/08/2025 8:56 AM CDT Height - - Body Mass Index 57.61 06/17/2024 9:07 AM GAS BLENDER documented in this encounter Medications at Time [...] tablet Take 1 tablet by mouth daily. hydroCHLOROthiaz rosie 12.5 mg tablet Take 12.5 [...] Take 2,500 mcg by mouth daily. 12/31/2023 ezetimibe (Zetia) 10 mg tablet Take 1 tablet (10 mg total) by mouth daily. 30 tablet 11 02/25/2024 documented as of this encounter Progress Notes * Shanna Calhoun P.A.-C., M.S. - 01/08/2025 9:00 AM CDT SUBJECTIVE DIAGNOSIS 1. Malignant Neoplasm Of Rectum Adenocarcinoma (HCC) 2. Secondary Malignant Neoplasm Lung Right (HCC) SUPERVISED BY: Cinthia Meneses M.D. HISTORY OF PRESENT ILLNESS Mrs. Page Fisher is a 54-year-old female with metastatic rectal cancer. She completed SBRT to a right middle lobe lung metastasis on March 03, 2024. Her oncologic history is as follows: Oncology History Malignant Neoplasm Of Rectum Adenocarcinoma (HCC) 09/20/2020 Initial Diagnosis Malignant Neoplasm Of Colon Adenocarcinoma (HCC) Early 2019 started having increased loose stools up to 10-20 per day with a 60 lb weight loss. September 07, [address] of the abdomen and pelvis which did have the impression of a slight wall thickening of the rectum with some mildly prominent mesorectal lymph nodes nonspecific could be seen with proctitis. A small hiatal hernia was also seen on exam. September 20, 2020 patient had a colonoscopy which was aborted due to bowel stenosis. Preparation of the colon was also inadequate. A 5cm fungating/infiltrative partially obstructing and oozing rectal mass was biopsied. September 20, 2020 patient had an adenocarcinoma low grade biopsied from the distal rectum. September 28, [address] scan of the chest which showed the impression of a 5 mm right middle lobe pulmonary nodule. There is also an upper limits of normal portacaval lymph node measuring 1.4cm. Emphysema was also shown. A 6 mm sclerotic focus within the right posterior for lateral 4th ribwas also seen and felt to be benign. September 30, 2020 the patient had an MRI of the pelvis completed. Findings showed a long rectal tumor beginning about 6-7 cm above the anal verge and rectal tumor measures about 7-8 cm in length. Transmural tumor through the muscularis with spiculation of the adjacent muscle rectal fat. Multiple lymphnodes in the mesorectal space between the 4:00 o'clock and 8:00 o'clock. positions. Left mesorectallymph node at the 3 o'clock position at the upper level of the tumor. High mesorectal lymph node measuring up to 11 mm at the superior margin of the tumor along the left pelvic sidewall. There are greater than 4 lymph nodes in the short axis dimension of a 5 mm an atypical morphology. Tumor extendsthrough the muscularis with into the mesorectal space tumor stage T3. Multiple lymph nodes stage N2. October 01, 2020 patient met with Medical Oncology Dr. Loco Gavin. He discussed the treatment options including neoadjuvant chemotherapy along with neoadjuvant radiation therapy. October 05, 2020 patient had a PET scan 1. Markedly FDG avid known rectal malignancy. Moderately FDG avid nodular uptake near the anus/adjacent gluteal cleft. Only faint uptake in subcentimeter perirectallymph nodes. Otherwise no significantly FDG avid local regional metastases. Indeterminate FDG uptake in a 6 mm right midlung pulmonary nodule is worrisome for metastatic disease. Less likely consideration of a primary pulmonary neoplasm or inflammatory process. Indeterminate focal uptake in the fatand soft tissue containing umbilical hernia may be inflammatory, however a peritoneal deposit couldhave a similar appearance. 10/20/2020 - 02/01/2021 Chemotherapy FOLFIRINOX chemotherapy x 6 cycles under the care of Dr. Gavin at [facility]. 12/25/2020 Surgery and Procedures Obstruction status post diverting loop colostomy. 02/15/2021 Critical Imaging MRI of the pelvis demonstrated findings consistent with upper rectal adenocarcinoma that has responded well to therapy (Tumor Regression Grade 2). Thin fibrosis extended to the mesorectal fascia, butthere was no evidence of associated viable tumor. Mesorectal node that lied within 1 mm of the mesorectal fascia was now nonenhancing and thus nonviable. CT scan of the chest, abdomen, and pelvis demonstrated similar appearance of primary rectal adenocarcinoma with narrowing of the rectal lumen and subcentimeter mesorectal lymph nodes. Stable 5 mm right middle lobe pulmonary nodule. No intrahepatic mass. Similar appearance of mildly prominent portalcaval lymph node. Postoperative changes of diverting ostomy left lower quadrant. 02/28/2021 - 04/01/2021 Radiation Therapy Radiation Therapy Treatment Details Site: Rectum Technique: IMRT Goal: Curative Completion Date: 04/01/2021 25 fractions to a dose of 5000 cGy 04/15/[address] Chest IMPRESSION: 1. No significant change since outside chest CT of 02/15/2021, given thicker section imaging on theprior study. 2. A 4-5 mm right middle lobe nodule, mildly enlarged right infrahilar node, and mildly prominent node in the left neck base/thoracic inlet remain indeterminate. Follow-up is recommended. 3. Mosaic attenuation lungs may be due to obstructive small airways changes. CT abdomen Pelvis IMPRESSION: 1. No significant interval change since 02/15/2021. No convincing evidence of metastatic disease inthe abdomen or pelvis. MR Pelvis IMPRESSION: Post treatment primary tumor assessment: Partial/incomplete response. MRF: Primary tumor is not within 2 mm of the anticipated CRM/MRF. Sphincter involvement: Absent. Suspicious mesorectal lymph nodes: Present. Suspicious extra mesorectal lymph nodes: Absent. 05/19/2021 Surgery and Procedures Flex sig Post-op Diagnoses: - Rectal mass. - Malignant partially obstructing tumor in the rectum. - No specimens collected. 05/23/2021 Surgery and Procedures Colonoscopy Post-op Diagnoses: - Diverting loop transverse colostomy. - The proximal transverse colon, hepatic flexure, ascending colon and cecum are normal. - The examined portion of the ileum was normal. - Inflammatory hyperplastic polyp at the stoma. - The splenic flexure and distal transverse colon are normal. - Completely obstructing tumor in the rectum. - the descending, sigmoid and proximal rectum could not be seen today. - No specimens collected. 05/24/2021 Surgery and Procedures Robotic assisted low anterior resection with anastomosis, retrograde pyelogram, cystoscopy. FINAL DIAGNOSIS A. Rectum, low anterior resection : Invasive moderately-differentiated adenocarcinoma with treatment effect and scattered viable tumor cells spanning a 6 x 2.5 x 0.6 cm ulcerative fibrotic tumor bed within rectum. Tumor extends into the perirectal soft tissue. The surgical resection margins are negative for tumor. Epiploica soft tissue with fat necrosis is identified. Multiple (13) lymph nodes are negative for tumor. See synoptic report. SYNOPTIC REPORT: Colorectal Invasive Carcinoma Procedure: Low anterior resection Macroscopic Evaluation of Mesorectum: Complete Tumor Site: Rectum Histologic Type: Adenocarcinoma Histologic Grade: G2 Tumor Size: Greatest dimension: 6 cm (tumor bed size) Multiple Primary Sites: Not applicable Tumor Extent: Invades through muscularis propria into pericolorectal tissue Macroscopic Tumor Perforation: Not identified Lymphovascular Invasion: Not identified Perineural Invasion: Not identified Number of Tumor Buds: Number of Tumor Buds in 1 hotspot field: Not applicable Tumor [place] Score: Not applicable Treatment Effect: Present, with residual cancer showing evident tumor regression, but more than single cells or rare small groups of cancer cells (partial response, score 2) Margin Status All Margins Negative for Invasive Carcinoma Closest Margin(s) to Invasive Carcinoma: Radial Distance from Invasive Carcinoma to Closest Margin: 1.5 cm Distance from Invasive Carcinoma to Radial (Circumferential) Margin: 1.5 cm Distance from Invasive Carcinoma to Closest Mucosal Margin: 3 cm Margin Status for Non-Invasive Tumor: All margins negative for high-grade dysplasia/intramucosal carcinoma and low-grade dysplasia Regional Lymph Nodes Status All Regional Lymph Nodes Negative for Tumor Number of Lymph Nodes Examined: 13 Raoul Site(s) Examined: Regional Tumor Deposits: Not identified Distant Metastasis. Distant Site(s) Involved: Not applicable Pathologic Staging (AJCC, 8th edition) TNM Descriptors: y pT Category: pT3 pN Category: pN0 pM Category: Not applicable Additional Pathologic Findings: Two regional lymph nodes with fibrosis, suggestive of treatment effect. 06/06/2021 Other Patient elected not to have any additional chemotherapy. 08/16/[address] CAP No evidence of recurrent disease in the abdomen or pelvis, stable 5 mm right middle lobe nodule. 08/26/2021 Surgery and Procedures Colonoscopy closure, anal dilation. 08/21/2022 Surgery and Procedures Final Diagnosis A) COLON, ASCENDING, POLYPECTOMIES: 1. Tubular adenomas (6), at least one of which is consistent with an advanced adenoma due to size. 2. Negative for high grade dysplasia. 3. Per the colonoscopy report: a. Polyp sizes: 2 mm - 25 mm b. Resection: Complete c. Retrieval: Complete B) COLON, HEPATIC FLEXURE, POLYPECTOMIES: 1. Tubular adenoma (1) and sessile serrated adenoma (1) 2. Negative for high grade dysplasia 3. Per the colonoscopy report: a. Polyp sizes: 7 mm - 13 mm b. Resection: Complete c. Retrieval: Complete 12/11/2022 Critical Imaging Follow up imaging through July 2023 demonstrated no evidence of recurrent disease within the abdomen or pelvis with 2 overall stable right lung nodules, measuring 4 mm and 7.5 mm. 08/13/2023 Surgery and Procedures Colonoscopy Final Diagnosis A) COLON, DESCENDING, POLYPECTOMY: 1. Normal colonic mucosa and luminal fecal debris (clinically, 1 polyp) 2. Negative for serrated change, dysplasia, and malignancy B) COLON, CECUM, POLYPECTOMY: 1. Tubular adenoma 2. Negative for high grade dysplasia 3. Per the colonoscopy report: a. Polyp size: 7 mm b. Resection: Complete c. Retrieval: Complete C) COLON, TRANSVERSE, TATTOO SITE, BIOPSY: 1. Tubular adenoma, clinically residual/recurrent. 2. Per the procedure note abnormal appearing tattoo site. 01/08/[address] CAP Impression: 1. Continued increased size of the right sided pulmonary nodule with spiculated margins now measuring 8 5 mm. 2. Stable 4 mm right middle lobe pulmonary nodule. 3. Stable postop changes of distal colectomy and left-sided diverting ostomy. No bowel obstruction. 01/17/2024 Critical Imaging PET-CT Conclusion: 1. The patients known 9 mm right middle lobe nodule is markedly hypermetabolic, highly suspicious for malignant etiology. 01/29/2024 Biopsy/Pathology A. Lung, Right middle lobe nodule, fine needle aspiration (smears/core biopsy): Positive for malignancy. Adenocarcinoma with enteric features compatible with metastasis from the patient's known colorectalprimary. 02/14/2024 Other [facility] tumor board recommended the patient pursue SBRT for lung metastasis. 02/27/2024 - 03/03/2024 Radiation Therapy Radiation Therapy Treatment Details (02/20/2024 - 03/03/2024) Site: Right Lung Technique: SBRT Goal: Curative Planned Treatment Start Date: 02/27/2024 06/03/2024 Critical Imaging PET/CT IMPRESSION: 1. Right middle lobe pulmonary nodule is decreased in size and FDG uptake. 2. New 1.7 cm left retroareolar breast mass is concerning for malignancy. Recommend dedicated left breast mammogram and ultrasound. 3. Persistent but decreased FDG uptake within the anal sphincter. Recommend correlation with directendoscopic visualization. 4. Persistent but decreased focal FDG uptake within the right inguinal fold. Recommend correlation with direct visualization. 06/17/2024 Surgery and Procedures Colonoscopy demonstrated: A tattoo was seen in the proximal transverse colon. A scar was found at the tattoo site. Biopsies were taken with a cold forceps for histology. A 4 mm polyp was found in the distal transverse colon. The polyp was sessile. The polyp was removed with a cold snare. Resection and retrieval were complete. Pathology demonstrated: A. Colon, Transverse colon, post-polypectomy site, endoscopic biopsy: Without diagnostic findings. No dysplasia B. Colon, distal transverse, endoscopic biopsy: Hyperplastic polyp. Additional levels were examined. 06/19/2024 Biopsy/Pathology A) LEFT BREAST, RETROAREOLAR, ULTRASOUND-GUIDED CORE BIOPSY: 1. Fat necrosis, fibrosis and mixed inflammation including neutrophilic inflammation consistent with possible abscess. 2. Negative for atypia and malignancy. 10/21/2024 Critical Imaging PET-CT IMPRESSION: 1. New mildly glucose avid patchy opacity in the right lung is likely radiation pneumonitis, follow-up to benign stability or resolution recommended. 2. Stable hypermetabolic left breast retroareolar mass. 3. Stable hypermetabolic focus within the anal sphincter. INTERVAL HISTORY: The patient was seen and examined today with Dr. Meneses. The patient reports doing well overall. She rates her fatigue as 5/10 in severity. She reports recent increased shortness of breath and occasional chest tightness, which she relates to the poor air quality and her COPD. She reports stable oxygen use with her CPAP machine at night. She denies shortness of breath at rest. She reports being able to walk approximately one block before needing to stopdue to shortness of breath. She has a chronic dry cough that has become more consistent. She denieshemoptysis. She denies persistent chest pain or recent fever. She reports occasional aches of the chest, more prominent on the right side. She is not currently receiving any treatment for her cancer. REVIEW OF SYSTEMS Review of systems was negative except as documented above. PATIENT REPORTED SYMPTOM SCREEN: FATIGUE (Scale: 0 = no fatigue; 10 = worst fatigue you can imagine): 5 PAIN (Scale: 0 = no pain; 10 = worst pain you can imagine): 4 OVERALL QUALITY OF LIFE (Scale: 0 = as bad as can be; 10 = as good as can be): 6 OBJECTIVE BP 149/84 (BP Location: Right arm, Patient Position: Sitting, Cuff Size: Regular) Pulse 73 Temp(!) 35.8 ??C (Temporal) Wt (!) 151 kg BMI 57.61 kg/m?? PHYSICAL EXAMINATION General: Patient is alert and oriented and in no apparent distress. Heart: Regular rate and rhythm. Lungs: Clear to auscultation bilaterally. ASSESSMENT / PLAN #1 Rectal adenocarcinoma, cT3 N2 M0 #2 FOLFIRINOX chemotherapy x 6 cycles completed on February 01, 2021 #3 Concurrent chemoradiotherapy completed April 01, 2021 #4 Surgical resection May 2021, ypT3, pN0 #5 Radiation therapy to the right middle lobe lung metastasis completed on March 03, 2024 Current status: In remission / no evidence of disease after treatment of a prior recurrence. The patient is doing well overall, now 10 months from the completion of SBRT. Her recent PET-CT scan demonstrated post-radiation changes in the right lung. She reports recent respiratory symptom changes related to the poor air quality and her COPD. The patient has been busy helping plan her daughter's wedding that is scheduled for next October. The patient is planned for lab work, a PET-CT scan, and follow-up with Dr. Cervantes in early February. The patient will continue close follow-up with Medical Oncology for ongoing monitoring and management of her cancer. We will not order for a return visit to be scheduled here at this time, but the patient could be referred back to our clinic if needed in the future. Dr. Meneses also met with the patient today, please see her attestation for details. The patient will contact us with questions or concerns. She verbally expressed her understanding of the plan. EDUCATION: Ready to learn, no apparent learning barriers were identified; learning preferences include listening. Explained diagnosis and treatment plan; patient expressed understanding of the content. I personally spent 25 minutes in care of the patient today. Time includes both non face to face andface to face patient care. Signed by: Shanna Calhoun P.A.-C., M.SUma 01/08/2025 11:17 AM CDT [facility] [address] [place] [id number] Cosigned by Cinthia Meneses M.D. at 01/08/2025 2:27 PM CDT Associated attestation - Cinthia Meneses M.D. - 01/08/2025 2:27 PM CDT I saw and evaluated the patient and participated in the garber portions of the service as noted below.Please see Ms. Shanna Calhoun PA-C, MS note for additional details. Cinthia Meneses M.D., 01/08/2025 documented in this encounter Plan of Treatment Upcoming Encounters Date Type Department Care Team (Latest Contact Info) Description 02/25/2025 12:30 PM CDT Clinical Communication Virtual Review in [address] [address] 03/04/2025 9:30 AM CDT Appointment Department of Radiology, [facility], in [address] [phone] Renu Dixon M.D., M.S. [address] [place] [phone] Discharge Disposition: Home or Self Care 03/04/2025 10:30 AM CDT Appointment Department of Vascular Medicine in [address] [phone] Renu Dixon M.D., M.S. [address] [place] [address] 03/04/2025 1:00 PM CDT Office Visit Department of Vascular Medicine in [place], [place] [address] [place] [address] Renu Dixon M.D., M.S. [address] [place] [address] Scheduled Referrals Name Type Priority Associated Diagnoses Order Schedule Radiation Oncology office visit (clinic) Outpatient Referral Routine Once for 1 Occurrences starting 01/08/2025 until 01/08/2025 documented as of this encounter Visit Diagnoses Diagnosis Malignant Neoplasm Of Rectum Adenocarcinoma (HCC)- Primary Secondary Malignant Neoplasm Lung Right (HCC) documented in this encounter Care Teams Steam Service Inspector Relationship Specialty Start Date End Date Elsewhere, Pcp PCP - General Internal Medicine 05/24/21 documented as of this encounter
[2025-02-22] VITALS (20 sets, daily range): BP systolic 135–160; BP diastolic 60–84; PULSE 73–109; RESP 15–28; TEMP 36.9; O2SAT 89–97; BMI 55.8
--- OUTSIDE RECORDS SUMMARY | 2025-02-22 11:41 | XMS_ITS | CCD ---
Author Name Interface, [id number] Address [address] [place] [address] [address] [facility] Oncology Address [facility] [address] [address] Reason for Visit Social History Date Name Value 01/31/2025 Sex Female
--- OUTSIDE RECORDS SUMMARY | 2025-02-22 11:42 | XMS_ITS | Clinical Summary ---
Author Organization [facility] Address [address] [place] [address] Care Team Providers Care Rn Case Management Name Role Phone Elsewhere, Pcp Primary Care Provider Unavailabl e Source Comments Patient records contain information from all sites at [facility]. For routine questions regarding patient records, call [phone] during business hours, M-F 8:00 AM - 5:00 PM Central Time. Record requests for emergency care only can be directed to [phone] at any time.[facility] Allergies Active Allergy Reactions Criticality Noted Date [...] 6 (six) hours as needed for pain. 08/29/19 Active acetaminophen (TYLENOL) 500 mg tablet Take 2 tablets (1,000 mg total) by mouth every 6 (six) hours as needed for pain. 08/29/19 Active Additional Information Patient not taking.Informant: Self, Reported on 01/08/2025 aspirin (Aspirin Childrens) 81 mg chewable tablet Chew 81 mg daily. 01/09/20 Active buPROPion XL (Wellbutrin XL) 150 mg 24 hr tablet Take 150 mg by mouth daily. 12/31/19 Active Vitamin B-12 2,500 mcg tablet, sublingual Take 2,500 mcg by mouth daily. 12/31/19 Active hydroCHLOROthi azide 12.5 mg tablet Take 12.5 mg by mouth daily. 12/31/19 Active metFORMIN (Glucophage) 500 mg tablet Take 1,000 mg by mouth 2 (two) times a day with meals. Active naltrexone (Depade) 50 mg tablet Take 50 mg by mouth daily. 12/31/19 Active sennosides 8.6 mg capsule Take 8.6 mg by mouth as needed. 12/29/19 Active rosuvastatin (Crestor) 20 mg tablet Take 20 mg by mouth daily. for cholesterol Active rivaroxaban (Xarelto) 2.5 mg tablet Take 1 tablet (2.5 mg total) by mouth 2 (two) times a day. 180 tablet 3 02/25/20 Active amLODIPine (Norvasc) 5 mg tablet Take 5 mg by mouth daily. 03/08/20 Active cholecalcifero l, vitamin D3, 250 mcg (10,000 unit) tablet Take 1 tablet by mouth daily. Active mupirocin (Bactroban) 2 % cream Apply 1 Application topically as needed. Apply to belly button. Active polyethylene glycol-electro lytes (Golytely) 236-22.74-6.74 -5.86 gram solution Drink 1st portion of prep at 6 PM the evening before. 2nd portion must be started 3 hours before and finished 2 hours prior to report time 4000 mL 04/03/20 Active Additional Information Patient not taking.Reported on 01/08/2025 ezetimibe (Zetia) 10 mg tablet TAKE 1 TABLET BY MOUTH DAILY 90 tablet 3 02/10/20 25 Active ezetimibe (Zetia) 10 mg tablet Take 1 tablet (10 mg total) by mouth daily. 30 tablet 11 02/25/20 24 025 Discontinued Active Problems Problem Noted Date Diagnosed Date [...] Encounters Date Type Department Care Team Description 02/08/2025 Refill Department of Vascular Medicine in [place], [place] [address] [place] [address] Renu Dixon M.D., M.S. Med Refill 01/08/2025 8:46 AM CDT - 01/08/2025 2:27 PM CDT Hospital Encounter Department of Radiation Oncology in [place], [place] [address] [place] [address] Cinthia Meneses M.D. Malignant Neoplasm Of Rectum Adenocarcinoma (HCC) (Primary Dx); Secondary Malignant Neoplasm Lung Right (HCC) from Last 3 Months Family History Medical [...] drink = 0.6 oz pur e alcohol) [facility] Utilities Answer Date Recorded In the past 12 months has e [place], gas, oil, or water [email or web address] threatened to shut off services in your [...] your living situation today? I have a [facility] place to live 02/20/2024 Education Answer [...] F) 01/08/2025 8:56 AM CDT Respiratory Rate 19 06/17/2024 11:0 2 AM INDUSTRIAL SALES MANAGER Oxygen Saturation 97% 06/17/2024 11: 16 AM INDUSTRIAL SALES MANAGER increased from 95-98% on room air after getting up to the bathroom Inhaled Oxygen Concentration - - Weight 151 kg (333 lb 5.4 oz) 01/08/2025 8:56 AM CDT Height 162 cm (5' 3.78) 06/17/2024 9:0 7 AM INDUSTRIAL SALES MANAGER Body Mass Index 57.61 06/17/2024 9:07 AM INDUSTRIAL SALES MANAGER Plan of Treatment Upcoming Encounters Date Type Department Care Team (Latest Contact Info) Description 02/25/2025 12:30 PM CDT Clinical Communication Virtual Review in [place], [place] [address] [place] [address] 03/04/2025 9:30 AM CDT Appointment Department of Radiology, [facility], in [place], [place] [address] [place] [phone] Renu Dixon M.D., M.S. [address] [place] [phone] Discharge Disposition: Home or Self Care 03/04/2025 10:30 AM CDT Appointment Department of Vascular Medicine in [address] [phone] Renu Dixon M.D., M.S. [address] [place] [phone] 03/04/2025 1:00 PM CDT Office Visit Department of Vascular Medicine in [address] [phone] Renu Dixon M.D., M.S. [address] [place] [phone] Health Maintenance Due Date Last Done Comments Cervical/Vaginal Cancer Screening 1968 Cologuard 1968 Hepatitis C Screening 1968 Mammogram 1968 Tobacco Cessation counseling 1968 Hepatitis B Vaccines (1 of 3 - 19+ 3-dose series) 1987 Zoster Vaccines (1 of 2) 1987 DTaP,Tdap,and Td Vaccines (2 - Td or Tdap) 05/09/2021 05/09/2011 COVID-19 Vaccine (2 - Toby risk series) 07/11/2021 06/13/2021 Depression Screening (Annual PHQ-2) 06/04/2024 Influenza Vaccine (#1) 2025 05/09/2011 Fasting Glucose for Diabetes Screening 04/10/2025 04/10/2024, 04/10/2024, 02/25/2024, Additional history exists CT Colonography 08/25/2026 08/25/2021 Lipid (Cholesterol) Screening 04/10/2029 04/10/2024, 02/25/2024 Colonoscopy 06/17/2029 06/17/2024, 05/23/2021 Colorectal Cancer Surveillance 06/17/2029 Pneumococcal vaccine (50+ years) Completed 07/14/2024, 05/09/2011 HPV Vaccines Aged Out No longer eligi ble based on patient's age to complete this topic IPV Vaccines Aged Out No longer eligi ble based on patient's age to complete this topic Medical Devices Implanted Type Area Delivery Truck Driver Heavy Device Identifier Shelf Expiration Date Model / Serial / Lot Clp Hmol Plmr Lg - [id number] Implanted:Qty : 1 on 05/24/2021 by Clovis Alejandro M.D., M.S. at [facility] Hardware e.g. pins/screws/ rods [employer] [id number] 01/31/2026 [id number] / / [id number] Explanted Type Area Delivery Truck Driver Heavy Device Identifier Shelf Expiration Date Model / Serial / Lot Implantable Port Implantable Port Right: Chest Procedures Procedure Name Priority Date/Time Associated Diagnosis Comments OUTSIDE CT BODY Routine 02/17/2025 2:20 PM CDT COLONOSCOPY Routine 06/17/2024 10:37 AM INDUSTRIAL SALES MANAGER Polyp Colon Adenomatous GLUCOSE, FASTING, S/P Routine 04/10/2024 10:13 AM INDUSTRIAL SALES MANAGER Coronary Artery Disease Without Angina Pectoris Impaired Fasting Glucose LIPID PANEL, S Routine 04/10/2024 10:12 AM INDUSTRIAL SALES MANAGER Coronary Artery Disease Without Angina Pectoris Impaired Fasting Glucose from Last 3 Months or Most Recently Relevant to Health Maintenance Results * CT chest abdomen pelv w con-Outside CT Body (02/17/2025 2:20 PM CDT) Narrative [facility] - 02/20/2025 4:55 PM CDT This order has been created and auto-finalized to support the import of outside images. If available, original interpretation can be found on the Media Tab in Chart Review, in Document Viewer, as an image in InfinityView or as an Addendum. If a re-interpretation or overread is required please follow defined workflow. us Provider Not In System IMG CT PROCEDURES Final R esult [facility] NA * Colonoscopy (06/17/2024 10:37 AM INDUSTRIAL SALES MANAGER) 06/17/2024 10:3 7 AM INDUSTRIAL SALES MANAGER Impressions [facility] - 06/17/2024 10:41 AM INDUSTRIAL SALES MANAGER Post-op Diagnoses: - A tattoo was seen in the proximal transverse colon. A scar was found at the tattoo site. Biopsied. - One 4 mm polyp in the distal transverse colon, removed with a cold snare. Resected and retrieved. Narrative [facility] - 06/17/2024 10:41 AM INDUSTRIAL SALES MANAGER Thomas 6 GI GI Patient Name: Page [...] and oxygen saturations were monitored continuously. The [id number] Colonoscope was introduced under direct vision through the transverse colostomy and advanced to the cecum, identified by appendiceal orifice and ileocecal valve. The colonoscopy was performed without difficulty. The quality of the bowel preparation was evaluated using the BBPS ([place] Bowel Preparation Scale) with scores of: Right [...] M.D. GI PROCEDURE ORDERABLES Abby l Result Performing Organization Address City/[facility]/ZIP Co de Phone Number [facility] NA * (ABNORMAL) Glucose, Fasting (04/10/2024 10:13 AM INDUSTRIAL SALES MANAGER) Pathologist [facility] Glucose, P 101(H) 70 - 100 mg/dL 04/10/2024 11:14 AM INDUSTRIAL SALES MANAGER DTL Last Intake 15 hr 04/10/2024 11:01 AM INDUSTRIAL SALES MANAGER DTL Blood (Blood, Venous) 04/10/2024 10:13 AM INDUSTRIAL SALES MANAGER 04/10/2024 11:00 AM INDUSTRIAL SALES MANAGER Anna Hernandez LAB BLOOD NON ADD -ON Final Result Performing Organization Address City/[facility]/ZIP Co de Phone Number [facility] [address] [place] [address], [facility] [address] [place] [address] * Lipid Panel (04/10/2024 10:12 AM INDUSTRIAL SALES MANAGER) Pathologist [facility] Triglycerides 109 mg/dL 04/10/2024 11:16 AM INDUSTRIAL SALES MANAGER DTL Comment: ----REFERENCE VALUE---- Normal: <150 mg/dL Borderline High: 150-199 mg/dL High: 200-499 mg/dL Very High: > or =500 mg/dL Cholesterol, Total 156 mg/dL 2023 11:16 AM INDUSTRIAL SALES MANAGER DTL Comment: ----REFERENCE VALUE---- Desirable: < 200 mg/dL Borderline High: 200 - 239 mg/dL High: > or = 240 mg/dL Cholesterol, LDL, Calculated 77 mg/dL 04/10/2024 11:16 AM INDUSTRIAL SALES MANAGER DTL Comment: ----REFERENCE VALUE---- Desirable: <100 mg/dL Above Desirable: 100-129 mg/dL Borderline High: 130-159 mg/dL High: 160-189 mg/dL Very High: >=190 mg/dL ----ADDITIONAL INFORMATION---- LDL cholesterol calculated using the Modnragon/NIH equation. Cholesterol, HDL, S 59 >=50 mg/dL 04/10/2024 11:16 AM INDUSTRIAL SALES MANAGER DTL Cholesterol, Non-HDL, Calculated 97 mg/dL 04/10/2024 11:16 AM INDUSTRIAL SALES MANAGER DTL Comment: ----REFERENCE VALUE---- Desirable: <130 mg/dL Above Desirable: 130-159 mg/dL Borderline High: 160-189 mg/dL High: 190-219 mg/dL Very High: > or =220 mg/dL Fasting (8 HR or more) Unknown 04/10/2024 10:14 AM INDUSTRIAL SALES MANAGER DTL Blood (Blood, Venous) 04/10/2024 10:12 AM INDUSTRIAL SALES MANAGER 04/10/2024 10:55 AM INDUSTRIAL SALES MANAGER us Anna Hernandez LAB BLOOD ADD-ON Final Result [facility] [address] [place] [address], [facility] [address] [place] [address] from Last 3 Months or Most Recently Relevant to Health Maintenance Insurance [facility] Advance Directives For more information, please contact: [phone] * Full Code (Latest Code Status on [...] Answer Comments Full Code: Discussed Care Teams Rn Case Management Relationship Specialty Start Date End Date Elsewhere, Pcp PCP - General Internal Medicine 05/24/21
--- OUTSIDE RECORDS SUMMARY | 2025-02-22 11:42 | XMS_ITS | Encounter Summary ---
Author Organization [facility] Address [address] [place] [address] Care Team Providers Care Draw End Hand Name Role Phone Elsewhere, Pcp Primary Care Provider Unavailabl e Reason for Visit * Reason Comments Med Refill Encounter Details Date Type Department Care Team (Late st Contact Info) Description 02/08/2025 Refill Department of Vascular Medicine in [place], [place] [address] [place] [phone] Renu Dixon M.D., M.S. [address] [place] [phone] Med Refill Social History Tobacco Use Types Packs/Day Years Used Date Smoking Tobacco: Every Day Cigarettes 1 49.7 Started: 1975 Passive Smoke Exposure: Current Smokeless Tobacco: Never Alcohol Use Standard Drinks/Week Comments Not Currently 0 (1 standard drink = 0.6 oz pur e alcohol) [facility] Utilities Answer Date Recorded In the past 12 months has [facility] [employer], gas, oil, or water [employer] threatened to shut off services in your [...] your living situation today? I have a [facility] place to live 02/20/2024 Education Answer [...] PM CDT Clinical Communication Virtual Review in [place], [place] [address] [place] [address] 03/04/2025 9:30 AM CDT Appointment Department of Radiology, [facility], in [place], [place] [address] [place] [phone] Renu Dixon M.D., M.S. [address] [place] [phone] Discharge Disposition: Home or Self Care 03/04/2025 10:30 AM CDT Appointment Department of Vascular Medicine in [place], [place] [address] [place] [phone] Renu Dixon M.D., M.S. [address] [place] [phone] 03/04/2025 1:00 PM CDT Office Visit Department of Vascular Medicine in [place], [place] [address] [place] [address] Renu Dixon M.D., M.S. [address] [place] [phone] documented as of this encounter Visit Diagnoses Not on filedocumented in this encounter Care Teams Draw End Hand Relationship Specialty Start Date End Date Elsewhere, Pcp PCP - General Internal Medicine 05/24/21 documented as of this encounter
--- OUTSIDE RECORDS SUMMARY | 2025-02-22 11:42 | XMS_ITS | Clinical Summary ---
Author Organization [facility] Address [address] [place] [address] Care Team Providers Care Family Support Specialist Name Role Phone Lyndsay Huitron MD Primary Care Provider [phone] Medications (u) ALBUTEROL AERS 90 MCG/ACT 1-2 [...] on file Legal Sex Female 6:46 AM POND TENDER Gender Identity Not on file Sexual Orientation Not on file Obstetrics History Last Filed Vital Signs Vital Sign Reading Time Taken Comments Blood Pressure 110/70 04/19/2000 12:00 AM POND TENDER Pulse 118 04/19/2000 12:00 AM POND TENDER Temperature 37.5 C (99.5 F) 04/19/2000 12:00 AM POND TENDER Respiratory Rate 16 06/28/1999 12:00 AM POND TENDER Oxygen Saturation - - Inhaled Oxygen Concentration - - Weight 129.7 kg (286 lb) 04/17/2000 12:00 AM POND TENDER Height - - Body Mass Index - - Plan of Treatment Health Maintenance Due Date Last Done Comments Tetanus booster 1979 Depression screening for age 12+ 1980 HIV for age 15-65 1983 BMI (ht and wt on same day) for age 18+ 1986 Hepatitis C screening for age 18-79 1986 Hepatitis B series for 19+ ( 1 of 3 - 19+ 3-dose series) 1987 Pap test for age 21-65 1989 Colonoscopy through age 75 2013 Lipids for age 45-75 2013 Mammogram for age 45-75 2013 05/16/2011 Pneumococcal series for age 50+ (1 of 1 - PCV) 019 Zoster (shingles) series for age 50+ (1 of 2) 07/10/19 19 COVID-19 vaccine series ( - season) 5 Influenza Vaccine (#1) 2025 RSV vaccine for adults or pr egnancy (1 - 1-dose 75+ series) 2043 Procedures Procedure Name Priority Date/Time Associated Diagnosis Comments XR MAMMO BILAT SCREEN FFDM (IA) Routine 05/16/2011 6:28 PM POND TENDER Other screening mammogram from Last 3 Months or Most Recently Relevant to Health Maintenance Results * XR MAMMO BILAT SCREEN FFDM (05/16/2011 6:28 PM POND TENDER) Anatomical Region Laterality Modality BREASTS, Breast Left, Breast Right Bilateral Mammography Impressions 05/17/2011 8:01 AM POND TENDER There is no radiographic evidence for malignancy. Recommend annual mammograms. A lay language report of this examination will be provided to the patient. MAMMOGRAM ASSESSMENT: ACR 1 Negative Narrative 05/17/2011 8:01 AM POND TENDER XR MAMMO BILAT SCREEN FFDM [G0202.0] CLINICAL [...] Most Recently Relevant to Health Maintenance Insurance [facility] Care Teams Family Support Specialist Relationship Specialty [place] [address] [place] [address] PCP - General Family Practice 05/09/11
--- OUTSIDE RECORDS SUMMARY | 2025-02-22 11:42 | XMS_ITS | Encounter Summary ---
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
--- OUTSIDE RECORDS SUMMARY | 2025-02-22 11:42 | XMS_ITS ---
Author Organization [facility] Address [address] [place] [address] Care Team Providers Care Automatic Embroidery Machine Tender Name Role Phone Elsewhere, Pcp Primary Care [...] Fraction Dose Fractions Total Dose Plans Planned [id number] 02/27/2024 - 03/03/2024 1,800 cGy 5 ,400 cGy Reference Points Delivered [id number] 02/27/2024 - 03/03/2024 5,400 cGy * IMRT: RectumOverview* First Treatment Date Last Treatment Date Treatment Site Technique Goal Episode Provider 02/28/2021 04/01/2021 Rectum IMRT Curative * Linked Problems Malignant Neoplasm Of Rectum Adenocarcinoma Treatment Courses* Course 1x Rectum 02/28/2021 - 04/01/2021 Treatment Period Fraction Dose Fractions Total Dose Plans Planned F1 rectum 02/28/2021 - 04/01/2021 200 cGy 5 ,000 cGy Reference Points Delivered [id number] 02/28/2021 - 04/01/2021 5,000 cGy Lifetime Dose Tracking * Chemical Lifetime Dose Automatic Entry Manual Entr y Radiation 304.2 mGy 304.2 mGy 0 mGy Fluoro Time 2.45 minutes 2.45 minutes 0 minutes
--- OUTSIDE RECORDS SUMMARY | 2025-02-22 11:42 | XMS_ITS | Clinical Summary ---
Author Organization [place] Address [address] [place] [address] Care Team Providers Care Architectural Engineering Teacher Name Role Phone No Ref-Primary, Physician [...] mg by mouth daily Active cilostazol (PLETAL) 100 MG tabletIndicatio ns:Peripheral [...] on file Legal Sex Female 3:28 AM REGIONAL MARKETING DIRECTOR Gender Identity Not on file Sexual Orientation Not on file Last Filed Vital Signs Vital Sign Reading Time Taken Comments Blood Pressure 108/73 11/13/2023 11:44 AM CDT Pulse 71 11/13/2023 11:44 AM CDT Temperature - - Respiratory Rate 16 07/31/2023 11:49 AM REGIONAL MARKETING DIRECTOR Oxygen Saturation 97% 11/13/2023 11:44 AM CDT [...] SIG 1968 LIPID 1968 MAMMO SCREENING 1968 sDNA (Cologuard) 1968 YEARLY PREVENTIVE VISIT [...] 05/09/2021 05/09/2011 PHQ-2 (once per calendar year) 2024 COVID-19 VACCINE (2 - 2024-2 6 season) 2025 06/13/2021 INFLUENZA VACCINE (#1) 2025 05/09/2011 HPV VACCINE (No Doses Required) Completed MENINGITIS VACCINE Aged Out No longer eligible based on patient's age to complete this topic Insurance [place] [place] [address] [place] [place] [address] COMMERCIAL Care Teams Architectural Engineering Teacher Relationship Specialty Start Date End Date No Ref-Primary, Physician PCP - General 01/07/21
--- NOTE | 2025-02-22 11:55 | CRLHL7_ITS ---
For Patients: As a result of the Cures Act, medical imaging exams and procedure reports are released immediately into your electronic medical record. You may view this report before your referring provider. If you have questions, please contact your health care provider. INDICATION: Cough, shortness of breath, history of rectal cancer status post radiation 1 year ago TECHNIQUE: Chest 2 views. COMPARISON: CT chest abdomen pelvis 02/17/2025 FINDINGS: Cardiovascular and mediastinum: Heart size is normal. Unremarkable mediastinum. Lungs and pleural spaces: Patchy opacity in the right midlung appears increased compared to prior recent chest CT given differences in technique. Linear opacity in the left lung base is likely atelectasis. No pleural effusion. No pneumothorax. Bones and soft tissues: No significant findings. IMPRESSION: Patchy opacity in the right mid lung appears increased compared to prior recent chest CT given differences in technique, and may represent developing pneumonia on a background of posttreatment changes. Dictated by Tatiana Rao MD @ 02/22/2025 12:56:15 PM (Electronically Signed)
--- NOTE | 2025-02-22 11:57 | ED.GENADULT ---
HPI - General Adult General Chief complaint: Shortness of Breath/Dyspnea Stated complaint: difficulty breathing, cold Time Seen by Provider: 02/22/25 11:52 Source: patient Mode of arrival: ambulatory Limitations: no limitations History of Present Illness HPI narrative: 54-year-old female coming in today complaining of shortness of breath. Patient states that she became ill about 3 days ago with an upper respiratory infection consisting of congestion, runny nose and a mild cough. In the last half day or so, this has progressed to shortness of breath. She says she has a hard time doing any physical activity but feel short of breath when she is sitting still. Does have a history of asthma for which she takes an albuterol inhaler which does not seem to be helping. Patient denies chest pain. No abdominal pain. No vomiting or fever. Cough is sometimes productive. Related Data Home Medications ?Medication ?Instructions ?Recorded ?Confirmed ibuprofen 200 mg capsule 600 mg PO .Q6h Prn PRN 02/09/22 11/05/24 Ibuprofen/Tylenol PO PRN 05/03/22 11/05/24 ezetimibe 10 mg tablet 10 mg PO QDAY 03/11/24 02/22/25 rivaroxaban 2.5 mg tablet (Xarelto) 2.5 mg PO BID 03/11/24 02/22/25 mupirocin 2 % topical ointment 1 applic topical TID PRN 06/24/24 02/22/25 Previous Rx's ?Medication ?Instructions ?Recorded sennosides 8.6 mg capsule (senna) 8.6 mg PO DAILY PRN constipation 12/28/22 #90 caps cholecalciferol (vitamin D3) 250 250 mcg PO QDAY #90 caps 04/25/23 mcg (10,000 unit) capsule albuterol sulfate 90 mcg/actuation 2 puff inhalation Q4-6H PRN 02/19/24 aerosol inhaler shortness of breath or wheezing #8.5 grams hydrochlorothiazide 12.5 mg tablet 12.5 mg PO QAM #90 tabs 07/25/24 rosuvastatin 20 mg tablet 20 mg PO QDAY #90 tabs 09/24/24 aspirin 81 mg chewable tablet 81 mg PO QDAY #90 tabs 12/11/24 (Aspirin Childrens) bupropion HCl 300 mg 24 hr tablet, 300 mg PO QAM #90 tabs 07/10/25 extended release metformin 500 mg tablet 1,000 mg (2 x 500 mg) PO BIDWMEAL 12/12/24 #360 tabs amlodipine 5 mg tablet 5 mg PO QDAY #90 tabs 12/29/24 cyanocobalamin (vitamin B-12) 2,500 mcg PO QDAY #90 tabs 02/18/25 2,500 mcg tablet Allergies Allergy/AdvReac Type Severity Reaction Status Date / Time amoxicillin Allergy Intermediate Abdominal Verified 02/22/25 11:51 pains sever and diarrhea azithromycin Allergy Mild Nausea Verified 02/22/25 11:51 Review of Systems Status of ROS: Reports: 6 or more systems reviewed and unremarkable except as noted in History and below [facility] Medical History Hx of malignant neoplasm of lung ?Z85.118 - Personal history of other malignant neoplasm of bronchus and lung (ICD-10) Tubular adenoma of colon (~08/2023) ?D12.6 - Benign neoplasm of colon, unspecified (ICD-10) Abnormal ankle brachial index (BEATA) ?R68.89 - Other general symptoms and signs (ICD-10) Bursitis ?M71.9 - Bursopathy, unspecified (ICD-10) Family hx of colorectal cancer (~2020) ?Z80.0 - Family history of malignant neoplasm of digestive organs (ICD-10) Rectal sphincter incontinence ?R15.9 - Full incontinence of feces (ICD-10) Family history of celiac disease ?Z83.79 - Family history of other diseases of the digestive system (ICD-10) Obstructive sleep apnea on CPAP ?G47.33 - Obstructive sleep apnea (adult) (pediatric) (ICD-10) ?Z99.89 - Dependence on other enabling machines and devices (ICD-10) Pulmonary nodule ?R91.1 - Solitary pulmonary nodule (ICD-10) Premature of twins Prediabetes ?R73.03 - Prediabetes (ICD-10) Obstructive sleep apnea syndrome ?G47.33 - Obstructive sleep apnea (adult) (pediatric) (ICD-10) Hypertension ?I10 - Essential (primary) hypertension (ICD-10) Surgical History History of partial surgical removal of colon ?Z90.49 - Acquired absence of other specified parts of digestive tract (ICD-10) History of section ?Z98.891 - History of uterine scar from previous surgery (ICD-10) Family History Mother Dementia Thyroid disease Maternal Grandmother Dementia Maternal Grandfather Heart disease Son Pituitary disease Father Stroke Social History Narrative: 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 Alert and oriented. Answers questions appropriately. Patient cannot complete a full sentence without needing to catch her breath. HEENT: Normocephalic atraumatic. Pupils are equally round reactive to light. Extraocular muscles are intact. Conjunctivae are moist without any icterus noted. Moist mucous membranes. Cardiovascular: Heart is regular rate and rhythm. Lungs: Diffuse wheezing and rhonchi bilaterally. Abdomen: Soft and nontender nondistended with normal bowel sounds. Extremities: Chronic lymphedema. Skin: Well perfused. Const: Vital Signs, click to edit/add: Vital Signs - 24 hr 02/22/25 11:45 Temperature 98.5 F Pulse Rate [Right Pulse Oximeter] 90 Respiratory Rate 28 H Blood Pressure [Ri ght Upper Arm] 150/83 H Pulse Oximetry 89 Oxygen Delivery Me thod Room Air Course Course ED Course: Differential diagnoses includes asthma exacerbation, PE, pneumonia, acute coronary syndrome, viral infection. IV established and Solu-Medrol and a DuoNeb were ordered. Patient was then placed on oxygen-went to 94% on 3 L nasal cannula. Re-examination reveals that the wheezing is slightly better but certainly still present. She is breathing a little easier. DuoNeb was repeated at this time. EKG, read by me, shows normal sinus rhythm with a pulse of 81. CBC was unremarkable. Chest x-ray shows a potential right-sided infiltrate- will proceed with a chest CT PE protocol at this time to definitively rule out or in pneumonia and PE. Triple swab was negative. VBG showed elevated O2, otherwise unremarkable. CT shows pneumonia, no PE. Blood cultures drawn. Rocephin and doxycycline started as patient has an intolerance to azithromycin. Vital Signs Vital signs: Initial Vital Signs Temperature 98.5 F 02/22/25 11:45 Temperature Source Temporal Artery Scan 02/22/25 11:45 Pulse Rate 90 02/22/25 11:45 Pulse Rhythm Regular 02/22/25 11:45 Pulse Strength 3+ Normal 02/22/25 11:45 Respiratory Rate 28 H 02/22/25 11:45 Blood Pressure 150/83 H 02/22/25 11:45 Blood Pressure Mean 105 02/22/25 11:45 Blood Pressure Position Sitting 02/22/25 11:45 Pulse Oximetry 89 02/22/25 11:45 Oxygen Delivery Method Room Air 02/22/25 11:45 Vital Signs Temperature 98.5 F 02/22/25 11:45 Pulse Rate 90 02/22/25 11:45 Respiratory Rate 28 H 02/22/25 11:45 Blood Pressure 150/83 H 02/22/25 11:45 Pulse Oximetry 89 02/22/25 11:45 Oxygen Delivery Method Room Air 02/22/25 11:45 Temperature 98.5 F 02/22/25 11:45 Pulse Rate 90 02/22/25 11:45 Respiratory Rate 28 H 02/22/25 11:45 Blood Pressure 150/83 H 02/22/25 11:45 Pulse Oximetry 89 02/22/25 11:45 Oxygen Delivery Method Room Air 02/22/25 11:45 Medications Administered Medications: Discontinued Medications Generic Name Dose Route Start Last Admin Trade Name Neva PRN Reason Stop Dose Admin Albuterol/Ipratropium 1 [facility] 02/22/25 11:55 02/22/25 12:19 Iprat-Albut 0.5-2.5 Mg/3 Ml [facility] 02/22/25 11:56 1 neb ONCE ONE Administration Albuterol/Ipratropium 1 neb 02/22/25 12:47 02/22/25 13:00 Iprat-Albut 0.5-2.5 Mg/3 Ml [facility] 02/22/25 12:48 1 neb ONCE ONE Administration Methylprednisolone Sodium Succinate 125 mg 02/22/25 11:55 02/22/25 12:19 Methylprednisolone Sod Succ 62.5 Mg/Ml (125) IVP 02/22/25 11:56 125 mg ONCE ONE Administration Medical Decision Making MDM Narrative Medical decision making narrative: 54-year-old female with pneumonia and acute hypoxic respiratory failure. Patient will be admitted for further management. Lab Data Lab results reviewed: Yes I reviewed the patient's lab results Labs: Lab Results 02/22/25 02/22/25 Range/Units 12:02 12:20 WBC 4.90 (4.50-11.00) K/uL RBC 4.18 (4.00-5.20) m/uL Hgb 12.4 (12.0-16.0) gm/dL Hct 38.9 (33.0-51.0) % MCV 93 (80-100) fL MCH 30 (26-34) pg MCHC 32 (32-36) gm/dL RDW Coeff of Arjun 14.9 (11.5-15.5) % Plt Count 160 (140-440) K/uL Neut % (Auto) 71.8 (42.0-72.0) % Lymph % (Auto) 13.5 L (20-44) % [place] % (Auto) 11.2 H (0.0-11.0) % Eos % (Auto) 2.7 (0.0-7.0) % Baso % (Auto) 0.4 (0.0-3.0) % Neut # (Auto) 3.52 (1.7-7.0) K/uL Lymph # (Auto) 0.70 L (0.90-2.90) K/uL [place] # (Auto) 0.50 (0.00-0.90) K/UL Eos # (Auto) 0.13 (0.00-0.50) K/uL Baso # (Auto) 0.02 (0.00-0.30) K/uL Abs Immat Gran (auto) 0.02 (0.00-0.30) K/uL Imm/Tot Granulo (auto) 0.4 % VBG pH 7.386 (7.32-7.43) VBG pCO2 46 (40-50) mmHG VBG pO2 59.9 H (25-47) mmHG VBG HCO3 28 (21-28) mmol/L Sodium 140 (135-149) mmol/L Potassium 3.9 (3.6-5.1) mmol/L Chloride 104 (96-114) mmol/L Carbon Dioxide 29 (20-32) mmol/L Anion Gap 7 (7-15) mEq/L BUN 10 (7-30) mg/dL Creatinine 1.0 (0.5-1.5) mg/dL Estimated Creat Clear 54.24 Estimated GFR 66 ml/min Glucose 136 H (60-115) mg/dL Calcium 9.2 (8.4-10.6) mg/dL Magnesium 2.1 (1.5-2.6) mg/dL Total Bilirubin 1.0 (0.1-1.5) mg/dL Direct Bilirubin 0.3 (0.0-0.5) mg/dL AST 36 H (12-35) U/L ALT 16 (4-35) U/L Alkaline Phosphatase 75 (40-150) U/L Troponin I < 0.01 (0.01-0.04) ng/mL Total Protein 7.4 (6.0-8.3) g/dL Albumin 4.0 (3.3-5.0) g/dL SARS-CoV-2 (PCR) Negative SARS-CoV-2 (Negative) Influenza Type A (PCR) Negative PCR FLU A (Negative) Influenza Type B (PCR) Negative PCR FLU B (Negative) RSV (PCR) Negative PCR RSV (Negative) Imaging Data Chest x-ray: Attestation: I have reviewed the pertinent imaging results. Radiologist's impression: TECHNIQUE: Chest 2 views. COMPARISON: CT chest abdomen pelvis 02/17/2025 FINDINGS: Cardiovascular and mediastinum: Heart size is normal. Unremarkable mediastinum. Lungs and pleural spaces: Patchy opacity in the right midlung appears increased compared to prior recent chest CT given differences in technique. Linear opacity in the left lung base is likely atelectasis. No pleural effusion. No pneumothorax. Bones and soft tissues: No significant findings. IMPRESSION: Patchy opacity in the right mid lung appears increased compared to prior recent chest CT given differences in technique, and may represent developing pneumonia on a background of posttreatment changes. CT scan - chest: Attestation: I have reviewed the pertinent imaging results. Radiologist's impression: TECHNIQUE: CT angiogram chest with contrast, pulmonary embolism protocol. Multiplanar axial, coronal, and sagittal reformats are included. MIP images to improve detection of pulmonary emboli are included. Intravenous contrast: 95 mL Isovue 370. FINDINGS: PE: Well-timed contrast bolus. No pulmonary emboli. Normal caliber main pulmonary artery. Normal sized right heart chambers. No reflux of contrast below the diaphragm. Airway: Distal endobronchial thickening with a few areas of distal endobronchial impaction. Lungs: Similar distortion in the right middle lobe related to prior radiation therapy. There are new scattered patchy nodular opacities and consolidations in both lungs. These are new since 02/17/2025. mosaic attenuation. No large consolidations. No cavitation or necrosis. No emphysema or edema. Pleura: No pleural effusion. No pneumothorax. Lymph nodes: No thoracic adenopathy. Mediastinum: No pneumomediastinum. No mass. Heart and great vessels: No pericardial effusion. Normal cardiac chamber size. Scattered atherosclerotic plaques. No aortic aneurysm. Chest wall: Normal. No masses. Upper abdomen: Left upper quadrant ostomy. Bones: No fractures. No focal bone lesions. IMPRESSION: 1. Multifocal bronchitis and bronchopneumonia. These findings are new since 02/17/2025. Recommend a follow-up chest CT in 3 months to ensure resolution. 2. No pulmonary embolism. ECG Data Attestation: I personally reviewed and interpreted this ECG as follows: Discharge Plan Discharge Clinical Impression: Pneumonia, Acute hypoxic respiratory failure Patient Disposition: Admitted As Inpatient Condition: Stable Procedures ABG Interpretation ABG Results: 02/22/25 12:20 VBG pH 7.386 VBG pCO2 46 VBG pO2 59.9 H VBG HCO3 28
[2025-02-22] MEDS: IPRAT-ALBUT 0.5-2.5 MG/3 ML NEB 1 NEB IH ×4 (12:19→20:32)
[2025-02-22] MEDS: METHYLPREDNISOLONE SOD SUCC 62.5 MG/ML (125) 125 MG IVP (12:19)
[2025-02-22 12:30] LABS: HCO3 VBG 28 mmol/L (21-28); PCO2 VBG 46 mmHG (40-50); PO2 VBG 59.9 mmHG (25-47); pH VBG 7.386 (7.32-7.43)
--- OUTSIDE RECORDS SUMMARY | 2025-02-22 12:33 | XMS_ITS | CCD ---
Author Name Interface, [id number] lity Address [address] [place] [id number] [facility] Address [facility] [address] [address] Reason for Visit Social History Date Name Value 01/31/2025 Sex Female
--- OUTSIDE RECORDS SUMMARY | 2025-02-22 12:33 | XMS_ITS | CCD ---
Author Name Interface, [id number] lity Address [address] [place] [id number] [facility] Address [facility] [address] [address] Reason for Visit Social History Date Name Value 01/31/2025 Sex Female
[2025-02-22 12:34] LABS: Hematocrit* 38.9 % (33.0-51.0); Hemoglobin* 12.4 gm/dL (12.0-16.0); Immature Granulocytes Abs Auto 0.02 K/uL (0.00-0.30); Immature Granulocytes Pct Auto 0.4 %; Mean Corpuscular HGB Conc 32 gm/dL (32-36); Mean Corpuscular Hemoglobin 30 pg (26-34); Mean Corpuscular Volume 93 fL (80-100); RDW Coefficient of Variation % 14.9 % (11.5-15.5); Red Blood Count* 4.18 m/uL (4.00-5.20); White Blood Count* 4.90 K/uL (4.50-11.00)
[2025-02-22 12:35] LABS: Lymphocytes Absolute Auto 0.70 K/uL (0.90-2.90); Slide Review Reflex No
[2025-02-22 12:51] LABS: Albumin* 4.0 g/dL (3.3-5.0); Chloride* 104 mmol/L (96-114); Potassium* 3.9 mmol/L (3.6-5.1); Sodium* 140 mmol/L (135-149)
[2025-02-22 12:53] LABS: Blood Urea Nitrogen* 10 mg/dL (7-30); Creatinine* 1.0 mg/dL (0.5-1.5); Est. Creatinine Clearance* 54.24; Estimated Glomerular Filt Rate 66 ml/min
[2025-02-22 12:54] LABS: PCR FLU A Negative PCR FLU A (Negative); PCR FLU B Negative PCR FLU B (Negative); PCR RSV Negative PCR RSV (Negative); SARS PCR* Negative SARS-CoV-2 (Negative)
[2025-02-22 12:54] LABS: Alanine Aminotransferase* 16 U/L (4-35); Alkaline Phosphatase* 75 U/L (40-150); Anion Gap 7 mEq/L (7-15); Aspartate Amino Transferase* 36 U/L (12-35); Bilirubin Direct* 0.3 mg/dL (0.0-0.5); Bilirubin Total* 1.0 mg/dL (0.1-1.5); Calcium* 9.2 mg/dL (8.4-10.6); Carbon Dioxide* 29 mmol/L (20-32); Glucose* 136 mg/dL (60-115); Total Protein* 7.4 g/dL (6.0-8.3)
--- NOTE | 2025-02-22 12:59 | CRLHL7_ITS ---
For Patients: As a result of the Century Cures Act, medical imaging exams and procedure reports are released immediately into your electronic medical record. You may view this report before your referring provider. If you have questions, please contact your health care provider. 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 History of radiation to the lung 1 year ago. COMPARISON: 02/17/2025, 01/08/2024, 07/09/2023, 04/11/2023 TECHNIQUE: CT angiogram chest with contrast, pulmonary embolism protocol. Multiplanar axial, coronal, and sagittal reformats are included. MIP images to improve detection of pulmonary emboli are included. Intravenous contrast: 95 mL Isovue 370. FINDINGS: PE: Well-timed contrast bolus. No pulmonary emboli. Normal caliber main pulmonary artery. Normal sized right heart chambers. No reflux of contrast below the diaphragm. Airway: Distal endobronchial thickening with a few areas of distal endobronchial impaction. Lungs: Similar distortion in the right middle lobe related to prior radiation therapy. There are new scattered patchy nodular opacities and consolidations in both lungs. These are new since 02/17/2025. mosaic attenuation. No large consolidations. No cavitation or necrosis. No emphysema or edema. Pleura: No pleural effusion. No pneumothorax. Lymph nodes: No thoracic adenopathy. Mediastinum: No pneumomediastinum. No mass. Heart and great vessels: No pericardial effusion. Normal cardiac chamber size. Scattered atherosclerotic plaques. No aortic aneurysm. Chest wall: Normal. No masses. Upper abdomen: Left upper quadrant ostomy. Bones: No fractures. No focal bone lesions. IMPRESSION: 1. Multifocal bronchitis and bronchopneumonia. These findings are new since 02/17/2025. Recommend a follow-up chest CT in 3 months to ensure resolution. 2. No pulmonary embolism. Please note that all CT scans at this facility use dose modulation, iterative reconstruction, and/or weight-based dosing when appropriate to reduce radiation dose to as low as reasonably achievable. Dictated by Selene Sorto MD @ 02/22/2025 2:05:50 PM (Electronically Signed)
[2025-02-22] MEDS: cefTRIAXone 1 GM in 0.9 % SODIUM CHLORIDE Mini-bag 100 ML IVPB (15:03)
[2025-02-22] MEDS: DOXYCYCLINE HYCLATE 100 MG in 0.9 % SODIUM CHLORIDE Mini-bag 100 ML IVPB (15:30)
--- NOTE | 2025-02-22 16:52 | PM.IMHP1 ---
Assessment and Plan Assessment and plan (1) Acute hypoxic respiratory failure: Problem comment: Due primarily to pneumonia with secondary contributors of COPD and obstructive sleep apnea Status: Acute (2) Pneumonia: Problem comment: Right lung infiltrate in a similar area to her right lung nodule which is likely adenocarcinoma Status: Acute (3) Hx of malignant neoplasm of lung: Problem comment: Right lung, s/p radiation x 3 sessions; metastasis from colon cancer. Follows with [facility]. February 17 CT scan shows lesion is increased from 4 mm to 7 mm in the past year despite radiation. Status: Acute (4) Chronic anticoagulation: Problem comment: started xarelto by [facility]; prescribed vascular med at [facility]. Pending her visit on March 04 I will change her Xarelto 2 5 mg once a day rather than 2.5 mg ordered as b.i.d. but taken as once a day. Status: Acute (5) Carotid artery stenosis: Problem comment: Follow with vascular med- [facility]. Appointment March 04 Status: Acute (6) Abnormal nuclear stress test: Problem comment: 02/21/2024- referred to [facility] 04/10/2024- consulted with cardiology at [place]; did not do angiogram, medically managed Not currently symptomatic Status: Acute (7) Peripheral edema: Problem comment: 03-0419-vy-initiated hydrochlorothiazide 12.5 mg daily. Recommend compression stockings Status: Acute (8) COPD (chronic obstructive pulmonary disease): Problem comment: Longstanding smoker with chronic dyspnea. Treat with inhaled bronchodilators and short course of steroids. Status: Acute (9) Obstructive sleep apnea syndrome: Problem comment: CPAP with 3 L of oxygen blown in at night Status: Acute (10) Morbid obesity: Problem comment: 12/31/2023-weight 330 lb; BMI 56.7%; prescribed Wellbutrin 150 mg XL daily plus naltrexone 25-50 mg daily. 02/13/2024-weight 332 lb. BMI greater than 50%. Represcribed mounjaro. 06/24/2024-weight 317 lb 07/14/2024-weight 320 lb; currently on Wellbutrin 150 mg; will increase to 300 mg; discontinue naltrexone(to reduce pill burden) Tried Mounjaro made her very nauseated. Status: Acute (11) Noncompliance with medication regimen: Problem comment: She has been taking medications only once a day in the evening. She does not remember to take her morning medications. As a result of this I have recommended that she takes Xarelto 5 mg in the evening and metformin extended release 2000 mg in the evening rather than prescribed half doses b.i.d. Status: Acute (12) Smoking trying to quit: Problem comment: Is on Wellbutrin to help with smoking cessation. For now will add nicotine patch. She reports that she has been smoking since age 11 Status: Acute Plan Patient is admitted to the hospital for monitoring of respiratory status, supplemental oxygen, antibiotics, inhaled bronchodilators and steroids. Total Time Spent Total Time Spent: Total time spent today is 80 minutes in reviewing outside records, coordination of care, discussion with patient and about ongoing evaluation management of pneumonia, COPD, lung nodule. Hospitalist- H&P: HPI History of Present Illness Date Seen: 02/22/25 Chief complaint: difficulty breathing, cold Narrative: Page Fisher is a 54 year old female with history of rectal cancer, morbid obesity, RITESH on CPAP, COPD/asthma, diabetes who presents with a 3 day history of worsening cough and dyspnea. She reports she was in her usual state of health until 3 days ago when she had cough and began to have worsening dyspnea. She reports progressive exercise intolerance to the point where she could not walk from her bedroom to her bathroom without stopping to catch her breath. She has RITESH and uses CPAP at night with supplemental oxygen 3 L blown into her CPAP. She has been able to sleep without on. She uses albuterol at home only when she gets sick and she has been using it quite frequently in the last 3 days. It gives some minimal benefit. She is known to have rectal cancer diagnosed in September 2020. At that time PET scan showed a lesion in her right lung as well. She underwent chemotherapy with FOLFIRINOX followed by 5 FU with radiation treatment followed by M FOLFOX. In December 2020 she developed root obstruction secondary to her rectal adenocarcinoma and had a diverting loop colostomy. She had reanastomosis of her colon but had rectal incontinence so then had repeat diverting colostomy. In January 2024 The lesion in her right lung continued to grow so she underwent SBRT in 2023. Five days ago she had CT chest abdomen and pelvis which showed increased size of a pulmonary nodule in the right lateral lung now measuring 7 mm compared to 4 mm from January of 2024. I discussed these results with the patient as she had not heard back from her oncology provider about this yet. She has had no known exposures. She lives with her and he became ill yesterday with similar symptoms. Review of Systems Narrative: She reports doing well other than the last 3 days of illness described above. Medical Decision Making Medical Decision Making Has patient completed a Health Care Directive: No PFSH PFSH Medical History (Updated 02/22/25 @ 17:13 by Kyle Mujica MD) Smoking trying to quit ?Z72.0 - Tobacco use (ICD-10) Noncompliance with medication regimen ?Z91.148 - Patient's other noncompliance with medication regimen for other reason (ICD-10) COPD (chronic obstructive pulmonary disease) ?J44.9 - Chronic obstructive pulmonary disease, unspecified (ICD-10) Hx of malignant neoplasm of lung ?Z85.118 - Personal history of other malignant neoplasm of bronchus and lung (ICD-10) Tubular adenoma of colon (~08/2023) ?D12.6 - Benign neoplasm of colon, unspecified (ICD-10) Abnormal ankle brachial index (BEATA) ?R68.89 - Other general symptoms and signs (ICD-10) Bursitis ?M71.9 - Bursopathy, unspecified (ICD-10) Family hx of colorectal cancer (~2020) ?Z80.0 - Family history of malignant neoplasm of digestive organs (ICD-10) Rectal sphincter incontinence ?R15.9 - Full incontinence of feces (ICD-10) Family history of celiac disease ?Z83.79 - Family history of other diseases of the digestive system (ICD-10) Obstructive sleep apnea on CPAP ?G47.33 - Obstructive sleep apnea (adult) (pediatric) (ICD-10) ?Z99.89 - Dependence on other enabling machines and devices (ICD-10) Pulmonary nodule ?R91.1 - Solitary pulmonary nodule (ICD-10) Premature of twins Prediabetes ?R73.03 - Prediabetes (ICD-10) Obstructive sleep apnea syndrome ?G47.33 - Obstructive sleep apnea (adult) (pediatric) (ICD-10) Hypertension ?I10 - Essential (primary) hypertension (ICD-10) Surgical History History of partial surgical removal of colon ?Z90.49 - Acquired absence of other specified parts of digestive tract (ICD-10) History of section ?Z98.891 - History of uterine scar from previous surgery (ICD-10) Family History Mother Dementia Thyroid disease Maternal Grandmother Dementia Maternal Grandfather Heart disease Son Pituitary disease Father Stroke Social History (Updated 02/22/25 @ 17:01 by Kyle Mujica MD) Narrative: She lives with her in [place]. They have 2 dogs. Currently on social security disability - 3 kids Smoker- 1 pack a day. She does not drink alcohol. No recreational drug use. Code status is full. is healthcare power of senior trial attorney What is your current living situation?: I presently have a place to live Problems where you live: no known problems Problems where you live details: none known In the past 12 months, utilities in danger of being shut off: no In past 12 months, lack of transportation kept you from medical appts, meetings, work, or getting things needed for daily living: no In the past 12 mos, have been you worried that your food would run out before you had money to buy more?: never true In the past 12 mos, the food you bought just didn't last and you didn't have money to buy more?: never true Smoking Status: Current every day smoker What tobacco products do you use: cigarettes Smoking packs per day: 1 Smoking cigarettes per day: 20.0 How often do you have a drink containing alcohol: never AUDIT-C Alcohol total score: 0 Non-prescribed substance use: denies use Caffeine: No How often does anyone, including family, friends and others, physically hurt you: never How often does anyone, including family, friends and others, insult or talk down to you: never How often does anyone, including family, friends and others, threaten you with harm: never How often does anyone, including family, friends and others, scream or curse at you: never Meds Home Medications and Allergies Home Medications ?Medication ?Instructions ?Recorded ?Confirmed ?Type sennosides 8.6 mg capsule (senna) 8.6 mg PO DAILY PRN constipation 12/28/22 02/22/25 Rx #90 caps albuterol sulfate 90 mcg/actuation 2 puff inhalation Q4-6H PRN 02/19/24 02/22/25 Rx aerosol inhaler shortness of breath or wheezing #8.5 grams ezetimibe 10 mg tablet 10 mg PO DAILY 03/11/24 02/22/25 History rivaroxaban 2.5 mg tablet (Xarelto) 2.5 mg PO BID 03/11/24 02/22/25 History mupirocin 2 % topical ointment 1 applic topical TID PRN 06/24/24 02/22/25 History hydrochlorothiazide 12.5 mg tablet 12.5 mg PO QAM #90 tabs 07/25/24 02/22/25 Rx bupropion HCl 300 mg 24 hr tablet, 300 mg PO QAM #90 tabs 12/11/24 02/22/25 Rx extended release metformin 500 mg tablet 1,000 mg (2 x 500 mg) PO BIDWMEAL 12/12/24 02/22/25 Rx #360 tabs cyanocobalamin (vitamin B-12) 2,500 mcg PO QDAY #90 tabs 02/18/25 02/22/25 Rx 2,500 mcg tablet amlodipine 5 mg tablet 5 mg PO DAILY 02/22/25 02/22/25 History aspirin 81 mg chewable tablet 81 mg PO DAILY 02/22/25 02/22/25 History (Aspirin Childrens) cholecalciferol (vitamin D3) 250 250 mcg PO DAILY 02/22/25 02/22/25 History mcg (10,000 unit) capsule rosuvastatin 20 mg tablet 20 mg PO DAILY 02/22/25 02/22/25 History Home Medication Comments: She takes all of her medications in the evening. As a result she is only getting 1 dose of rivaroxaban 2.5 mg daily and 1 dose of metformin 1000 mg daily in the evening. Allergies Allergy/AdvReac Type Severity Reaction Status Date / Time amoxicillin Allergy Intermediate Abdominal Verified 02/22/25 11:51 pains sever and diarrhea azithromycin Allergy Mild Nausea Verified 02/22/25 11:51 Exam Narrative: Exam Narrative: She is alert and appears in no obvious distress breathing oxygen per nasal cannula. She gives her own history. She is oriented to her circumstances. Head is without trauma. Eyes normal. Oropharynx with small airway. No mucosal abnormality. Neck is supple without mass or adenopathy. Respirations are clear to auscultation except for a few left basilar crackles and right lateral chest crackles. She has diminished breath sounds without marked wheezing. Cardiovascular: S1, S2, regular rate and rhythm. Abdomen is soft without tenderness or mass. External genitalia normal. Extremities with 1+ edema bilaterally. Intact peripheral pulses. No rash. Const: Vital Signs, click to edit/add: Vital Signs - 24 hr 02/22/25 11:45 02/22/25 12:03 02/22/25 12:15 Temperature 98.5 F Pulse Rate 83 85 Pulse Rate [Left P ulse Oximeter] Pulse Rate [Right Pulse Oximeter] 90 Respiratory Rate 28 H Blood Pressure Blood Pressure [Le ft Arm] Blood Pressure [Ri ght Upper Arm] 150/83 H Pulse Oximetry 89 91 92 Oxygen Delivery Me thod Room Air Oxygen Flow Rate 02/22/25 12:30 02/22/25 12:34 02/22/25 12:45 Temperature Pulse Rate 73 76 Pulse Rate [Left P ulse Oximeter] Pulse Rate [Right Pulse Oximeter] Respiratory Rate Blood Pressure Blood Pressure [Le ft Arm] Blood Pressure [Ri ght Upper Arm] Pulse Oximetry 94 94 Oxygen Delivery Me thod Nasal Cannula Oxygen Flow Rate 4 02/22/25 13:00 02/22/25 13:15 02/22/25 13:45 Temperature Pulse Rate 76 77 90 Pulse Rate [Left P ulse Oximeter] Pulse Rate [Right Pulse Oximeter] Respiratory Rate 24 26 H Blood Pressure Blood Pressure [Le ft Arm] Blood Pressure [Ri ght Upper Arm] Pulse Oximetry 93 90 92 Oxygen Delivery Me thod Nasal Cannula Oxygen Flow Rate 4 02/22/25 14:00 02/22/25 14:15 02/22/25 14:31 Temperature Pulse Rate 85 85 88 Pulse Rate [Left P ulse Oximeter] Pulse Rate [Right Pulse Oximeter] Respiratory Rate Blood Pressure Blood Pressure [Le ft Arm] Blood Pressure [Ri ght Upper Arm] Pulse Oximetry 91 91 90 Oxygen Delivery Me thod Oxygen Flow Rate 02/22/25 14:35 02/22/25 14:45 02/22/25 15:00 Temperature Pulse Rate 87 85 88 Pulse Rate [Left P ulse Oximeter] Pulse Rate [Right Pulse Oximeter] Respiratory Rate 15 24 16 Blood Pressure 148/72 H Blood Pressure [Le ft Arm] Blood Pressure [Ri ght Upper Arm] Pulse Oximetry 92 92 93 Oxygen Delivery Me thod Nasal Cannula Oxygen Flow Rate 3 02/22/25 15:01 02/22/25 15:29 02/22/25 15:44 Temperature Pulse Rate 85 Pulse Rate [Left P ulse Oximeter] 89 Pulse Rate [Right Pulse Oximeter] Respiratory Rate 16 22 22 Blood Pressure 160/74 H Blood Pressure [Le ft Arm] 138/60 Blood Pressure [Ri ght Upper Arm] Pulse Oximetry 92 93 90 Oxygen Delivery Me thod Nasal Cannula Nasal Cannula Oxygen Flow Rate 3 3 Hospitalist - H&P: Result Labs Labs: Short CBC 02/22/25 Range/Units 12:20 WBC 4.90 (4.50-11.00) K/uL Hgb 12.4 (12.0-16.0) gm/dL Hct 38.9 (33.0-51.0) % Plt Count 160 (140-440) K/uL BMP 02/22/25 12:20 Sodium 140 Potassium 3.9 Chloride 104 Carbon Dioxide 29 BUN 10 Creatinine 1.0 Glucose 136 H Calcium 9.2 Cardiac Enzymes 02/22/25 Range/Units 12:20 Troponin I < 0.01 (0.01-0.04) ng/mL Liver Function 02/22/25 Range/Units 12:20 Total Bilirubin 1.0 (0.1-1.5) mg/dL Direct Bilirubin 0.3 (0.0-0.5) mg/dL AST 36 H (12-35) U/L ALT 16 (4-35) U/L Alkaline Phosphatase 75 (40-150) U/L Albumin 4.0 (3.3-5.0) g/dL Imaging CT scan - chest: Radiologist's impression: INDICATION: Shortness of breath, cough, history of metastatic rectal cancer to the lung. History of radiation to the lung 1 year ago. COMPARISON: 02/17/2025, 01/08/2024, 07/09/2023, 04/11/2023 TECHNIQUE: CT angiogram chest with contrast, pulmonary embolism protocol. Multiplanar axial, coronal, and sagittal reformats are included. MIP images to improve detection of pulmonary emboli are included. Intravenous contrast: 95 mL Isovue 370. FINDINGS: PE: Well-timed contrast bolus. No pulmonary emboli. Normal caliber main pulmonary artery. Normal sized right heart chambers. No reflux of contrast below the diaphragm. Airway: Distal endobronchial thickening with a few areas of distal endobronchial impaction. Lungs: Similar distortion in the right middle lobe related to prior radiation therapy. There are new scattered patchy nodular opacities and consolidations in both lungs. These are new since 02/17/2025. mosaic attenuation. No large consolidations. No cavitation or necrosis. No emphysema or edema. Pleura: No pleural effusion. No pneumothorax. Lymph nodes: No thoracic adenopathy. Mediastinum: No pneumomediastinum. No mass. Heart and great vessels: No pericardial effusion. Normal cardiac chamber size. Scattered atherosclerotic plaques. No aortic aneurysm. Chest wall: Normal. No masses. Upper abdomen: Left upper quadrant ostomy. Bones: No fractures. No focal bone lesions. IMPRESSION: 1. Multifocal bronchitis and bronchopneumonia. These findings are new since 02/17/2025. Recommend a follow-up chest CT in 3 months to ensure resolution. 2. No pulmonary embolism.
--- NOTE | 2025-02-22 17:46 | RESP.RT ---
Patient wears home CPAP at night with 3L bleed in of O2. Patient takes albuterol at home, but does not have any maintenance inhalers prescribed yet. She is a current smoker about a pack a day for the past 35 years. Aerobika given and patient is able to use independently. Patient is currently on 2L NC and SATing 91% while eating. We will continue to wean as tolerated.
[2025-02-22] MEDS: ASPIRIN 81 MG TAB.CHEW PO (18:08)
[2025-02-22] MEDS: AMLODIPINE 5 MG TABLET PO (18:09)
[2025-02-22] MEDS: ROSUVASTATIN CALCIUM 10 MG TABLET 20 MG PO (18:09)
[2025-02-22] MEDS: RIVAROXABAN 10 MG TABLET 5 MG PO (18:09)
[2025-02-22] MEDS: METFORMIN ER 500 MG 2000 MG PO (18:10)
[2025-02-22] MEDS: NICOTINE 21 MG PATCH 1 PATCH TRANSDERMA (18:10)
[2025-02-22] MEDS: EZETIMIBE 10 MG TABLET PO (18:10)
--- NOTE | 2025-02-22 19:43 | PC.NURSE ---
End of shift: Patient pleasant and cooperative. A&O. VSS, afebrile. Spo2 maintained above 90% on 2L via NC. Tolerating diabetic diet. Independent in room. ?
[2025-02-22] MEDS: SODIUM CHLORIDE 0.9 % (FLUSH) 10 ML SYRINGE 5 ML IVF (20:32)
[2025-02-23] VITALS (10 sets, daily range): BP systolic 123–169; BP diastolic 58–84; PULSE 81–97; RESP 18–24; TEMP 36.5–36.9; O2SAT 90–95
[2025-02-23] MEDS: ACETAMINOPHEN 325 MG TABLET 650 MG PO (03:27)
[2025-02-23] MEDS: MELATONIN 3 MG TABLET PO (03:28)
[2025-02-23] MEDS: NICOTINE 21 MG PATCH 1 PATCH TRANSDERMA ×2 (03:31→11:50)
--- NOTE | 2025-02-23 06:35 | PC.NURSE ---
pt is alert and oriented. VSS. 92% to 96% on CPAP w/ 3L O2 bled in. Nicotine patch fell off and disposed of in med waste bin at 0320, new one placed on right shoulder at 0330. pt has colostomy and manages independently. pt is independent.
[2025-02-23] MEDS: AZITHROMYCIN 250 MG TABLET 500 MG PO (09:03)
[2025-02-23] MEDS: cefTRIAXone 1 GM in 0.9 % SODIUM CHLORIDE Mini-bag 100 ML IVPB (09:04)
[2025-02-23] MEDS: SODIUM CHLORIDE 0.9 % (FLUSH) 10 ML SYRINGE 5 ML IVF ×2 (09:04→21:05)
[2025-02-23] MEDS: IPRAT-ALBUT 0.5-2.5 MG/3 ML NEB 1 NEB IH ×4 (09:04→21:05)
--- NOTE | 2025-02-23 09:20 | RESP.RT ---
Patient sitting up in bed, breathing regular/easy, 18/minute, PEP done promoting clear nonproductive cough, patient self administers. Patient on 3 Lpm Oxygen NC with SaO2 92%, Patient states uses Home Oxygen mainly for Home CPAP and as needed during the day. Patient wore Home CPAP last night with 3 Lpm Oxygen bleed in, same at home. Patient has Home nebulizer and MDI Albuterol inhaler. Extension explanation for use, given to patient. Patient has no Respiratory maintenance Meds at this time. Patient has Hx of COPD, Sleep Apnea, smoking, radiation therapy.
--- NOTE | 2025-02-23 10:14 | PM.IMPN1 ---
Assessment and Plan Assessment and plan (1) Acute hypoxic respiratory failure: Problem comment: - 2/2 pneumonia with secondary contributors of COPD, metastatic rectal cancer, obstructive sleep apnea - supplemental oxygen, steroids, nebs, Azithromycin and Ceftriaxone (02/22), RT following Status: Acute (2) Pneumonia: Problem comment: - Right lung infiltrate in a similar area to her right lung nodule, likely adenocarcinoma Status: Acute (3) Hx of malignant neoplasm of lung: Problem comment: Right lung, s/p radiation x 3 sessions; metastasis from colon cancer. Follows with [facility]. February 17 CT scan shows lesion is increased from 4 mm to 7 mm in the past year despite radiation. Status: Acute (4) Chronic anticoagulation: Problem comment: started xarelto by [facility] emergency room; prescribed vascular med at [facility]. Pending her visit on March 04 I will change her Xarelto 2 5 mg once a day rather than 2.5 mg ordered as b.i.d. but taken as once a day. Status: Acute (5) Carotid artery stenosis: Problem comment: Follow with vascular med- [facility]. Appointment March 04 Status: Acute (6) Abnormal nuclear stress test: Problem comment: 02/21/2024- referred to [facility] emergency room 04/10/2024- consulted with cardiology at [place]; did not do angiogram, medically managed Not currently symptomatic Status: Acute (7) Peripheral edema: Problem comment: [id number] hydrochlorothiazide 12.5 mg daily. Recommend compression stockings Status: Acute (8) COPD (chronic obstructive pulmonary disease): Problem comment: Longstanding smoker with chronic dyspnea. Treat with inhaled bronchodilators and short course of steroids. Status: Acute (9) Obstructive sleep apnea syndrome: Problem comment: CPAP with 3 L of oxygen blown in at night Status: Acute (10) Morbid obesity: Problem comment: 12/31/2023-weight 330 lb; BMI 56.7%; prescribed Wellbutrin 150 mg XL daily plus naltrexone 25-50 mg daily. 02/13/2024-weight 332 lb. BMI greater than 50%. Represcribed mounjaro. 06/24/2024-weight 317 lb 07/14/2024-weight 320 lb; currently on Wellbutrin 150 mg; will increase to 300 mg; discontinue naltrexone(to reduce pill burden) Tried Mounjaro made her very nauseated. Status: Acute (11) Noncompliance with medication regimen: Problem comment: She has been taking medications only once a day in the evening. She does not remember to take her morning medications. As a result of this I have recommended that she takes Xarelto 5 mg in the evening and metformin extended release 2000 mg in the evening rather than prescribed half doses b.i.d. Status: Acute (12) Smoking trying to quit: Problem comment: - on Wellbutrin to help with smoking cessation, nicotine patch added 02/22/25. She reports that she has been smoking since age 11 Status: Acute Plan - per above - Xarelto for ppx, will add PPI given steroid use - likely home 1-2 days pending improvement and stability on RA Subjective Date Seen: 02/23/25 Interval history: Page was admitted to the hospital on 02/22/25 for acute hypoxic respiratory failure in the setting of multifocal PNA. Comorbidities include rectal cancer with metastatic disease to the lung, PAD, tobacco use. She is being treated with supplemental oxygen, prednisone 60 mg daily, nebs, antibiotics (Ceftriaxone and Azithromycin). RT following. Doesn't wear supplemental oxygen at baseline (has it for HS use with her CPAP). Tolerating nicotine patch. Still dyspneic with ambulation/ADLs, stable at rest. Exam Narrative: Exam Narrative: GEN: Alert and oriented, laying comfortably in bed and speaking in full sentences with occasional coughing paroxysms HEENT: EOMIs bilaterally, no scleral icterus CV: RRR, No concerning murmurs R: Scattered rhonchi throughout, + bibasilar expiratory wheezing Ext: No pitting edema Skin: Dry skin BLEs, baseline per patient. 3 discreet erythematous raised nodules on LLE with surrounding confluent erythema, nontender to palpation Neuro: No focal deficits Psych: Appropriate Const: Vital Signs, click to edit/add: Vital Signs - 24 hr 02/22/25 11:45 02/22/25 12:03 02/22/25 12:15 Temperature 98.5 F Pulse Rate 83 85 Pulse Rate [Left P ulse Oximeter] Pulse Rate [Right Pulse Oximeter] 90 Respiratory Rate 28 H Blood Pressure Blood Pressure [Le ft Arm] Blood Pressure [Ri ght Upper Arm] 150/83 H Pulse Oximetry 89 91 92 Oxygen Delivery Me thod Room Air Oxygen Flow Rate 02/22/25 12:30 02/22/25 12:34 02/22/25 12:45 Temperature Pulse Rate 73 76 Pulse Rate [Left P ulse Oximeter] Pulse Rate [Right Pulse Oximeter] Respiratory Rate Blood Pressure Blood Pressure [Le ft Arm] Blood Pressure [Ri ght Upper Arm] Pulse Oximetry 94 94 Oxygen Delivery Me thod Nasal Cannula Oxygen Flow Rate 4 02/22/25 13:00 02/22/25 13:15 02/22/25 13:45 Temperature Pulse Rate 76 77 90 Pulse Rate [Left P ulse Oximeter] Pulse Rate [Right Pulse Oximeter] Respiratory Rate 24 26 H Blood Pressure Blood Pressure [Le ft Arm] Blood Pressure [Ri ght Upper Arm] Pulse Oximetry 93 90 92 Oxygen Delivery Me thod Nasal Cannula Oxygen Flow Rate 4 02/22/25 14:00 02/22/25 14:15 02/22/25 14:31 Temperature Pulse Rate 85 85 88 Pulse Rate [Left P ulse Oximeter] Pulse Rate [Right Pulse Oximeter] Respiratory Rate Blood Pressure Blood Pressure [Le ft Arm] Blood Pressure [Ri ght Upper Arm] Pulse Oximetry 91 91 90 Oxygen Delivery Me thod Oxygen Flow Rate 02/22/25 14:35 02/22/25 14:45 02/22/25 15:00 Temperature Pulse Rate 87 85 88 Pulse Rate [Left P ulse Oximeter] Pulse Rate [Right Pulse Oximeter] Respiratory Rate 15 24 16 Blood Pressure 148/72 H Blood Pressure [Le ft Arm] Blood Pressure [Ri ght Upper Arm] Pulse Oximetry 92 92 93 Oxygen Delivery Me thod Nasal Cannula Oxygen Flow Rate 3 02/22/25 15:01 02/22/25 15:29 02/22/25 15:44 Temperature Pulse Rate 85 Pulse Rate [Left P ulse Oximeter] 89 Pulse Rate [Right Pulse Oximeter] Respiratory Rate 16 22 22 Blood Pressure 160/74 H Blood Pressure [Le ft Arm] 138/60 Blood Pressure [Ri ght Upper Arm] Pulse Oximetry 92 93 90 Oxygen Delivery Me thod Nasal Cannula Nasal Cannula Oxygen Flow Rate 3 3 02/22/25 20:11 02/22/25 23:00 02/22/25 23:00 Temperature Pulse Rate Pulse Rate [Left P ulse Oximeter] 103 H Pulse Rate [Right Pulse Oximeter] Respiratory Rate 19 19 Blood Pressure Blood Pressure [Le ft Arm] 135/60 Blood Pressure [Ri ght Upper Arm] Pulse Oximetry 92 97 Oxygen Delivery Me thod Nasal Cannula CPAP Oxygen Flow Rate 2 3 02/22/25 23:32 02/23/25 03:52 02/23/25 08:01 Temperature 97.9 F Pulse Rate Pulse Rate [Left P ulse Oximeter] 109 H 93 81 Pulse Rate [Right Pulse Oximeter] Respiratory Rate 19 19 20 Blood Pressure Blood Pressure [Le ft Arm] 142/84 H 123/58 L 123/59 L Blood Pressure [Ri ght Upper Arm] Pulse Oximetry 97 95 92 Oxygen Delivery Me thod CPAP CPAP Nasal Cannula Oxygen Flow Rate 3 3 1 02/23/25 08:14 02/23/25 08:14 02/23/25 09:16 Temperature Pulse Rate Pulse Rate [Left P ulse Oximeter] Pulse Rate [Right Pulse Oximeter] Respiratory Rate 20 20 18 Blood Pressure Blood Pressure [Le ft Arm] Blood Pressure [Ri ght Upper Arm] Pulse Oximetry 92 92 Oxygen Delivery Me thod Nasal Cannula Nasal Cannula Oxygen Flow Rate 1 3 Labs Labs: Laboratory Results - last 24 hr 02/22/25 02/22/25 12:02 12:20 WBC 4.90 RBC 4.18 Hgb 12.4 Hct 38.9 MCV 93 MCH 30 MCHC 32 RDW Coeff of Arjun 14.9 Plt Count 160 Neut % (Auto) 71.8 Lymph % (Auto) 13.5 L [place] % (Auto) 11.2 H Eos % (Auto) 2.7 Baso % (Auto) 0.4 Neut # (Auto) 3.52 Lymph # (Auto) 0.70 L [place] # (Auto) 0.50 Eos # (Auto) 0.13 Baso # (Auto) 0.02 Abs Immat Gran (auto) 0.02 Imm/Tot Granulo (auto) 0.4 VBG pH 7.386 VBG pCO2 46 VBG pO2 59.9 H VBG HCO3 28 Sodium 140 Potassium 3.9 Chloride 104 Carbon Dioxide 29 Anion Gap 7 BUN 10 Creatinine 1.0 Estimated Creat Clear 54.24 Estimated GFR 66 Glucose 136 H Calcium 9.2 Magnesium 2.1 Total Bilirubin 1.0 Direct Bilirubin 0.3 AST 36 H ALT 16 Alkaline Phosphatase 75 Troponin I < 0.01 Total Protein 7.4 Albumin 4.0 SARS-CoV-2 (PCR) Negative SARS-CoV-2 Influenza Type A (PCR) Negative PCR FLU A Influenza Type B (PCR) Negative PCR FLU B RSV (PCR) Negative PCR RSV
[2025-02-23] MEDS: guaiFENesin 600 MG TAB.ER.12H PO ×2 (13:59→21:05)
[2025-02-23] MEDS: RIVAROXABAN 10 MG TABLET 5 MG PO (17:43)
[2025-02-23] MEDS: ASPIRIN 81 MG TAB.CHEW PO (17:43)
[2025-02-23] MEDS: ROSUVASTATIN CALCIUM 10 MG TABLET 20 MG PO (17:44)
[2025-02-23] MEDS: AMLODIPINE 5 MG TABLET PO (17:44)
[2025-02-23] MEDS: EZETIMIBE 10 MG TABLET PO (17:45)
[2025-02-23] MEDS: METFORMIN ER 500 MG 2000 MG PO (17:45)
--- NOTE | 2025-02-23 18:29 | PC.NURSE ---
End of shift [id number]: Pt AxOx3, cooperative, and pleasant with cares. Indep in room. Continent of the bladder. Emptying colostomy independently. GAEL Krishnan assessed ostomy during dressing change due to reported concern by patient of surrounding stoma appearance. No leaks present.?Tolerating diet and fluids well. Pt refused sliding scale insulin. CIPAP with 3L 02 bled in during nap. Required 1L NC during the day to remain sats of 90%.?Family at bedside. Call light within reach.??
[2025-02-24 03:00] VITALS: BP 126/78; PULSE 75; RESP 20; TEMP 36.4; O2SAT 93
[2025-02-24 06:36] LABS: HCO3 VBG 31 mmol/L (21-28); PCO2 VBG 52 mmHG (40-50); PO2 VBG 35.6 mmHG (25-47); pH VBG 7.381 (7.32-7.43)
[2025-02-24 06:40] LABS: Hematocrit* 38.4 % (33.0-51.0); Hemoglobin* 12.2 gm/dL (12.0-16.0); Immature Granulocytes Abs Auto 0.03 K/uL (0.00-0.30); Immature Granulocytes Pct Auto 0.4 %; Lymphocytes Absolute Auto 1.20 K/uL (0.90-2.90); Mean Corpuscular HGB Conc 32 gm/dL (32-36); Mean Corpuscular Hemoglobin 30 pg (26-34); Mean Corpuscular Volume 93 fL (80-100); RDW Coefficient of Variation % 14.7 % (11.5-15.5); Red Blood Count* 4.11 m/uL (4.00-5.20); White Blood Count* 7.52 K/uL (4.50-11.00)
[2025-02-24 06:45] LABS: Slide Review Reflex No
--- NOTE | 2025-02-24 06:56 | PC.NURSE ---
End of shift report [id number]: VSS. Afebrile. Denies pain. When awake pt was on 1L O2 via NC, when sleeping pt is on 3L bled into her CPAP. Pt has SOB on exertion. Pt took a shower this shift. Pt has a colostomy which she manages ind. Pt is ind in room. Call light within reach.?
[2025-02-24 06:57] LABS: Albumin* 3.7 g/dL (3.3-5.0); Chloride* 102 mmol/L (96-114); Potassium* 3.7 mmol/L (3.6-5.1); Sodium* 139 mmol/L (135-149)
[2025-02-24 07:00] VITALS: BP 126/78; PULSE 77; RESP 22; TEMP 36.7; O2SAT 92
[2025-02-24 07:00] LABS: Alanine Aminotransferase* 17 U/L (4-35); Alkaline Phosphatase* 77 U/L (40-150); Anion Gap 6 mEq/L (7-15); Aspartate Amino Transferase* 40 U/L (12-35); Bilirubin Total* 0.5 mg/dL (0.1-1.5); Blood Urea Nitrogen* 20 mg/dL (7-30); Calcium* 9.1 mg/dL (8.4-10.6); Carbon Dioxide* 31 mmol/L (20-32); Creatinine* 1.1 mg/dL (0.5-1.5); Est. Creatinine Clearance* 49.31; Estimated Glomerular Filt Rate 59 ml/min; Glucose* 111 mg/dL (60-115); Total Protein* 7.1 g/dL (6.0-8.3)
[2025-02-24] MEDS: IPRAT-ALBUT 0.5-2.5 MG/3 ML NEB 1 NEB IH ×2 (09:20→14:08)
[2025-02-24] MEDS: guaiFENesin 600 MG TAB.ER.12H PO (09:24)
[2025-02-24] MEDS: OMEPRAZOLE 20 MG CAPSULE DR PO (09:24)
[2025-02-24] MEDS: AZITHROMYCIN 250 MG TABLET 500 MG PO (09:24)
[2025-02-24] MEDS: ONDANSETRON 2 MG/ML inj 4 MG IVP (09:24)
[2025-02-24] MEDS: SODIUM CHLORIDE 0.9 % (FLUSH) 10 ML SYRINGE 5 ML IVF (09:25)
[2025-02-24] MEDS: cefTRIAXone 1 GM in 0.9 % SODIUM CHLORIDE Mini-bag 100 ML IVPB (09:25)
--- NOTE | 2025-02-24 10:44 | NUTR.NU ---
ARSLANN with diet education related to diet order. Patient admitted for acute hypoxic respiratory failure in the setting of multifocal pneumonia. Medical history includes rectal cancer with metastatic disease to the lung, prediabetes, PAD, tobacco use. Colostomy in place since August 2022. Current weight 331lb 4oz; height 5ft 4in; BMI 56.9 kg/m2. Weight has been stable recently. Current diet is diabetic. Meal intakes since admit have been adequate, mainly 100%. RDN visited with patient whom reports good appetite. Offered diet education related to diabetic diet, however she declined at this time. Reports she is careful what she eats related to her colostomy. Informed patient to let staff know if she has and concerns or questions. Will continue to monitor.
--- NOTE | 2025-02-24 11:19 | P.DS_ITS ---
DS: Providers Provider Date Seen: 02/24/25 Date of admission: 02/22/25 16:05 Primary care physician: Trudi Jimenez PA-C Admitting Clinician: Steven Mg MD Consults: 02/22/25 16:05 Consult to Respiratory Therapy [CONS] Routine Comment: Reason(s) for RT Consult:: Consult Attending Physician on discharge: Lauryn Moore MD Date of Discharge: 02/24/25 DS: Diagnosis Discharge Diagnosis (1) Acute hypoxic respiratory failure: Status: Acute Problem details: - 2/2 pneumonia with secondary contributors of COPD, metastatic rectal cancer, RITESH - supplemental oxygen, steroids, nebs, Azithromycin and Ceftriaxone (02/22), RT followed during stay - able to taper of off supplemental oxygen to room air on 02/24 and appropriate for d/c home (2) Pneumonia: Status: Acute Problem details: - Right lung infiltrate in a similar area to her right lung nodule, likely adenocarcinoma (3) Hx of malignant neoplasm of lung: Status: Acute Problem details: - Right lung, s/p radiation x 3 sessions; metastasis from colon cancer, Oncology team from [facility] - February 17 CT scan shows lesion is increased from 4 mm to 7 mm in the past year despite radiation (4) Skin lesion of left leg: Status: Acute Problem details: - raised erythematous lesions, possibly EN but nontender - continue f/u with PCP (5) Chronic anticoagulation: Status: Acute Problem details: - started Xarelto by [facility]; prescribed vascular med at [facility] - on admission 02/22, her Xarelto was transitioned to 5mg once a day rather than 2.5mg BID (6) Carotid artery stenosis: Status: Acute Problem details: - Follows with vascular med- [facility], has appointment March 04 (7) Abnormal nuclear stress test: Status: Acute Problem details: 02/21/2024- referred to [facility] 04/10/2024- consulted with cardiology at [place]; did not do angiogram, medically managed Not currently symptomatic (8) Peripheral edema: Status: Acute Problem details: - 12/25:-re-initiated hydrochlorothiazide 12.5 mg daily. Recommend compression stockings (9) COPD (chronic obstructive pulmonary disease): Status: Acute Problem details: Longstanding smoker with chronic dyspnea. Treat with inhaled bronchodilators and short course of steroids. (10) Obstructive sleep apnea syndrome: Status: Acute Problem details: CPAP with 3 L of oxygen blown in at night (11) Morbid obesity: Status: Acute Problem details: 12/31/2023-weight 330 lb; BMI 56.7%; prescribed Wellbutrin 150 mg XL daily plus naltrexone 25-50 mg daily. 02/13/2024-weight 332 lb. BMI greater than 50%. Represcribed mounjaro. 06/24/2024-weight 317 lb 07/14/2024-weight 320 lb; currently on Wellbutrin 150 mg; will increase to 300 mg; discontinue naltrexone(to reduce pill burden) Tried Mounjaro made her very nauseated. (12) Noncompliance with medication regimen: Status: Acute Problem details: She has been taking medications only once a day in the evening. She does not remember to take her morning medications. As a result of this I have recommended that she takes Xarelto 5 mg in the evening and metformin extended release 2000 mg in the evening rather than prescribed half doses b.i.d. (13) Smoking trying to quit: Status: Acute Problem details: - on Wellbutrin to help with smoking cessation, nicotine patch added 02/22/25. She reports that she has been smoking since age 11 DS: Summary Hospital Course Hospital Course: Page was admitted to the hospital on 02/22/2025 for acute hypoxic respiratory failure in the setting of known rectal cancer, metastatic to lung; RITESH; new community-acquired pneumonia. She was treated with steroids, nebulizer treatments, supplemental oxygen, and antibiotics (IV Rocephin and oral Azithromycin). Followed by respiratory therapy during stay. Comorbidities with details, above. Notably had new left lower extremity skin lesions concerning for erythema nodosum, PCP to follow up and monitor. Improved and tapered on to room air on 02/24/2025, requesting discharge home. Page will be sent home on prednisone taper, completed course of azithromycin, and p.r.n. neb treatments. She will keep her follow-up appointments with Oncology, and see her PCP within the week. Time spent discussing smoking cessation with patient: 3 to 10 minutes Status at Discharge Overall status at discharge: patient is progressing back to baseline Time Spent with Patient Time attestation: Total time spent providing and/or coordinating discharge services: Time spent: Greater than 30 minutes Specific discharge activities: Medication reconciliation, patient Education, collaboration with multidisciplinary team, including RT Exam Narrative: Exam Narrative: GEN: Alert and oriented, sitting up comfortably in bed. Speaking in full sentences HEENT: EOMIs bilaterally, no scleral icterus CV: RRR, No concerning murmurs R: Bibasilar rhonchi, air movement improved Ext: No pitting edema Skin: Dry and thickened skin of BLEs. Noted to have 3 raised erythematous nodules on LLE with surrounding confluent erythema, nontender to palpation Neuro: No focal deficits Psych: Appropriate Const: Vital Signs, click to edit/add: Vital Signs - 24 hr 02/23/25 11:50 02/23/25 14:05 02/23/25 14:07 Temperature 97.7 F 98.1 F Pulse Rate [Left P ulse Oximeter] 83 85 Respiratory Rate 18 20 20 Blood Pressure [Le ft Arm] 130/60 131/61 Pulse Oximetry 90 91 91 Oxygen Delivery Me thod Nasal Cannula Nasal Cannula Nasal Cannula Oxygen Flow Rate 1 1 1 02/23/25 17:38 02/23/25 19:00 02/23/25 23:00 Temperature 98.5 F 98.1 F Pulse Rate [Left P ulse Oximeter] 91 97 83 Respiratory Rate 24 18 Blood Pressure [Le ft Arm] 155/64 H 169/70 H 144/84 H Pulse Oximetry 90 93 Oxygen Delivery Me thod Nasal Cannula CPAP Oxygen Flow Rate 1 3 02/23/25 23:00 02/23/25 23:00 02/24/25 03:00 Temperature 97.6 F Pulse Rate [Left P ulse Oximeter] 83 75 Respiratory Rate 18 18 20 Blood Pressure [Le ft Arm] 126/78 Pulse Oximetry 93 93 Oxygen Delivery Me thod CPAP CPAP Oxygen Flow Rate 3 3 DS: Data Data Completed and Pending Labs on day of discharge: Labs from last 24 hours 02/24/25 06:15 WBC 7.52 RBC 4.11 Hgb 12.2 Hct 38.4 MCV 93 MCH 30 MCHC 32 RDW Coeff of Arjun 14.7 Plt Count 183 Neut % (Auto) 75.1 H Lymph % (Auto) 16.0 L [place] % (Auto) 7.8 Eos % (Auto) 0.4 Baso % (Auto) 0.3 Neut # (Auto) 5.60 Lymph # (Auto) 1.20 [place] # (Auto) 0.60 Eos # (Auto) 0.03 Baso # (Auto) 0.02 Abs Immat Gran (auto) 0.03 Imm/Tot Granulo (auto) 0.4 VBG pH 7.381 VBG pCO2 52 H VBG pO2 35.6 VBG HCO3 31 H Sodium 139 Potassium 3.7 Chloride 102 Carbon Dioxide 31 Anion Gap 6 L BUN 20 Creatinine 1.1 Estimated Creat Clear 49.31 Estimated GFR 59 Glucose 111 Calcium 9.1 Total Bilirubin 0.5 AST 40 H ALT 17 Alkaline Phosphatase 77 Total Protein 7.1 Albumin 3.7 Preliminary micro results at discharge 02/22/25 14:50 Blood Culture - Preliminary Blood NO GROWTH AFTER 24 HOURS 02/22/25 14:50 Blood Culture - Preliminary Blood NO GROWTH AFTER 24 HOURS Discharge Plan Discharge Disposition: Home, Self-Care Date of Admission: 02/22/25 16:05 Attending Provider on Discharge: Lauryn Moore Primary Care Provider: Trudi Jimenez Condition: Improved Anticipated Discharge Date/Time: 02/24/25 10:15 Discharge Medications: New azithromycin 250 mg Tablet 250 mg PO Q24H 3 Days Qty: 3 0RF Taper: Z-SADE 250 mg Q24H for 3 Days ipratropium-albuterol 0.5 mg-3 mg(2.5 mg base)/3 mL Solution For Nebulization 3 ml inhalation QID Qty: 90 0RF nicotine 21 mg/24 hr Patch 24 Hour 1 patch transdermal Q24H Qty: 28 0RF guaifenesin [Mucinex] 600 mg Tablet Extended Release 12hr 600 mg PO BID Qty: 60 0RF prednisone 10 mg tablet 10 mg PO DIRECTED Qty: 41 0RF Rx Instructions: 5 tabs po x2d, then 4 tabs po Qday x4d, then 2 tabs po x4, then 1 tab po x7d, then stop Continued mupirocin 2 % ointment 1 applic topical TID PRN senna 8.6 mg capsule 8.6 mg PO DAILY PRN (Reason: constipation) Qty: 90 3RF albuterol sulfate 90 mcg/actuation HFA aerosol inhaler 2 puff inhalation Q4-6H PRN (Reason: shortness of breath or wheezing) Qty: 8.5 3RF ezetimibe 10 mg tablet 10 mg PO DAILY Xarelto 2.5 mg tablet 2.5 mg PO BID amlodipine 5 mg tablet 5 mg PO DAILY Rx Instructions: once daily for blood pressure and blood flow ( Hold olmesartan) aspirin [Aspirin Childrens] 81 mg tablet,chewable 81 mg PO DAILY Rx Instructions: once daily rosuvastatin 20 mg tablet 20 mg PO DAILY Rx Instructions: once daily for cholesterol cholecalciferol (vitamin D3) 250 mcg (10,000 unit) capsule 250 mcg PO DAILY Rx Instructions: 1 capsule daily for Vit D deficiency hydrochlorothiazide 12.5 mg tablet 12.5 mg PO QAM Qty: 90 2RF Rx Instructions: once daily for blood pressure and leg swelling bupropion HCl 300 mg tablet extended release 24 hr 300 mg PO QAM Qty: 90 1RF metformin 500 mg tablet 1,000 mg PO BIDWMEAL Qty: 360 0RF Rx Instructions: two tablets Twice daily with meals for weight management and pre diabetes cyanocobalamin (vitamin B-12) 2,500 mcg tablet 2,500 mcg PO QDAY Qty: 90 0RF Discharge Orders: Discharge Order (Routine); Ordered 02/24/25 Ordered By: Lauryn Moore Additional Instructions: NEW Meds at [facility]: 1. Prednisone taper (take as directed) 2. Duoneb treatments for neb machine (use every 6H around the clock for the next few days, then as needed) 3. 3 more days of antibiotics (once/day with food) 4. Nicotine patch (would be a great treatment to help quitting smoking for when you're ready) 5. Mucinex to use as needed to cough things up For your CURRENT meds: 1. Consider taking all of your Metformin (2000mg) at night so you're not missing any doses 2. Consider taking your Rivaroxaban/Xarelto (5mg) at night so you're not missing any doses You don't need any oxygen while awake as of discharge, but keep an eye on your oxygen saturations at home (goal is >88% at rest). Activity Level: Activity as Tolerated and No strenuous activity Discharge Diet: Regular Follow Up Appointments: Trudi Jimenez PA-C [Primary Care Provider, Family Practice] - 03/04/25 9:30 am Referral Note: [facility] follow-up Forms: Patient Belongings, [facility] Info Instructions
--- NOTE | 2025-02-24 16:44 | PC.NURSE ---
Discharge - Pt alert, oriented, cooperative. Up independent in room and tolerating regular diet/fluids. Pt started shift with O2 bled into home CPAP, then continued on 1L O2 via nasal cannula. Pt was able to successfully transition to RA before discharge. Pt denied pain, n/v, and SOB at rest. Reported feeling better that she did upon admission and stated she was eager to go home. IV removed with catheter intact. D/C education provided r/t medication and follow up. Pt verbalized understanding. Pt d/c to home with spouse via wheelchair at approximately 1500.
--- NOTE | 2025-02-24 16:47 | PC.NURSE ---
Addendum - pt contacted Med/Surg unit r/t preferred pharmacy not having nebulizer medication available. storage consultant notified, pharmacy contacted and prescription information updated.
== END 2025-02-24 15:00 | disposition home or self-care (01) | DRG 189 ==
LOC: ED 14:25 → MEDSURG 15:04
PROVIDERS: Family Medicine; Admitting Provider Internal Medicine; Emergency Provider Family Medicine; PCP Physician Assistant Medical; Visit Provider Family Medicine
DX: J96.01 Acute respiratory failure with hypoxia (principal); J18.9 Pneumonia, unspecified organism; J44.0 Chronic obstructive pulmonary disease with (acute) lower respiratory infection; Z68.43 Body mass index [BMI] 50.0-59.9, adult; J44.1 Chronic obstructive pulmonary disease with (acute) exacerbation; C78.01 Secondary malignant neoplasm of right lung; G47.33 Obstructive sleep apnea (adult) (pediatric); L98.8 Other specified disorders of the skin and subcutaneous tissue; Z99.89 Dependence on other enabling machines and devices; Z91.148 Patient's other noncompliance with medication regimen for other reason; R94.39 Abnormal result of other cardiovascular function study; E66.01 Morbid (severe) obesity due to excess calories; I89.0 Lymphedema, not elsewhere classified; F17.210 Nicotine dependence, cigarettes, uncomplicated; I10 Essential (primary) hypertension; Z79.01 Long term (current) use of anticoagulants; I65.29 Occlusion and stenosis of unspecified carotid artery; Z85.048 Personal history of other malignant neoplasm of rectum, rectosigmoid junction, and anus
CPT/HCPCS: 36415; 71046; 71275; 80048; 80053; 80076; 82803; 82962; 83735; 84484; 85025; 87040; 87631; 93005; 94640; 94664; 94761; 99285; A9270; J0696; J2405; J2919; J7512; Q9967; S4990

== ENCOUNTER 2025-04-09 13:36 | Outpatient (CLI) | payer OTHER, SELFPAY ==
--- NOTE | 2025-04-09 14:00 | CRLHL7_ITS ---
For Patients: As a result of the Century Cures Act, medical imaging exams and procedure reports are released immediately into your electronic medical record. You may view this report before your referring provider. If you have questions, please contact your health care provider. INDICATION: : Rectal adenocarcinoma. Patient had neoadjuvant chemotherapy and radiation therapy. Patient had a diverting colostomy. Patient had a lower anterior resection. Patient had a right middle lobe metastasis. Patient had focused radiation to the right middle lobe metastasis. Patient has biopsy-proven left breast fat necrosis. Patient has a right lung nodule and possible bronchitis/radiation pneumonitis. TECHNIQUE: Radiopharmaceutical: 18F-fluorodeoxyglucose (18F-FDG) Dose: 14.3 milliCurie. Blood glucose: 101 mg/dL. Image acquisition: At approximately 60 minutes following IV tracer administration via an access port, positron emission tomography was performed from the skull base through the mid thigh. Non-contrast low-dose helical CT imaging was performed over the same range without breath-hold for attenuation correction of PET images and anatomic correlation; it is neither sufficient, nor should it be substituted for diagnostic purposes. COMPARISON: 02/22/[address], 02/17/2025 CT chest abdomen pelvis, PET-CT 10/21/2024 and 01/17/2024 FINDINGS: FINDINGS: Mediastinal blood pool FDG uptake: SUVMax 2.4 Liver background parenchymal FDG uptake: SUVMax 3.1 HEAD AND NECK: No abnormal FDG uptake. CHEST: Ports and devices: None. Lungs: Distortion and scarring in the right middle lobe consistent with post radiation treatment fibrosis. Decreased metabolic activity, now 2.1, previously 3.0. There are not any discrete hypermetabolic nodules within the radiation field. There is a 0.7 centimeter nodule in the right upper lobe that is hypermetabolic with a max SUV of 2.7. Previously measured about 5 millimeters and was not hypermetabolic. There are not any new hypermetabolic lung nodules. Background of mosaic attenuation and expiratory appearance of both lungs. Pleura: No abnormal FDG uptake.. Lymph Nodes: There is some nonspecific increased metabolic activity in a normal-sized left axillary lymph node with a max SUV of 2.2. Previously 1.0. Mediastinum:No abnormal FDG uptake. Chest Wall:Left retroareolar biopsy clip with a resolved hypermetabolic nodule/mass. ABDOMEN/PELVIS: Liver/biliary system: There is a 1.2 centimeter area with focally increased hypermetabolic activity in the liver at a proximally segment IV. Max SUV is 6.0. This is new compared to prior. Liver activity is heterogeneous but there are no other worrisome discrete nodule seen. Pancreas: No abnormal FDG uptake. Spleen: No abnormal FDG uptake. Adrenal Glands:No abnormal FDG uptake. Kidneys:No abnormal FDG uptake. Bowel:Focal uptake in the distal esophagus without a clear CT correlate. Scattered bowel uptake without a clear CT correlate. There is a left lower quadrant colostomy. Postop low anterior resection. Significant focal increased metabolic activity at the perineum/resection site with a max SUV of 14.1, previously 12.5. Similar size and morphology. Mesentery, Omentum and Peritoneum: No abnormal FDG uptake. Pelvic Organs: No abnormal FDG uptake. Lymph Nodes: No abnormal FDG uptake. MUSCULOSKELETAL: Asymmetric uptake in the muscles of the left rotator cuff is similar the prior exam. Gluteal muscular uptake is less intense than previous. There is some focal activity in the superficial soft tissues of the left inguinal fold. Max SUV is 8.3. There does appear to be some skin thickening. IMPRESSION: 1. Increased size (since 10/21/2024) and increased metabolic activity of the 7 mm right upper lobe lung nodule is highly suspicious for metastasis. The previously seen bronchitis/airways disease appears to have largely resolved. 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 2. There is a new 1.3 centimeter hypermetabolic liver lesion that is highly suspicious for a new metastasis. 3. Similar masslike area with increased metabolic activity in the perineum/resection site. Other scattered nonspecific bowel uptake without a clear CT correlate. 4. Likely focal cellulitis at the left inguinal fold. Recommend direct inspection. Dictated by Selene Sorto MD @ 04/14/2025 8:52:10 AM (Electronically Signed)
== END 2025-04-09 13:37 | disposition home or self-care (01) ==
LOC: RAD 13:36
PROVIDERS: PCP Physician Assistant Medical; Visit Provider Internal Medicine Hematology & Oncology
DX: C20 Malignant neoplasm of rectum (principal); R91.8 Other nonspecific abnormal finding of lung field; K76.9 Liver disease, unspecified
CPT/HCPCS: 78815; A9552

== ENCOUNTER 2025-04-27 14:16 | Outpatient (RCR) | payer OTHER, SELFPAY ==
[2024-11-05 15:02] LABS: Hematocrit* 38.3 % (33.0-51.0); Hemoglobin* 12.3 gm/dL (12.0-16.0); Immature Granulocytes Abs Auto 0.01 K/uL (0.00-0.30); Immature Granulocytes Pct Auto 0.2 %; Mean Corpuscular HGB Conc 32 gm/dL (32-36); Mean Corpuscular Hemoglobin 30 pg (26-34); Mean Corpuscular Volume 93 fL (80-100); RDW Coefficient of Variation % 14.2 % (11.5-15.5); Red Blood Count* 4.14 m/uL (4.00-5.20); White Blood Count* 5.61 K/uL (4.50-11.00)
[2024-11-05 15:04] LABS: Lymphocytes Absolute Auto 0.90 K/uL (0.90-2.90); Slide Review Reflex No
[2024-11-05 15:16] LABS: Albumin* 4.3 g/dL (3.3-5.0); Chloride* 101 mmol/L (96-114); Potassium* 3.6 mmol/L (3.6-5.1); Sodium* 139 mmol/L (135-149)
[2024-11-05 15:18] LABS: Blood Urea Nitrogen* 11 mg/dL (7-30); Creatinine* 1.1 mg/dL (0.5-1.5); Est. Creatinine Clearance* 47.24; Estimated Glomerular Filt Rate 59 ml/min
[2024-11-05 15:19] LABS: Alanine Aminotransferase* 15 U/L (4-35); Alkaline Phosphatase* 69 U/L (40-150); Anion Gap 7 mEq/L (7-15); Aspartate Amino Transferase* 26 U/L (12-35); Bilirubin Total* 1.1 mg/dL (0.1-1.5); Calcium* 9.3 mg/dL (8.4-10.6); Carbon Dioxide* 31 mmol/L (20-32); Glucose* 109 mg/dL (60-115); Total Protein* 7.6 g/dL (6.0-8.3)
[2024-11-07 20:56] LABS: Carcinoembryonic Antigen 5.8 ng/mL (<=3.8)
[2025-02-17 14:13] LABS: Hematocrit* 37.2 % (33.0-51.0); Hemoglobin* 11.8 gm/dL (12.0-16.0); Immature Granulocytes Abs Auto 0.02 K/uL (0.00-0.30); Immature Granulocytes Pct Auto 0.4 %; Mean Corpuscular HGB Conc 32 gm/dL (32-36); Mean Corpuscular Hemoglobin 30 pg (26-34); Mean Corpuscular Volume 94 fL (80-100); RDW Coefficient of Variation % 14.9 % (11.5-15.5); Red Blood Count* 3.97 m/uL (4.00-5.20); White Blood Count* 4.90 K/uL (4.50-11.00)
[2025-02-17 14:21] LABS: Albumin* 3.9 g/dL (3.3-5.0); Chloride* 103 mmol/L (96-114); Sodium* 138 mmol/L (135-149)
[2025-02-17 14:22] LABS: Potassium* 3.7 mmol/L (3.6-5.1)
[2025-02-17 14:24] LABS: Alanine Aminotransferase* 15 U/L (4-35); Alkaline Phosphatase* 66 U/L (40-150); Anion Gap 7 mEq/L (7-15); Aspartate Amino Transferase* 26 U/L (12-35); Bilirubin Total* 0.8 mg/dL (0.1-1.5); Blood Urea Nitrogen* 11 mg/dL (7-30); Carbon Dioxide* 28 mmol/L (20-32); Creatinine* 1.0 mg/dL (0.5-1.5); Est. Creatinine Clearance* 51.96; Estimated Glomerular Filt Rate 66 ml/min; Total Protein* 7.1 g/dL (6.0-8.3)
[2025-02-17 14:25] LABS: Calcium* 9.0 mg/dL (8.4-10.6); Glucose* 121 mg/dL (60-115)
[2025-02-17 14:29] LABS: Lymphocytes Absolute Auto 0.80 K/uL (0.90-2.90); Slide Review Reflex No
[2025-02-19 01:24] LABS: Carcinoembryonic Antigen 6.1 ng/mL (<=3.8)
[2025-04-09 13:57] LABS: Hematocrit* 38.0 % (33.0-51.0); Hemoglobin* 12.0 gm/dL (12.0-16.0); Immature Granulocytes Abs Auto 0.01 K/uL (0.00-0.30); Immature Granulocytes Pct Auto 0.2 %; Mean Corpuscular HGB Conc 32 gm/dL (32-36); Mean Corpuscular Hemoglobin 30 pg (26-34); Mean Corpuscular Volume 95 fL (80-100); RDW Coefficient of Variation % 15.2 % (11.5-15.5); Red Blood Count* 4.02 m/uL (4.00-5.20); White Blood Count* 5.47 K/uL (4.50-11.00)
[2025-04-09 14:02] LABS: Lymphocytes Absolute Auto 0.90 K/uL (0.90-2.90); Slide Review Reflex No
[2025-04-09 14:08] LABS: Albumin* 4.0 g/dL (3.3-5.0); Chloride* 100 mmol/L (96-114); Potassium* 4.1 mmol/L (3.6-5.1); Sodium* 137 mmol/L (135-149)
[2025-04-09 14:11] LABS: Alanine Aminotransferase* 16 U/L (4-35); Alkaline Phosphatase* 71 U/L (40-150); Anion Gap 7 mEq/L (7-15); Aspartate Amino Transferase* 23 U/L (12-35); Bilirubin Total* 1.0 mg/dL (0.1-1.5); Blood Urea Nitrogen* 11 mg/dL (7-30); Carbon Dioxide* 30 mmol/L (20-32); Creatinine* 1.1 mg/dL (0.5-1.5); Est. Creatinine Clearance* 47.24; Estimated Glomerular Filt Rate 59 ml/min; Total Protein* 7.2 g/dL (6.0-8.3)
[2025-04-09 14:12] LABS: Calcium* 8.8 mg/dL (8.4-10.6); Glucose* 126 mg/dL (60-115)
[2025-04-11 01:58] LABS: Carcinoembryonic Antigen 5.7 ng/mL (<=3.8)
== END 2025-05-04 23:59 | disposition home or self-care (01) ==
LOC: CCIC 14:16
PROVIDERS: PCP Physician Assistant Medical; Referring Provider Physician Assistant Medical; Visit Provider Internal Medicine Hematology & Oncology
DX: C20 Malignant neoplasm of rectum (principal); R91.1 Solitary pulmonary nodule; E66.01 Morbid (severe) obesity due to excess calories; R21 Rash and other nonspecific skin eruption; Z93.3 Colostomy status; Z85.118 Personal history of other malignant neoplasm of bronchus and lung
CPT/HCPCS: 36415; 80053; 82378; 85025; 99001; 99214; 99215; 99233; G0463